=== PATIENT | female | born 1980 | race Caucasian/White ===

== ENCOUNTER 2017-06-14 19:47 | Emergency (ER) | payer OTHER ==
--- NOTE | 2017-06-14 20:26 | ED ---
General Adult HPI - General Chief complaint: Chest Pain Stated complaint: chest pain/dizziness Time Seen by Provider: 06/14/17 20:23 Source: patient Mode of arrival: ambulatory Limitations: no limitations - History of Present Illness Initial comments: Patient is a 37 rolled female who presents to the emergency department for evaluation of 1 month of chest pain. Patient states that intermittently over the past one night she has experienced retrosternal discomfort. Patient states that the pain is in the middle of her chest. She cannot identify any exacerbating or relieving factors to the pain. She describes the pain as sharp. She does not feel the pain is related to exertion, rest or eating. She reports that the pain occurs intermittently without positive or relieving factors. She reports a prior to this month she is not experience pain like this before. Patient is currently every day smoker. She has no personal history of DVT or PE. No history of recent surgery, or immobilization. She denies any fevers, chills, nausea, vomiting. She does endorse a history of frequent abdominal cramping which she attributes to gas as well as frequent belching. Patient states that her friends have advised her that she needs to take Tums or something for her chronic belching and that this is probably concerning to her pain however after 1 month of persistent pain she decided to come to the hospital to be evaluated. Patient has not taken any medications or tried anything for relief of this pain. She denies any known family history of cardiac disease, DVT or PE. - Related Data Previous Rx's Medication Instructions Recorded Omeprazole Magnesium [Prilosec OTC] 20 mg PO DAILY #30 tablet. 06/14/17 Omeprazole [PriLOSEC] 20 mg PO DAILY #30 cap 06/14/17 Allergies Allergy/AdvReac Type Severity Reaction Status Date / Time sulfamethoxazole Allergy Itching Verified 06/14/17 20:42 [From Bactrim] trimethoprim [From Bactrim] Allergy Itching Verified 06/14/17 20:42 Review of Systems ROS Statement: Those systems with pertinent positive or pertinent negative responses have been documented in the HPI. ROS Other: All systems not noted in ROS Statement are negative. Constitutional: Denies: fever, chills ENT: Denies: throat pain Respiratory: Denies: cough, dyspnea Cardiovascular: Reports: chest pain. Denies: palpitations, dyspnea on exertion , orthopnea, edema, syncope Endocrine: Denies: fatigue Gastrointestinal: Reports: nausea, other (Gas pains and frequent belching). Denies: abdominal pain, vomiting Genitourinary: Reports: abnormal menses (Last menses was at the end of April, there is possibility the patient is ). Denies: urgency, dysuria Musculoskeletal: Denies: back pain Skin: Denies: rash, lesions Neurological: Denies: headache, weakness Hematological/Lymphatic: Denies: easy bleeding, easy bruising Past Medical History Past Medical History: Musculoskeletal Disorder Additional Past Medical History / Comment(s): scoliosis, DDD History of Any Multi-Drug Resistant Organisms: None Reported Past Surgical History: Appendectomy, Back Surgery Additional Past Surgical History / Comment(s): D & C Past Anesthesia/Blood Transfusion Reactions: No Reported Reaction Past Psychological History: Anxiety, Bipolar, Depression, Panic Disorder Smoking Status: Current every day smoker Past Alcohol Use History: None Reported Past Drug Use History: None Reported - Past Family History Mother History Unknown: Yes General Exam Limitations: no limitations General appearance: alert, in no apparent distress Head exam: Present: atraumatic, normocephalic, normal inspection Eye exam: Present: normal appearance, PERRL, EOMI. Absent: scleral icterus, conjunctival injection, periorbital swelling ENT exam: Present: normal exam, mucous membranes moist Neck exam: Present: normal inspection. Absent: tenderness, meningismus, lymphadenopathy Respiratory exam: Present: normal lung sounds bilaterally. Absent: respiratory distress, wheezes, rales, rhonchi, stridor Cardiovascular Exam: Present: regular rate, normal rhythm, normal heart sounds. Absent: systolic murmur, diastolic murmur, rubs, gallop, clicks GI/Abdominal exam: Present: soft, normal bowel sounds. Absent: distended, tenderness, guarding, rebound, rigid Rectal exam: Present: deferred Extremities exam: Present: normal inspection, full ROM, normal capillary refill. Absent: tenderness, pedal edema, joint swelling, calf tenderness Back exam: Present: normal inspection Neurological exam: Present: alert, oriented X3, CN II-XII intact Psychiatric exam: Present: normal affect, normal mood Skin exam: Present: warm, dry, intact, normal color. Absent: rash Course Vital Signs 06/14/17 06/14/17 06/14/17 19:53 20:17 21:20 Temperature 99.0 F Pulse Rate 81 73 80 Respiratory 18 19 18 Rate Blood Pressure 108/72 106/62 O2 Sat by Pulse 100 98 97 Oximetry 06/14/17 22:47 Temperature 97.8 F Pulse Rate 74 Respiratory 18 Rate Blood Pressure 114/67 O2 Sat by Pulse 97 Oximetry EKG Findings - EKG Comments: EKG Findings:: EKG at 2004, EKG evaluated at 2008, EKG rate is 70 him a rhythm is normal sinus, normal axis, normal intervals, SD 146, QRS 88, QTC 436 there is no acute ST elevations or depressions. No evidence of acute ischemia or infarction. Medical Decision Making - Medical Decision Making Patient was seen and evaluated Vital signs were reviewed History was obtained from the patient Patient with a one-month history of retrosternal chest pain, frequent burping and is patient reports being very gassy. History is suggestive of GI cause of discomfort, however I will pursue a workup to evaluate for acute coronary syndrome and possible pulmonary embolism Heart score 0 PERC negative WELLS 0 Labs were reviewed, troponin negative, d-dimer negative EKG with no acute findings Results were discussed with the patient, I advised her that her workup is suggestive of no cardiac or pulmonary cause of her discomfort. I suggested that she started on a PPI and keep a close record of her discomfort and see if she can identify any costovertebral exacerbating factors so that she can discuss this with her primary care when she establishes follow-up. Advised the patient to return to the emergency department for any acute worsening of the chest pain, development of shortness of breath or any other signs or symptoms she finds concerning. Patient expressed relief that the workup was negative. All questions pertaining to care were answered to the best of my ability the patient was discharged home - Lab Data Result diagrams: 06/14/17 20:50 06/14/17 20:50 Lab Results 06/14/17 06/14/17 06/14/17 Range/Units 20:50 20:50 20:50 WBC 9.2 (3.8-10.6) k/uL RBC 4.75 (3.80-5.40) m/uL Hgb 14.8 (11.4-16.0) gm/dL Hct 43.2 (34.0-46.0) % MCV 91.0 (80.0-100.0) fL MCH 31.2 (25.0-35.0) pg MCHC 34.3 (31.0-37.0) g/dL RDW 14.1 (11.5-15.5) % Plt Count 291 (150-450) k/uL Neutrophils % 51 % Lymphocytes % 40 % Monocytes % 5 % Eosinophils % 2 % Basophils % 1 % Neutrophils # 4.7 (1.3-7.7) k/uL Lymphocytes # 3.7 (1.0-4.8) k/uL Monocytes # 0.4 (0-1.0) k/uL Eosinophils # 0.2 (0-0.7) k/uL Basophils # 0.1 (0-0.2) k/uL PT 9.7 (9.0-12.0) sec INR 0.9 (<1.2) APTT 25.0 (22.0-30.0) sec D-Dimer 0.49 (<0.60) mg/L FEU Sodium 137 (137-145) mmol/L Potassium 4.3 (3.5-5.1) mmol/L Chloride 104 (98-107) mmol/L Carbon Dioxide 25 (22-30) mmol/L Anion Gap 8 mmol/L BUN 14 (7-17) mg/dL Creatinine 0.60 (0.52-1.04) mg/dL Est GFR (MDRD) Af Amer >60 (>60 ml/min/1.73 sqM) Est GFR (MDRD) Non-Af >60 (>60 ml/min/1.73 sqM) Glucose 87 (74-99) mg/dL Calcium 9.2 (8.4-10.2) mg/dL Magnesium 1.8 (1.6-2.3) mg/dL Total Bilirubin 0.2 (0.2-1.3) mg/dL AST 20 (14-36) U/L ALT 26 (9-52) U/L Alkaline Phosphatase 57 (38-126) U/L Troponin I (0.000-0.034) ng/mL Total Protein 6.2 L (6.3-8.2) g/dL Albumin 3.6 (3.5-5.0) g/dL Urine Color Urine Appearance (Clear) Urine pH (5.0-8.0) Ur Specific [place] (1.001-1.035) Urine Protein (Negative) Urine Glucose (UA) (Negative) Urine Ketones (Negative) Urine Blood (Negative) Urine Nitrite (Negative) Urine Bilirubin (Negative) Urine Urobilinogen (<2.0) mg/dL Ur Leukocyte Esterase (Negative) Urine RBC (0-5) /hpf Urine WBC (0-5) /hpf Ur Squamous Epith Cells (0-4) /hpf Calcium Oxalate Crystal (None) /hpf Amorphous Sediment (None) /hpf Urine Bacteria (None) /hpf Urine Mucus (None) /hpf Urine HCG, Qual (Not Detectd) 06/14/17 06/14/17 06/14/17 Range/Units 20:50 21:26 21:26 WBC (3.8-10.6) k/uL RBC (3.80-5.40) m/uL Hgb (11.4-16.0) gm/dL Hct (34.0-46.0) % MCV (80.0-100.0) fL MCH (25.0-35.0) pg MCHC (31.0-37.0) g/dL RDW (11.5-15.5) % Plt Count (150-450) k/uL Neutrophils % % Lymphocytes % % Monocytes % % Eosinophils % % Basophils % % Neutrophils # (1.3-7.7) k/uL Lymphocytes # (1.0-4.8) k/uL Monocytes # (0-1.0) k/uL Eosinophils # (0-0.7) k/uL Basophils # (0-0.2) k/uL PT (9.0-12.0) sec INR (<1.2) APTT (22.0-30.0) sec D-Dimer (<0.60) mg/L FEU Sodium (137-145) mmol/L Potassium (3.5-5.1) mmol/L Chloride (98-107) mmol/L Carbon Dioxide (22-30) mmol/L Anion Gap mmol/L BUN (7-17) mg/dL Creatinine (0.52-1.04) mg/dL Est GFR (MDRD) Af Amer (>60 ml/min/1.73 sqM) Est GFR (MDRD) Non-Af (>60 ml/min/1.73 sqM) Glucose (74-99) mg/dL Calcium (8.4-10.2) mg/dL Magnesium (1.6-2.3) mg/dL Total Bilirubin (0.2-1.3) mg/dL AST (14-36) U/L ALT (9-52) U/L Alkaline Phosphatase (38-126) U/L Troponin I <0.012 (0.000-0.034) ng/mL Total Protein (6.3-8.2) g/dL Albumin (3.5-5.0) g/dL Urine Color Yellow Urine Appearance Cloudy H (Clear) Urine pH 6.0 (5.0-8.0) Ur Specific [place] 1.024 (1.001-1.035) Urine Protein Trace H (Negative) Urine Glucose (UA) Negative (Negative) Urine Ketones Trace H (Negative) Urine Blood Negative (Negative) Urine Nitrite Negative (Negative) Urine Bilirubin Negative (Negative) Urine Urobilinogen 2.0 (<2.0) mg/dL Ur Leukocyte Esterase Trace H (Negative) Urine RBC 2 (0-5) /hpf Urine WBC 8 H (0-5) /hpf Ur Squamous Epith Cells 35 H (0-4) /hpf Calcium Oxalate Crystal Few H (None) /hpf Amorphous Sediment Occasional H (None) /hpf Urine Bacteria Few H (None) /hpf Urine Mucus Occasional H (None) /hpf Urine HCG, Qual Not Detected (Not Detectd) Disposition Clinical Impression: Atypical chest pain Disposition: HOME SELF-CARE Condition: Good Instructions: Chest Pain (ED), Costochondritis (ED) Prescriptions: Omeprazole [PriLOSEC] 20 mg PO DAILY #30 cap Omeprazole Magnesium [Prilosec OTC] 20 mg PO DAILY #30 tablet. Referrals: None,Stated [Primary Care Provider] - 1-2 days
[2017-06-14] MEDS ORDERED: ASPIRIN 81 MG PO STA (20:35)
[2017-06-14 21:02] LABS: Basophils # (A) 0.1 k/uL (0-0.2); Basophils % (A) 1 %; CH 31.1; CHCM 34.3; Eosinophils # (A) 0.2 k/uL (0-0.7); Eosinophils % (A) 2 %; HCT 43.2 % (34.0-46.0); HDW 2.36; HGB 14.8 gm/dL (11.4-16.0); Luc # (Auto) 0.19; Luc % (Auto) 2; Lymphocytes # (A) 3.7 k/uL (1.0-4.8); Lymphocytes % (A) 40 %; MCH 31.2 pg (25.0-35.0); MCHC 34.3 g/dL (31.0-37.0); Mean Platelet Volume 8.3; Monocytes # (A) 0.4 k/uL (0-1.0); Monocytes % (A) 5 %; Neutrophils # (A) 4.7 k/uL (1.3-7.7); Neutrophils % (A) 51 %; RBC 4.75 m/uL (3.80-5.40); RDW 14.1 % (11.5-15.5); WBC 9.2 k/uL (3.8-10.6); WBC (Perox) 8.87
[2017-06-14 21:12] LABS: Anion Gap 8 mmol/L; Carbon Dioxide 25 mmol/L (22-30); Chloride 104 mmol/L (98-107); Glucose 87 mg/dL (74-99); Potassium 4.3 mmol/L (3.5-5.1); Sodium 137 mmol/L (137-145)
[2017-06-14 21:13] LABS: ALT 26 U/L (9-52); AST 20 U/L (14-36); Alkaline Phosphatase 57 U/L (38-126); Blood Urea Nitrogen 14 mg/dL (7-17); Calcium 9.2 mg/dL (8.4-10.2); Magnesium 1.8 mg/dL (1.6-2.3); Non-African American GFR(MDRD) >60 (>60 ml/min/1.73 sqM); Total Bilirubin 0.2 mg/dL (0.2-1.3); Total Protein 6.2 g/dL (6.3-8.2)
[2017-06-14 21:17] LABS: INR 0.9 (<1.2); Prothrombin Time 9.7 sec (9.0-12.0)
[2017-06-14 21:21] VITALS: RESP 18
[2017-06-14 22:00] LABS: Amorphous Sediment,Urine Occasional /hpf; Appearance,Urine Cloudy (Clear); Bacteria,Urine Few /hpf; Bilirubin,Urine Negative (Negative); Calcium Oxalate Crystals,Urine Few /hpf; Glucose,Urine (UA) Negative (Negative); Ketones,Urine Trace (Negative); Leukocyte Esterase,Urine Trace (Negative); Mucus,Urine Occasional /hpf; Nitrite,Urine Negative (Negative); Particle Count 14618; Protein,Urine Trace (Negative); RBC,Urine 2 /hpf (0-5); Specific Gravity,Urine 1.024 (1.001-1.035); Squamous Epithelial Cell,Urine 35 /hpf (0-4); UA Billing (MACRO vs. MICRO) MICRO; WBC,Urine 8 /hpf (0-5)
--- NOTE | 2017-06-14 22:20 | XR ---
EXAM: XR Chest, 2 Views CLINICAL HISTORY: Reason: Chest Pain TECHNIQUE: Frontal and lateral views of the chest. COMPARISON: Chest radiographs 02/14/2016 FINDINGS: Lungs: Lungs are clear Pleural space: No evidence of pleural effusion or pneumothorax Heart: Heart size within normal limits Mediastinum: Unremarkable. Bones/joints: Chronic deformity of right eighth rib. No acute thoracic bony abnormalities identified. Other findings: No significant change is 02/14/2016 IMPRESSION: No evidence of active chest disease.
[2017-06-14 22:48] VITALS: BP 114/67; PULSE 74; TEMP 97.8
== END 2017-06-14 22:47 | disposition home or self-care (01) ==
LOC: EC 19:47
DX: R07.89 Other chest pain (principal); F17.200 Nicotine dependence, unspecified, uncomplicated; Z90.49 Acquired absence of other specified parts of digestive tract; Z88.2 Allergy status to sulfonamides
CPT/HCPCS: 36415; 71020; 80053; 81001; 81025; 83735; 84484; 85025; 85379; 85610; 85730; 93005; 99285

== ENCOUNTER 2017-08-21 19:20 | Emergency (ER) | payer OTHER ==
[2017-08-21] MEDS ORDERED: KETOROLAC 30 MG/ML 1 ML VIAL IVP STA (20:26)
[2017-08-21] MEDS ORDERED: ASPIRIN 81 MG PO STA (20:26)
[2017-08-21] MEDS ORDERED: NITROGLYCERIN OINT 1 INCH/GM PACKET TOPICAL STA (20:26)
--- NOTE | 2017-08-21 20:55 | XR ---
EXAMINATION TYPE: XR chest 2V DATE OF EXAM: 08/21/2017 COMPARISON: 06/14/2016 HISTORY: Chest pain TECHNIQUE: Frontal and lateral views of the chest are obtained. FINDINGS: Heart and mediastinum are normal. Lungs are clear. Diaphragm is normal. Bony thorax is int act. There is some ankylotic change in the lower thoracic spine. IMPRESSION: No cardiopulmonary disease. No change.
[2017-08-21 20:56] LABS: Basophils # (A) 0.1 k/uL (0-0.2); Basophils % (A) 1 %; CH 30.3; CHCM 33.2; Eosinophils # (A) 0.2 k/uL (0-0.7); Eosinophils % (A) 2 %; HDW 2.11; HGB 13.5 gm/dL (11.4-16.0); Luc # (Auto) 0.11; Luc % (Auto) 1; Lymphocytes # (A) 3.4 k/uL (1.0-4.8); Lymphocytes % (A) 42 %; MCHC 33.8 g/dL (31.0-37.0); MCV 91.7 fL (80.0-100.0); Mean Platelet Volume 9.3; Monocytes # (A) 0.4 k/uL (0-1.0); Monocytes % (A) 5 %; Neutrophils % (A) 49 %; RBC 4.36 m/uL (3.80-5.40); RDW 14.4 % (11.5-15.5); WBC 8.2 k/uL (3.8-10.6); WBC (Perox) 8.78
[2017-08-21 21:05] LABS: Creatine Kinase 33 U/L (30-135)
[2017-08-21 21:07] LABS: ALT 29 U/L (9-52); AST 21 U/L (14-36); Alkaline Phosphatase 49 U/L (38-126); Anion Gap 9 mmol/L; Blood Urea Nitrogen 17 mg/dL (7-17); Calcium 9.2 mg/dL (8.4-10.2); Carbon Dioxide 23 mmol/L (22-30); Chloride 107 mmol/L (98-107); Glucose 85 mg/dL (74-99); Magnesium 1.7 mg/dL (1.6-2.3); Non-African American GFR(MDRD) >60 (>60 ml/min/1.73 sqM); Potassium 3.9 mmol/L (3.5-5.1); Sodium 139 mmol/L (137-145); Total Bilirubin 0.2 mg/dL (0.2-1.3); Total Protein 6.5 g/dL (6.3-8.2)
[2017-08-21 21:08] LABS: Partial Thromboplastin Time 26.2 sec (22.0-30.0); Prothrombin Time 9.9 sec (9.0-12.0)
[2017-08-21 21:17] LABS: Creatine Kinase MB <0.2 ng/mL (0.0-2.4); Troponin I <0.012 ng/mL (0.000-0.034)
--- NOTE | 2017-08-21 22:20 | ED ---
Chest Pain HPI - General Chief Complaint: Chest Pain Stated Complaint: Chest pain Time Seen by Provider: 08/21/17 20:15 Source: patient Mode of arrival: wheelchair Limitations: no limitations - History of Present Illness Initial Comments: This 37-year-old white female presents with a complaint of some chest pain. This is a left sided chest pain described as a pressure type sensation. She also complains of some bilateral upper back pain. She states that this sensation has been fairly constant over the past 3 days. She states that she's had it multiple times in the past as well. She denies any known cardiac disease. She denies any history of DVT or PE or any leg pain or swelling. She' s never had a stress test or heart catheterization. She denies any injuries to her chest. She denies any other complaints or modifying factors. She denies any shortness breath, diaphoresis, or palpitations.she does relate a strong family history of cardiac disease as her father apparently had a myocardial infarction at age 42. - Related Data Home Medications Medication Instructions Recorded Confirmed No Known Home Medications [No 08/21/17 08/21/17 Known Home Medications] Allergies Allergy/AdvReac Type Severity Reaction Status Date / Time sulfamethoxazole Allergy Itching Verified 08/21/17 20:20 [From Bactrim] trimethoprim [From Bactrim] Allergy Itching Verified 08/21/17 20:20 Review of Systems ROS Statement: Those systems with pertinent positive or pertinent negative responses have been documented in the HPI. ROS Other: All systems not noted in ROS Statement are negative. Past Medical History Past Medical History: Musculoskeletal Disorder Additional Past Medical History / Comment(s): scoliosis, DDD History of Any Multi-Drug Resistant Organisms: None Reported Past Surgical History: Appendectomy, Back Surgery Additional Past Surgical History / Comment(s): D & C Past Anesthesia/Blood Transfusion Reactions: No Reported Reaction Past Psychological History: Anxiety, Bipolar, Depression, Panic Disorder Smoking Status: Current every day smoker Past Alcohol Use History: None Reported Past Drug Use History: None Reported - Past Family History Mother History Unknown: Yes General Exam - General Exam Comments Initial Comments: GENERAL: The patient is well nourished and well hydrated. VITAL SIGNS: Heart rate, blood pressure, respiratory rate reviewed as recorded in nurse's notes. EYES: Pupils are round and reactive. Extraocular movements are intact. No conjunctival / lid redness or swelling. ENT: No external evidence of injury, swelling, or ecchymosis. Airway is patent. Throat is clear. NECK: Nontender. No swelling or evidence of injury. No subcutaneous emphysema. Trachea is midline. No thyroid mass. HEART: Regular rate and rhythm. Good peripheral pulses. LUNGS/CHEST: Breath sounds clear and equal bilaterally. No rales, rhonchi, or wheezes. No ecchymosis, subcutaneous emphysema, or tenderness. ABDOMEN: Abdomen soft without tenderness. No palpable masses or organomegaly. No peritoneal signs. No abdominal wall swelling or ecchymosis. EXTREMITIES: No extremity tenderness. Normal muscle tone and function. No thoracolumbar tenderness. NEUROLOGIC: Sensation is grossly intact. Cranial nerve exam reveals face is symmetrical, tongue is midline, speech is clear. SKIN: No abrasions or ecchymosis is noted. No induration or masses noted. PSYCHIATRIC: Alert and oriented. Appropriate behavior and judgment. 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 All diagnostics were reviewed. She is placed on a bowling ball molder no ectopy is identified. The EKG shows a normal sinus rhythm at a rate of 66. There is no acute ST-T wave changes identified. The MO intervals 160, QRS duration is 100, and the QTc interval is 438. The patient also has a chest x-ray which is unremarkable. The cardiac profile labs are all within normal limits. She is feeling improved after some Nitropaste and aspirin. Is felt as though she would benefit from admission to the hospital. She refuses stating that she is currently with her child and her child is impatient and she needs to take him home.she understands that we have not thoroughly checked out her cardiac status and that we have not performed a stress test or echocardiogram that she would benefit from further inpatient admission to definitively rule this out. She still is refusing admission. Risks benefits are discussed in detail and she leaves AGAINST MEDICAL ADVICE. She does agree to follow up closely with a primary care physician once she obtains one. She will be referred to our infection control nurse for further evaluation as well. Disposition Clinical Impression: Chest pain, Left against medical advice Disposition: HOME SELF-CARE Condition: Fair Instructions: Chest Pain (ED), Against Medical Advice (ED) Additional Instructions: please take an aspirin daily. Referrals: None,Stated [Primary Care Provider] - 1-2 days Ariane Johnson MD [STAFF PHYSICIAN] - 1-2 days Time of Disposition: 22:19
[2017-08-21 22:26] VITALS: BP 106/70; PULSE 68; RESP 16; TEMP 97.3
== END 2017-08-21 22:31 | disposition home or self-care (01) ==
LOC: EC 19:20
DX: R07.9 Chest pain, unspecified (principal); M54.6 Pain in thoracic spine; F17.200 Nicotine dependence, unspecified, uncomplicated; Z87.39 Personal history of other diseases of the musculoskeletal system and connective tissue; Z98.890 Other specified postprocedural states; Z88.2 Allergy status to sulfonamides; Z53.29 Procedure and treatment not carried out because of patient's decision for other reasons
CPT/HCPCS: 99285; 96374; 36415; 93005; 85379; 80053; 82550; 82553; 83735; 84484; 85025; 85610; 85730; 71020; J1885

== ENCOUNTER 2018-01-14 16:45 | Observation (INO) | payer OTHER ==
[2018-01-14] MEDS ORDERED: MORPHINE SULFATE 4MG/4ML SYRG IVP STA (17:38)
[2018-01-14] MEDS ORDERED: ASPIRIN 81 MG PO STA (17:38)
--- NOTE | 2018-01-14 17:44 | ED ---
Chest Pain HPI - General Source: patient, RN notes reviewed Mode of arrival: wheelchair Limitations: no limitations <Vlad Ge - Last Filed: 01/14/18 18:37> <Duke Cosme - Last Filed: 01/14/18 18:51> - General Chief Complaint: Chest Pain Stated Complaint: CHEST PAIN, ART Time Seen by Provider: 01/14/18 17:11 - History of Present Illness Initial Comments: This a 37-year-old female presents emergency Department chief complaint of chest discomfort last 3 days. Patient states she has ongoing history of chest pain states that she's had it chronically enough that her primary care physician has scheduled a stress test on the of this month. Patient states that the pain is not constant and seems to come and go and she describes it as sharp stabbing sometimes pressure-like sometimes is achiness. She primarily feels on the sternal to right sided rates more to the right. Patient denies any fever, chills or cough like symptoms. Patient states that she hasn' t history of hyperlipidemia recently found not going to be placed on medication states that she is doing dietary changes, no history of hypertension, diabetes. Patient is a daily smoker. Patient states that her father of a heart attack. Patient denies any other associated symptoms or complaints. (Vlad Ge) - Related Data Home Medications Medication Instructions Recorded Confirmed Ibuprofen [Motrin Ib] 800 mg PO TID PRN 01/14/18 01/14/18 Allergies Allergy/AdvReac Type Severity Reaction Status Date / Time sulfamethoxazole Allergy Itching Verified 01/14/18 17:32 [From Bactrim] trimethoprim [From Bactrim] Allergy Itching Verified 01/14/18 17:32 Review of Systems ROS Other: All systems not noted in ROS Statement are negative. <Vlad Ge - Last Filed: 01/14/18 18:37> ROS Other: All systems not noted in ROS Statement are negative. <Duke Cosme - Last Filed: 01/14/18 18:51> ROS Statement: Those systems with pertinent positive or pertinent negative responses have been documented in the HPI. EKG Findings - EKG Comments: EKG Findings:: EKG performed at 17:09 sinus bradycardia with a rate of 57 WA 164 QRS 102 QTC is QTC 458/445 there is inverted T waves V1 through V3 <Vlad Ge - Last Filed: 01/14/18 18:37> Past Medical History Past Medical History: Musculoskeletal Disorder Additional Past Medical History / Comment(s): scoliosis, DDD History of Any Multi-Drug Resistant Organisms: None Reported Past Surgical History: Appendectomy, Back Surgery Additional Past Surgical History / Comment(s): D & C Past Anesthesia/Blood Transfusion Reactions: No Reported Reaction Past Psychological History: Anxiety, Bipolar, Depression, Panic Disorder Smoking Status: Current every day smoker Past Alcohol Use History: None Reported Past Drug Use History: Marijuana - Past Family History Mother History Unknown: Yes <JooVlad - Last Filed: 01/14/18 18:37> General Exam Limitations: no limitations General appearance: alert, in no apparent distress Head exam: Present: atraumatic, normocephalic, normal inspection Eye exam: Present: normal appearance, PERRL, EOMI. Absent: scleral icterus, conjunctival injection, periorbital swelling ENT exam: Present: normal exam, normal oropharynx, mucous membranes moist Neck exam: Present: normal inspection, full ROM. Absent: tenderness, meningismus, lymphadenopathy Respiratory exam: Present: normal lung sounds bilaterally. Absent: respiratory distress, wheezes, rales, rhonchi, stridor Cardiovascular Exam: Present: regular rate, normal rhythm, normal heart sounds. Absent: systolic murmur, diastolic murmur, rubs, gallop, clicks GI/Abdominal exam: Present: soft, normal bowel sounds. Absent: distended, tenderness, guarding, rebound, rigid <Vlad Ge Cookie - Last Filed: 01/14/18 18:37> Course <Vlad Ge Cookie - Last Filed: 01/14/18 18:37> <Duke Cosme - Last Filed: 01/14/18 18:51> Vital Signs 01/14/18 01/14/18 16:59 17:58 Temperature 98.1 F Pulse Rate 74 65 Respiratory 18 97 H Rate Blood Pressure 115/72 137/80 O2 Sat by Pulse 99 98 Oximetry - Reevaluation(s) Reevaluation #1: 01/14/18 18:51 PA supervision: I did personally do a [id number] evaluation the patient did discuss findings with her. Patient does have atypical right-sided chest pain she is a smoker however does have a strong family history of heart disease. Her dad was 42 years old and he of a heart attack. Patient will be admitted I did discuss the case with the admitting hospitalist service. (Duke Cosme) Disposition <Vlad Ge - Last Filed: 01/14/18 18:37> <Duke Cosme - Last Filed: 01/14/18 18:51> Clinical Impression: Chest pain, Nicotine dependence, Family history of heart disease Disposition: ADMITTED IP TO THIS HOSP Condition: Stable Referrals: Wanda Johnson MD [Primary Care Provider] - 1-2 days
[2018-01-14 17:45] LABS: Basophils % (A) 0 %; Eosinophils # (A) 0.1 k/uL (0-0.7); Eosinophils % (A) 2 %; HCT 40.2 % (34.0-46.0); HGB 13.3 gm/dL (11.4-16.0); Lymphocytes # (A) 3.6 k/uL (1.0-4.8); Lymphocytes % (A) 47 %; MCH 29.2 pg (25.0-35.0); MCHC 33.2 g/dL (31.0-37.0); MCV 87.8 fL (80.0-100.0); Mean Platelet Volume 8.7; Monocytes # (A) 0.4 k/uL (0-1.0); Monocytes % (A) 5 %; Neutrophils # (A) 3.5 k/uL (1.3-7.7); Neutrophils % (A) 45 %; Platelet Count 307 k/uL (150-450); RBC 4.57 m/uL (3.80-5.40); RDW 12.7 % (11.5-15.5); WBC 7.8 k/uL (3.8-10.6)
[2018-01-14 17:57] LABS: ALT 18 U/L (9-52); AST 22 U/L (14-36); Albumin 4.2 g/dL (3.5-5.0); Alkaline Phosphatase 50 U/L (38-126); Anion Gap 14 mmol/L; Blood Urea Nitrogen 12 mg/dL (7-17); Calcium 9.4 mg/dL (8.4-10.2); Carbon Dioxide 22 mmol/L (22-30); Chloride 106 mmol/L (98-107); Glucose 86 mg/dL (74-99); Magnesium 1.9 mg/dL (1.6-2.3); Potassium 4.1 mmol/L (3.5-5.1); Sodium 142 mmol/L (137-145); Total Bilirubin 0.2 mg/dL (0.2-1.3); Total Protein 7.3 g/dL (6.3-8.2)
--- NOTE | 2018-01-14 18:00 | XR ---
EXAMINATION TYPE: XR chest 2V DATE OF EXAM: 01/14/2018 COMPARISON: 08/21/2017 HISTORY: Chest pain TECHNIQUE: Frontal and lateral views of the chest are obtained. FINDINGS: Heart and mediastinum are normal. Lungs are clear. Diaphragm is normal. Bony thorax is int act. Pulmonary vascularity is normal. IMPRESSION: Normal chest. No change.
[2018-01-14 18:04] LABS: D-Dimer 0.46 mg/L FEU (<0.60); Partial Thromboplastin Time 25.6 sec (22.0-30.0); Prothrombin Time 9.6 sec (9.0-12.0)
[2018-01-14 18:08] LABS: Creatine Kinase 46 U/L (30-135)
[2018-01-14 18:22] LABS: Creatine Kinase MB <0.2 ng/mL (0.0-2.4); Troponin I <0.012 ng/mL (0.000-0.034)
[2018-01-14] MEDS ORDERED: HEPARIN SODIUM,PORCINE 5,000 UNIT/ML 1 ML VIAL IV ONE (18:38)
[2018-01-14] MEDS ORDERED: HEPARIN SOD,PORK IN 0.45% NACL 25,000 UNIT in 0.45% NACL 1 500ML.BAG IV SCH (18:45)
[2018-01-14] MEDS: NITROGLYCERIN SL TABS 0.4 MG TAB SUBLINGUAL PRN ×2 (21:19→21:31)
[2018-01-14 21:31] VITALS: BMI 23.3
[2018-01-14] MEDS: MORPHINE SULFATE 4MG/4ML SYRG IVP PRN (22:26)
[2018-01-15 01:02] LABS: Creatine Kinase 39 U/L (30-135)
[2018-01-15 01:18] LABS: Creatine Kinase MB <0.2 ng/mL (0.0-2.4); Troponin I <0.012 ng/mL (0.000-0.034)
[2018-01-15] MEDS: MORPHINE SULFATE 4MG/4ML SYRG IVP PRN ×2 (07:03→11:19)
[2018-01-15 07:32] LABS: Creatine Kinase 37 U/L (30-135)
[2018-01-15 07:38] LABS: Cholesterol 213 mg/dL (<200); HDL Cholesterol 35 mg/dL (40-60); LDL Cholesterol,Calculated 160 mg/dL (0-99); Triglycerides 90 mg/dL (<150)
[2018-01-15 07:43] LABS: Creatine Kinase MB <0.2 ng/mL (0.0-2.4); Troponin I <0.012 ng/mL (0.000-0.034)
[2018-01-15 08:01] VITALS: RESP 18
[2018-01-15] MEDS ORDERED: ASPIRIN 325 MG TAB PO SCH (09:00)
--- NOTE | 2018-01-15 11:01 | ECHOF ---
Referral Reason:chest pain MEASUREMENTS -------- HEIGHT: 165.1 cm WEIGHT: 63.5 kg BP: 100/51 RVIDd: 2.6 cm (< 3.3) IVSd: 1.1 cm (0.6 - 1.1) LVIDd: 4.4 cm (3.9 - 5.3) LVPWd: 1.3 cm (0.6 - 1.1) IVSs: 1.3 cm LVIDs: 3.8 cm LVPWs: 1.6 cm LA Diam: 2.8 cm (2.7 - 3.8) LAESV Index (A-L): 36.87 ml/m Ao Diam: 3.1 cm (2.0 - 3.7) AV Cusp: 1.9 cm (1.5 - 2.6) LA Diam: 3.7 cm (2.7 - 3.8) MV EXCURSION: 19.089 mm (> 18.000) MV EF SLOPE: 108 mm/s (70 - 150) EPSS: 0.9 cm MV E Jose Juan: 0.79 m/s MV DecT: 207 ms MV A Jose Juan: 0.54 m/s MV E/A Ratio: 1.47 RAP: 5.00 mmHg RVSP: 20.18 mmHg FINDINGS -------- Sinus rhythm. This was a technically good study. LV size, wall thickness and systolic function are normal, with an EF greater than 55%. The left roberto tricular size is normal. The right ventricle is normal in size. The left atrial size is normal. LA is moderately dilated 34-39 ml/m2 The right atrial size is normal. The aortic valve is trileaflet, and appears structurally normal. No aortic stenosis or regurgitation. Mild mitral annular calcification present. Mild mitral regurgitation is present. Mild tricuspid regurgitation present. There is no evidence of pulmonary hypertension. The right v entricular systolic pressure, as measured by Doppler, is 20.18mmHg. There is no pulmonic regurgitation present. The aortic root size is normal. There is no pericardial effusion. CONCLUSIONS -------- 1. LV size, wall thickness and systolic function are normal, with an EF greater than 55%. 2. The left ventricular size is normal. 3. LA is moderately dilated 34-39 ml/m2 4. The aortic valve is trileaflet, and appears structurally normal. No aortic stenosis or regurgitati on. 5. Mild mitral annular calcification present. 6. Mild mitral regurgitation is present. 7. Mild tricuspid regurgitation present. 8. There is no evidence of pulmonary hypertension. 9. The right ventricular systolic pressure, as measured by Doppler, is 20.18mmHg. 10. There is no pulmonic regurgitation present. 11. The aortic root size is normal. 12. There is no pericardial effusion. PAYROLL MANAGER: Brigid Tirado RDCS
--- NOTE | 2018-01-15 11:19 | ECHOS ---
STRESS ECHOCARDIOGRAM DATE OF SERVICE: 01/15/2018 INDICATIONS: Chest pain. MEDICATIONS: BASELINE HEART RATE: 66 BASELINE BLOOD PRESSURE: 93/56 MAXIMUM HEART RATE: 143 MAXIMUM BLOOD PRESSURE: 158/54 85% MPHR: 154 100% MPHR: 181 METS: 10.7 MAXIMUM STAGE REACHED: IV TOTAL EXERCISE TIME: 9:30 CLINICAL INFORMATION: Patient admitted with recurrent chest discomfort. Stress echo was ordered. Baseline heart rate is 66 beats per minute. Baseline blood pressure 93/56 mmHg. Baseline 12-lead ECG shows normal sinus rhythm with normal cardiac intervals. Patient exercised on a Jake protocol for 9 minutes 30 seconds achieving a peak heart rate of 143 beats per minute. Normal blood pressure response to exercise. Baseline 2-D echo images were suboptimal. Definity contrast was used to delineate the endocardial borders. There was excellent augmentation of overall LV contractility without developing any wall motion abnormalities at peak exercise. At recovery, regional global LV systolic function remained normal. There was no ECG evidence for ischemia. No arrhythmias were noted. IMPRESSION: Good exercise capacity. No ECG or echocardiographic evidence for ischemia. MMODL / IJN: [id number] /
[2018-01-15 11:52] VITALS: BP 115/68; PULSE 65; TEMP 98
--- NOTE | 2018-01-15 13:28 | P.CRDCN ---
History of Present Illness Consult date: 01/15/18 Consult reason: chest pain History of present illness: Mrs. Garcia is a pleasant 37-year-old female past medical history significant for dyslipidemia, anxiety, depression and chronic tobacco use. She denies history of coronary artery disease and has never seen a second crusher for any reason. We have been asked to see her in consultation for complaints of chest pain. She states Sunday while she was driving she felt a sudden stabbing, pressure like pain to the right thoracic/axilla region that radiated around to the mid-sternal region. The pain in the axilla is intermittent in nature and comes on all of a sudden with no specific aggravating factor lasting less than a minute. When the pain comes she feels short of breath, dizzy, nauseated and diaphoretic. Denies palpitations or vomiting. The pain in the mid-sternal region is constant for the last 3 days. She has been following at the [facility] for these symptoms in the past and was scheduled for a stress test last week but missed the appointment. EKG on arrival reveals sinus mechanism with non-specific T-wave abnormalities with incomplete right bundle branch block. Repeat EKG this morning was sinus mechanism. Chest xray is negative for an acute cardiopulmonary process. Laboratory data reviewed, d-dimer 0.46, cardiac enzymes negative x3, LDL 160, potassium 4.1, magnesium 1.9. Review of Systems At the time of my exam: CONSTITUTIONAL: Denies fever. Denies chills. EYES: Denies blurred vision. Denies vision changes. Denies eye pain. EARS, NOSE, MOUTH & THROAT: Denies headache. Denies sore throat. Denies ear pain. CARDIOVASCULAR: Denies chest pain. Denies shortness of breath. Denies orthopnea. Denies PND. Denies palpitations. RESPIRATORY: Denies cough. GASTROINTESTINAL: Denies abdominal pain. Denies diarrhea. Denies constipation. Denies nausea. Denies vomiting. MUSCULOSKELETAL: Denies myalgias. INTEGUMENTARY: Denies pruitis. Denies rash. NEUROLOGIC: Denies numbness. Denies tingling. Denies weakness. PSYCHIATRIC: Denies anxiety. Denies depression. ENDOCRINE: Denies fatigue. Denies weight change. Denies polydipsia. Denies polyurina. GENITOURINARY: Denies burning, hematuria or urgency with micturation. HEMATOLOGIC: Denies history of anemia. Denies bleeding. Past Medical History Past Medical History: Hyperlipidemia, Musculoskeletal Disorder Additional Past Medical History / Comment(s): scoliosis, DDD History of Any Multi-Drug Resistant Organisms: None Reported Past Surgical History: Appendectomy, Back Surgery Additional Past Surgical History / Comment(s): D & C, left foot surgery for bunion Past Anesthesia/Blood Transfusion Reactions: No Reported Reaction Past Psychological History: Anxiety, Bipolar, Depression, Panic Disorder Smoking Status: Current every day smoker Past Alcohol Use History: None Reported Additional Past Alcohol Use History / Comment(s): started smoking 2003 Past Drug Use History: Marijuana - Past Family History Father History Unknown: Yes Family Medical History: Myocardial Infarction ([place]) Additional Family Medical History / Comment(s): at age 42 from [place] Mother History Unknown: Yes Additional Family Medical History / Comment(s): renal failure Medications and Allergies Home Medications Medication Instructions Recorded Confirmed Type Ibuprofen [Motrin Ib] 800 mg PO TID PRN 01/14/18 01/14/18 History Allergies Allergy/AdvReac Type Severity Reaction Status Date / Time sulfamethoxazole Allergy Itching Verified 01/14/18 17:32 [From Bactrim] trimethoprim [From Bactrim] Allergy Itching Verified 01/14/18 17:32 Physical Exam Vitals: Vital Signs Temp Pulse Pulse Resp BP BP Pulse Ox 01/15/18 08:00 97.9 F 72 18 102/66 98 01/15/18 07:00 100/51 01/15/18 03:58 98.1 F 60 16 84/52 99 01/15/18 03:34 60 16 01/14/18 23:57 98.3 F 53 L 16 90/54 100 01/14/18 23:07 58 L 16 01/14/18 21:28 101/46 01/14/18 21:17 117/64 01/14/18 21:08 97.7 F 59 L 16 143/77 100 01/14/18 20:47 98.5 F 70 17 125/77 99 01/14/18 20:00 56 L 16 01/14/18 17:58 65 97 H 137/80 98 01/14/18 16:59 98.1 F 74 18 115/72 99 Intake and Output 04/06/2501/15/18 01/15/18 22:59 06:59 14:59 Intake Total 94.234 Balance 94.234 Intake: Intake, IV Titration 94.234 Amount Heparin Sod,Pork in 0.45% 94.234 NaCl 25,000 unit In 0.45 % NaCl 1 500ml.bag @ 12 UNITS/KG/HR 15.24 mls/hr IV .Q24H [facility] Rx#: [id number] Other: # Voids 3 Weight 63.503 kg Blood pressure 100/60 6/72 afebrile maintaining oxygen saturation on room air GENERAL: This is a 37-year-old female in no apparent distress at the time of my examination. HEENT: Head is atraumatic, normocephalic. Pupils are equal, round. Sclerae anicteric. Conjunctivae are clear. Mucous membranes of the mouth are moist. Neck is supple. There is no jugular venous distention. No carotid bruit is heard. LUNGS: Clear to auscultation no wheezes, rales or rhonchi. No chest wall tenderness is noted on palpation or with deep breathing. HEART: Regular rate and rhythm without murmurs, rubs or gallops. S1 and S2 heard. ABDOMEN: Soft, nontender. Bowel sounds are heard. No organomegaly noted. EXTREMITIES: No evidence of peripheral edema and no calf tenderness noted. VASCULAR: Radial and dorsalis pedis pulses palpated, no evidence of clubbing. NEUROLOGIC: Patient is awake, alert and oriented x3. Results 01/14/18 17:27 01/14/18 17:27 Cardiac Enzymes 01/14/18 01/14/18 01/15/18 Range/Units 17:27 17:27 00:09 AST 22 (14-36) U/L CK-MB (CK-2) <0.2 <0.2 (0.0-2.4) ng/mL Troponin I <0.012 <0.012 (0.000-0.034) ng/mL 01/15/18 Range/Units 06:37 AST (14-36) U/L CK-MB (CK-2) <0.2 (0.0-2.4) ng/mL Troponin I <0.012 (0.000-0.034) ng/mL Coagulation 01/14/18 01/15/18 01/15/18 Range/Units 17:27 00:09 06:37 PT 9.6 (9.0-12.0) sec APTT 25.6 40.5 H 37.0 H (22.0-30.0) sec Lipids 01/15/18 Range/Units 06:37 Triglycerides 90 (<150) mg/dL Cholesterol 213 H (<200) mg/dL HDL Cholesterol 35 L (40-60) mg/dL CBC 01/14/18 Range/Units 17:27 WBC 7.8 (3.8-10.6) k/uL RBC 4.57 (3.80-5.40) m/uL Hgb 13.3 (11.4-16.0) gm/dL Hct 40.2 (34.0-46.0) % Plt Count 307 (150-450) k/uL Comprehensive Metabolic Panel 01/14/18 Range/Units 17:27 Sodium 142 (137-145) mmol/L Potassium 4.1 (3.5-5.1) mmol/L Chloride 106 (98-107) mmol/L Carbon Dioxide 22 (22-30) mmol/L BUN 12 (7-17) mg/dL Creatinine 0.50 L (0.52-1.04) mg/dL Glucose 86 (74-99) mg/dL Calcium 9.4 (8.4-10.2) mg/dL AST 22 (14-36) U/L ALT 18 (9-52) U/L Alkaline Phosphatase 50 (38-126) U/L Total Protein 7.3 (6.3-8.2) g/dL Albumin 4.2 (3.5-5.0) g/dL Current Medications Generic Name Dose Route Start Last Admin Trade Name Freq PRN Reason Stop Dose Admin Aspirin 325 mg 01/15/18 09:00 Aspirin PO DAILY [facility] Heparin Sodium/Sodium Chloride 500 mls @ 15.24 mls/hr 01/14/18 18:45 01:29 25,000 unit/ Sodium Chloride IV 14.01 units/kg/hr .Q24H [facility] 17.8 mls/hr Protocol Titration 12 UNITS/KG/HR Morphine Sulfate 2 mg 01/14/18 22:06 01/15/18 07:03 Morphine Sulfate (Inj) IVP 2 mg Q4HR PRN Administration Pain Nitroglycerin 0.4 mg 01/14/18 18:38 01/14/18 21:31 Nitrostat SUBLINGUAL 0.4 mg Q5M PRN Administration Chest Pain Intake and Output 01/14/18 01/15/18 01/15/18 22:59 06:59 14:59 Intake Total 94.234 Balance 94.234 Intake: Intake, IV Titration 94.234 Amount Heparin Sod,Pork in 0.45% 94.234 NaCl 25,000 unit In 0.45 % NaCl 1 500ml.bag @ 12 UNITS/KG/HR 15.24 mls/hr IV .Q24H [facility] Rx#: [id number] Other: # Voids 3 Weight 63.503 kg 01/14/18 17:27 01/14/18 17:27 Assessment and Plan Assessment: ASSESSMENT 1. Chest pain, atypical. An acute coronary event has been ruled out. 2. Hyperlipidemia 3. Chronic tobacco use PLAN Obtain 2D echocardiogram and doppler study to assess cardiac structure and function. Perform stress echocardiogram to assess for stress induced ischemic changes. Recommend lifestyle modifications for decreasing cholesterol. Smoking cessation discussed. Thank you kindly for this consultation. Nurse Practitioner note has been reviewed, I agree with a documented findings and plan of care. Patient was seen and examined.
--- NOTE | 2018-01-17 21:42 | P.HPIM ---
History of Present Illness H&P Date: 01/15/18 Chief Complaint: Chest pain Mrs. Garcia is a pleasant 37-year-old female past medical history significant for scoliosis, degenerative disc disease, dyslipidemia, anxiety, depression and chronic tobacco use. She denies history of coronary artery disease and has never seen a warp tying machine knotter for any reason. She states Sunday while she was driving she felt a sudden stabbing, pressure like pain to the right thoracic/axilla region that radiated around to the mid-sternal region. The pain in the axilla is intermittent in nature and comes on all of a sudden with no specific aggravating factor lasting less than a minute. When the pain comes she feels short of breath, dizzy, nauseated and diaphoretic. Denies palpitations or vomiting. The pain in the mid-sternal region is constant for the last 3 days. She has been following at the [facility] for these symptoms in the past and was scheduled for a stress test last week but missed the appointment. EKG on arrival reveals sinus mechanism with non-specific T-wave abnormalities with incomplete right bundle branch block. Repeat EKG this morning was sinus mechanism. Chest xray is negative for an acute cardiopulmonary process. Laboratory data reviewed, d-dimer 0.46, cardiac enzymes negative x3, LDL 160, potassium 4.1, magnesium 1.9. Review of Systems Constitutional: Patient denies any fever or chills . No generalized weakness or weight loss. Abdomen: Patient denied nausea vomiting and diarrhea and abdominal pain. Cardiovascular: Patient does have chest pain. No short of breath no palpitations. Respiratory: patient denied any cough is from production. No shortness of breath Neurologic: Patient denied any numbness or tingling headache. Musculoskeletal: Patient denies any complaints of joint swelling or deformity. Skin: Negative Psychiatric: Negative Endocrine: No heat or cold intolerance. No recent weight gain. Genitourinary: No dysuria or hematuria. All other 14 point ROS negative except the above Past Medical History Past Medical History: Hyperlipidemia, Musculoskeletal Disorder Additional Past Medical History / Comment(s): scoliosis, DDD History of Any Multi-Drug Resistant Organisms: None Reported Past Surgical History: Appendectomy, Back Surgery Additional Past Surgical History / Comment(s): D & C, left foot surgery for bunion Past Anesthesia/Blood Transfusion Reactions: No Reported Reaction Past Psychological History: Anxiety, Bipolar, Depression, Panic Disorder Smoking Status: Current every day smoker Past Alcohol Use History: None Reported Additional Past Alcohol Use History / Comment(s): started smoking 2003 Past Drug Use History: Marijuana - Past Family History Father History Unknown: Yes Family Medical History: Myocardial Infarction ([place]) Additional Family Medical History / Comment(s): at age 42 from [place] Mother History Unknown: Yes Additional Family Medical History / Comment(s): renal failure Medications and Allergies Home Medications Medication Instructions Recorded Confirmed Type Pantoprazole Sodium [Protonix] 40 mg PO AC-BRKFST 28 Days #28 01/15/18 Rx tablet. Allergies Allergy/AdvReac Type Severity Reaction Status Date / Time sulfamethoxazole Allergy Itching Verified 01/14/18 17:32 [From Bactrim] trimethoprim [From Bactrim] Allergy Itching Verified 01/14/18 17:32 Physical Exam Vitals: Vital Signs Temp Pulse Pulse Resp BP BP Pulse Ox 01/15/18 11:51 98.0 F 65 18 115/68 96 01/15/18 08:00 97.9 F 72 18 102/66 98 01/15/18 07:00 100/51 01/15/18 03:58 98.1 F 60 16 84/52 99 01/15/18 03:34 60 16 01/14/18 23:57 98.3 F 53 L 16 90/54 100 01/14/18 23:07 58 L 16 01/14/18 21:28 101/46 01/14/18 21:17 117/64 01/14/18 21:08 97.7 F 59 L 16 143/77 100 01/14/18 20:47 98.5 F 70 17 125/77 99 01/14/18 20:00 56 L 16 01/14/18 17:58 65 97 H 137/80 98 01/14/18 16:59 98.1 F 74 18 115/72 99 Intake and Output 01/15/18 01/15/18 01/15/18 06:59 14:59 22:59 Intake Total 94.234 620 Balance 94.234 620 Intake: Intake, IV Titration 94.234 Amount Heparin Sod,Pork in 0.45% 94.234 NaCl 25,000 unit In 0.45 % NaCl 1 500ml.bag @ 12 UNITS/KG/HR 15.24 mls/hr IV .Q24H [facility] Rx#: [id number] Oral 620 Other: # Voids 3 Weight 63.503 kg PHYSICAL EXAMINATION: Patient is lying in the bed comfortably, no acute distress, awake alert and oriented.. HEENT: Normocephalic. Neck is supple. Pupils reactive. Nostrils clear. Oral cavity is moist. Ears reveal no drainage. Neck reveals no JVD, carotid bruits, or thyromegaly. CHEST EXAMINATION: Trachea is central. Symmetrical expansion. Lung prado clear to auscultation and percussion. CARDIAC: Normal S1, S2 with no gallops. No murmurs ABDOMEN: Soft. Bowel sounds normal. No organomegaly. No abdominal bruits. Extremities: reveal no edema. No clubbing or cyanosis Neurologically awake, alert, oriented x3 with well-coordinated movements. No focal deficits noted Skin: No rash or skin lesions. Psychiatric: Coperative. Nonsuicidal Musculoskeletal: No joint swelling or deformity. Normal range of motion. Results CBC & Chem 7: 01/14/18 17:27 01/14/18 17:27 Labs: Abnormal Lab Results - Last 24 Hours (Table) 01/14/18 01/15/18 01/15/18 Range/Units 17:27 00:09 06:37 APTT 40.5 H (22.0-30.0) sec Creatinine 0.50 L (0.52-1.04) mg/dL Cholesterol 213 H (<200) mg/dL LDL Cholesterol, Calc 160 H (0-99) mg/dL HDL Cholesterol 35 L (40-60) mg/dL 01/15/18 Range/Units 06:37 APTT 37.0 H (22.0-30.0) sec Creatinine (0.52-1.04) mg/dL Cholesterol (<200) mg/dL LDL Cholesterol, Calc (0-99) mg/dL HDL Cholesterol (40-60) mg/dL Thrombosis Risk Factor Assmnt - Choose All That Apply Any of the Below Risk Factors Present?: No Assessment and Plan Assessment: 1. Chest pain, atypical. An acute coronary event has been ruled out. 2. Hyperlipidemia 3. Chronic tobacco use 4. Scoliosis and degenerative disc disease Plan: Patient will be continued on telemetry monitoring. Serial EKG and troponins are negative. 2-D echo and stress test as recommended by cardiology. Smoking cessation has been counseled extensively.. Further recommendations based on the clinical course. Time with Patient: Greater than 30
--- NOTE | 2018-01-17 21:45 | P.DS ---
Providers Date of admission: 01/14/18 18:50 Expected date of discharge: 01/15/18 Attending physician: Akanksha Rao Consults: 01/14/18 18:38 Consult Physician Urgent Consulting Provider: [facility] Consult Reason/Comments: chest pain Do you want consulting provider notified?: Yes Primary care physician: Wanda Johnson [place] [facility] Course: 1. Chest pain, atypical. An acute coronary event has been ruled out. 2. Hyperlipidemia with LDL 160 3. Chronic tobacco use 4. Scoliosis and degenerative disc disease Hospital course Patient was continued on telemetry monitoring. Serial EKG and troponins are negative. 2-D echo and stress test as recommended by cardiology. Smoking cessation has been counseled extensively.. Patient had stress echocardiogram showed no evidence of stress-induced ischemia. Otherwise patient did improve symptomatically. Patient was short on Protonix and recommended to follow with primary physician in 1-3 days. Discharge physical examination was done and vitals reviewed. Patient Condition at Discharge: Stable Plan - Discharge Summary New Discharge Prescriptions: New Pantoprazole Sodium [Protonix] 40 mg PO AC-BRKFST 28 Days #28 tablet. Discontinued Ibuprofen [Motrin Ib] 800 mg PO TID PRN PRN Reason: Pain Discharge Medication List Pantoprazole Sodium [Protonix] 40 mg PO AC-BRKFST 28 Days #28 tablet. [Rx] Follow up Appointment(s)/Referral(s): Wanda Johnson MD [Primary Care Provider] - 1-2 days (PT TO MAKE OWN APPOINTMENT) Discharge Disposition: HOME SELF-CARE
== END 2018-01-15 16:51 | disposition home or self-care (01) ==
LOC: EC 16:45 → 3OBS 18:50
PROVIDERS: ADMIT Internal Medicine; ATTEND Internal Medicine
DX: R07.89 Other chest pain (principal); R61 Generalized hyperhidrosis; R42 Dizziness and giddiness; R11.0 Nausea; R06.02 Shortness of breath; E78.5 Hyperlipidemia, unspecified; F31.9 Bipolar disorder, unspecified; F41.0 Panic disorder [episodic paroxysmal anxiety]; F17.200 Nicotine dependence, unspecified, uncomplicated; M41.9 Scoliosis, unspecified; Z88.1 Allergy status to other antibiotic agents; Z88.2 Allergy status to sulfonamides; Z84.1 Family history of disorders of kidney and ureter; Z82.49 Family history of ischemic heart disease and other diseases of the circulatory system
CPT/HCPCS: 99285 ×2; 96365 ×2; 96366 ×4; 96375 ×3; 96376 ×2; 36415; 93005; 93017; 93306; 85379; 83880; 80061; 80053; 82550 ×2; 82553 ×2; 83735; 84484 ×2; 85025; 85610; 85730 ×2; 71046; G0378 ×2; C8928; J1644 ×2; Q9950; J2270 ×2; 93350

== ENCOUNTER 2019-01-15 10:46 | Observation (INO) | payer BC, OTHER ==
[2019-01-15] MEDS ORDERED: ASPIRIN 81 MG PO STA (11:31)
[2019-01-15] MEDS ORDERED: ONDANSETRON 4 MG/2 ML VIAL IVP STA (11:31)
--- NOTE | 2019-01-15 11:34 | ED ---
General Adult HPI <Giuseppe Peters - Last Filed: 01/15/19 14:03> - General Source: patient, RN notes reviewed Mode of arrival: ambulatory Limitations: no limitations <Vlad Ge - Last Filed: 01/15/19 14:28> - General Chief complaint: Dizziness Stated complaint: Weak, chest pain Time Seen by Provider: 01/15/19 11:27 - History of Present Illness Initial comments: 38-year-old female comes emergency Department with chief complaint of chest pain, just not feeling well, dizziness. Patient states that symptoms started shortly before arrival. Patient states that she has a strong family history of cardiac disease in which her father at age 42 from [place]. Patient is a daily smoker no history of hypertension, hyperlipidemia or diabetes. Patient states the pain is centralized and radiates up. Patient has slight shortness of breath. Patient denies any pleuritic chest pain no current headache but states that she just feels lightheaded or dizzy. Patient has slight nausea no vomiting no diarrhea no constipation. Patient does not take any current medications. (Vlad Ge) - Related Data Home Medications Medication Instructions Recorded Confirmed Naproxen Sodium [Aleve] 440 mg PO Q12HR PRN 01/15/19 01/15/19 Allergies Allergy/AdvReac Type Severity Reaction Status Date / Time sulfamethoxazole Allergy Itching Verified 01/15/19 11:42 [From Bactrim] trimethoprim [From Bactrim] Allergy Itching Verified 01/15/19 11:42 Review of Systems ROS Other: All systems not noted in ROS Statement are negative. <Giuseppe Peters - Last Filed: 01/15/19 14:03> ROS Other: All systems not noted in ROS Statement are negative. <Vlad Ge - Last Filed: 01/15/19 14:28> ROS Statement: Those systems with pertinent positive or pertinent negative responses have been documented in the HPI. Past Medical History Past Medical History: Hyperlipidemia, Musculoskeletal Disorder Additional Past Medical History / Comment(s): scoliosis, DDD History of Any Multi-Drug Resistant Organisms: None Reported Past Surgical History: Appendectomy, Back Surgery Additional Past Surgical History / Comment(s): D & C, left foot surgery for bunion Past Anesthesia/Blood Transfusion Reactions: No Reported Reaction Past Psychological History: Anxiety, Bipolar, Depression, Panic Disorder Smoking Status: Current every day smoker Past Alcohol Use History: None Reported Past Drug Use History: Marijuana - Past Family History Father History Unknown: Yes Family Medical History: Myocardial Infarction ([place]) Additional Family Medical History / Comment(s): at age 42 from [place] Mother History Unknown: Yes Additional Family Medical History / Comment(s): renal failure <Vlad Ge - Last Filed: 01/15/19 14:28> General Exam Limitations: no limitations General appearance: alert, in no apparent distress Head exam: Present: atraumatic, normocephalic, normal inspection Eye exam: Present: normal appearance, PERRL, EOMI. Absent: scleral icterus, conjunctival injection, periorbital swelling ENT exam: Present: normal exam, normal oropharynx, mucous membranes moist, TM's normal bilaterally Neck exam: Present: normal inspection. Absent: tenderness, meningismus, lymphadenopathy Respiratory exam: Present: normal lung sounds bilaterally. Absent: respiratory distress, wheezes, rales, rhonchi, stridor Cardiovascular Exam: Present: regular rate, normal rhythm, normal heart sounds. Absent: systolic murmur, diastolic murmur, rubs, gallop, clicks GI/Abdominal exam: Present: soft, normal bowel sounds. Absent: distended, tenderness, guarding, rebound, rigid Neurological exam: Present: alert, oriented X3, CN II-XII intact Skin exam: Present: warm, dry, intact, normal color. Absent: rash <Vlad Ge - Last Filed: 01/15/19 14:28> Course Vital Signs 01/15/19 01/15/19 01/15/19 11:08 11:56 13:00 Temperature 98.5 F Pulse Rate 64 54 L 61 Respiratory 16 18 18 Rate Blood Pressure 144/88 135/85 125/81 O2 Sat by Pulse 99 99 99 Oximetry 01/15/19 13:30 Temperature Pulse Rate 66 Respiratory 16 Rate Blood Pressure 125/81 O2 Sat by Pulse 99 Oximetry Medical Decision Making - Lab Data Result diagrams: 01/15/19 11:41 01/15/19 11:41 <Giuseppe Peters - Last Filed: 01/15/19 14:03> - Lab Data Result diagrams: 01/15/19 11:41 01/15/19 11:41 <Vlad Ge - Last Filed: 01/15/19 14:28> - Medical Decision Making Case was discussed with SANDRO. Chart was reviewed. Case was discussed with Dr. Smith, who will admit his patient. (Giuseppe Peters) 38-year-old female presented for chest pain, dizziness. Patient's family history of cardiac disease age 42. Patient will be admitted for cardiac rule out a normal EKG, chest x-ray and labwork. (Vlad Ge) - Lab Data Lab Results 01/15/19 01/15/19 01/15/19 Range/Units 11:41 11:41 11:41 WBC 7.0 (3.8-10.6) k/uL RBC 4.24 (3.80-5.40) m/uL Hgb 12.5 (11.4-16.0) gm/dL Hct 39.0 (34.0-46.0) % MCV 92.2 (80.0-100.0) fL MCH 29.4 (25.0-35.0) pg MCHC 31.9 (31.0-37.0) g/dL RDW 13.0 (11.5-15.5) % Plt Count 279 (150-450) k/uL Neutrophils % 61 % Lymphocytes % 31 % Monocytes % 4 % Eosinophils % 1 % Basophils % 1 % Neutrophils # 4.3 (1.3-7.7) k/uL Lymphocytes # 2.2 (1.0-4.8) k/uL Monocytes # 0.3 (0-1.0) k/uL Eosinophils # 0.1 (0-0.7) k/uL Basophils # 0.0 (0-0.2) k/uL PT 9.8 (9.0-12.0) sec INR 0.9 (<1.2) APTT 26.9 (22.0-30.0) sec Sodium 140 (137-145) mmol/L Potassium 4.4 (3.5-5.1) mmol/L Chloride 109 H (98-107) mmol/L Carbon Dioxide 24 (22-30) mmol/L Anion Gap 7 mmol/L BUN 20 H (7-17) mg/dL Creatinine 0.46 L (0.52-1.04) mg/dL Est GFR (CKD-EPI)AfAm >90 (>60 ml/min/1.73 sqM) Est GFR (CKD-EPI)NonAf >90 (>60 ml/min/1.73 sqM) Glucose 84 (74-99) mg/dL Calcium 9.0 (8.4-10.2) mg/dL Magnesium 1.9 (1.6-2.3) mg/dL Total Bilirubin 0.4 (0.2-1.3) mg/dL AST 23 (14-36) U/L ALT 24 (9-52) U/L Alkaline Phosphatase 51 (38-126) U/L Troponin I (0.000-0.034) ng/mL Total Protein 6.7 (6.3-8.2) g/dL Albumin 3.9 (3.5-5.0) g/dL Lipase 101 (23-300) U/L 01/15/19 Range/Units 11:41 WBC (3.8-10.6) k/uL RBC (3.80-5.40) m/uL Hgb (11.4-16.0) gm/dL Hct (34.0-46.0) % MCV (80.0-100.0) fL MCH (25.0-35.0) pg MCHC (31.0-37.0) g/dL RDW (11.5-15.5) % Plt Count (150-450) k/uL Neutrophils % % Lymphocytes % % Monocytes % % Eosinophils % % Basophils % % Neutrophils # (1.3-7.7) k/uL Lymphocytes # (1.0-4.8) k/uL Monocytes # (0-1.0) k/uL Eosinophils # (0-0.7) k/uL Basophils # (0-0.2) k/uL PT (9.0-12.0) sec INR (<1.2) APTT (22.0-30.0) sec Sodium (137-145) mmol/L Potassium (3.5-5.1) mmol/L Chloride (98-107) mmol/L Carbon Dioxide (22-30) mmol/L Anion Gap mmol/L BUN (7-17) mg/dL Creatinine (0.52-1.04) mg/dL Est GFR (CKD-EPI)AfAm (>60 ml/min/1.73 sqM) Est GFR (CKD-EPI)NonAf (>60 ml/min/1.73 sqM) Glucose (74-99) mg/dL Calcium (8.4-10.2) mg/dL Magnesium (1.6-2.3) mg/dL Total Bilirubin (0.2-1.3) mg/dL AST (14-36) U/L ALT (9-52) U/L Alkaline Phosphatase (38-126) U/L Troponin I <0.012 (0.000-0.034) ng/mL Total Protein (6.3-8.2) g/dL Albumin (3.5-5.0) g/dL Lipase (23-300) U/L Disposition <Giuseppe Peters - Last Filed: 01/15/19 14:03> <Vlad Ge - Last Filed: 01/15/19 14:28> Clinical Impression: Chest pain Disposition[facility] Condition: Stable
[2019-01-15 12:11] LABS: ALT 24 U/L (9-52); AST 23 U/L (14-36); Albumin 3.9 g/dL (3.5-5.0); Alkaline Phosphatase 51 U/L (38-126); Anion Gap 7 mmol/L; Blood Urea Nitrogen 20 mg/dL (7-17); Carbon Dioxide 24 mmol/L (22-30); Chloride 109 mmol/L (98-107); Glucose 84 mg/dL (74-99); Lipase 101 U/L (23-300); Magnesium 1.9 mg/dL (1.6-2.3); Potassium 4.4 mmol/L (3.5-5.1); Sodium 140 mmol/L (137-145); Total Bilirubin 0.4 mg/dL (0.2-1.3); Total Protein 6.7 g/dL (6.3-8.2)
[2019-01-15 12:18] LABS: INR 0.9 (<1.2); Partial Thromboplastin Time 26.9 sec (22.0-30.0); Prothrombin Time 9.8 sec (9.0-12.0)
[2019-01-15 12:19] LABS: Basophils % (A) 1 %; Eosinophils # (A) 0.1 k/uL (0-0.7); Eosinophils % (A) 1 %; HGB 12.5 gm/dL (11.4-16.0); Lymphocytes # (A) 2.2 k/uL (1.0-4.8); Lymphocytes % (A) 31 %; MCH 29.4 pg (25.0-35.0); MCHC 31.9 g/dL (31.0-37.0); MCV 92.2 fL (80.0-100.0); Mean Platelet Volume 8.1; Monocytes # (A) 0.3 k/uL (0-1.0); Monocytes % (A) 4 %; Neutrophils # (A) 4.3 k/uL (1.3-7.7); Neutrophils % (A) 61 %; Platelet Count 279 k/uL (150-450); RBC 4.24 m/uL (3.80-5.40)
--- NOTE | 2019-01-15 13:04 | XR ---
EXAMINATION TYPE: XR chest 2V DATE OF EXAM: 01/15/2019 COMPARISON: Chest x-ray from yesterday. HISTORY: Chest pain today and weakness. TECHNIQUE: Frontal and lateral views of the chest are obtained. FINDINGS: Overlying EKG leads are seen. There is no focal air space opacity, pleural effusion, or pn eumothorax seen. The cardiac silhouette size is within normal limits. There is suggestion of some os sific fusion of the lower thoracic vertebra on lateral view similar to prior.. IMPRESSION: No acute process. No significant change from prior.
[2019-01-15] MEDS ORDERED: HEPARIN SODIUM,PORCINE 5,000 UNIT/ML 1 ML VIAL IV ONE (13:21)
[2019-01-15] MEDS ORDERED: NITROGLYCERIN SL TABS 0.4 MG TAB SUBLINGUAL PRN (13:21)
[2019-01-15] MEDS ORDERED: HEPARIN SOD,PORK IN 0.45% NACL 25,000 UNIT in 0.45% NACL 1 250ML.BAG IV SCH (13:30)
[2019-01-15] MEDS ORDERED: HEPARIN SODIUM,PORCINE 5,000 UNIT/ML 1 ML VIAL IV PRN (19:36)
[2019-01-16 07:58] VITALS: RESP 18
[2019-01-16] MEDS ORDERED: ASPIRIN 325 MG TAB PO SCH (09:00)
[2019-01-16 09:30] LABS: Mean Platelet Volume 8.2; Platelet Count 263 k/uL (150-450)
[2019-01-16] MEDS ORDERED: KETOROLAC 30 MG/ML 1 ML VIAL IVP PRN (09:54)
[2019-01-16 10:09] LABS: Cholesterol 219 mg/dL (<200); HDL Cholesterol 38 mg/dL (40-60); LDL Cholesterol,Calculated 165 mg/dL (0-99); Triglycerides 80 mg/dL (<150)
[2019-01-16] MEDS ORDERED: NAPROXEN 250 MG TAB PO PRN (10:47)
--- NOTE | 2019-01-16 10:57 | P.CRDCN ---
History of Present Illness History of present illness: This is a pleasant 38-year-old female past medical history significant for dyslipidemia and chronic nicotine dependence. She denies history of coronary artery disease, hypertension or diabetes mellitus. She has never seen a assistant hvac mechanic for any reason. We've asked to see her in consultation secondary to chest discomfort. She states yesterday while at work doing a physical job she started feeling very sharp stabbing pain in the left precordial region associated with mild shortness of breath, nausea, diaphoresis, lightheadedness and she also felt very shaky and jittery all over especially in her hands. Her symptoms lasted for approximately 2 hours and slowly seemed to subside on their own. She was given; nitroglycerin which had no effect on her pain. The pain continued to come back intermittently through the night and is described more of an ache in the chest is sharp pain that she had initially. At the time of my exam she is seen resting comfortably in bed in no acute distress. She continues to have chest discomfort that is not associated with deep inspiration or movement of her torso. The pain is not reproducible. EKG reveals sinus bradycardia heart rate of [address] or T wave abnormalities noted. Chest x-ray is negative for an acute cardiopulmonary process. Laboratory data reviewed, WBC 7, hemoglobin 12.5, platelets 263, sodium 140, potassium 4.4, creatinine 0.46, magnesium 1.9, cardiac enzymes negative 3, LDL 165 and HDL 38. She takes no daily cardiac medications. Most recent stress test performed in January 2018 with a stress echocardiogram was negative for stress-induced cardiac ischemia. Most recent echocardiogram obtained January 2018 reveals preserved left ventricular systolic function with ejection fraction greater than 55%, mild MR and mild TR noted. At the time of my exam: CONSTITUTIONAL: Denies fever. Denies chills. EYES: Denies blurred vision. Denies vision changes. Denies eye pain. EARS, NOSE, MOUTH & THROAT: Denies headache. Denies sore throat. Denies ear pain. CARDIOVASCULAR: Complains of chest pain. Denies shortness of breath. Denies orthopnea. Denies PND. Denies palpitations. RESPIRATORY: Denies cough. GASTROINTESTINAL: Denies abdominal pain. Denies diarrhea. Denies constipation. Denies nausea. Denies vomiting. MUSCULOSKELETAL: Denies myalgias. INTEGUMENTARY: Denies pruitis. Denies rash. NEUROLOGIC: Denies numbness. Denies tingling. Denies weakness. PSYCHIATRIC: Denies anxiety. Denies depression. ENDOCRINE: Denies fatigue. Denies weight change. Denies polydipsia. Denies polyurina. GENITOURINARY: Denies burning, hematuria or urgency with micturation. HEMATOLOGIC: Denies history of anemia. Denies bleeding. Blood pressure 114/71 heart rate 64 afebrile maintaining oxygen saturation on room air GENERAL: This is a 38-year-old female in no apparent distress at the time of my examination. HEENT: Head is atraumatic, normocephalic. Pupils are equal, round. Sclerae anicteric. Conjunctivae are clear. Mucous membranes of the mouth are moist. Neck is supple. There is no jugular venous distention. No carotid bruit is heard. LUNGS: Clear to auscultation no wheezes, rales or rhonchi. No chest wall tenderness is noted on palpation or with deep breathing. HEART: Regular rate and rhythm without murmurs, rubs or gallops. S1 and S2 heard. ABDOMEN: Soft, nontender. Bowel sounds are heard. No organomegaly noted. EXTREMITIES: No evidence of peripheral edema and no calf tenderness noted. VASCULAR: Radial and dorsalis pedis pulses palpated, no evidence of clubbing. NEUROLOGIC: Patient is awake, alert and oriented x3. ASSESSMENT Chest pain, atypical for angina. Possibly related to a musckuloskeletal strain, will also rule out pericarditis. Dyslipidemia Chronic nicotine dependencec PLAN An acute coronary event has been ruled out. Discontinue heparin infusion. Check sedimentations rate, c-reactive protein and d-dimer. Obtain 2D echocardiogram and doppler study to assess cardiac structure and function. Give toradol for pain. Her 10 year atherosclerotic cardiovascular disease risk calculation is 4.7%, therefore we will recommend lifestyle modifications in the form of diet and ex ercise for lowering of LDL cholesterol. Smoking cessation highly recommended. Thank you kindly for this consultation. Nurse Practitioner note has been reviewed, I agree with a documented findings and plan of care. Patient was seen and examined. Past Medical History Past Medical History: Hyperlipidemia, Musculoskeletal Disorder Additional Past Medical History / Comment(s): Chronic back pain, scoliosis, DDD History of Any Multi-Drug Resistant Organisms: None Reported Past Surgical History: Appendectomy, Back Surgery, Orthopedic Surgery Additional Past Surgical History / Comment(s): D & C, left foot surgery for bunion, fatty tumor removed from back when pt was 8 yrs old. Past Anesthesia/Blood Transfusion Reactions: No Reported Reaction Smoking Status: Current every day smoker - Past Family History Father History Unknown: Yes Family Medical History: Myocardial Infarction ([place]) Additional Family Medical History / Comment(s): at age 42 from [place] Mother History Unknown: Yes Additional Family Medical History / Comment(s): renal failure. Mother is 61 yrs old. Medications and Allergies Home Medications Medication Instructions Recorded Confirmed Type Naproxen Sodium [Aleve] 440 mg PO Q12HR PRN 01/15/19 01/15/19 History Allergies Allergy/AdvReac Type Severity Reaction Status Date / Time sulfamethoxazole Allergy Itching Verified 01/15/19 11:42 [From Bactrim] trimethoprim [From Bactrim] Allergy Itching Verified 01/15/19 11:42 Physical Exam Vitals: Vital Signs Temp Pulse Pulse Pulse Resp BP BP 01/16/19 07:57 98.2 F 64 18 114/71 01/16/19 03:51 98.2 F 56 L 14 01/16/19 03:12 16 01/16/19 00:00 98.0 F 78 16 01/15/19 19:44 15 01/15/19 19:05 98.0 F 15 01/15/19 17:25 98.1 F 57 L 18 01/15/19 16:30 61 18 113/70 01/15/19 16:00 52 L 13 124/74 01/15/19 15:30 54 L 12 133/94 01/15/19 15:01 58 L 14 110/72 01/15/19 13:30 66 16 125/81 01/15/19 13:00 61 18 125/81 01/15/19 11:56 54 L 18 135/85 01/15/19 11:08 98.5 F 64 16 144/88 BP Pulse Ox 01/16/19 07:57 97 01/16/19 03:51 97/60 99 01/16/19 03:12 01/16/19 00:00 138/74 97 01/15/19 19:44 01/15/19 19:05 95/57 98 01/15/19 17:25 157/94 99 01/15/19 16:30 98 01/15/19 16:00 97 01/15/19 15:30 99 01/15/19 15:01 99 01/15/19 13:30 99 01/15/19 13:00 99 01/15/19 11:56 99 01/15/19 11:08 99 Intake and Output 01/15/19 01/16/19 01/16/19 22:59 06:59 14:59 Intake Total 29.611 Balance 29.611 Intake: Intake, IV Titration 29.611 Amount Heparin Sod,Pork in 0.45% 29.611 NaCl 25,000 unit In 0.45 % NaCl 1 250ml.bag @ 12 UNITS/KG/HR 8.709 mls/hr IV .Q24H [facility] Rx#: [id number] Other: Voiding Method Toilet Toilet # Voids 1 1 Results 01/16/19 09:00 01/15/19 11:41 Cardiac Enzymes 01/15/19 01/15/19 01/15/19 Range/Units 11:41 11:41 17:38 AST 23 (14-36) U/L Troponin I <0.012 <0.012 (0.000-0.034) ng/mL 01/15/19 Range/Units 23:09 AST (14-36) U/L Troponin I <0.012 (0.000-0.034) ng/mL Coagulation 01/15/19 01/15/19 Range/Units 11:41 17:38 PT 9.8 (9.0-12.0) sec APTT 26.9 71.3 H (22.0-30.0) sec CBC 01/15/19 Range/Units 11:41 WBC 7.0 (3.8-10.6) k/uL RBC 4.24 (3.80-5.40) m/uL Hgb 12.5 (11.4-16.0) gm/dL Hct 39.0 (34.0-46.0) % Plt Count 279 (150-450) k/uL Comprehensive Metabolic Panel 01/15/19 Range/Units 11:41 Sodium 140 (137-145) mmol/L Potassium 4.4 (3.5-5.1) mmol/L Chloride 109 H (98-107) mmol/L Carbon Dioxide 24 (22-30) mmol/L BUN 20 H (7-17) mg/dL Creatinine 0.46 L (0.52-1.04) mg/dL Glucose 84 (74-99) mg/dL Calcium 9.0 (8.4-10.2) mg/dL AST 23 (14-36) U/L ALT 24 (9-52) U/L Alkaline Phosphatase 51 (38-126) U/L Total Protein 6.7 (6.3-8.2) g/dL Albumin 3.9 (3.5-5.0) g/dL Current Medications Generic Name Dose Route Start Last Admin Trade Name Freq PRN Reason Stop Dose Admin Aspirin 325 mg 01/16/19 09:00 Aspirin PO DAILY [facility] Heparin Sodium (Porcine) 0 unit 01/15/19 19:36 Heparin IV PER PROTOCOL PRN Low PTT Protocol Heparin Sodium/Sodium Chloride 250 mls @ 8.709 mls/hr 01/15/19 13:30 01/15/19 18:02 25,000 unit/ Sodium Chloride IV 12 units/kg/hr .Q24H [facility] 8.709 mls/hr Titration Protocol 12 UNITS/KG/HR Nitroglycerin 0.4 mg 01/15/19 13:21 01/15/19 18:08 Nitrostat SUBLINGUAL 0.4 mg Q5M PRN Administration Chest Pain Intake and Output 01/15/19 01/16/19 01/16/19 22:59 06:59 14:59 Intake Total 29.611 Balance 29.611 Intake: Intake, IV Titration 29.611 Amount Heparin Sod,Pork in 0.45% 29.611 NaCl 25,000 unit In 0.45 % NaCl 1 250ml.bag @ 12 UNITS/KG/HR 8.709 mls/hr IV .Q24H [facility] Rx#: [id number] Other: Voiding Method Toilet Toilet # Voids 1 1 01/15/19 11:41 01/15/19 11:41
[2019-01-16 12:17] VITALS: BP 97/59; PULSE 60; TEMP 98.7
--- NOTE | 2019-01-16 17:43 | HP ---
HISTORY AND PHYSICAL CHIEF COMPLAINT: Chest pain. HISTORY OF PRESENT ILLNESS: This is another admission for this 38-year-old female. She was at work when she developed chest pain which was in the center of her chest and was associated with some shortness of breath and slight diaphoresis. She also became nauseated and then vomited. She came to the emergency room, where studies were normal. She does have a strong family history. REVIEW OF SYSTEMS: She has had no syncope, neurologic problems, change in vision or hearing, etc., but she does have strabismus with exotropia. She has had no pleurisy, fever, chills, sputum production, hemoptysis, orthopnea, PND, murmurs, rheumatic fever, history of hypertension, heart disease, etc. She has had no abdominal pain, indigestion, food intolerance, nausea, vomiting, hematemesis, melena, hematochezia, jaundice, hepatitis, hematuria, frequency, urgency, renal failure, vaginal discharge or bleeding, diabetes, etc. Past medical history, family history, and personal and social histories are unremarkable. She is not on any medication. She is not allergic to any. Surgically she has had an appendectomy, procedure on one of her feet and a procedure on her back. 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 She has a strong family history, in that her dad of an [place] at 42 years old. She smokes a pack of cigarettes a day. PHYSICAL EXAMINATION: Blood pressure is 131/80 with a pulse of 73, respirations of 33, and she is afebrile. In general she appeared to be well developed, well nourished, in no acute distress. Skin color is normal. Skin is warm and dry. Lymph nodes are not enlarged. Head, ears, eyes, nose, mouth and throat are normal. Neck veins are not distended. Thyroid is not enlarged. Chest is clear. There are no rales or rhonchi. Cardiac exam is normal. It sounds like she has an S4. There are no murmurs. There is no cardiomegaly. Abdomen is soft, nontender without any visceromegaly or masses. Extremities are normal. Neurologically she is intact. IMPRESSION: 1. Chest pain. 2. Strong family history of heart disease. 3. Heavy smoker. 4. Strabismus with exotropia, right eye. PLAN: 1. Bed rest. 2. IV fluids. 3. Serial EKGs and enzymes. 4. Cardiology consult. SANTIAGO / MINDA: [id number] /
--- NOTE | 2019-01-16 19:20 | ECHOF ---
Referral Reason:cp MEASUREMENTS -------- HEIGHT: 165.1 cm WEIGHT: 72.6 kg BP: 114/71 RVIDd: 2.7 cm (< 3.3) IVSd: 1.0 cm (0.6 - 1.1) LVIDd: 4.2 cm (3.9 - 5.3) LVPWd: 1.1 cm (0.6 - 1.1) IVSs: 1.3 cm LVIDs: 3.5 cm LVPWs: 1.8 cm LA Diam: 3.0 cm (2.7 - 3.8) Ao Diam: 2.8 cm (2.0 - 3.7) AV Cusp: 1.9 cm (1.5 - 2.6) LA Diam: 3.5 cm (2.7 - 3.8) MV EXCURSION: 20.477 mm (> 18.000) MV EF SLOPE: 94 mm/s (70 - 150) EPSS: 0.8 cm MV E Jose Juan: 0.80 m/s MV DecT: 231 ms MV A Jose Juan: 0.55 m/s MV E/A Ratio: 1.45 RAP: 5.00 mmHg RVSP: 13.62 mmHg FINDINGS -------- Sinus rhythm. This was a technically good study. LV size, wall thickness and systolic function are normal, with an EF greater than 55%. The left roberto tricular size is normal. The right ventricle is normal in size. The left atrial size is normal. The right atrial size is normal. The aortic valve is trileaflet, and appears structurally normal. No aortic stenosis or regurgitation. Mild mitral regurgitation is present. Mild tricuspid regurgitation present. There is no evidence of pulmonary hypertension. The right v entricular systolic pressure, as measured by Doppler, is 13.62mmHg. There is no pulmonic regurgitation present. The aortic root size is normal. There is no pericardial effusion. CONCLUSIONS -------- 1. LV size, wall thickness and systolic function are normal, with an EF greater than 55%. 2. The left ventricular size is normal. 3. The right ventricle is normal in size. 4. The left atrial size is normal. 5. The right atrial size is normal. 6. The aortic valve is trileaflet, and appears structurally normal. No aortic stenosis or regurgitati on. 7. Mild mitral regurgitation is present. 8. There is no evidence of pulmonary hypertension. 9. The right ventricular systolic pressure, as measured by Doppler, is 13.62mmHg. 10. There is no pulmonic regurgitation present. 11. The aortic root size is normal. 12. There is no pericardial effusion. HOUSE FURNISHINGS SUPERVISOR: Brigid Tirado RDCS
--- NOTE | 2019-01-17 06:47 | DS ---
DISCHARGE SUMMARY CHIEF COMPLAINT: Chest pain. HISTORY OF PRESENT ILLNESS AND PHYSICAL EXAM: The details of this lady's history and physical can be found in the initial workup. LABORATORY STUDIES: While she was in the hospital she had laboratory studies, details of which can be found in the laboratory section of her chart. COURSE IN THE HOSPITAL: After admission she was placed on bedrest and started on intravenous fluids and she had serial EKGs and enzymes and are normal. She was seen by Cardiology who felt that she could be discharged. She will go home on her usual diet and activity and will be seen in the office in several days. Based on her family history, she will be set up for a stress study. FINAL DIAGNOSES: 1. Chest pain. 2. Strong family history of heart disease. 3. Nicotine abuse. 4. Strabismus right eye. 5. Hyperlipidemia with LDL 165. OPERATIONS: None. CONSULTATION: Cardiology. She is improved. MMODL / GLADISN: [id number] /
== END 2019-01-16 15:06 | disposition home or self-care (01) ==
LOC: EC 10:46 → 1SOBS 14:04
PROVIDERS: ADMIT Family Medicine; ATTEND Family Medicine
DX: R07.89 Other chest pain (principal); R42 Dizziness and giddiness; R06.02 Shortness of breath; R11.2 Nausea with vomiting, unspecified; R61 Generalized hyperhidrosis; F41.0 Panic disorder [episodic paroxysmal anxiety]; E78.5 Hyperlipidemia, unspecified; G89.29 Other chronic pain; M54.9 Dorsalgia, unspecified; H50.111 Monocular exotropia, right eye; F31.9 Bipolar disorder, unspecified; F41.9 Anxiety disorder, unspecified; M41.9 Scoliosis, unspecified; F17.210 Nicotine dependence, cigarettes, uncomplicated; Z88.1 Allergy status to other antibiotic agents; Z88.2 Allergy status to sulfonamides; Z90.49 Acquired absence of other specified parts of digestive tract; Z84.1 Family history of disorders of kidney and ureter; Z82.49 Family history of ischemic heart disease and other diseases of the circulatory system
CPT/HCPCS: 96375 ×2; 96376; 96365; 96366; 99285; 36415; 93005; 93306; 85379; 80061; 80053; 85652; 83690; 83735; 84484; 85025; 85049; 85610; 85730; 86140; 71046; G0378 ×2; J1644 ×2; J2405; J1885

== ENCOUNTER → 2019-02-04 | Outpatient (CLI) | payer BC, OTHER ==
--- NOTE | 2019-02-05 09:08 | ECHOS ---
STRESS ECHOCARDIOGRAM INDICATIONS: Chest pain. MEDICATIONS: None. BASELINE HEART RATE: 55 BASELINE BLOOD PRESSURE: 102/60 MAXIMUM HEART RATE: 165 MAXIMUM BLOOD PRESSURE: 192/80 85% MPHR: 153 100% MPHR: 180 MAXIMUM STAGE REACHED: 5 TOTAL EXERCISE TIME: 13:12 CLINICAL INFORMATION: Baseline heart rate 55 beats per minute. Baseline blood pressure 102/60 mmHg. Baseline 12 lead ECG shows normal sinus rhythm with normal cardiac intervals. Patient exercised on Jake protocol for 13 minutes 12 seconds achieving a peak heart rate of 165 beats per minute. Normal blood pressure response to exercise. There was no definite ECG evidence for ischemia. Occasional PVCs were noted. The baseline 2D echo images showed normal LV size and systolic function without segmental wall motion abnormalities. At peak exercise, there was excellent augmentation of overall LV contractility without developing any wall motion abnormalities. At recovery, regional global LV systolic function remained normal. IMPRESSION: No ECG or echocardiographic evidence for ischemia. Occasional PVCs. Excellent exercise capacity. MMODL / IJN: [id number] /
== END ==
LOC: RADNMMAIN 09:35
PROVIDERS: ATTEND Family Medicine
DX: R01.1 Cardiac murmur, unspecified (principal); R07.9 Chest pain, unspecified
CPT/HCPCS: 93351

== ENCOUNTER 2019-05-12 11:26 | Emergency (ER) | payer BC, OTHER ==
[2019-05-12 11:39] VITALS: RESP 18
[2019-05-12] MEDS ORDERED: ONDANSETRON 4 MG/2 ML VIAL IVP STA (12:12)
[2019-05-12] MEDS ORDERED: SODIUM CHLORIDE 0.9% 1,000 ML IV STA (12:12)
[2019-05-12] MEDS ORDERED: KETOROLAC 30 MG/ML 1 ML VIAL IVP STA (12:12)
[2019-05-12 12:21] LABS: Appearance,Urine Cloudy (Clear); Bacteria,Urine Rare /hpf; Bilirubin,Urine Negative (Negative); Blood,Urine Negative (Negative); Color,Urine Yellow; Glucose,Urine (UA) Negative (Negative); Ketones,Urine Negative (Negative); Leukocyte Esterase,Urine Trace (Negative); Mucus,Urine Rare /hpf; Nitrite,Urine Negative (Negative); PH, Urine 5.5 (5.0-8.0); Protein,Urine Negative (Negative); RBC,Urine 1 /hpf (0-5); Squamous Epithelial Cell,Urine 5 /hpf (0-4); Urobilinogen,Urine <2.0 mg/dL (<2.0); WBC,Urine 1 /hpf (0-5)
[2019-05-12] MEDS ORDERED: MORPHINE SULFATE 4 MG/ML SYRINGE IVP STA (12:28)
--- NOTE | 2019-05-12 12:31 | ED ---
Abdominal Pain HPI - General Chief Complaint: Abdominal Pain Stated Complaint: Flank pain Time Seen by Provider: 05/12/19 11:41 Source: patient, RN notes reviewed, old records reviewed Mode of arrival: ambulatory Limitations: no limitations - History of Present Illness Initial Comments: Patient is a 39-year-old female presents emergency department today for evaluation for left-sided abdominal pain for the past 4 days. She reports that she's had history of long standing constipation but has been having runny bowel movements the past few days. She reports they have been somewhat darker in color. Patient denies any changes in urination. She states that the pain radiates from her left side towards her back. She denies vomiting but does feel quite nauseated. Patient states pain was worse going over bumps in the road. She reports normal menstrual cycles as of this time. - Related Data Home Medications Medication Instructions Recorded Confirmed Naproxen Sodium [Aleve] 220 mg PO Q12HR PRN 01/15/19 05/12/19 Ibuprofen [Advil] 400 mg PO Q6HR PRN 05/12/19 05/12/19 Previous Rx's Medication Instructions Recorded Dicyclomine [Bentyl] 10 mg PO TID #15 capsule 05/12/19 Allergies Allergy/AdvReac Type Severity Reaction Status Date / Time sulfamethoxazole Allergy Itching Verified 05/12/19 12:11 [From Bactrim] trimethoprim [From Bactrim] Allergy Itching Verified 05/12/19 12:11 Review of Systems ROS Statement: Those systems with pertinent positive or pertinent negative responses have been documented in the HPI. ROS Other: All systems not noted in ROS Statement are negative. Past Medical History Past Medical History: Hyperlipidemia, Musculoskeletal Disorder Additional Past Medical History / Comment(s): Chronic back pain, scoliosis, DDD History of Any Multi-Drug Resistant Organisms: None Reported Past Surgical History: Appendectomy, Back Surgery, Orthopedic Surgery Additional Past Surgical History / Comment(s): D & C, left foot surgery for bunion, fatty tumor removed from back when pt was 8 yrs old. Past Anesthesia/Blood Transfusion Reactions: No Reported Reaction Past Psychological History: Anxiety, Bipolar, Depression, Panic Disorder Smoking Status: Former smoker Past Alcohol Use History: None Reported Past Drug Use History: None Reported - Past Family History Father History Unknown: Yes Family Medical History: Myocardial Infarction ([place]) Additional Family Medical History / Comment(s): at age 42 from [place] Mother History Unknown: Yes Additional Family Medical History / Comment(s): renal failure. Mother is 61 yrs old. General Exam - General Exam Comments Initial Comments: This is a 39-year-old female. Alert and oriented. No distress. Limitations: no limitations General appearance: alert, in no apparent distress Head exam: Present: atraumatic, normocephalic, normal inspection Eye exam: Present: normal appearance, PERRL, EOMI. Absent: scleral icterus, conjunctival injection, periorbital swelling ENT exam: Present: normal exam, mucous membranes moist Neck exam: Present: normal inspection. Absent: tenderness, meningismus, lymphadenopathy Respiratory exam: Present: normal lung sounds bilaterally. Absent: respiratory distress, wheezes, rales, rhonchi, stridor Cardiovascular Exam: Present: regular rate, normal rhythm, normal heart sounds. Absent: systolic murmur, diastolic murmur, rubs, gallop, clicks GI/Abdominal exam: Present: soft, tenderness (LLQ tenderness. ), normal bowel sounds. Absent: distended, guarding, rebound, rigid Extremities exam: Present: normal inspection, full ROM, normal capillary refill. Absent: tenderness, pedal edema, joint swelling, calf tenderness Back exam: Present: normal inspection Neurological exam: Present: alert, oriented X3, CN II-XII intact Psychiatric exam: Present: normal affect, normal mood Course Vital Signs 05/12/19 11:37 Temperature 98.9 F Pulse Rate 68 Respiratory 18 Rate Blood Pressure 111/72 O2 Sat by Pulse 99 Oximetry Medical Decision Making - Medical Decision Making Patient's 39-year-old female presents today for evaluation for left-sided abdominal pain for the past 4 days. She normally this or cuts Patient has had diarrhea over the past 24-48 hours. Patient states that she's had no significant fevers or chills Patient denies any other significant complaints. At this time Patient states that she's had no other significant complaints changes in urination or bowel habits. Lab work was reviewed and unremarkable. Patient had a computed tomography scan of her abdomen and pelvis. This shows no acute reasoning for patient's pain. Patient will be discharged at this time. A primary care doctors. Given referral for so. We'll discharge her with antispasmodics and discuss clear liquid diet. She requested a note for work. - Lab Data Result diagrams: 05/12/19 12:29 05/12/19 12:29 Lab Results 05/12/19 05/12/19 05/12/19 Range/Units 11:50 12:29 12:29 WBC 6.1 (3.8-10.6) k/uL RBC 4.29 (3.80-5.40) m/uL Hgb 13.1 (11.4-16.0) gm/dL Hct 38.2 (34.0-46.0) % MCV 88.9 (80.0-100.0) fL MCH 30.6 (25.0-35.0) pg MCHC 34.4 (31.0-37.0) g/dL RDW 12.6 (11.5-15.5) % Plt Count 286 (150-450) k/uL Neutrophils % 50 % Lymphocytes % 41 % Monocytes % 5 % Eosinophils % 2 % Basophils % 1 % Neutrophils # 3.0 (1.3-7.7) k/uL Lymphocytes # 2.5 (1.0-4.8) k/uL Monocytes # 0.3 (0-1.0) k/uL Eosinophils # 0.1 (0-0.7) k/uL Basophils # 0.0 (0-0.2) k/uL PT (9.0-12.0) sec INR (<1.2) APTT (22.0-30.0) sec Sodium 139 (137-145) mmol/L Potassium 4.2 (3.5-5.1) mmol/L Chloride 106 (98-107) mmol/L Carbon Dioxide 24 (22-30) mmol/L Anion Gap 9 mmol/L BUN 18 H (7-17) mg/dL Creatinine 0.55 (0.52-1.04) mg/dL Est GFR (CKD-EPI)AfAm >90 (>60 ml/min/1.73 sqM) Est GFR (CKD-EPI)NonAf >90 (>60 ml/min/1.73 sqM) Glucose 92 (74-99) mg/dL Calcium 9.1 (8.4-10.2) mg/dL Total Bilirubin 0.3 (0.2-1.3) mg/dL AST 24 (14-36) U/L ALT 24 (9-52) U/L Alkaline Phosphatase 38 (38-126) U/L Total Protein 6.9 (6.3-8.2) g/dL Albumin 4.0 (3.5-5.0) g/dL Amylase 51 (30-110) U/L Lipase 83 (23-300) U/L Urine Color Yellow Urine Appearance Cloudy H (Clear) Urine pH 5.5 (5.0-8.0) Ur Specific [place] 1.020 (1.001-1.035) Urine Protein Negative (Negative) Urine Glucose (UA) Negative (Negative) Urine Ketones Negative (Negative) Urine Blood Negative (Negative) Urine Nitrite Negative (Negative) Urine Bilirubin Negative (Negative) Urine Urobilinogen <2.0 (<2.0) mg/dL Ur Leukocyte Esterase Trace H (Negative) Urine RBC 1 (0-5) /hpf Urine WBC 1 (0-5) /hpf Ur Squamous Epith Cells 5 H (0-4) /hpf Urine Bacteria Rare H (None) /hpf Urine Mucus Rare H (None) /hpf 05/12/19 Range/Units 12:29 WBC (3.8-10.6) k/uL RBC (3.80-5.40) m/uL Hgb (11.4-16.0) gm/dL Hct (34.0-46.0) % MCV (80.0-100.0) fL MCH (25.0-35.0) pg MCHC (31.0-37.0) g/dL RDW (11.5-15.5) % Plt Count (150-450) k/uL Neutrophils % % Lymphocytes % % Monocytes % % Eosinophils % % Basophils % % Neutrophils # (1.3-7.7) k/uL Lymphocytes # (1.0-4.8) k/uL Monocytes # (0-1.0) k/uL Eosinophils # (0-0.7) k/uL Basophils # (0-0.2) k/uL PT 10.2 (9.0-12.0) sec INR 0.9 (<1.2) APTT 26.8 (22.0-30.0) sec Sodium (137-145) mmol/L Potassium (3.5-5.1) mmol/L Chloride (98-107) mmol/L Carbon Dioxide (22-30) mmol/L Anion Gap mmol/L BUN (7-17) mg/dL Creatinine (0.52-1.04) mg/dL Est GFR (CKD-EPI)AfAm (>60 ml/min/1.73 sqM) Est GFR (CKD-EPI)NonAf (>60 ml/min/1.73 sqM) Glucose (74-99) mg/dL Calcium (8.4-10.2) mg/dL Total Bilirubin (0.2-1.3) mg/dL AST (14-36) U/L ALT (9-52) U/L Alkaline Phosphatase (38-126) U/L Total Protein (6.3-8.2) g/dL Albumin (3.5-5.0) g/dL Amylase (30-110) U/L Lipase (23-300) U/L Urine Color Urine Appearance (Clear) Urine pH (5.0-8.0) Ur Specific [place] (1.001-1.035) Urine Protein (Negative) Urine Glucose (UA) (Negative) Urine Ketones (Negative) Urine Blood (Negative) Urine Nitrite (Negative) Urine Bilirubin (Negative) Urine Urobilinogen (<2.0) mg/dL Ur Leukocyte Esterase (Negative) Urine RBC (0-5) /hpf Urine WBC (0-5) /hpf Ur Squamous Epith Cells (0-4) /hpf Urine Bacteria (None) /hpf Urine Mucus (None) /hpf - Radiology Data Radiology results: report reviewed No acute findings for patient's symptoms of left lower quadrant abdominal pain. There is anteverted uterus seen, 4.3 cm adnexal low-density lesion favoring at the vault cyst. Evaluation of the bowel shows no suspicious small or large bowel dilation. Disposition Clinical Impression: Left sided abdominal pain Disposition: HOME SELF-CARE Condition: Good Instructions (If sedation given, give patient instructions): Abdominal Pain (ED) Additional Instructions: Patient advised to follow-up with your primary care physician, have acrylic with diet and take the medications as prescribed. Return to the emergency department if any alarming signs or symptoms occur. Prescriptions: Dicyclomine [Bentyl] 10 mg PO TID #15 capsule Is patient prescribed a controlled substance at d/c from ED?: No Referrals: None,Stated [Primary Care Provider] - 1-2 days Ele Simon MD [STAFF PHYSICIAN] - 1-2 days Time of Disposition: 14:08
[2019-05-12 12:42] LABS: Basophils % (A) 1 %; Eosinophils # (A) 0.1 k/uL (0-0.7); Eosinophils % (A) 2 %; HCT 38.2 % (34.0-46.0); HGB 13.1 gm/dL (11.4-16.0); Lymphocytes # (A) 2.5 k/uL (1.0-4.8); Lymphocytes % (A) 41 %; MCH 30.6 pg (25.0-35.0); MCHC 34.4 g/dL (31.0-37.0); MCV 88.9 fL (80.0-100.0); Mean Platelet Volume 7.8; Monocytes # (A) 0.3 k/uL (0-1.0); Monocytes % (A) 5 %; Neutrophils % (A) 50 %; Platelet Count 286 k/uL (150-450); RBC 4.29 m/uL (3.80-5.40); RDW 12.6 % (11.5-15.5); WBC 6.1 k/uL (3.8-10.6)
[2019-05-12 12:47] LABS: ALT 24 U/L (9-52); AST 24 U/L (14-36); African American GFR (CKD) >90 (>60 ml/min/1.73 sqM); Alkaline Phosphatase 38 U/L (38-126); Amylase 51 U/L (30-110); Anion Gap 9 mmol/L; Blood Urea Nitrogen 18 mg/dL (7-17); Calcium 9.1 mg/dL (8.4-10.2); Carbon Dioxide 24 mmol/L (22-30); Chloride 106 mmol/L (98-107); Glucose 92 mg/dL (74-99); Potassium 4.2 mmol/L (3.5-5.1); Sodium 139 mmol/L (137-145); Total Bilirubin 0.3 mg/dL (0.2-1.3); Total Protein 6.9 g/dL (6.3-8.2)
[2019-05-12 12:54] LABS: INR 0.9 (<1.2); Partial Thromboplastin Time 26.8 sec (22.0-30.0); Prothrombin Time 10.2 sec (9.0-12.0)
--- NOTE | 2019-05-12 13:05 | CT ---
EXAMINATION TYPE: CT abdomen pelvis w con DATE OF EXAM: 05/12/2019 HISTORY: LLQ pain CT DLP: 966.5mGycm Automated Exposure Control for Dose Reduction was Utilized. CONTRAST: CT scan of the abdomen and pelvis is performed without oral but with IV Contrast, patient injected wi th 100 mL of Isovue 300. COMPARISON: CT abdomen and pelvis May 31, 2011 FINDINGS: Lung bases: Dependent atelectasis in both bases. LIVER/GB: No significant abnormality is appreciated. PANCREAS: No significant abnormality is seen. SPLEEN: No significant abnormality is seen. ADRENALS: No significant abnormality is seen. KIDNEYS: No significant abnormality is seen. BOWEL: Evaluation while slightly suboptimal technique due to lack of enteric contrast. Sutures from a ppendectomy seen at base of cecum. No suspicious small and large bowel dilatation.. UTERUS/ADNEXA: Anteverted uterus is seen. Oval 4.3 cm right adnexal low-density lesion favor simple t hin-walled cyst axial image 69. This can be confirmed with pelvic ultrasound if desired. LYMPH NODES: No greater than 1cm abdominal or pelvic lymph nodes are appreciated. OSSEOUS STRUCTURES: Ossific fusion of the T9-T11 vertebra is again seen. OTHER: No significant additional abnormality is seen. IMPRESSION: No significant acute finding is seen to account for patient's clinical symptoms of left l ower quadrant pain.
[2019-05-12 14:22] VITALS: BP 115/71; PULSE 49; TEMP 97.1
== END 2019-05-12 14:22 | disposition home or self-care (01) ==
LOC: EC 11:26
DX: R10.32 Left lower quadrant pain (principal); R19.7 Diarrhea, unspecified; R10.814 Left lower quadrant abdominal tenderness; Z88.1 Allergy status to other antibiotic agents; Z88.2 Allergy status to sulfonamides; Z87.891 Personal history of nicotine dependence
CPT/HCPCS: 36415; 80053; 82150; 83690; 85025; 85610; 85730; 81001; 74177; 99284; 96374; 96375 ×2; 96361; J2270; J2405; J1885; Q9967

== ENCOUNTER 2019-05-20 11:54 | Emergency (ER) | payer BC, OTHER ==
[2019-05-20] MEDS ORDERED: KETOROLAC 30 MG/ML 1 ML VIAL IVP STA (12:28)
[2019-05-20] MEDS ORDERED: ORPHENADRINE 30 MG/ML 2 ML VIAL IVP STA (12:29)
--- NOTE | 2019-05-20 12:34 | ED ---
Abdominal Pain HPI - General Chief Complaint: Abdominal Pain Stated Complaint: lower abdominal & back pain Time Seen by Provider: 05/20/19 12:10 Source: patient, RN notes reviewed Mode of arrival: ambulatory Limitations: no limitations - History of Present Illness Initial Comments: 39-year-old female presents emergency Department chief complaint of persistent left lower abdominal pain. Patient seen here a few days ago for similar complaints at that time. Patient labs urinalysis and CT which was unremarkable. Patient states that pain has not gone away does have constant pain but does have waxing and waning pain associated with. She states it radiates to her back but not upper back no dysuria no hematuria denies any diarrhea but states that she's had some ongoing constipation issues. Patient states that she's never had any like this in the past or prior colonoscopy or EGD. No prior left-sided abdominal surgeries she's had prior appendectomy. Denies any chance . Denies fevers or chills. - Related Data Home Medications Medication Instructions Recorded Confirmed Naproxen Sodium [Aleve] 220 mg PO Q12HR PRN 01/15/19 05/20/19 Ibuprofen [Advil] 400 mg PO Q6HR PRN 05/12/19 05/20/19 Previous Rx's Medication Instructions Recorded Dicyclomine [Bentyl] 10 mg PO TID #15 capsule 05/12/19 Allergies Allergy/AdvReac Type Severity Reaction Status Date / Time sulfamethoxazole Allergy Itching Verified 05/20/19 12:02 [From Bactrim] trimethoprim [From Bactrim] Allergy Itching Verified 05/20/19 12:02 Review of Systems ROS Statement: Those systems with pertinent positive or pertinent negative responses have been documented in the HPI. ROS Other: All systems not noted in ROS Statement are negative. Past Medical History Past Medical History: Hyperlipidemia, Musculoskeletal Disorder Additional Past Medical History / Comment(s): Chronic back pain, scoliosis, DDD History of Any Multi-Drug Resistant Organisms: None Reported Past Surgical History: Appendectomy, Back Surgery, Orthopedic Surgery Additional Past Surgical History / Comment(s): D & C, left foot surgery for bunion, fatty tumor removed from back when pt was 8 yrs old. Past Anesthesia/Blood Transfusion Reactions: No Reported Reaction Past Psychological History: Anxiety, Bipolar, Depression, Panic Disorder Smoking Status: Former smoker Past Alcohol Use History: None Reported Past Drug Use History: None Reported - Past Family History Father History Unknown: Yes Family Medical History: Myocardial Infarction ([place]) Additional Family Medical History / Comment(s): at age 42 from [place] Mother History Unknown: Yes Additional Family Medical History / Comment(s): renal failure. Mother is 61 yrs old. General Exam Limitations: no limitations General appearance: alert, in no apparent distress Head exam: Present: atraumatic, normocephalic, normal inspection Eye exam: Present: normal appearance, PERRL, EOMI. Absent: scleral icterus, conjunctival injection, periorbital swelling Neck exam: Present: normal inspection. Absent: tenderness, meningismus, lymphadenopathy Respiratory exam: Present: normal lung sounds bilaterally. Absent: respiratory distress, wheezes, rales, rhonchi, stridor Cardiovascular Exam: Present: regular rate, normal rhythm, normal heart sounds. Absent: systolic murmur, diastolic murmur, rubs, gallop, clicks GI/Abdominal exam: Present: soft, tenderness (Mild/moderate left lower quadrant tenderness), normal bowel sounds. Absent: distended, guarding, rebound, rigid Back exam: Present: full ROM. Absent: tenderness, CVA tenderness (R), CVA tenderness (L) Neurological exam: Present: alert, oriented X3, CN II-XII intact Skin exam: Present: warm, dry, intact, normal color. Absent: rash Course Vital Signs 05/20/19 05/20/19 11:55 14:02 Temperature 97.6 F Pulse Rate 59 L 56 L Respiratory 16 18 Rate Blood Pressure 125/85 133/85 O2 Sat by Pulse 98 99 Oximetry Medical Decision Making - Medical Decision Making 39-year-old female presented for abdominal pain. Patient had labs urinalysis x- ray ultrasound. Only acute findings as constipation stool burden. Patient will be discharged with magnesium citrate. Patient will follow-up with surgeon or GI for colonoscopy. - Lab Data Result diagrams: 05/20/19 12:12 05/20/19 12:12 Lab Results 05/20/19 05/20/19 05/20/19 Range/Units 12:12 12:12 12:12 WBC 5.3 (3.8-10.6) k/uL RBC 4.74 (3.80-5.40) m/uL Hgb 14.1 (11.4-16.0) gm/dL Hct 42.9 (34.0-46.0) % MCV 90.6 (80.0-100.0) fL MCH 29.7 (25.0-35.0) pg MCHC 32.8 (31.0-37.0) g/dL RDW 13.0 (11.5-15.5) % Plt Count 285 (150-450) k/uL Neutrophils % 40 % Lymphocytes % 51 % Monocytes % 4 % Eosinophils % 2 % Basophils % 1 % Neutrophils # 2.1 (1.3-7.7) k/uL Lymphocytes # 2.7 (1.0-4.8) k/uL Monocytes # 0.2 (0-1.0) k/uL Eosinophils # 0.1 (0-0.7) k/uL Basophils # 0.0 (0-0.2) k/uL Sodium 138 (137-145) mmol/L Potassium 4.6 (3.5-5.1) mmol/L Chloride 104 (98-107) mmol/L Carbon Dioxide 25 (22-30) mmol/L Anion Gap 9 mmol/L BUN 25 H (7-17) mg/dL Creatinine 0.51 L (0.52-1.04) mg/dL Est GFR (CKD-EPI)AfAm >90 (>60 ml/min/1.73 sqM) Est GFR (CKD-EPI)NonAf >90 (>60 ml/min/1.73 sqM) Glucose 85 (74-99) mg/dL Calcium 9.3 (8.4-10.2) mg/dL Total Bilirubin 0.5 (0.2-1.3) mg/dL AST 30 (14-36) U/L ALT 23 (9-52) U/L Alkaline Phosphatase 38 (38-126) U/L Total Protein 7.5 (6.3-8.2) g/dL Albumin 4.4 (3.5-5.0) g/dL Amylase 53 (30-110) U/L Lipase 83 (23-300) U/L Urine Color Light Yellow Urine Appearance Clear (Clear) Urine pH 6.5 (5.0-8.0) Ur Specific [place] 1.014 (1.001-1.035) Urine Protein Negative (Negative) Urine Glucose (UA) Negative (Negative) Urine Ketones Negative (Negative) Urine Blood Negative (Negative) Urine Nitrite Negative (Negative) Urine Bilirubin Negative (Negative) Urine Urobilinogen <2.0 (<2.0) mg/dL Ur Leukocyte Esterase Negative (Negative) Urine HCG, Qual (Not Detectd) 05/20/19 Range/Units 12:12 WBC (3.8-10.6) k/uL RBC (3.80-5.40) m/uL Hgb (11.4-16.0) gm/dL Hct (34.0-46.0) % MCV (80.0-100.0) fL MCH (25.0-35.0) pg MCHC (31.0-37.0) g/dL RDW (11.5-15.5) % Plt Count (150-450) k/uL Neutrophils % % Lymphocytes % % Monocytes % % Eosinophils % % Basophils % % Neutrophils # (1.3-7.7) k/uL Lymphocytes # (1.0-4.8) k/uL Monocytes # (0-1.0) k/uL Eosinophils # (0-0.7) k/uL Basophils # (0-0.2) k/uL Sodium (137-145) mmol/L Potassium (3.5-5.1) mmol/L Chloride (98-107) mmol/L Carbon Dioxide (22-30) mmol/L Anion Gap mmol/L BUN (7-17) mg/dL Creatinine (0.52-1.04) mg/dL Est GFR (CKD-EPI)AfAm (>60 ml/min/1.73 sqM) Est GFR (CKD-EPI)NonAf (>60 ml/min/1.73 sqM) Glucose (74-99) mg/dL Calcium (8.4-10.2) mg/dL Total Bilirubin (0.2-1.3) mg/dL AST (14-36) U/L ALT (9-52) U/L Alkaline Phosphatase (38-126) U/L Total Protein (6.3-8.2) g/dL Albumin (3.5-5.0) g/dL Amylase (30-110) U/L Lipase (23-300) U/L Urine Color Urine Appearance (Clear) Urine pH (5.0-8.0) Ur Specific [place] (1.001-1.035) Urine Protein (Negative) Urine Glucose (UA) (Negative) Urine Ketones (Negative) Urine Blood (Negative) Urine Nitrite (Negative) Urine Bilirubin (Negative) Urine Urobilinogen (<2.0) mg/dL Ur Leukocyte Esterase (Negative) Urine HCG, Qual Not Detected (Not Detectd) Disposition Clinical Impression: Abdominal pain, Constipation Disposition: HOME SELF-CARE Condition: Stable Instructions (If sedation given, give patient instructions): Abdominal Pain (ED) Additional Instructions: Please return to the Emergency Department if symptoms worsen or any other concerns. Is patient prescribed a controlled substance at d/c from ED?: No Referrals: Ele Simon MD [STAFF PHYSICIAN] - 1-2 days Toño Louis DO [Doctor of Osteopathic Medicine] - 1-2 days Kevin Bella MD [STAFF PHYSICIAN] - 1-2 days Time of Disposition: 15:02
[2019-05-20 12:55] LABS: Basophils % (A) 1 %; Eosinophils # (A) 0.1 k/uL (0-0.7); Eosinophils % (A) 2 %; HCT 42.9 % (34.0-46.0); HGB 14.1 gm/dL (11.4-16.0); Lymphocytes # (A) 2.7 k/uL (1.0-4.8); Lymphocytes % (A) 51 %; MCH 29.7 pg (25.0-35.0); MCHC 32.8 g/dL (31.0-37.0); MCV 90.6 fL (80.0-100.0); Monocytes # (A) 0.2 k/uL (0-1.0); Monocytes % (A) 4 %; Neutrophils # (A) 2.1 k/uL (1.3-7.7); Neutrophils % (A) 40 %; Platelet Count 285 k/uL (150-450); RBC 4.74 m/uL (3.80-5.40); WBC 5.3 k/uL (3.8-10.6)
[2019-05-20 12:59] LABS: ALT 23 U/L (9-52); AST 30 U/L (14-36); African American GFR (CKD) >90 (>60 ml/min/1.73 sqM); Albumin 4.4 g/dL (3.5-5.0); Alkaline Phosphatase 38 U/L (38-126); Amylase 53 U/L (30-110); Anion Gap 9 mmol/L; Blood Urea Nitrogen 25 mg/dL (7-17); Calcium 9.3 mg/dL (8.4-10.2); Carbon Dioxide 25 mmol/L (22-30); Chloride 104 mmol/L (98-107); Glucose 85 mg/dL (74-99); Potassium 4.6 mmol/L (3.5-5.1); Sodium 138 mmol/L (137-145); Total Bilirubin 0.5 mg/dL (0.2-1.3); Total Protein 7.5 g/dL (6.3-8.2)
[2019-05-20 13:02] LABS: Appearance,Urine Clear (Clear); Bilirubin,Urine Negative (Negative); Blood,Urine Negative (Negative); Color,Urine Light Yellow; Glucose,Urine (UA) Negative (Negative); Ketones,Urine Negative (Negative); Leukocyte Esterase,Urine Negative (Negative); Nitrite,Urine Negative (Negative); PH, Urine 6.5 (5.0-8.0); Protein,Urine Negative (Negative); Specific Gravity,Urine 1.014 (1.001-1.035); Urobilinogen,Urine <2.0 mg/dL (<2.0)
--- NOTE | 2019-05-20 13:50 | US ---
EXAMINATION TYPE: US transvaginal DATE OF EXAM: 05/20/2019 COMPARISON: Previous pelvic ultrasound dated 01/15/2015 CLINICAL HISTORY: Left lower pelvic pain. Pelvic pain TECHNIQUE: Transvaginal (TV). EXAM MEASUREMENTS: Uterus: 10.7 x 6.3 x 5.8 cm Endometrial Stripe: 1.8 cm Right Ovary: 5.1 x 2.7 x 2.6 cm Left Ovary: 2.4 x 1.5 x 2.2 cm 1. Uterus: Anteverted Nabothian cysts seen. 2. Endometrium: Thickened but less so compared to prior exam 3. Right Ovary: Cystic area seen 4.5 x 2.0 x 3.9 cm 4. Left Ovary: Follicle seen Spectral, color and waveform doppler imaging shows arterial and venous flow within the ovaries; the re is no evidence for ovarian torsion. 5. Bilateral Adnexa: wnl 6. Posterior cul-de-sac: wnl IMPRESSION: There is endometrial thickening. Right ovarian cyst.
[2019-05-20] MEDS ORDERED: ONDANSETRON 4 MG/2 ML VIAL IVP STA (14:04)
[2019-05-20] MEDS ORDERED: MORPHINE SULFATE 4 MG/ML SYRINGE IVP STA (14:04)
--- NOTE | 2019-05-20 14:29 | XR ---
EXAMINATION TYPE: XR KUB DATE OF EXAM: 05/20/2019 2:04 PM CLINICAL HISTORY: Left lower quadrant pain. TECHNIQUE: Single supine KUB image of the abdomen is obtained. COMPARISON: None. FINDINGS: Scattered gas is seen in non-distended small bowel loops. Large amount of stool is seen in the right colon. Surgical clips are seen in the right lower quadrant abdomen. Gas and fecal material is seen in non-distended colon. There is no visceromegaly, pneumoperitoneum, or abnormal calcificatio n appreciated. The lung bases are clear and the osseous structures are intact. IMPRESSION: Large amount of stool in the right colon. Nonobstructive bowel gas pattern. Stool retention was seen on CT of abdomen and pelvis dated 05/12/2019.
[2019-05-20] MEDS ORDERED: MAGNESIUM CITRATE 296 ML BOTTLE PO ONE (15:02)
[2019-05-20 15:16] VITALS: BP 122/69; PULSE 52; RESP 16; TEMP 97.5
== END 2019-05-20 15:39 | disposition home or self-care (01) ==
LOC: EC 11:54
DX: K59.00 Constipation, unspecified (principal); Z88.1 Allergy status to other antibiotic agents; Z88.2 Allergy status to sulfonamides; Z87.891 Personal history of nicotine dependence
CPT/HCPCS: 36415; 80053; 82150; 83690; 85025; 81003; 81025; 74018; 93975; 76830; 99284; 96374; 96375 ×3; J2270; J2360; J2405; J1885

== ENCOUNTER 2019-06-09 12:04 | Emergency (ER) | payer BC, OTHER ==
[2019-06-09] MEDS ORDERED: KETOROLAC 30 MG/ML 1 ML VIAL IVP STA (14:16)
--- NOTE | 2019-06-09 15:01 | ED ---
Abdominal Pain HPI - General Chief Complaint: Abdominal Pain Stated Complaint: abd pain Time Seen by Provider: 06/09/19 14:01 Source: patient Mode of arrival: ambulatory Limitations: no limitations - History of Present Illness Initial Comments: Patient is a 39-year-old female presenting to emergency Department with chief complaint of left lower quadrant pain. Patient reports she was in the emergency department approximately to have weeks ago with the same chief complaint and was diagnosed with constipation. Patient was given laxatives and states they work without issues until recently. Patient reports she developed an exacerbation of her left lower quadrant pain over the past 2 days. Patient states the pain comes and goes. Patient reports the pain is not related to food intake. Patient denies any abdominal surgeries except for an appendectomy. Patient reports a small bowel movement prior coming to the ER, and the previous one was about 4 days ago. Patient denies hematuria, hematochezia or melena. Patient does report nausea for one day but no vomiting. Patient denies any fever or chills.patient denies urgency, increased frequency or dysuria. Patient denies any vaginal discharge or bleeding. Patient reports she saw a GI specialist and has a colonoscopy scheduled in 3 days. Patient states she is currently on her period. - Related Data Home Medications Medication Instructions Recorded Confirmed Lactulose [Cephulac] 10 gm PO BID 06/06/19 06/09/19 Previous Rx's Medication Instructions Recorded Ondansetron Odt [Zofran Odt] 4 mg PO Q8HR PRN #10 tab 06/09/19 Allergies Allergy/AdvReac Type Severity Reaction Status Date / Time sulfamethoxazole Allergy Itching Verified 06/09/19 14:06 [From Bactrim] trimethoprim [From Bactrim] Allergy Itching Verified 06/09/19 14:06 Review of Systems ROS Statement: Those systems with pertinent positive or pertinent negative responses have been documented in the HPI. ROS Other: All systems not noted in ROS Statement are negative. Past Medical History Past Medical History: Hyperlipidemia, Musculoskeletal Disorder Additional Past Medical History / Comment(s): Chronic back pain, scoliosis, DDD, CONSTIPATION History of Any Multi-Drug Resistant Organisms: None Reported Past Surgical History: Appendectomy, Orthopedic Surgery Additional Past Surgical History / Comment(s): D & C, left foot surgery for bunion, fatty tumor removed from back when pt was 8 yrs old. Past Anesthesia/Blood Transfusion Reactions: No Reported Reaction Past Psychological History: Anxiety, Bipolar, Depression, Panic Disorder Smoking Status: Former smoker Past Alcohol Use History: None Reported Past Drug Use History: None Reported - Past Family History Father History Unknown: Yes Family Medical History: No Reported History, Myocardial Infarction ([place]) Additional Family Medical History / Comment(s): at age 42 from [place] Mother History Unknown: Yes Family Medical History: No Reported History Additional Family Medical History / Comment(s): renal failure. Mother is 61 yrs old. General Exam Limitations: no limitations General appearance: alert, in no apparent distress Head exam: Present: atraumatic, normocephalic, normal inspection Eye exam: Present: normal appearance, PERRL, EOMI. Absent: conjunctival injection Pupils: Present: normal accommodation ENT exam: Present: normal exam, normal oropharynx, mucous membranes moist, TM's normal bilaterally, normal external ear exam Neck exam: Present: normal inspection, full ROM Respiratory exam: Present: normal lung sounds bilaterally Cardiovascular Exam: Present: regular rate, normal rhythm, normal heart sounds GI/Abdominal exam: Present: soft, tenderness (Left lower quadrant), hypoactive bowel sounds. Absent: distended, guarding, rebound, pulsatile mass, other (Negative Johnson) Extremities exam: Present: normal inspection, full ROM Back exam: Present: normal inspection, full ROM. Absent: CVA tenderness (R), CVA tenderness (L) Neurological exam: Present: alert, oriented X3 Psychiatric exam: Present: normal affect, normal mood Skin exam: Present: warm, intact, normal color Course Vital Signs 06/09/19 06/09/19 12:21 16:51 Temperature 98.2 F 97.6 F Pulse Rate 78 76 Respiratory 18 16 Rate Blood Pressure 100/68 136/86 O2 Sat by Pulse 98 99 Oximetry Medical Decision Making - Medical Decision Making Patient is a 39-year-old male presenting to emergency Department with a chief complaint of abdominal pain. Patient was recently evaluated in the ED for the same left lower quadrant abdominal pain. Patient was diagnosed with constipation and given laxatives. Patient reports that laxatives were working until the past few days. Patient reports she had a bowel movement before coming to the ED. CBC, CMP and UA were obtained. UA does indicate hematuria or patient states she is currently on her period. CMP indicates mild decrease in liver enzymes. Labs are otherwise unremarkable. Patient was given Toradol, Zofran and fluids. On reevaluation patient reports the nausea has resolved but still reports left lower quadrant pain. Patient was given Tylenol 3 and states the pain has since improved. KUB indicates decreased stool retention when compared to her most recent imaging. Patient will be discharged with a Tylenol 3 starter pack. Patient prescribed oral Zofran. Patient does have an appointment for colonoscopy in 2 days. Patient has been in contact and evaluated by a GI specialist. Strict return parameters were thoroughly discussed the patient was understanding agreeable. Case discussed physician. - Lab Data Result diagrams: 06/09/19 14:51 06/09/19 14:51 Lab Results 06/09/19 06/09/19 06/09/19 Range/Units 14:51 14:51 15:35 WBC 8.6 (3.8-10.6) k/uL RBC 4.95 (3.80-5.40) m/uL Hgb 15.1 (11.4-16.0) gm/dL Hct 44.3 (34.0-46.0) % MCV 89.6 (80.0-100.0) fL MCH 30.5 (25.0-35.0) pg MCHC 34.0 (31.0-37.0) g/dL RDW 15.2 (11.5-15.5) % Plt Count 230 (150-450) k/uL Neutrophils % 64 % Lymphocytes % 29 % Monocytes % 3 % Eosinophils % 2 % Basophils % 1 % Neutrophils # 5.5 (1.3-7.7) k/uL Lymphocytes # 2.5 (1.0-4.8) k/uL Monocytes # 0.3 (0-1.0) k/uL Eosinophils # 0.2 (0-0.7) k/uL Basophils # 0.1 (0-0.2) k/uL Sodium 136 L (137-145) mmol/L Potassium 4.3 (3.5-5.1) mmol/L Chloride 107 (98-107) mmol/L Carbon Dioxide 23 (22-30) mmol/L Anion Gap 6 mmol/L BUN 16 (7-17) mg/dL Creatinine 0.46 L (0.52-1.04) mg/dL Est GFR (CKD-EPI)AfAm >90 (>60 ml/min/1.73 sqM) Est GFR (CKD-EPI)NonAf >90 (>60 ml/min/1.73 sqM) Glucose 125 H (74-99) mg/dL Calcium 8.1 L (8.4-10.2) mg/dL Total Bilirubin 0.4 (0.2-1.3) mg/dL AST 25 (14-36) U/L ALT 16 (9-52) U/L Alkaline Phosphatase 25 L (38-126) U/L Total Protein 5.5 L (6.3-8.2) g/dL Albumin 3.1 L (3.5-5.0) g/dL Amylase <30 L (30-110) U/L Lipase 48 (23-300) U/L Urine Color Urine Appearance (Clear) Urine pH (5.0-8.0) Ur Specific Newell (1.001-1.035) Urine Protein (Negative) Urine Glucose (UA) (Negative) Urine Ketones (Negative) Urine Blood (Negative) Urine Nitrite (Negative) Urine Bilirubin (Negative) Urine Urobilinogen (<2.0) mg/dL Ur Leukocyte Esterase (Negative) Urine RBC (0-5) /hpf Urine WBC (0-5) /hpf Ur Squamous Epith Cells (0-4) /hpf Urine Mucus (None) /hpf Urine HCG, Qual Not Detected (Not Detectd) 06/09/19 Range/Units 15:35 WBC (3.8-10.6) k/uL RBC (3.80-5.40) m/uL Hgb (11.4-16.0) gm/dL Hct (34.0-46.0) % MCV (80.0-100.0) fL MCH (25.0-35.0) pg MCHC (31.0-37.0) g/dL RDW (11.5-15.5) % Plt Count (150-450) k/uL Neutrophils % % Lymphocytes % % Monocytes % % Eosinophils % % Basophils % % Neutrophils # (1.3-7.7) k/uL Lymphocytes # (1.0-4.8) k/uL Monocytes # (0-1.0) k/uL Eosinophils # (0-0.7) k/uL Basophils # (0-0.2) k/uL Sodium (137-145) mmol/L Potassium (3.5-5.1) mmol/L Chloride (98-107) mmol/L Carbon Dioxide (22-30) mmol/L Anion Gap mmol/L BUN (7-17) mg/dL Creatinine (0.52-1.04) mg/dL Est GFR (CKD-EPI)AfAm (>60 ml/min/1.73 sqM) Est GFR (CKD-EPI)NonAf (>60 ml/min/1.73 sqM) Glucose (74-99) mg/dL Calcium (8.4-10.2) mg/dL Total Bilirubin (0.2-1.3) mg/dL AST (14-36) U/L ALT (9-52) U/L Alkaline Phosphatase (38-126) U/L Total Protein (6.3-8.2) g/dL Albumin (3.5-5.0) g/dL Amylase (30-110) U/L Lipase (23-300) U/L Urine Color Light Red Urine Appearance Clear (Clear) Urine pH 5.0 (5.0-8.0) Ur Specific Newell 1.021 (1.001-1.035) Urine Protein Trace H (Negative) Urine Glucose (UA) Negative (Negative) Urine Ketones Negative (Negative) Urine Blood Large H (Negative) Urine Nitrite Negative (Negative) Urine Bilirubin Negative (Negative) Urine Urobilinogen <2.0 (<2.0) mg/dL Ur Leukocyte Esterase Trace H (Negative) Urine RBC >182 H (0-5) /hpf Urine WBC 7 H (0-5) /hpf Ur Squamous Epith Cells 1 (0-4) /hpf Urine Mucus Occasional H (None) /hpf Urine HCG, Qual (Not Detectd) Disposition Clinical Impression: Abdominal pain Disposition: HOME SELF-CARE Condition: Stable Instructions (If sedation given, give patient instructions): Abdominal Pain (ED) Additional Instructions: Please take prescribed medication as directed. Please follow up with a GI specialist. Please return to emergency department if symptoms worsen. Prescriptions: Ondansetron Odt [Zofran Odt] 4 mg PO Q8HR PRN #10 tab PRN Reason: Nausea Is patient prescribed a controlled substance at d/c from ED?: No Referrals: None,Stated [Primary Care Provider] - 1-2 days Time of Disposition: 16:28
[2019-06-09 15:07] LABS: Basophils # (A) 0.1 k/uL (0-0.2); Basophils % (A) 1 %; Eosinophils # (A) 0.2 k/uL (0-0.7); Eosinophils % (A) 2 %; HCT 44.3 % (34.0-46.0); HGB 15.1 gm/dL (11.4-16.0); Lymphocytes # (A) 2.5 k/uL (1.0-4.8); Lymphocytes % (A) 29 %; MCH 30.5 pg (25.0-35.0); MCV 89.6 fL (80.0-100.0); Mean Platelet Volume 8.6; Monocytes # (A) 0.3 k/uL (0-1.0); Monocytes % (A) 3 %; Neutrophils # (A) 5.5 k/uL (1.3-7.7); Neutrophils % (A) 64 %; Platelet Count 230 k/uL (150-450); RBC 4.95 m/uL (3.80-5.40); RDW 15.2 % (11.5-15.5); WBC 8.6 k/uL (3.8-10.6)
--- NOTE | 2019-06-09 15:14 | XR ---
EXAMINATION TYPE: XR KUB DATE OF EXAM: 06/09/2019 2:59 PM CLINICAL HISTORY: Lower abdominal pain TECHNIQUE: Single upright image of the abdomen is obtained. COMPARISON: 05/20/2019. FINDINGS: There is improved degree of retained colonic stool in the right hemicolon in comparison to the prior. There is a mild dextroscoliosis of the lumbar spine. No dilated large or small bowel. Surg ical clips in the right lower quadrant are seen. Lung bases are well aerated. IMPRESSION: Decrease in degree of right hemicolonic retained stool in comparison the prior of 05/20/20 19. Nonobstructive bowel gas pattern.
[2019-06-09 15:15] LABS: ALT 16 U/L (9-52); AST 25 U/L (14-36); African American GFR (CKD) >90 (>60 ml/min/1.73 sqM); Albumin 3.1 g/dL (3.5-5.0); Alkaline Phosphatase 25 U/L (38-126); Anion Gap 6 mmol/L; Blood Urea Nitrogen 16 mg/dL (7-17); Calcium 8.1 mg/dL (8.4-10.2); Carbon Dioxide 23 mmol/L (22-30); Chloride 107 mmol/L (98-107); Glucose 125 mg/dL (74-99); Potassium 4.3 mmol/L (3.5-5.1); Sodium 136 mmol/L (137-145); Total Bilirubin 0.4 mg/dL (0.2-1.3); Total Protein 5.5 g/dL (6.3-8.2)
[2019-06-09 15:20] LABS: Amylase <30 U/L (30-110)
[2019-06-09] MEDS ORDERED: DICYCLOMINE 20 MG TAB PO STA (15:34)
[2019-06-09 15:51] LABS: Appearance,Urine Clear (Clear); Bilirubin,Urine Negative (Negative); Blood,Urine Large (Negative); Color,Urine Light Red; Glucose,Urine (UA) Negative (Negative); Ketones,Urine Negative (Negative); Leukocyte Esterase,Urine Trace (Negative); Mucus,Urine Occasional /hpf; Nitrite,Urine Negative (Negative); Protein,Urine Trace (Negative); RBC,Urine >182 /hpf (0-5); Specific Gravity,Urine 1.021 (1.001-1.035); Squamous Epithelial Cell,Urine 1 /hpf (0-4); Urobilinogen,Urine <2.0 mg/dL (<2.0); WBC,Urine 7 /hpf (0-5)
[2019-06-09] MEDS ORDERED: ONDANSETRON 4 MG/2 ML VIAL IVP STA (16:15)
[2019-06-09] MEDS ORDERED: Acetaminophen-Codeine 300-30mg TAB PO STA (16:15)
[2019-06-09] MEDS ORDERED: ACET/COD 300 MG/30 MG STARTER PACK 6 TAB BTL PO STA (16:27)
[2019-06-09 16:52] VITALS: BP 136/86; PULSE 76; RESP 16; TEMP 97.6
== END 2019-06-09 16:51 | disposition home or self-care (01) ==
LOC: EC 12:04
DX: R10.32 Left lower quadrant pain (principal); K59.00 Constipation, unspecified; R74.8 Abnormal levels of other serum enzymes; Z79.899 Other long term (current) drug therapy; Z88.2 Allergy status to sulfonamides; Z87.891 Personal history of nicotine dependence; Z90.89 Acquired absence of other organs
CPT/HCPCS: 36415; 80053; 82150; 83690; 85025; 81001; 81025; 74018; 96374; 96375; 99284; J2405; J1885

== ENCOUNTER 2019-06-12 08:33 | Day surgery (SDC) | payer BC, OTHER ==
[2019-06-06 15:20] VITALS: BMI 29.9
[~2019-06-12 08:33] MED LIST: LACTATED RINGERS 1,000 ML IV SCH; LIDOCAINE 1% 20 ML VIAL (10MG/ML) FOR IV START INTRADERMA PRN
[2019-06-12 09:18] VITALS: RESP 16; TEMP 97.6
[2019-06-12] MEDS ORDERED: PROPOFOL 10 MG/ML 20 ML VIAL IV ONE (10:03)
[2019-06-12] MEDS ORDERED: LIDOCAINE 1% INJ 10MG/ML (20 ML MDV) ONE (10:03)
--- NOTE | 2019-06-12 10:50 | P.PCN ---
Date of Procedure: 06/12/19 Description of Procedure: BRIEF HISTORY: Patient is a 39-year-old pleasant female scheduled for an elective colonoscopy as a part of evaluation of change in bowel habits and abdominal pain. The patient reports in bowel habits over the past year with increased constipation and straining with bowel movements. She also noted lower abdominal pain. PROCEDURE PERFORMED: Colonoscopy with polypectomy and biopsy. PREOPERATIVE DIAGNOSIS: Change in bowel habits, abdominal pain. ESTIMATED BLOOD LOSS: Minimal. IV sedation per Anesthesia. PROCEDURE: After informed consent was obtained, the patient, was brought into the endoscopy unit. IV sedation was administered by Anesthesia under continuous monitoring. Digital rectal examination was normal. Initially the Olympus CF-190 flexible video colonoscope was then inserted in the rectum, gradually advanced into the cecum without any difficulty. Careful examination was performed as the scope was gradually being withdrawn. Ileocecal valve and the appendiceal orifice were visualized and appeared normal. Prep was excellent. Mucosa of the cecum, ascending colon, transverse colon, descending colon, sigmoid colon, and rectum appeared normal. 2 diminutive 2 mm ascending colon polyps removed with cold forceps. Random biopsies of the right and left colon. Diminutive 2 mm sigmoid polyp removed with cold forceps. Retroflexion was performed in the rectum and no lesions were seen, with mild internal hemorrhoids noted. The patient tolerated the procedure well. IMPRESSION: Normal-appearing colon from rectum to cecum, with random biopsies of the right and left colon. 3 diminutive 2 mm polyps removed from the ascending colon and sigmoid cold forcep. RECOMMENDATIONS: Findings of this examination were discussed with the patient and her friend. Okay to resume diet. Continue bowel regimen. Follow up with gastroenterology clinic as previously scheduled. Await pathology from polypectomies. Anticipate repeat colonoscopy in 5 years pending pathology from polypectomies.
[2019-06-12 11:38] VITALS: BP 125/79; PULSE 61
== END 2019-06-12 11:37 | disposition home or self-care (01) ==
LOC: ORWHC2ENDO 08:33
PROVIDERS: ATTEND Internal Medicine
DX: K63.5 Polyp of colon (principal); K59.00 Constipation, unspecified; Z87.891 Personal history of nicotine dependence; E78.5 Hyperlipidemia, unspecified; M41.9 Scoliosis, unspecified; Z79.899 Other long term (current) drug therapy; Z88.2 Allergy status to sulfonamides
CPT/HCPCS: 81025; 88305; 45380; J2001; J2704

== ENCOUNTER 2019-07-07 07:29 | Emergency (ER) | payer BC, OTHER ==
[2019-07-07 07:35] VITALS: TEMP 98.4
[2019-07-07] MEDS ORDERED: KETOROLAC 30 MG/ML 1 ML VIAL IVP STA (07:52)
[2019-07-07] MEDS ORDERED: SODIUM CHLORIDE 0.9% 1,000 ML IV ONE (07:52)
[2019-07-07] MEDS ORDERED: METOCLOPRAMIDE 5 MG/ML 2 ML VIAL IVP STA (07:52)
[2019-07-07] MEDS ORDERED: diphenhydrAMINE 50 MG/ML 1 ML VIAL IVP STA (07:52)
--- NOTE | 2019-07-07 08:12 | ED ---
Headache HPI - General Chief Complaint: Headache Stated Complaint: headache, dizzy Time Seen by Provider: 07/07/19 07:40 Source: patient, RN notes reviewed Mode of arrival: ambulatory Limitations: no limitations - History of Present Illness Initial Comments: 39-year-old female presents emergency Department with chief complaint of headache. Patient states that it started last night worsened while she was at work she states that she has photophobia, nausea with no vomiting. Patient does have a history of migraine headaches. Patient states is not the worse headache of her life she denies any focal weakness she does state that she has some pain rating from her TMJ region. Patient also states that she's had shooting pain from her occipital region following to the backside of her eye. Denies any blurred vision no focal weakness. Patient did not take any recent medications. Patient denies fever, chills, night sweats. - Related Data Home Medications Medication Instructions Recorded Confirmed No Known Home Medications 07/07/19 07/07/19 Allergies Allergy/AdvReac Type Severity Reaction Status Date / Time sulfamethoxazole Allergy Itching Verified 07/07/19 07:50 [From Bactrim] trimethoprim [From Bactrim] Allergy Itching Verified 07/07/19 07:50 Review of Systems ROS Statement: Those systems with pertinent positive or pertinent negative responses have been documented in the HPI. ROS Other: All systems not noted in ROS Statement are negative. Past Medical History Past Medical History: Hyperlipidemia, Musculoskeletal Disorder Additional Past Medical History / Comment(s): Chronic back pain, scoliosis, DDD, CONSTIPATION History of Any Multi-Drug Resistant Organisms: None Reported Past Surgical History: Appendectomy, Orthopedic Surgery Additional Past Surgical History / Comment(s): D & C, left foot surgery for bunion, fatty tumor removed from back when pt was 8 yrs old. Past Anesthesia/Blood Transfusion Reactions: No Reported Reaction Past Psychological History: Anxiety, Bipolar, Depression, Panic Disorder Smoking Status: Former smoker Past Alcohol Use History: None Reported Past Drug Use History: None Reported - Past Family History Father History Unknown: Yes Family Medical History: No Reported History, Myocardial Infarction ([place]) Additional Family Medical History / Comment(s): at age 42 from [place] Mother History Unknown: Yes Family Medical History: No Reported History Additional Family Medical History / Comment(s): renal failure. Mother is 61 yrs old. General Exam Limitations: no limitations General appearance: alert, in no apparent distress Head exam: Present: atraumatic, normocephalic, normal inspection Eye exam: Present: normal appearance, PERRL, EOMI. Absent: scleral icterus, conjunctival injection, periorbital swelling ENT exam: Present: normal exam, normal oropharynx, mucous membranes moist, TM's normal bilaterally Neck exam: Present: normal inspection, full ROM. Absent: tenderness, meningismus, lymphadenopathy Respiratory exam: Present: normal lung sounds bilaterally. Absent: respiratory distress, wheezes, rales, rhonchi, stridor Cardiovascular Exam: Present: regular rate, normal rhythm, normal heart sounds. Absent: systolic murmur, diastolic murmur, rubs, gallop, clicks Neurological exam: Present: alert, oriented X3, CN II-XII intact, reflexes tracey l. Absent: motor sensory deficit Skin exam: Present: warm, dry, intact, normal color. Absent: rash Course Vital Signs 07/07/19 07:32 Temperature 98.4 F Pulse Rate 73 Respiratory 18 Rate Blood Pressure 119/80 O2 Sat by Pulse 98 Oximetry - Reevaluation(s) Reevaluation #1: 07/07/19 09:14 Patient reevaluated states that her symptoms have resolved. Medical Decision Making - Medical Decision Making 39-year-old female presented for headache. Patient was given migraine cocktail at this time symptoms have resolved and she did have a normal neuro exam. Patient is requesting a work note will be discharged with close follow-up we did discuss return parameters. Disposition Clinical Impression: Migraine headache Disposition: HOME SELF-CARE Condition: Stable Instructions (If sedation given, give patient instructions): Acute Headache (ED) Additional Instructions: Please return to the Emergency Department if symptoms worsen or any other concerns. Is patient prescribed a controlled substance at d/c from ED?: No Referrals: Gregor Henderson MD [Primary Care Provider] - 1-2 days Time of Disposition: 09:14
[2019-07-07 09:22] VITALS: BP 113/72; PULSE 5; RESP 16
== END 2019-07-07 09:17 | disposition home or self-care (01) ==
LOC: EC 07:29
DX: G43.909 Migraine, unspecified, not intractable, without status migrainosus (principal); R42 Dizziness and giddiness; Z87.891 Personal history of nicotine dependence; Z90.49 Acquired absence of other specified parts of digestive tract; Z98.890 Other specified postprocedural states; Z88.1 Allergy status to other antibiotic agents; Z88.2 Allergy status to sulfonamides
CPT/HCPCS: 96361; 96374; 96375; 99283

== ENCOUNTER 2019-07-14 08:47 | Emergency (ER) | payer BC ==
[2019-07-14 08:53] VITALS: BP 135/92; PULSE 76; RESP 16; TEMP 98
[2019-07-14] MEDS ORDERED: KETOROLAC 30 MG/ML 1 ML VIAL IM STA (09:27)
--- NOTE | 2019-07-14 09:32 | ED ---
General Adult HPI - General Chief complaint: Extremity Injury, Lower Stated complaint: Knee pain/swelling Time Seen by Provider: 07/14/19 08:55 Source: patient, RN notes reviewed Mode of arrival: ambulatory Limitations: no limitations - History of Present Illness Initial comments: 39-year-old female with a past medical history of hyperlipidemia, chronic back pain, scoliosis, DJD, constipation presents for right knee pain. This has been ongoing for 2 days. 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 States it has been painful to use since that time. Eyes any other injuries. States it is painful to bend and walk on. Denies any fevers or chills. States she had negative x-rays at [facility] yesterday and was told to follow-up with orthopedics that she did not do. Patient states she went to work today and was having pain so came to the ER. Denies any IV drug abuse. Denies any injection of the right knee.there is any pain in the back of the knee or leg, states it is all in the anterior right knee. Patient has no other complaints at this time including s hortness of breath, chest pain, abdominal pain, nausea or vomiting, headache, or visual changes. - Related Data Home Medications Medication Instructions Recorded Confirmed Acetaminophen Tab [Tylenol Tab] 650 mg PO Q4H PRN 07/14/19 07/14/19 Naproxen Sodium [Aleve] 440 mg PO DAILY PRN 07/14/19 07/14/19 Allergies Allergy/AdvReac Type Severity Reaction Status Date / Time sulfamethoxazole Allergy Itching Verified 07/14/19 09:02 [From Bactrim] trimethoprim [From Bactrim] Allergy Itching Verified 07/14/19 09:02 Review of Systems ROS Statement: Those systems with pertinent positive or pertinent negative responses have been documented in the HPI. ROS Other: All systems not noted in ROS Statement are negative. Past Medical History Past Medical History: Hyperlipidemia, Musculoskeletal Disorder Additional Past Medical History / Comment(s): Chronic back pain, scoliosis, DDD, CONSTIPATION History of Any Multi-Drug Resistant Organisms: None Reported Past Surgical History: Appendectomy, Orthopedic Surgery Additional Past Surgical History / Comment(s): D & C, left foot surgery for bunion, fatty tumor removed from back when pt was 8 yrs old. Past Anesthesia/Blood Transfusion Reactions: No Reported Reaction Past Psychological History: Anxiety, Bipolar, Depression, Panic Disorder Smoking Status: Former smoker Past Alcohol Use History: None Reported Past Drug Use History: None Reported - Past Family History Father History Unknown: Yes Family Medical History: No Reported History, Myocardial Infarction ([place]) Additional Family Medical History / Comment(s): at age 42 from [place] Mother History Unknown: Yes Family Medical History: No Reported History Additional Family Medical History / Comment(s): renal failure. Mother is 61 yrs old. General Exam Limitations: no limitations General appearance: alert, in no apparent distress Head exam: Present: atraumatic, normocephalic, normal inspection Eye exam: Present: normal appearance, PERRL, EOMI. Absent: scleral icterus, conjunctival injection, periorbital swelling ENT exam: Present: normal exam, mucous membranes moist Neck exam: Present: normal inspection, full ROM. Absent: tenderness, meningismus, lymphadenopathy Respiratory exam: Present: normal lung sounds bilaterally. Absent: respiratory distress, wheezes, rales, rhonchi, stridor Cardiovascular Exam: Present: regular rate, normal rhythm, normal heart sounds. Absent: systolic murmur, diastolic murmur, rubs, gallop, clicks Extremities exam: Present: normal capillary refill (Capillary refill less than 2 seconds, DP pulse 2+.), other (n intact in the right lower extremity.). Absent: full ROM (Patient has about 45 flexion of the left knee.), tenderness (Minimal tenderness to the anterior aspect of the left knee.), pedal edema, joint swelling (No significant edema present. No erythema or increased warmth of the right knee. No evidence of infection.), calf tenderness (No Tenderness, negative Homans sign, no edema or swelling of the calf.) Course Vital Signs 07/14/19 08:50 Temperature 98.0 F Pulse Rate 76 Respiratory 16 Rate Blood Pressure 135/92 O2 Sat by Pulse 98 Oximetry Medical Decision Making - Medical Decision Making Vitals stable, patient is afebrile, exam of the right knee is unremarkable except for flexion of 45. No evidence for septic joint. No evidence or risk factors for DVT. I offered x-rays however patient refuses these as she had negative x-rays at [facility]. Instructed patient to take Motrin and Tylenol for pain and ice the area. She requests orthopedic follow-up. She was given Toradol here in the emergency department. Discussed return parameters including returning for worsening pain, swelling of the right lower extremity or calf pain, or fevers..I discussed this case with attending Dr. Robbins who agrees with this assessment and treatment plan. Disposition Clinical Impression: Knee pain, right Disposition: HOME SELF-CARE Condition: Good Instructions (If sedation given, give patient instructions): Knee Pain (ED) Additional Instructions: Take Motrin and Tylenol for pain. Rest ice and elevate the right knee. Follow- up with primary care or orthopedics in one to 2 days. Return to the emergency department if you have any worsening symptoms. Is patient prescribed a controlled substance at d/c from ED?: No Referrals: Gregor Henderson MD [Primary Care Provider] - 1-2 days Meir Disla MD [Medical Doctor] - 1-2 days Time of Disposition: 09:31
== END 2019-07-14 09:45 | disposition home or self-care (01) ==
LOC: EC 08:47
DX: M25.561 Pain in right knee (principal); Z53.29 Procedure and treatment not carried out because of patient's decision for other reasons; Z87.891 Personal history of nicotine dependence; Z88.2 Allergy status to sulfonamides
CPT/HCPCS: 99283; 96372; J1885

== ENCOUNTER 2019-09-15 00:13 | Emergency (ER) | payer BC ==
[2019-09-15 00:20] VITALS: BP 146/96; PULSE 84; RESP 20; TEMP 98.7
--- NOTE | 2019-09-15 00:46 | ED ---
ENT HPI - General Chief complaint: ENT Stated complaint: Lft Earache/Sore throat Time Seen by Provider: 09/15/19 00:22 Source: patient, family Mode of arrival: ambulatory Limitations: no limitations - History of Present Illness Initial comments: Patient is a 39-year-old female presenting to emergency by with a chief complaint of earache and sore throat. She states her symptoms began about 3 days ago initially only with a left-sided earache and soon after she developed a sore throat. Patient reports her throat feels scratchy but denies dysphagia or odontophagia. She reports having chills and feeling warm but never actually obtain her temperature. Denies shortness of breath or wheezing. She also reports a productive cough with white sputum production. She denies any nausea or vomiting or abdominal pain. Patient denies taking medication to alleviate the symptoms. Denies a flu shot this season. Denies a history of mono or rashes. Patient also requesting Plan B due to unexpected, unprotected sex. Last menstrual period was one month ago. - Related Data Home Medications Medication Instructions Recorded Confirmed Acetaminophen Tab [Tylenol Tab] 650 mg PO Q4H PRN 07/14/19 07/14/19 Naproxen Sodium [Aleve] 440 mg PO DAILY PRN 07/14/19 07/14/19 Allergies Allergy/AdvReac Type Severity Reaction Status Date / Time sulfamethoxazole Allergy Itching Verified 09/15/19 00:20 [From Bactrim] trimethoprim [From Bactrim] Allergy Itching Verified 09/15/19 00:20 Review of Systems ROS Statement: Those systems with pertinent positive or pertinent negative responses have been documented in the HPI. ROS Other: All systems not noted in ROS Statement are negative. Past Medical History Past Medical History: Hyperlipidemia, Musculoskeletal Disorder Additional Past Medical History / Comment(s): Chronic back pain, scoliosis, DDD, CONSTIPATION History of Any Multi-Drug Resistant Organisms: None Reported Past Surgical History: Appendectomy, Orthopedic Surgery Additional Past Surgical History / Comment(s): D & C, left foot surgery for bunion, fatty tumor removed from back when pt was 8 yrs old. Past Anesthesia/Blood Transfusion Reactions: No Reported Reaction Past Psychological History: Anxiety, Bipolar, Depression, Panic Disorder Smoking Status: Former smoker Past Alcohol Use History: None Reported Past Drug Use History: None Reported - Past Family History Father History Unknown: Yes Family Medical History: No Reported History, Myocardial Infarction ([place]) Additional Family Medical History / Comment(s): at age 42 from [place] Mother History Unknown: Yes Family Medical History: No Reported History Additional Family Medical History / Comment(s): renal failure. Mother is 61 yrs old. General Exam Limitations: no limitations General appearance: alert, in no apparent distress Head exam: Present: atraumatic, normocephalic, normal inspection Eye exam: Present: normal appearance, PERRL, EOMI Pupils: Present: normal accommodation ENT exam: Present: normal exam, normal oropharynx (Uvula midline. No tonsillar erythema, enlargement or exudates.), mucous membranes moist, TM's normal bilaterally (Unable to visualize bilateral tympanic membranes due to cerumen impaction.), normal external ear exam Neck exam: Present: normal inspection, full ROM, lymphadenopathy (Left posterior auricular lymphadenopathy) Respiratory exam: Present: normal lung sounds bilaterally. Absent: respiratory distress, wheezes, rales Cardiovascular Exam: Present: regular rate, normal rhythm, normal heart sounds Extremities exam: Present: normal inspection, full ROM Back exam: Present: normal inspection, full ROM Neurological exam: Present: alert, oriented X3 Psychiatric exam: Present: normal affect, normal mood Skin exam: Present: warm, dry, intact, normal color Course Vital Signs 09/15/19 00:16 Temperature 98.7 F Pulse Rate 84 Respiratory 20 Rate Blood Pressure 146/96 O2 Sat by Pulse 99 Oximetry Medical Decision Making - Medical Decision Making Patient is a 39-year-old female presenting to the emergency department with chief complaint of sore throat and ear pain. On exam him unable to visualize bilateral tympanic membranes due to cerumen impaction. Patient does not fit the [facility] criteria for strep pharyngitis or even a swab. I suspect the sore throat is due to a viral etiology. Advised the patient to gargle salt water multiple times a day. No signs of peritonsillar abscess. No hot potato voice. Flu negative. Patient given a single dose of Plan B. Patient advised about side effects of the medication. I suspect the cause to be secondary to postnasal drip due to some sinus congestion. Patient advised to follow-up with primary care. She will return parameters were thoroughly discussed with patient was understanding and agreeable. Case discussed with physician. - Lab Data Lab Results 09/15/19 Range/Units 00:40 Influenza Type A RNA Not Detected (Not Detectd) Influenza Type B (PCR) Not Detected (Not Detectd) Disposition Clinical Impression: Sore throat (viral) Disposition: HOME SELF-CARE Condition: Stable Instructions (If sedation given, give patient instructions): Tonsillitis (ED) Additional Instructions: Please follow with primary care. Please return to emergency department if symptoms worsen. Is patient prescribed a controlled substance at d/c from ED?: No Referrals: Harshal Henderson MD [Primary Care Provider] - 1-2 days Time of Disposition: 01:17
[2019-09-15] MEDS ORDERED: LEVONORGESTREL 1.5 MG TABLET PO STA (01:07)
== END 2019-09-15 01:26 | disposition home or self-care (01) ==
LOC: EC 00:13
DX: J02.8 Acute pharyngitis due to other specified organisms (principal); H61.23 Impacted cerumen, bilateral; Z88.2 Allergy status to sulfonamides; Z88.1 Allergy status to other antibiotic agents; Z87.891 Personal history of nicotine dependence
CPT/HCPCS: 87502; 99283

== ENCOUNTER 2019-11-13 21:47 | Emergency (ER) | payer BC, OTHER ==
[2019-11-13] MEDS ORDERED: MORPHINE SULFATE 4 MG/ML SYRINGE IV STA (22:43)
[2019-11-13] MEDS ORDERED: SODIUM CHLORIDE 0.9% 1,000 ML IV STA (22:43)
--- NOTE | 2019-11-13 22:43 | ED ---
Abdominal Pain HPI - General Chief Complaint: Abdominal Pain Stated Complaint: left abdominal pain Time Seen by Provider: 11/13/19 22:02 Source: patient, RN notes reviewed, old records reviewed Mode of arrival: ambulatory Limitations: no limitations - History of Present Illness Initial Comments: This is a 39-year-old female to the ER for depression abdominal pain left upper quadrant left-sided abdominal pain mild nausea no vomiting no fevers. Patient denying any drug or alcohol abuse denying any significant medical history no surgical history patient's pain started today feels like his left rib under her left rib cage. No shortness of breath, no other complaints again no nausea vomiting or diarrhea MD Complaint: abdominal pain -: hour(s) Location: LUQ Radiation: LUQ Migration to: no migration Severity: moderate Severity scale (1-10): 6 Quality: aching Consistency: constant Improves With: nothing Worsens With: nothing Context: sick contacts Associated Symptoms: nausea - Related Data Home Medications Medication Instructions Recorded Confirmed Acetaminophen Tab [Tylenol Tab] 650 mg PO Q4H PRN 07/14/19 07/14/19 Naproxen Sodium [Aleve] 440 mg PO DAILY PRN 07/14/19 07/14/19 Allergies Allergy/AdvReac Type Severity Reaction Status Date / Time sulfamethoxazole Allergy Itching Verified 11/13/19 21:51 [From Bactrim] trimethoprim [From Bactrim] Allergy Itching Verified 11/13/19 21:51 Review of Systems ROS Statement: Those systems with pertinent positive or pertinent negative responses have been documented in the HPI. ROS Other: All systems not noted in ROS Statement are negative. Past Medical History Past Medical History: Hyperlipidemia, Musculoskeletal Disorder Additional Past Medical History / Comment(s): Chronic back pain, scoliosis, DDD, CONSTIPATION History of Any Multi-Drug Resistant Organisms: None Reported Past Surgical History: Appendectomy, Orthopedic Surgery Additional Past Surgical History / Comment(s): D & C, left foot surgery for bunion, fatty tumor removed from back when pt was 8 yrs old. Past Anesthesia/Blood Transfusion Reactions: No Reported Reaction Past Psychological History: Anxiety, Bipolar, Depression, Panic Disorder Smoking Status: Former smoker Past Alcohol Use History: None Reported Past Drug Use History: None Reported - Past Family History Father History Unknown: Yes Family Medical History: No Reported History, Myocardial Infarction ([place]) Additional Family Medical History / Comment(s): at age 42 from [place] Mother History Unknown: Yes Family Medical History: No Reported History Additional Family Medical History / Comment(s): renal failure. Mother is 61 yrs old. General Exam Limitations: no limitations General appearance: alert, in no apparent distress Head exam: Present: atraumatic, normocephalic, normal inspection Eye exam: Present: normal appearance, PERRL, EOMI. Absent: scleral icterus, conjunctival injection, periorbital swelling ENT exam: Present: normal exam, mucous membranes moist Neck exam: Present: normal inspection. Absent: tenderness, meningismus, lymphadenopathy Respiratory exam: Present: normal lung sounds bilaterally. Absent: respiratory distress, wheezes, rales, rhonchi, stridor Cardiovascular Exam: Present: regular rate, normal rhythm, normal heart sounds. Absent: systolic murmur, diastolic murmur, rubs, gallop, clicks GI/Abdominal exam: Present: soft, tenderness (Left upper quadrant), normal bowel sounds. Absent: distended, guarding, rebound, rigid Extremities exam: Present: normal inspection, full ROM, normal capillary refill. Absent: tenderness, pedal edema, joint swelling, calf tenderness Back exam: Present: normal inspection Neurological exam: Present: alert, oriented X3, CN II-XII intact Psychiatric exam: Present: normal affect, normal mood Skin exam: Present: warm, dry, intact, normal color. Absent: rash Course Vital Signs 11/13/19 11/13/19 21:49 22:44 Temperature 98.2 F 98.4 F Pulse Rate 73 68 Respiratory 20 18 Rate Blood Pressure 144/91 112/73 O2 Sat by Pulse 99 96 Oximetry - Reevaluation(s) Reevaluation #1: 11/14/19 00:45 Records reviewed Reevaluation #2: 11/14/19 00:45 She has pain control Reevaluation #3: 11/14/19 00:45 Patient informed of testing and questions are answered Medical Decision Making - Medical Decision Making 19 female with nonspecific abdominal pain labwork and computed tomography scan are negative patient can be discharged home - Lab Data Result diagrams: 11/13/19 22:17 11/13/19 22:17 Lab Results 11/13/19 11/13/19 Range/Units 22:17 22:17 WBC 9.9 (3.8-10.6) k/uL RBC 4.49 (3.80-5.40) m/uL Hgb 13.5 (11.4-16.0) gm/dL Hct 39.8 (34.0-46.0) % MCV 88.6 (80.0-100.0) fL MCH 30.1 (25.0-35.0) pg MCHC 34.0 (31.0-37.0) g/dL RDW 12.5 (11.5-15.5) % Plt Count 265 (150-450) k/uL Neutrophils % 55 % Lymphocytes % 35 % Monocytes % 5 % Eosinophils % 2 % Basophils % 2 % Neutrophils # 5.5 (1.3-7.7) k/uL Lymphocytes # 3.5 (1.0-4.8) k/uL Monocytes # 0.5 (0-1.0) k/uL Eosinophils # 0.1 (0-0.7) k/uL Basophils # 0.2 (0-0.2) k/uL Sodium 137 (137-145) mmol/L Potassium 3.9 (3.5-5.1) mmol/L Chloride 106 (98-107) mmol/L Carbon Dioxide 23 (22-30) mmol/L Anion Gap 8 mmol/L BUN 16 (7-17) mg/dL Creatinine 0.74 (0.52-1.04) mg/dL Est GFR (CKD-EPI)AfAm >90 (>60 ml/min/1.73 sqM) Est GFR (CKD-EPI)NonAf >90 (>60 ml/min/1.73 sqM) Glucose 104 H (74-99) mg/dL Calcium 9.3 (8.4-10.2) mg/dL Total Bilirubin 0.5 (0.2-1.3) mg/dL AST 25 (14-36) U/L ALT 13 (4-34) U/L Alkaline Phosphatase 41 (38-126) U/L Total Protein 6.9 (6.3-8.2) g/dL Albumin 4.1 (3.5-5.0) g/dL Amylase 33 (30-110) U/L Lipase 82 (23-300) U/L - Radiology Data Radiology results: report reviewed (CT of the abdomen and pelvis negative for acute disease), image reviewed Disposition Clinical Impression: Abdominal pain Disposition: HOME SELF-CARE Condition: Good Instructions (If sedation given, give patient instructions): Abdominal Pain (ED) Is patient prescribed a controlled substance at d/c from ED?: No Referrals: Gregor Henderson MD [Primary Care Provider] - 1-2 days
[2019-11-13 22:45] VITALS: RESP 18
[2019-11-13 23:06] LABS: Basophils # (A) 0.2 k/uL (0-0.2); Basophils % (A) 2 %; Eosinophils # (A) 0.1 k/uL (0-0.7); Eosinophils % (A) 2 %; HCT 39.8 % (34.0-46.0); HGB 13.5 gm/dL (11.4-16.0); Lymphocytes # (A) 3.5 k/uL (1.0-4.8); Lymphocytes % (A) 35 %; MCH 30.1 pg (25.0-35.0); MCV 88.6 fL (80.0-100.0); Mean Platelet Volume 9.9; Monocytes # (A) 0.5 k/uL (0-1.0); Monocytes % (A) 5 %; Neutrophils # (A) 5.5 k/uL (1.3-7.7); Neutrophils % (A) 55 %; Platelet Count 265 k/uL (150-450); RBC 4.49 m/uL (3.80-5.40); RDW 12.5 % (11.5-15.5); WBC 9.9 k/uL (3.8-10.6)
[2019-11-13 23:22] LABS: ALT 13 U/L (4-34); AST 25 U/L (14-36); African American GFR (CKD) >90 (>60 ml/min/1.73 sqM); Albumin 4.1 g/dL (3.5-5.0); Alkaline Phosphatase 41 U/L (38-126); Amylase 33 U/L (30-110); Anion Gap 8 mmol/L; Blood Urea Nitrogen 16 mg/dL (7-17); Calcium 9.3 mg/dL (8.4-10.2); Carbon Dioxide 23 mmol/L (22-30); Chloride 106 mmol/L (98-107); Glucose 104 mg/dL (74-99); Non-African American GFR(CKD) >90 (>60 ml/min/1.73 sqM); Potassium 3.9 mmol/L (3.5-5.1); Sodium 137 mmol/L (137-145); Total Bilirubin 0.5 mg/dL (0.2-1.3); Total Protein 6.9 g/dL (6.3-8.2)
--- NOTE | 2019-11-13 23:48 | XR ---
EXAMINATION TYPE: XR chest 2V DATE OF EXAM: 11/13/2019 COMPARISON: 01/15/2019 HISTORY: Abdominal pain TECHNIQUE: FINDINGS: Heart and mediastinum are normal. Lungs are clear. Diaphragm is normal. Bony thorax is inta ct. IMPRESSION: No active cardiopulmonary disease. No change.
--- NOTE | 2019-11-14 00:16 | CT ---
EXAMINATION TYPE: CT abdomen pelvis w con DATE OF EXAM: 11/13/2019 COMPARISON: 05/12/2019 HISTORY: LUQ pain CT DLP: 1030.8 mGycm Automated exposure control for dose reduction was used. CONTRAST: Performed with IV Contrast, patient injected with 100 mL of Isovue 300. Multiple axial sections were obtained from the diaphragm to the floor the pelvis with intravenous con trast. There is some atelectasis at the lung bases. There is no pleural effusion. There is no pericardial ef fusion. Liver shows no focal defect. Gallbladder is somewhat contracted. Spleen stomach pancreas appear tracey l. There is no adrenal mass. There is 1 mm calculus upper pole right kidney. Kidneys show satisfactory c ontrast opacification. There is no hydronephrosis. Ureters are not dilated. There is no retroperitone al adenopathy. There are clips apparently from appendectomy. Appendix is not seen. Uterus is anteverted. Bladder distends smoothly. There is no free fluid in the pelvis. There is no in guinal hernia. There is no mesenteric edema. There is no ascites or free air. There is no sign of a bowel obstructio n. Lumbar spine is intact. Bony pelvis is intact. IMPRESSION: Tiny nonobstructing right renal calculus. Minimal subsegmental atelectasis at the lung bases.
[2019-11-14 00:55] LABS: Appearance,Urine Clear (Clear); Bilirubin,Urine Negative (Negative); Blood,Urine Moderate (Negative); Color,Urine Yellow; Glucose,Urine (UA) Negative (Negative); Ketones,Urine Negative (Negative); Leukocyte Esterase,Urine Small (Negative); Mucus,Urine Rare /hpf; Nitrite,Urine Negative (Negative); Protein,Urine Trace (Negative); RBC,Urine 4 /hpf (0-5); Squamous Epithelial Cell,Urine 12 /hpf (0-4); Urobilinogen,Urine <2.0 mg/dL (<2.0); WBC,Urine 3 /hpf (0-5)
[2019-11-14 00:59] LABS: Specific Gravity,Urine >1.050 (1.001-1.035)
[2019-11-14 01:02] VITALS: BP 114/72; PULSE 80; TEMP 98
== END 2019-11-14 01:02 | disposition home or self-care (01) ==
LOC: EC 21:47
DX: R10.12 Left upper quadrant pain (principal); R11.0 Nausea; G89.29 Other chronic pain; Z87.891 Personal history of nicotine dependence; Z88.2 Allergy status to sulfonamides; Z79.1 Long term (current) use of non-steroidal anti-inflammatories (NSAID); Z90.49 Acquired absence of other specified parts of digestive tract
CPT/HCPCS: 36415; 80053; 82150; 83690; 85025; 81001; 71046; 74177; 99285; 96374; 96361 ×2; J2270; Q9967

== ENCOUNTER 2019-12-28 07:30 | Emergency (ER) | payer OTHER ==
[2019-12-28 07:35] VITALS: RESP 18
[2019-12-28 07:59] LABS: Basophils % (A) 1 %; Eosinophils # (A) 0.1 k/uL (0-0.7); Eosinophils % (A) 2 %; HCT 40.5 % (34.0-46.0); HGB 13.6 gm/dL (11.4-16.0); Lymphocytes # (A) 2.4 k/uL (1.0-4.8); Lymphocytes % (A) 34 %; MCH 30.1 pg (25.0-35.0); MCHC 33.6 g/dL (31.0-37.0); MCV 89.5 fL (80.0-100.0); Mean Platelet Volume 9.1; Monocytes # (A) 0.4 k/uL (0-1.0); Monocytes % (A) 5 %; Neutrophils # (A) 4.1 k/uL (1.3-7.7); Neutrophils % (A) 57 %; Platelet Count 260 k/uL (150-450); RBC 4.52 m/uL (3.80-5.40); RDW 12.9 % (11.5-15.5); WBC 7.2 k/uL (3.8-10.6)
[2019-12-28 08:07] LABS: Partial Thromboplastin Time 26.3 sec (22.0-30.0); Prothrombin Time 10.2 sec (9.0-12.0)
[2019-12-28 08:08] LABS: ALT 16 U/L (4-34); AST 27 U/L (14-36); African American GFR (CKD) >90 (>60 ml/min/1.73 sqM); Albumin 4.2 g/dL (3.5-5.0); Alkaline Phosphatase 52 U/L (38-126); Anion Gap 7 mmol/L; Blood Urea Nitrogen 16 mg/dL (7-17); Calcium 9.3 mg/dL (8.4-10.2); Carbon Dioxide 21 mmol/L (22-30); Chloride 107 mmol/L (98-107); Glucose 91 mg/dL (74-99); Magnesium 1.8 mg/dL (1.6-2.3); Non-African American GFR(CKD) >90 (>60 ml/min/1.73 sqM); Potassium 4.1 mmol/L (3.5-5.1); Sodium 135 mmol/L (137-145); Total Bilirubin 0.6 mg/dL (0.2-1.3); Total Protein 7.2 g/dL (6.3-8.2)
--- NOTE | 2019-12-28 08:12 | ED ---
General Adult HPI - General Chief complaint: Chest Pain Stated complaint: chest pain Time Seen by Provider: 12/28/19 07:36 Source: patient, RN notes reviewed, old records reviewed Mode of arrival: wheelchair Limitations: no limitations - History of Present Illness Initial comments: 39 female presenting for evaluation of left-sided chest pain. Pain began approximately 4 hours prior to arrival. Patient had gone to work this morning and was encouraged by her employer to present to the emergency department for evaluation of this chest pain. Patient states that the pain has significantly improved since its onset. She has had intermittent chest pain for some time and she has been evaluated both in the emergency department and on previous admissions for this chest pain. She is currently on a statin medication. She has no known history of coronary artery disease. No history of DVT or PE. No dyspnea at the time my evaluation, she did have some dyspnea when the pain began. No abdominal pain. No vomiting or diarrhea. - Related Data Home Medications Medication Instructions Recorded Confirmed Acetaminophen Tab [Tylenol Tab] 650 mg PO Q4H PRN 07/14/19 07/14/19 Naproxen Sodium [Aleve] 440 mg PO DAILY PRN 07/14/19 07/14/19 Allergies Allergy/AdvReac Type Severity Reaction Status Date / Time sulfamethoxazole Allergy Itching Verified 12/28/19 07:35 [From Bactrim] trimethoprim [From Bactrim] Allergy Itching Verified 12/28/19 07:35 Review of Systems ROS Statement: Those systems with pertinent positive or pertinent negative responses have been documented in the HPI. ROS Other: All systems not noted in ROS Statement are negative. Past Medical History Past Medical History: Hyperlipidemia, Musculoskeletal Disorder Additional Past Medical History / Comment(s): Chronic back pain, scoliosis, DDD, CONSTIPATION, headaches History of Any Multi-Drug Resistant Organisms: None Reported Past Surgical History: Appendectomy, Orthopedic Surgery Additional Past Surgical History / Comment(s): D & C, left foot surgery for bunion, fatty tumor removed from back when pt was 8 yrs old. Past Anesthesia/Blood Transfusion Reactions: No Reported Reaction Past Psychological History: Anxiety, Bipolar, Depression, Panic Disorder Smoking Status: Former smoker Past Alcohol Use History: None Reported Past Drug Use History: None Reported - Past Family History Father History Unknown: Yes Family Medical History: No Reported History, Myocardial Infarction ([place]) Additional Family Medical History / Comment(s): at age 42 from [place] Mother History Unknown: Yes Family Medical History: No Reported History Additional Family Medical History / Comment(s): renal failure. Mother is 61 yrs old. General Exam Limitations: no limitations General appearance: alert, in no apparent distress Head exam: Present: atraumatic, normocephalic Eye exam: Present: normal appearance, PERRL ENT exam: Present: normal exam Neck exam: Present: normal inspection. Absent: tenderness, meningismus Respiratory exam: Present: normal lung sounds bilaterally. Absent: respiratory distress, wheezes, rales Cardiovascular Exam: Present: regular rate, normal rhythm GI/Abdominal exam: Present: soft. Absent: distended, tenderness, guarding, r ebound Extremities exam: Present: normal inspection, normal capillary refill. Absent: pedal edema, calf tenderness Neurological exam: Present: alert, oriented X3, CN II-XII intact. Absent: motor sensory deficit Psychiatric exam: Present: normal affect, normal mood Skin exam: Present: warm, dry, intact. 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 Medical Decision Making - Medical Decision Making 39-year-old female presenting for evaluation chest pain. Patient does state that she would not be here if she was not encouraged to come by her employer. She's had intermittent chest pain for several years. She follows with her primary care physician and his had a stress test within the last year. Her symptoms are improving at the time my evaluation. She has a normal physical exam, stable vitals. Chest x-ray negative for acute cardiopulmonary disease. Patient has a normal CBC, normal CMP, negative troponin. Her symptoms began approximately 4 hours prior to arrival. Patient can continue to follow with her primary care physician, return with worsening or changing symptoms. - Lab Data Result diagrams: 12/28/19 07:47 12/28/19 07:47 Lab Results 12/28/19 12/28/19 12/28/19 Range/Units 07:47 07:47 07:47 WBC 7.2 (3.8-10.6) k/uL RBC 4.52 (3.80-5.40) m/uL Hgb 13.6 (11.4-16.0) gm/dL Hct 40.5 (34.0-46.0) % MCV 89.5 (80.0-100.0) fL MCH 30.1 (25.0-35.0) pg MCHC 33.6 (31.0-37.0) g/dL RDW 12.9 (11.5-15.5) % Plt Count 260 (150-450) k/uL Neutrophils % 57 % Lymphocytes % 34 % Monocytes % 5 % Eosinophils % 2 % Basophils % 1 % Neutrophils # 4.1 (1.3-7.7) k/uL Lymphocytes # 2.4 (1.0-4.8) k/uL Monocytes # 0.4 (0-1.0) k/uL Eosinophils # 0.1 (0-0.7) k/uL Basophils # 0.0 (0-0.2) k/uL PT 10.2 (9.0-12.0) sec INR 1.0 (<1.2) APTT 26.3 (22.0-30.0) sec Sodium 135 L (137-145) mmol/L Potassium 4.1 (3.5-5.1) mmol/L Chloride 107 (98-107) mmol/L Carbon Dioxide 21 L (22-30) mmol/L Anion Gap 7 mmol/L BUN 16 (7-17) mg/dL Creatinine 0.61 (0.52-1.04) mg/dL Est GFR (CKD-EPI)AfAm >90 (>60 ml/min/1.73 sqM) Est GFR (CKD-EPI)NonAf >90 (>60 ml/min/1.73 sqM) Glucose 91 (74-99) mg/dL Calcium 9.3 (8.4-10.2) mg/dL Magnesium 1.8 (1.6-2.3) mg/dL Total Bilirubin 0.6 (0.2-1.3) mg/dL AST 27 (14-36) U/L ALT 16 (4-34) U/L Alkaline Phosphatase 52 (38-126) U/L Troponin I (0.000-0.034) ng/mL Total Protein 7.2 (6.3-8.2) g/dL Albumin 4.2 (3.5-5.0) g/dL Lipase 102 (23-300) U/L 12/28/19 Range/Units 07:47 WBC (3.8-10.6) k/uL RBC (3.80-5.40) m/uL Hgb (11.4-16.0) gm/dL Hct (34.0-46.0) % MCV (80.0-100.0) fL MCH (25.0-35.0) pg MCHC (31.0-37.0) g/dL RDW (11.5-15.5) % Plt Count (150-450) k/uL Neutrophils % % Lymphocytes % % Monocytes % % Eosinophils % % Basophils % % Neutrophils # (1.3-7.7) k/uL Lymphocytes # (1.0-4.8) k/uL Monocytes # (0-1.0) k/uL Eosinophils # (0-0.7) k/uL Basophils # (0-0.2) k/uL PT (9.0-12.0) sec INR (<1.2) APTT (22.0-30.0) sec Sodium (137-145) mmol/L Potassium (3.5-5.1) mmol/L Chloride (98-107) mmol/L Carbon Dioxide (22-30) mmol/L Anion Gap mmol/L BUN (7-17) mg/dL Creatinine (0.52-1.04) mg/dL Est GFR (CKD-EPI)AfAm (>60 ml/min/1.73 sqM) Est GFR (CKD-EPI)NonAf (>60 ml/min/1.73 sqM) Glucose (74-99) mg/dL Calcium (8.4-10.2) mg/dL Magnesium (1.6-2.3) mg/dL Total Bilirubin (0.2-1.3) mg/dL AST (14-36) U/L ALT (4-34) U/L Alkaline Phosphatase (38-126) U/L Troponin I <0.012 (0.000-0.034) ng/mL Total Protein (6.3-8.2) g/dL Albumin (3.5-5.0) g/dL Lipase (23-300) U/L Disposition Clinical Impression: Chest pain Disposition: HOME SELF-CARE Condition: Good Instructions (If sedation given, give patient instructions): Chest Pain (ED) Is patient prescribed a controlled substance at d/c from ED?: No Referrals: Gregor Henderson MD [Primary Care Provider] - 1-2 days Time of Disposition: 08:48
--- NOTE | 2019-12-28 08:32 | XR ---
EXAMINATION TYPE: XR chest 2V DATE OF EXAM: 12/28/2019 HISTORY: Chest Pain. REFERENCE: Previous study dated 11/13/2019. FINDINGS: The lungs remain clear. Pleural space are clear. The heart is not enlarged. IMPRESSION: NO ACTIVE INTRATHORACIC DISEASE.
[2019-12-28 08:51] VITALS: BP 107/69; PULSE 56; TEMP 97.5
== END 2019-12-28 08:50 | disposition home or self-care (01) ==
LOC: EC 07:30
DX: R07.9 Chest pain, unspecified (principal); E78.5 Hyperlipidemia, unspecified; Z87.891 Personal history of nicotine dependence; Z88.2 Allergy status to sulfonamides; Z79.899 Other long term (current) drug therapy; Z82.49 Family history of ischemic heart disease and other diseases of the circulatory system
CPT/HCPCS: 36415; 71046; 80053; 83690; 83735; 84484; 85025; 85610; 85730; 93005; 99285

== ENCOUNTER 2020-05-07 21:49 | Emergency (ER) | payer OTHER ==
[2020-05-07 22:03] VITALS: TEMP 98.7
[2020-05-07] MEDS ORDERED: IPRATROPIUM-ALBUTEROL 3 ML NEB INHALATION STA (22:28)
[2020-05-07] MEDS ORDERED: SODIUM CHLORIDE 0.9% 1,000 ML IV ONE (22:38)
[2020-05-07 22:41] LABS: Basophils # (A) 0.1 k/uL (0-0.2); Basophils % (A) 1 %; Eosinophils # (A) 0.2 k/uL (0-0.7); Eosinophils % (A) 2 %; HCT 41.8 % (34.0-46.0); HGB 13.6 gm/dL (11.4-16.0); Lymphocytes # (A) 4.1 k/uL (1.0-4.8); Lymphocytes % (A) 43 %; MCH 29.8 pg (25.0-35.0); MCHC 32.7 g/dL (31.0-37.0); MCV 91.1 fL (80.0-100.0); Mean Platelet Volume 10.3; Monocytes # (A) 0.4 k/uL (0-1.0); Monocytes % (A) 4 %; Neutrophils # (A) 4.6 k/uL (1.3-7.7); Neutrophils % (A) 49 %; Platelet Count 306 k/uL (150-450); RBC 4.59 m/uL (3.80-5.40); RDW 12.6 % (11.5-15.5); WBC 9.5 k/uL (3.8-10.6)
[2020-05-07 22:43] LABS: Appearance,Urine Cloudy (Clear); Bacteria,Urine Occasional /hpf; Bilirubin,Urine Negative (Negative); Blood,Urine Negative (Negative); Color,Urine Yellow; Glucose,Urine (UA) Negative (Negative); Ketones,Urine 1+ (Negative); Leukocyte Esterase,Urine Moderate (Negative); Mucus,Urine Many /hpf; Nitrite,Urine Negative (Negative); Protein,Urine Trace (Negative); RBC,Urine 3 /hpf (0-5); Specific Gravity,Urine 1.027 (1.001-1.035); Squamous Epithelial Cell,Urine 20 /hpf (0-4); WBC,Urine 3 /hpf (0-5)
[2020-05-07 22:51] LABS: ALT 13 U/L (4-34); AST 27 U/L (14-36); African American GFR (CKD) >90 (>60 ml/min/1.73 sqM); Albumin 4.6 g/dL (3.5-5.0); Alkaline Phosphatase 48 U/L (38-126); Anion Gap 8 mmol/L; Blood Urea Nitrogen 14 mg/dL (7-17); Calcium 9.5 mg/dL (8.4-10.2); Carbon Dioxide 22 mmol/L (22-30); Chloride 106 mmol/L (98-107); Glucose 116 mg/dL (74-99); Magnesium 1.9 mg/dL (1.6-2.3); Non-African American GFR(CKD) >90 (>60 ml/min/1.73 sqM); Potassium 3.9 mmol/L (3.5-5.1); Sodium 136 mmol/L (137-145); Total Bilirubin 0.5 mg/dL (0.2-1.3); Total Protein 7.5 g/dL (6.3-8.2)
--- NOTE | 2020-05-07 23:03 | ED ---
Chest Pain HPI - General Chief Complaint: Chest Pain Stated Complaint: Chest Pain, SOB Source: patient, RN notes reviewed, old records reviewed Mode of arrival: wheelchair Limitations: no limitations - History of Present Illness Initial Comments: 40-year-old feel presents return today with substernal chest pain difficulty breathing for the past day. She states that she could possibly be . She reports a mild cough. She is a smoker. She denies any significant leg swelling. - Related Data Previous Rx's Medication Instructions Recorded Albuterol Inhaler [Ventolin Hfa 1 puff INHALATION RT-QID #1 puff 05/08/20 Inhaler] Azithromycin [Zithromax Z-pack] 250 mg PO DIRECTED #6 tab 05/08/20 methylPREDNISolone Dose Pack 4 mg PO DIRECTED #21 package 05/08/20 [Medrol Dose Pack] Allergies Allergy/AdvReac Type Severity Reaction Status Date / Time sulfamethoxazole Allergy Itching Verified 05/07/20 23:26 [From Bactrim] trimethoprim [From Bactrim] Allergy Itching Verified 05/07/20 23:26 Review of Systems ROS Statement: Those systems with pertinent positive or pertinent negative responses have been documented in the HPI. ROS Other: All systems not noted in ROS Statement are negative. EKG Findings - EKG Comments: EKG Findings:: EKG shows normal sinus rhythm and normal EKG. Ventricular rate of 67 bpm. Intervals 162 ms. QS duration is 102 ms. QT QTc is 414/437 ms. Past Medical History Past Medical History: Hyperlipidemia, Musculoskeletal Disorder Additional Past Medical History / Comment(s): Chronic back pain, scoliosis, DDD, CONSTIPATION, headaches History of Any Multi-Drug Resistant Organisms: None Reported Past Surgical History: Appendectomy, Orthopedic Surgery Additional Past Surgical History / Comment(s): D & C, left foot surgery for bunion, fatty tumor removed from back when pt was 8 yrs old. Past Anesthesia/Blood Transfusion Reactions: No Reported Reaction Past Psychological History: Anxiety, Bipolar, Depression, Panic Disorder Smoking Status: Current every day smoker Past Alcohol Use History: None Reported Past Drug Use History: None Reported - Past Family History Father History Unknown: Yes Family Medical History: No Reported History, Myocardial Infarction ([place]) Additional Family Medical History / Comment(s): at age 42 from [place] Mother History Unknown: Yes Family Medical History: No Reported History Additional Family Medical History / Comment(s): renal failure. Mother is 61 yrs old. General Exam Limitations: no limitations General appearance: alert, in no apparent distress Head exam: Present: atraumatic, normocephalic, normal inspection Eye exam: Present: normal appearance, PERRL, EOMI. Absent: scleral icterus, conjunctival injection, periorbital swelling ENT exam: Present: normal exam, mucous membranes moist Neck exam: Present: normal inspection. Absent: tenderness, meningismus, lymphadenopathy Respiratory exam: Present: normal lung sounds bilaterally. Absent: respiratory distress, wheezes, rales, rhonchi, stridor Cardiovascular Exam: Present: regular rate, normal rhythm, normal heart sounds. Absent: systolic murmur, diastolic murmur, rubs, gallop, clicks GI/Abdominal exam: Present: soft, normal bowel sounds. Absent: distended, tenderness, guarding, rebound, rigid Neurological exam: Present: alert, oriented X3, CN II-XII intact Psychiatric exam: Present: normal affect, normal mood Skin exam: Present: warm, dry, intact, normal color. Absent: rash Course Vital Signs 05/07/20 05/07/20 05/07/20 22:00 22:11 22:57 Temperature 98.7 F Pulse Rate 78 60 Pulse Rate [ 69 Caramel Candy Maker Helper ] Respiratory 20 Rate Blood Pressure 109/74 O2 Sat by Pulse 99 Oximetry 05/07/20 05/07/20 05/08/20 23:15 23:40 00:27 Temperature Pulse Rate 66 84 Pulse Rate [ Caramel Candy Maker Helper ] Respiratory 16 16 Rate Blood Pressure 110/65 O2 Sat by Pulse 99 Oximetry Chest Pain MDM - MDM 40 year old female with shortness of breath, mild cough. She reports chest pain with taking a deep breath. Patient labs including D dimer is normal. She feels better after douneb treatment. Discussed treatment for bronchitis. Chest x-rays here for any acute cardiopulmonary process. EKG is normal. Disposition Clinical Impression: Atypical chest pain, Dyspnea Disposition: HOME SELF-CARE Condition: Good Instructions (If sedation given, give patient instructions): Chest Pain (ED), Acute Bronchitis (ED) Additional Instructions: Please use medication as discussed. Please follow up with family doctor if sym ptoms have not improved over the next two days. Please return to the emergency room if your symptoms increase or worsen or for any other concerns. Prescriptions: methylPREDNISolone Dose Pack [Medrol Dose Pack] 4 mg PO DIRECTED #21 package Albuterol Inhaler [Ventolin Hfa Inhaler] 1 puff INHALATION RT-QID #1 puff Azithromycin [Zithromax Z-pack] 250 mg PO DIRECTED #6 tab Is patient prescribed a controlled substance at d/c from ED?: No Referrals: Gregor Henderson MD [Primary Care Provider] - 1-2 days
--- NOTE | 2020-05-07 23:18 | XR ---
EXAMINATION TYPE: XR chest 2V DATE OF EXAM: 05/07/2020 COMPARISON: 12/28/2019 HISTORY: Chest pain TECHNIQUE: 2 views FINDINGS: Heart and mediastinum are normal. Lungs are clear. Diaphragm is normal. Bony thorax is inta ct. The pulmonary vascularity is normal. IMPRESSION: No cardiopulmonary disease. No change.
[2020-05-07 23:32] LABS: D-Dimer 0.36 mg/L FEU (<0.60); Partial Thromboplastin Time 26.2 sec (22.0-30.0)
[2020-05-07 23:40] VITALS: RESP 16
[2020-05-08 00:29] VITALS: BP 110/65; PULSE 84
== END 2020-05-08 00:35 | disposition home or self-care (01) ==
LOC: EC 21:49
DX: R07.89 Other chest pain (principal); R06.02 Shortness of breath; R05 Cough; F17.200 Nicotine dependence, unspecified, uncomplicated; Z88.2 Allergy status to sulfonamides
CPT/HCPCS: 36415; 71046; 80053; 81001; 81025; 83735; 84484; 85025; 85379; 85610; 85730; 93005; 94640; 99285

== ENCOUNTER → 2020-06-17 | Outpatient (CLI) | payer OTHER ==
--- NOTE | 2020-06-17 14:17 | XR ---
EXAMINATION TYPE: XR thoracic spine 2V DATE OF EXAM: 06/17/2020 CLINICAL HISTORY: Mid to low back pain TECHNIQUE: Frontal, lateral, and swimmer's view of thoracic spine are obtained. COMPARISON: MRI thoracic spine August 25, 2014. FINDINGS: Thoracic spine redemonstrates levoconvex scoliosis centered at T10 level due to some ossifi c fusion of the T9-T11 vertebra. Alignment stable. Some reactive dextroconvex scoliotic curvature abo ve and below this level is redemonstrated. Vertebral body heights and disc space heights above T9 and below T11 vertebra remain in satisfactory. Visualized ribs are intact. IMPRESSION: As above.
--- NOTE | 2020-06-17 14:59 | US ---
EXAMINATION TYPE: US pelvis complete transvag DATE OF EXAM: 06/17/2020 COMPARISON: 05/20/2019 CLINICAL HISTORY: N92.0 Menorrhagia. TECHNIQUE: Transvaginal (TV) and Transabdominal (TA) . Transabdominal sonographic images of the pel vis were acquired. Transvaginal sonographic images were medically necessary to better assess the fol lowing anatomy: endometrium and right ovary Date of LMP: 06/04/20 EXAM MEASUREMENTS: Uterus: 9.6 x 5.7 x 6.7 cm Endometrial Stripe: 1.1cm Right Ovary: 2.0 x 1.8 x 1.6 cm Left Ovary: 3.0 x 2.3 x 1.8 cm 1. Uterus: Anteverted wnl 2. Endometrium: wnl 3. Right Ovary: poor visualization due to overlying bowel gas 4. Left Ovary: wnl 5. Bilateral Adnexa: wnl 6. Posterior cul-de-sac: wnl IMPRESSION: No distinct abnormality seen. Limited visualization of the right ovary.
== END | disposition home or self-care (01) ==
LOC: RADUSWWP 13:20
PROVIDERS: ATTEND Internal Medicine
DX: N92.0 Excessive and frequent menstruation with regular cycle (principal); M41.84 Other forms of scoliosis, thoracic region; M43.24 Fusion of spine, thoracic region
CPT/HCPCS: 72070; 76830; 76856

== ENCOUNTER 2020-08-17 09:17 | Day surgery (SDC) | payer OTHER ==
[2020-08-13 17:30] VITALS: BMI 27.3
[~2020-08-17 09:17] MED LIST changes: +LIDOCAINE 1% (10MG/ML) FOR IV START INTRADERMA PRN; -LIDOCAINE 1% 20 ML VIAL (10MG/ML) FOR IV START INTRADERMA PRN
[2020-08-17 10:07] VITALS: TEMP 97.8
[2020-08-17] MEDS ORDERED: LACTATED RINGERS 1,000 ML IV ONE (10:13)
[2020-08-17] MEDS ORDERED: PROPOFOL 10 MG/ML 20 ML VIAL IV ONE (11:18)
--- NOTE | 2020-08-17 11:39 | P.PCN ---
Date of Procedure: 08/17/20 Description of Procedure: BRIEF HISTORY: Patient is a 40-year-old female presenting for outpatient EGD for evaluation of epigastric pain. Patient reports symptoms of epigastric pain, bloating and distention. She does have problems with constipation and has been started on a laxative. PROCEDURE PERFORMED: Esophagogastroduodenoscopy with biopsy. PREOPERATIVE DIAGNOSIS: Epigastric abdominal pain, bloating. ESTIMATED BLOOD LOSS: Minimal. IV sedation per anesthesia. PROCEDURE: After informed consent was obtained, the patient was brought into the endoscopy unit. IV sedation was administered by Anesthesia under continuous monitoring. Initially the Olympus GIF-190 video endoscope was inserted into the mouth. Esophagus intubated without any difficulty. It was gradually advanced into the stomach and duodenum and carefully examined. The bulb and the second part of the duodenum appeared normal, with biopsies taken to rule out celiac sprue. The scope at this time was withdrawn to the stomach, adequately insufflated with air, and upon careful examination, mucosa of the antrum, body, cardia and the fundus appeared normal, except for some mild punctate erythema in the antrum and body suggestive of mild gastritis with biopsies taken. The scope was then withdrawn into the esophagus. The GE junction was located at 35 cm from the incisors and biopsied. The esophagus appeared normal. There were no erosions or ulcerations seen and the patient tolerated the procedure well. IMPRESSION: 1. Mild gastritis. 2. Biopsies of the duodenum, antrum and body and GE junction. RECOMMENDATIONS: The findings of this examination were discussed with the patient and her family. Okay to resume diet. Okay to resume medications. Extensive discussion with the patient regarding dietary modifications and trial of a diet. Patient also started trial of OTC famotidine as needed for reflux. Await pathology from biopsies.
[2020-08-17 11:51] VITALS: RESP 16
[2020-08-17 12:06] VITALS: BP 118/75; PULSE 71
== END 2020-08-17 12:19 | disposition home or self-care (01) ==
LOC: ORWHC2ENDO 09:17
PROVIDERS: ATTEND Internal Medicine
DX: K29.50 Unspecified chronic gastritis without bleeding (principal); K20.90 Esophagitis, unspecified without bleeding; K59.00 Constipation, unspecified; E78.5 Hyperlipidemia, unspecified; M51.9 Unspecified thoracic, thoracolumbar and lumbosacral intervertebral disc disorder; Z87.891 Personal history of nicotine dependence; Z88.2 Allergy status to sulfonamides; Z90.49 Acquired absence of other specified parts of digestive tract; Z98.890 Other specified postprocedural states
CPT/HCPCS: 81025; 88305; 43239; J2704

== ENCOUNTER 2020-10-26 12:12 | Emergency (ER) | payer OTHER ==
[2020-10-26 12:18] VITALS: RESP 18; TEMP 98.3
[2020-10-26] MEDS ORDERED: KETOROLAC 15 MG/ML 1 ML VIAL IM STA (12:43)
[2020-10-26] MEDS ORDERED: ONDANSETRON ODT 4 MG TAB PO STA (12:44)
[2020-10-26] MEDS ORDERED: DIPHENOX-ATROP STARTER PACK 8 TAB BTL PO STA (12:44)
[2020-10-26] MEDS ORDERED: DIPHENOX-ATROP 2.5-0.025 MG 1 EACH TAB PO STA (12:55)
--- NOTE | 2020-10-26 12:56 | ED ---
General Adult HPI - General Chief complaint: Headache Stated complaint: N/V/D, body aches Time Seen by Provider: 10/26/20 12:15 Source: patient, RN notes reviewed, old records reviewed Mode of arrival: ambulatory Limitations: no limitations - History of Present Illness Initial comments: This is a 40-year-old female presents emergency department stating that at 4:00 this afternoon she started to feel nauseated and started having diarrhea. Patient states she continues to have diarrhea today. Patient denies any vomiting per patient states she also has a mild headache. Patient denies any difficulty breathing shortness of breath. Patient denies any cough or fever. Patient denies any chest pain or palpitations. Patient denies any area of specific tenderness she states her whole abdomen occasionally has crampy. Patient denies any dysuria hematuria urinary frequency. - Related Data Home Medications Medication Instructions Recorded Confirmed Atorvastatin [Lipitor] 40 mg PO DAILY 10/26/20 10/26/20 Baclofen 5 mg PO TID PRN 10/26/20 10/26/20 Ibuprofen [Motrin] 600 mg PO AC-TID PRN 10/26/20 10/26/20 Omeprazole [PriLOSEC] 40 mg PO DAILY 10/26/20 10/26/20 Previous Rx's Medication Instructions Recorded Ondansetron [Zofran] 4 mg PO Q8HR PRN #10 tab 10/26/20 Allergies Allergy/AdvReac Type Severity Reaction Status Date / Time sulfamethoxazole Allergy Rash/Hives Verified 10/26/20 12:54 [From Bactrim] trimethoprim [From Bactrim] Allergy Rash/Hives Verified 10/26/20 12:54 Review of Systems ROS Statement: Those systems with pertinent positive or pertinent negative responses have been documented in the HPI. ROS Other: All systems not noted in ROS Statement are negative. Past Medical History Past Medical History: Hyperlipidemia, Musculoskeletal Disorder Additional Past Medical History / Comment(s): Chronic back pain, scoliosis, DDD, CONSTIPATION, headaches History of Any Multi-Drug Resistant Organisms: None Reported Past Surgical History: Appendectomy, Orthopedic Surgery Additional Past Surgical History / Comment(s): D & C, left foot surgery for bunion, fatty tumor removed from back when pt was 8 yrs old. COLONOSCOPY Past Anesthesia/Blood Transfusion Reactions: No Reported Reaction Past Psychological History: Anxiety, Bipolar, Depression, Panic Disorder Smoking Status: Current every day smoker Past Alcohol Use History: None Reported Past Drug Use History: None Reported - Past Family History Father History Unknown: Yes Family Medical History: No Reported History, Myocardial Infarction ([place]) Additional Family Medical History / Comment(s): at age 42 from [place] Mother History Unknown: Yes Family Medical History: No Reported History Additional Family Medical History / Comment(s): renal failure. Mother is 61 yrs old. General Exam - General Exam Comments Initial Comments: GENERAL: Patient is well-developed and well-nourished. Patient is nontoxic and well- hydrated and is in no acute distress. ENT: Neck is soft and supple. No significant lymphadenopathy is noted. Oropharynx is clear. Moist mucous membranes. Neck has full range of motion without eliciting any pain. EYES: The sclera were anicteric and conjunctiva were pink and moist. Extraocular movements were intact and pupils were equal round and reactive to light. Eyelids were unremarkable. PULMONARY: Unlabored respirations. Good breath sounds bilaterally. No audible rales rhonchi or wheezing was noted. CARDIOVASCULAR: There is a regular rate and rhythm without any murmurs gallops or rubs. ABDOMEN: Soft and nontender with normal bowel sounds. SKIN: Skin is clear with no lesions or rashes and otherwise unremarkable. NEUROLOGIC: Patient is alert and oriented x3. Cranial nerves II through XII are grossly intact. Motor and sensory are also intact. Normal speech, volume and content. Symmetrical smile. MUSCULOSKELETAL: Normal extremities with adequate strength and full range of motion. No lower extremity swelling or edema. No calf tenderness. LYMPHATICS: No significant lymphadenopathy is noted PSYCHIATRIC: Normal psychiatric evaluation. Limitations: no limitations Course Vital Signs 10/26/20 12:16 Temperature 98.3 F Pulse Rate 72 Respiratory 18 Rate Blood Pressure 130/68 O2 Sat by Pulse 100 Oximetry Medical Decision Making - Medical Decision Making patient received Toradol Zofran and Lomotil and the emergency department. Patient's abdomen was no specific area of tenderness. Patient did not appear in any significant distress throughout her ED stay. Patient had no vomiting or diarrhea in the emergency department Disposition Clinical Impression: Gastroenteritis Disposition: HOME SELF-CARE Instructions (If sedation given, give patient instructions): Gastroenteritis (ED) Prescriptions: Ondansetron [Zofran] 4 mg PO Q8HR PRN #10 tab PRN Reason: Nausea Is patient prescribed a controlled substance at d/c from ED?: No Referrals: Gregor Henderson MD [Primary Care Provider] - 1-2 days Time of Disposition: 12:58
[2020-10-26 13:40] VITALS: BP 125/66; PULSE 71
== END 2020-10-26 13:39 | disposition home or self-care (01) ==
LOC: EC 12:12
DX: K52.9 Noninfective gastroenteritis and colitis, unspecified (principal); R51.9 Headache, unspecified; E78.5 Hyperlipidemia, unspecified; F17.200 Nicotine dependence, unspecified, uncomplicated; Z79.899 Other long term (current) drug therapy; Z88.1 Allergy status to other antibiotic agents; Z88.2 Allergy status to sulfonamides; Z90.49 Acquired absence of other specified parts of digestive tract
CPT/HCPCS: 99284; J1885

== ENCOUNTER 2020-12-24 21:28 | Observation (INO) | payer OTHER ==
--- NOTE | 2020-12-24 22:11 | XR ---
EXAMINATION TYPE: XR chest 2V DATE OF EXAM: 12/24/2020 COMPARISON: 05/07/2020 HISTORY: Chest pain TECHNIQUE: FINDINGS: Heart and mediastinum are normal. The lungs are clear of consolidation. There are no hilar masses. There is small linear density left lung base. There are chest leads. IMPRESSION: Minimal subsegmental atelectasis left lung base is new compared to old exam. Normal heart .
[2020-12-24 22:17] LABS: Basophils # (A) 0.1 k/uL (0-0.2); Basophils % (A) 1 %; Eosinophils # (A) 0.3 k/uL (0-0.7); Eosinophils % (A) 2 %; HGB 15.7 gm/dL (11.4-16.0); Lymphocytes # (A) 3.9 k/uL (1.0-4.8); Lymphocytes % (A) 26 %; MCH 31.2 pg (25.0-35.0); MCHC 34.1 g/dL (31.0-37.0); MCV 91.7 fL (80.0-100.0); Mean Platelet Volume 9.1; Monocytes # (A) 0.5 k/uL (0-1.0); Monocytes % (A) 4 %; Neutrophils # (A) 9.9 k/uL (1.3-7.7); Neutrophils % (A) 67 %; Platelet Count 328 k/uL (150-450); RBC 5.02 m/uL (3.80-5.40); RDW 12.7 % (11.5-15.5); WBC 14.8 k/uL (3.8-10.6)
[2020-12-24 22:27] LABS: ALT 22 U/L (4-34); AST 33 U/L (14-36); African American GFR (CKD) >90 (>60 ml/min/1.73 sqM); Albumin 5.1 g/dL (3.5-5.0); Alkaline Phosphatase 65 U/L (38-126); Anion Gap 9 mmol/L; Blood Urea Nitrogen 14 mg/dL (7-17); Calcium 9.8 mg/dL (8.4-10.2); Carbon Dioxide 23 mmol/L (22-30); Chloride 105 mmol/L (98-107); Glucose 89 mg/dL (74-99); Lipase 161 U/L (23-300); Non-African American GFR(CKD) >90 (>60 ml/min/1.73 sqM); Potassium 4.1 mmol/L (3.5-5.1); Sodium 137 mmol/L (137-145); Total Bilirubin 0.3 mg/dL (0.2-1.3); Total Protein 8.5 g/dL (6.3-8.2)
[2020-12-24 22:33] LABS: INR 0.9 (<1.2)
[2020-12-24 22:34] LABS: Partial Thromboplastin Time 25.6 sec (22.0-30.0); Prothrombin Time 9.5 sec (9.0-12.0)
[2020-12-24] MEDS ORDERED: MORPHINE SULFATE 4 MG/ML SYRINGE IVP STA (22:50)
--- NOTE | 2020-12-24 23:15 | ED ---
Chest Pain HPI - General Chief Complaint: Chest Pain Stated Complaint: Chest Pain Time Seen by Provider: 12/24/20 21:35 Source: patient Mode of arrival: ambulatory Limitations: no limitations - History of Present Illness Initial Comments: 40-year-old female with past medical history of chronic back pain presents emergency Department with reported chest pain. Patient reports that her pain started 1.5 hours prior to hospital arrival. Located over the left side of her chest and radiates into her left arm. Patient also has pain in the right upper quadrant. Describes it as a sharp pain. No previous history of cardiac disease. Does report a history of hypertension, smoking. Father prematurely at age 42 from a massive heart attack. States she has had a previous cardiac workup however this was 2 years ago. Denies history of DVT or PE. No calf pain or swelling. Patient admits to nausea without vomiting. No ripping or tearing cessation her back. No concern for . She was tested on Sunday for Covid and it was negative. No other alleviating, precipitating or modifying factors - Related Data Home Medications Medication Instructions Recorded Confirmed Atorvastatin [Lipitor] 40 mg PO DAILY 10/26/20 12/24/20 Ibuprofen [Motrin] 600 mg PO AC-TID PRN 10/26/20 12/24/20 Omeprazole [PriLOSEC] 40 mg PO DAILY 10/26/20 12/24/20 Previous Rx's Medication Instructions Recorded Albuterol Sulfate [Proventil Hfa] 1 puff INHALATION Q4-6H PRN #1 12/25/20 inhaler Azithromycin [Zithromax Z-pack (6 1 mg PO DIRECTED 5 Days #6 tab 12/25/20 tabs)] Budesonide-Formot 160-4.5 Mcg 2 puff INHALATION BID 30 Days #1 12/25/20 [Symbicort 160-4.5 Mcg Inhaler] inhaler Ketorolac [Toradol] 10 mg PO Q6HR #20 tab 12/25/20 Allergies Allergy/AdvReac Type Severity Reaction Status Date / Time sulfamethoxazole Allergy Rash/Hives Verified 12/24/20 23:49 [From Bactrim] trimethoprim [From Bactrim] Allergy Rash/Hives Verified 12/24/20 23:49 Review of Systems ROS Statement: Those systems with pertinent positive or pertinent negative responses have been documented in the HPI. ROS Other: All systems not noted in ROS Statement are negative. EKG Findings - EKG Comments: EKG Findings:: EKG demonstrates normal sinus rhythm with a ventricular rate of 72. General 156. QRS 96. QTC of 455. No acute ST segment elevations or depressions Past Medical History Past Medical History: Hyperlipidemia, Musculoskeletal Disorder Additional Past Medical History / Comment(s): Chronic back pain, scoliosis, DDD, CONSTIPATION, headaches History of Any Multi-Drug Resistant Organisms: None Reported Past Surgical History: Appendectomy, Orthopedic Surgery Additional Past Surgical History / Comment(s): D & C, left foot surgery for bunion, fatty tumor removed from back when pt was 8 yrs old. COLONOSCOPY Past Anesthesia/Blood Transfusion Reactions: No Reported Reaction Past Psychological History: Anxiety, Bipolar, Depression, Panic Disorder Smoking Status: Current every day smoker Past Alcohol Use History: None Reported Past Drug Use History: None Reported - Past Family History Father History Unknown: Yes Family Medical History: No Reported History, Myocardial Infarction ([place]) Additional Family Medical History / Comment(s): at age 42 from [place] Mother History Unknown: Yes Family Medical History: No Reported History Additional Family Medical History / Comment(s): renal failure. Mother is 61 yrs old. General Exam Limitations: no limitations General appearance: alert, in no apparent distress Head exam: Present: atraumatic, normocephalic, normal inspection Eye exam: Present: normal appearance, PERRL, EOMI. Absent: scleral icterus, conjunctival injection, periorbital swelling ENT exam: Present: normal exam, mucous membranes moist Neck exam: Present: normal inspection. Absent: tenderness, meningismus, lymphadenopathy Respiratory exam: Present: normal lung sounds bilaterally. Absent: respiratory distress, wheezes, rales, rhonchi, stridor Cardiovascular Exam: Present: regular rate, normal rhythm, normal heart sounds. Absent: systolic murmur, diastolic murmur, rubs, gallop, clicks GI/Abdominal exam: Present: soft, normal bowel sounds. Absent: distended, tenderness, guarding, rebound, rigid Extremities exam: Present: normal inspection, full ROM, normal capillary refill. Absent: tenderness, pedal edema, joint swelling, calf tenderness Back exam: Present: normal inspection Neurological exam: Present: alert, oriented X3, CN II-XII intact Psychiatric exam: Present: normal affect, normal mood Skin exam: Present: warm, dry, intact, normal color. Absent: rash Course Vital Signs 12/24/20 12/24/20 12/25/20 21:34 23:28 00:16 Temperature 98.0 F 97.8 F Pulse Rate 75 66 Pulse Rate [ 86 Pulse Oximetery ] Respiratory 18 18 18 Rate Blood Pressure 135/91 121/76 Blood Pressure 146/88 [Left Arm] O2 Sat by Pulse 100 98 99 Oximetry Chest Pain MDM - MDM On arrival patient was placed into room 5. A thorough history and physical exam was performed. Laboratory studies are conducted and the patient went for chest x-ray. Gallbladder ultrasound was also performed. Patient was given a dose of morphine for pain control. Laboratories is reviewed and discussed the patient. Because the patient does have a high heart score I did recommend hospitalization for which the patient did agree to. I spoke with Dr. Fuentes. Echo will be ordered. She remained in stable condition awaiting a bed Disposition Clinical Impression: Chest pain Disposition: ADMITTED IP TO THIS HOSP Condition: Stable Is patient prescribed a controlled substance at d/c from ED?: No Decision to Admit Reason: Admit from EC Decision Date: 12/24/20 Decision Time: 23:52
--- NOTE | 2020-12-24 23:17 | US ---
EXAMINATION TYPE: US gallbladder DATE OF EXAM: 12/24/2020 COMPARISON: NONE CLINICAL HISTORY: epigastric pain. RUQ pain , nausea EXAM MEASUREMENTS: Liver Length: 16.4 cm Gallbladder Wall: 0.3 cm Right Kidney: 11.0 x 4.0 x 3.5 cm *Technical limitations due to large amount of overlying bowel content Pancreas: Tail obscured by overlying bowel gas Liver: appears wnl Gallbladder: no evidence of stones Evidence for sonographic Johnson's sign: no CBD: Obscured by overlying bowel gas Right Kidney: echogenic focus upper pole = 0.9cm IMPRESSION: No gallstones or dilated ducts. Possible nonobstructing calculus upper pole right kidney.
[2020-12-24] MEDS ORDERED: ONDANSETRON 4 MG/2 ML VIAL IVP PRN (23:25)
[2020-12-24] MEDS ORDERED: ONDANSETRON 4 MG/2 ML VIAL IVP ONE (23:26)
[2020-12-25] MEDS ORDERED: ONDANSETRON 4 MG/2 ML VIAL IVP PRN (00:08)
[2020-12-25] MEDS ORDERED: NALOXONE 0.4 MG/ML 1 ML VIAL IV PRN (00:08)
[2020-12-25] MEDS ORDERED: ASPIRIN 81 MG PO STA (00:09)
[2020-12-25] MEDS ORDERED: NITROGLYCERIN SL TABS 0.4 MG TAB SUBLINGUAL PRN (00:09)
[2020-12-25] MEDS ORDERED: ATORVASTATIN 40 MG TAB PO SCH (09:45)
[2020-12-25] MEDS ORDERED: HYDROcodone/APAP 7.5-325MG 1 EACH TAB PO ONE (10:51)
[2020-12-25 11:18] VITALS: BP 122/69; PULSE 75; RESP 16; TEMP 98.6
--- NOTE | 2020-12-25 14:11 | P.CRDCN ---
History of Present Illness Consult date: 12/25/20 History of present illness: HISTORY OF PRESENT ILLNESS: This is a 40-year-old female with a past medical history significant for hyperlipidemia and nicotine dependence. 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 We have been asked to see the patient in consultation for chest pain. Patient examined at the bedside. Patient states yesterday she was getting out of her car when she began having chest discomfort. She states the pain was in the middle of her chest and radiated underneath her right breast. She denies any radiation to her back, jaw, or arm. She states she was mildly short of breath when this occurred. She denied nausea or vomiting. She states the pain lasted for approximately 30 minutes and then resolved. She reports her chest was tender yesterday to palpation but it is not today. Patient currently denies any chest pain or pressure. Patient reports her father in his 40s of a heart attack. Patient denies alcohol use. She reports cigarette use and states she smokes 1/2 pack per day. EKG reveals sinus mechanism with no signs of acute ischemia Chest xray minimal subsegmental atelectasis left lung base. Normal heart Laboratory data: WBC 14.8. Hemoglobin 15.7. Platelet count 328. D-dimer 0.53. Sodium 137. Potassium 4.7. BUN 14. Creatinine 0.53. Magnesium 2.0. Troponins negative 3 Current home cardiac medications include Lipitor 40 mg daily Patient underwent a stress echocardiogram in January 2019 which was negative for ischemia REVIEW OF SYSTEMS: At the time of my exam: CONSTITUTIONAL: Denies fever or chills. HEENT: Denies blurred vision, vision changes, or eye pain. Denies hemoptysis CARDIOVASCULAR: Denies chest pain. Denies orthopnea. Denies PND. Denies palpitations RESPIRATORY: Denies shortness of breath. GASTROINTESTINAL: Denies abdominal pain. Denies nausea or vomiting. HEMATOLOGIC: Denies bleeding disorders. GENITOURINARY: Denies any blood in urine. SKIN: Denies pruitis. Denies rash. PHYSICAL EXAM: VITAL SIGNS: Reviewed. GENERAL: Well-developed in no acute distress. HEENT: Head is normocephalic. Pupils are equal, round. Sclerae anicteric. Mucous membranes of the mouth are moist. Neck supple. No JVD or thyromegaly LUNGS: Respirations even and unlabored. Lungs essentially clear to auscultation bilaterally. HEART: Regular rate and rhythm. S1 and S2 heard. ABDOMEN: Soft. Nondistended. Nontender. EXTREMITIES: Normal range of motion. No clubbing or cyanosis. Peripheral pulses intact. No lower extremity edema NEUROLOGIC: Awake and alert. Oriented x 3. ASSESSMENT: Chest pain, troponins negative 3, acute coronary syndrome ruled out Hyperlipidemia Nicotine dependence Family history of premature coronary artery disease Chronic back pain PLAN: Obtain 2-D echo to assess cardiac structure and function Resume home cardiac medications Smoking cessation recommended If no significant abnormalities noted on echocardiogram, patient may be discharged home today and follow-up outpatient with Dr. Royal Patient to have outpatient stress test performed Further recommendations pending patient course Nurse practitioner note has been reviewed by physician. Signing provider agrees with the documented findings, assessment, and plan of care. Past Medical History Past Medical History: Hyperlipidemia, Musculoskeletal Disorder Additional Past Medical History / Comment(s): Chronic back pain, scoliosis, DDD, CONSTIPATION, headaches History of Any Multi-Drug Resistant Organisms: None Reported Past Surgical History: Appendectomy, Orthopedic Surgery Additional Past Surgical History / Comment(s): D & C, left foot surgery for bunion, fatty tumor removed from back when pt was 8 yrs old. COLONOSCOPY Past Anesthesia/Blood Transfusion Reactions: No Reported Reaction Past Psychological History: Anxiety, Bipolar, Depression, Panic Disorder Additional Psychological History / Comment(s): Pt resides with her children and brother. She is independent., ALL UNDER CONTROLL AT THIS TIME Smoking Status: Current every day smoker Past Alcohol Use History: None Reported Additional Past Alcohol Use History / Comment(s): STARTED SMOKING AGAIN SEP 2019-HAS STOPPED FOR 8 MONTHS PRIOR . HAS BEEN SMOKING OFF AND ON ABOUT 16 YEARS 1/2-1 PPD Past Drug Use History: None Reported - Past Family History Father History Unknown: Yes Family Medical History: No Reported History, Myocardial Infarction ([place]) Additional Family Medical History / Comment(s): at age 42 from [place] Mother History Unknown: Yes Family Medical History: No Reported History Additional Family Medical History / Comment(s): renal failure. Mother is 61 yrs old. Medications and Allergies Home Medications Medication Instructions Recorded Confirmed Type Atorvastatin [Lipitor] 40 mg PO DAILY 10/26/20 12/24/20 History Ibuprofen [Motrin] 600 mg PO AC-TID PRN 10/26/20 12/24/20 History Omeprazole [PriLOSEC] 40 mg PO DAILY 10/26/20 12/24/20 History Albuterol Sulfate [Proventil Hfa] 1 puff INHALATION Q4-6H PRN #1 12/25/20 Rx inhaler Azithromycin [Zithromax Z-pack (6 1 mg PO DIRECTED 5 Days #6 tab 12/25/20 Rx tabs)] Budesonide-Formot 160-4.5 Mcg 2 puff INHALATION BID 30 Days #1 12/25/20 Rx [Symbicort 160-4.5 Mcg Inhaler] inhaler Ketorolac [Toradol] 10 mg PO Q6HR #20 tab 12/25/20 Rx Allergies Allergy/AdvReac Type Severity Reaction Status Date / Time sulfamethoxazole Allergy Rash/Hives Verified 12/24/20 23:49 [From Bactrim] trimethoprim [From Bactrim] Allergy Rash/Hives Verified 12/24/20 23:49 Physical Exam Vitals: Vital Signs Temp Pulse Pulse Resp BP BP Pulse Ox 12/25/20 11:17 98.6 F 75 16 122/69 96 12/25/20 08:36 98.7 F 72 18 114/59 97 12/25/20 04:00 98.4 F 80 18 110/68 98 12/25/20 01:52 86 18 12/25/20 00:16 97.8 F 86 18 146/88 99 12/24/20 23:28 66 18 121/76 98 12/24/20 21:34 98.0 F 75 18 135/91 100 Intake and Output 12/24/20 12/25/20 12/25/20 22:59 06:59 14:59 Output Total 300 Balance -300 Output: Urine 300 Other: # Voids 1 Weight 77.111 kg 81.3 kg Results 12/24/20 22:04 12/24/20 22:04 Cardiac Enzymes 12/24/20 12/24/20 12/25/20 Range/Units 22:04 22:04 03:28 AST 33 (14-36) U/L Troponin I <0.012 <0.012 (0.000-0.034) ng/mL 12/25/20 Range/Units 08:02 AST (14-36) U/L Troponin I <0.012 (0.000-0.034) ng/mL Coagulation 12/24/20 Range/Units 22:04 PT 9.5 (9.0-12.0) sec APTT 25.6 (22.0-30.0) sec CBC 12/24/20 Range/Units 22:04 WBC 14.8 H (3.8-10.6) k/uL RBC 5.02 (3.80-5.40) m/uL Hgb 15.7 (11.4-16.0) gm/dL Hct 46.0 (34.0-46.0) % Plt Count 328 (150-450) k/uL Comprehensive Metabolic Panel 12/24/20 Range/Units 22:04 Sodium 137 (137-145) mmol/L Potassium 4.1 (3.5-5.1) mmol/L Chloride 105 (98-107) mmol/L Carbon Dioxide 23 (22-30) mmol/L BUN 14 (7-17) mg/dL Creatinine 0.53 (0.52-1.04) mg/dL Glucose 89 (74-99) mg/dL Calcium 9.8 (8.4-10.2) mg/dL AST 33 (14-36) U/L ALT 22 (4-34) U/L Alkaline Phosphatase 65 (38-126) U/L Total Protein 8.5 H (6.3-8.2) g/dL Albumin 5.1 H (3.5-5.0) g/dL Current Medications Generic Name Dose Route Start Last Admin Trade Name Freq PRN Reason Stop Dose Admin Atorvastatin Calcium 40 mg 12/25/20 09:45 12/25/20 11:16 Atorvastatin 40 Mg Tab PO 40 mg DAILY ROLA Administration Naloxone HCl 0.2 mg 12/25/20 00:08 Naloxone 0.4 Mg/Ml 1 Ml Vial IV Q2M PRN Opioid Reversal Nitroglycerin 0.4 mg 12/25/20 00:09 Nitroglycerin Sl Tabs 0.4 Mg Tab SUBLINGUAL Q5M PRN Chest Pain Ondansetron HCl 4 mg 12/25/20 00:08 Ondansetron 4 Mg/2 Ml Vial IVP Q8HR PRN Nausea And Vomiting Intake and Output 12/24/20 12/25/20 12/25/20 22:59 06:59 14:59 Output Total 300 Balance -300 Output: Urine 300 Other: # Voids 1 Weight 77.111 kg 81.3 kg 12/24/20 22:04 12/24/20 22:04
--- NOTE | 2020-12-25 16:47 | P.HPIM ---
History of Present Illness H&P Date: 12/25/20 This will serve both an H&P and discharge summary This is a 40-year-old lady patient of Dr. Henderson . She is currently a smoker, with underlying soup OPD, DJD, dyslipidemia, and anxiety, for which she was admitted through the emergency room secondary to chest discomfort. This was located in the sternal and radiating to the right subcostal region. However the pain labs subcostal region is pre-meal, without any rashes, and no arm difficulty breathing no palpitations. The pain in the sternum is recurrent in origin, also has some shortness of breath on exertion. Patient has some episodic cough, which is productive. Patient denies any fever no chills, she was seen in the emergency room for which she was tested to have covered that's negative, she was admitted secondary to the chest discomfort, with cardiology to see for evaluation. She had stress echo in January 2019 that was negative for ischemia she can smokes a half a pack a day since age 22 Emergency room, she had EKG that shows no acute ST-T wave changes, troponins 3 negative, creatinine 0.5, d-dimer 0.53, CBC is normal except for WBC of 14.8, chest x-ray failed to reveal any infiltrates except for left atelectasis., patient was seen by cardiology, for which she would be requiring stress echocardiogram as an outpatient as there is a significant family history of OR in the bed at 40 from massive OR. Patient was cleared for discharge from cardiology, we are starting her on Symbicort Proventil for the shortness of breath, and Zithromax for the tracheobronchitis. She has some leukocytosis. She required Leburn 7.5 for pain management, she normally takes ibuprofen 600-800 mg at home, patient requesting some pain medication prior to discharge, for which this will be deferred for her PCP to address Review of Systems Constitutional: Reports as per HPI, Reports chronic pain, Denies anorexia, Denies chills, Denies chronic headaches, Denies daytime sleepiness, Denies f atigue, Denies fever, Denies lethargy, Denies malaise, Denies night sweats, Denies poor appetite, Denies sweats, Denies weakness, Denies weight gain, Denies weight loss Ears, nose, mouth and throat: Denies as per HPI, Denies ant. neck pain, Denies bleeding gums, Denies dental pain, Denies dysphagia, Denies epistaxis, Denies headache, Denies hoarseness, Denies mouth pain, Denies nasal congestion, Denies nasal discharge, Denies neck fullness/pressure, Denies neck lump, Denies nose pain, Denies odynophagia, Denies post-nasal drip, Denies sinus pain, Denies sinus pressure, Denies swelling in mouth, Denies swelling in throat, Denies sore throat, Denies vertigo, Denies voice changes Cardiovascular: Reports as per HPI, Reports chest pain, Denies claudication, Denies decreased exercise tolerance, Denies dyspnea on exertion, Denies edema, Denies high blood pressure, Denies irregular heart beat, Denies leg edema, Denies lightheadedness, Denies orthopnea, Denies palpitations, Denies paroxysmal nocturnal dyspnea, Denies phlebitis, Denies rapid heart beat, Denies shortness of breath, Denies syncope Respiratory: Reports as per HPI, Reports cough, Reports dyspnea Gastrointestinal: Reports as per HPI, Denies abdominal pain, Denies belching, Denies bloating, Denies BRBPR, Denies change in bowel habits, Denies coffee ground emesis, Denies constipation, Denies diarrhea, Denies dyspepsia, Denies e bandar satiety, Denies excessive gas, Denies heartburn, Denies hematemesis, Denies hematochezia, Denies indigestion, Denies jaundice, Denies lactose intolerance, Denies loss of appetite, Denies melena, Denies nausea, Denies vomiting Genitourinary: Reports as per HPI, Denies abnormal vaginal bleeding, Denies decreased libido, Denies difficulty conceiving, Denies difficulty voiding, Denies dysmenorrhea, Denies dyspareunia, Denies dysuria, Denies flank pain, Denies genital sores, Denies hematuria, Denies hot flashes, Denies incomplete emptying, Denies kidney stones, Denies menorrhagia, Denies mixed incontinence, Denies nocturia, Denies pelvic pain, Denies post void dribbling, Denies , Denies prolapse symptoms, Denies stress incontinence, Denies urge incontinence, Denies urgency, Denies urinary frequency, Denies vaginal discharge, Denies vaginal dryness, Denies vaginal itching, Denies vaginal odor Menstruation: Reports as per HPI Musculoskeletal: Denies as per HPI, Denies arm numbness/tingling, Denies atroph y, Denies fractures, Denies frequent falls, Denies gait dysfunction, Denies hot joints, Denies leg numbness/tingling, Denies limitation of motion, Denies loss of height, Denies low back pain, Denies morning stiffness, Denies muscle cramps, Denies muscle weakness, Denies myalgias, Denies neck pain, Denies neck stiffness, Denies prior amputations, Denies redness of joints, Denies shooting arm pain, Denies shooting leg pain Integumentary: Reports as per HPI Neurological: Reports as per HPI, Denies aphasia, Denies ataxia, Denies balance difficulties, Denies burning pain, Denies change in mentation, Denies change in smell/taste, Denies change in speech, Denies confusion, Denies convulsions, Denies double vision, Denies gait dysfunction, Denies head injury, Denies headaches, Denies hearing difficulties, Denies lack of coordination, Denies loss of vision, Denies memory loss, Denies migraines, Denies motor disturbance, Denies numbness, Denies paralysis, Denies paresthesias, Denies seizures, Denies sensory deficit, Denies spasticity, Denies syncope, Denies tic, Denies tingling, Denies transient paralysis, Denies tremors, Denies vertigo, Denies weakness, Denies visual changes Psychiatric: Reports as per HPI Endocrine: Reports as per HPI Hematologic/Lymphatic: Reports as per HPI Allergic/Immunologic: Reports as per HPI Past Medical History Past Medical History: Hyperlipidemia, Musculoskeletal Disorder Additional Past Medical History / Comment(s): Chronic back pain, scoliosis, DDD, CONSTIPATION, headaches History of Any Multi-Drug Resistant Organisms: None Reported Past Surgical History: Appendectomy, Orthopedic Surgery Additional Past Surgical History / Comment(s): D & C, left foot surgery for bunion, fatty tumor removed from back when pt was 8 yrs old. COLONOSCOPY Past Anesthesia/Blood Transfusion Reactions: No Reported Reaction Past Psychological History: Anxiety, Bipolar, Depression, Panic Disorder Additional Psychological History / Comment(s): Pt resides with her children and brother. She is independent., ALL UNDER CONTROLL AT THIS TIME Smoking Status: Current every day smoker Past Alcohol Use History: None Reported Additional Past Alcohol Use History / Comment(s): STARTED SMOKING AGAIN SEP 2019-HAS STOPPED FOR 8 MONTHS PRIOR . HAS BEEN SMOKING OFF AND ON ABOUT 16 YEARS 1/2-1 PPD Past Drug Use History: None Reported - Past Family History Father History Unknown: Yes Family Medical History: No Reported History, Myocardial Infarction ([place]) Additional Family Medical History / Comment(s): at age 42 from [place] Mother History Unknown: Yes Family Medical History: No Reported History Additional Family Medical History / Comment(s): renal failure. Mother is 61 yrs old. Medications and Allergies Home Medications Medication Instructions Recorded Confirmed Type Atorvastatin [Lipitor] 40 mg PO DAILY 10/26/20 12/24/20 History Ibuprofen [Motrin] 600 mg PO AC-TID PRN 10/26/20 12/24/20 History Omeprazole [PriLOSEC] 40 mg PO DAILY 10/26/20 12/24/20 History Albuterol Sulfate [Proventil Hfa] 1 puff INHALATION Q4-6H PRN #1 12/25/20 Rx inhaler Azithromycin [Zithromax Z-pack (6 1 mg PO DIRECTED 5 Days #6 tab 12/25/20 Rx tabs)] Budesonide-Formot 160-4.5 Mcg 2 puff INHALATION BID 30 Days #1 12/25/20 Rx [Symbicort 160-4.5 Mcg Inhaler] inhaler Ketorolac [Toradol] 10 mg PO Q6HR #20 tab 12/25/20 Rx Allergies Allergy/AdvReac Type Severity Reaction Status Date / Time sulfamethoxazole Allergy Rash/Hives Verified 12/24/20 23:49 [From Bactrim] trimethoprim [From Bactrim] Allergy Rash/Hives Verified 12/24/20 23:49 Physical Exam Vitals: Vital Signs Temp Pulse Pulse Resp BP BP Pulse Ox 12/25/20 11:17 98.6 F 75 16 122/69 96 12/25/20 08:36 98.7 F 72 18 114/59 97 12/25/20 04:00 98.4 F 80 18 110/68 98 12/25/20 01:52 86 18 12/25/20 00:16 97.8 F 86 18 146/88 99 12/24/20 23:28 66 18 121/76 98 03/19/21 21:34 98.0 F 75 18 135/91 100 Intake and Output 12/24/20 12/25/20 12/25/20 22:59 06:59 14:59 Output Total 300 Balance -300 Output: Urine 300 Other: # Voids 1 Weight 77.111 kg 81.3 kg - Constitutional General appearance: cooperative, no acute distress - EENT Eyes: EOMI, PERRLA ENT: NA/AT, normal oropharynx - Neck Neck: normal ROM - Respiratory Respiratory: bilateral: CTA, negative: diminished, dullness, wheezing - Cardiovascular Rhythm: regular Heart sounds: normal: S1, S2 Abnormal Heart Sounds: no systolic murmur, no diastolic murmur, no rub, no S3 Gallop, no S4 Gallop, no click, no other - Gastrointestinal General gastrointestinal: normal bowel sounds, soft - Integumentary Integumentary: calor, decreased turgor, normal - Neurologic Neurologic: CNII-XII intact - Musculoskeletal Musculoskeletal: gait normal, strength equal bilaterally - Psychiatric Psychiatric: A&O x's 3, appropriate affect, intact judgment & insight Results CBC & Chem 7: 12/24/20 22:04 12/24/20 22:04 Labs: Abnormal Lab Results - Last 24 Hours (Table) 12/24/20 12/24/20 Range/Units 22:04 22:04 WBC 14.8 H (3.8-10.6) k/uL Neutrophils # 9.9 H (1.3-7.7) k/uL Total Protein 8.5 H (6.3-8.2) g/dL Albumin 5.1 H (3.5-5.0) g/dL Laboratory Results WBC 14.8 k/uL (3.8-10.6) H 12/24/20 22:04 RBC 5.02 m/uL (3.80-5.40) 12/24/20 22:04 Hgb 15.7 gm/dL (11.4-16.0) 12/24/20 22:04 Hct 46.0 % (34.0-46.0) 12/24/20 22:04 MCV 91.7 fL (80.0-100.0) 12/24/20 22:04 MCH 31.2 pg (25.0-35.0) 12/24/20 22:04 MCHC 34.1 g/dL (31.0-37.0) 12/24/20 22:04 RDW 12.7 % (11.5-15.5) 12/24/20 22:04 Plt Count 328 k/uL (150-450) 12/24/20 22:04 MPV 9.1 12/24/20 22:04 Neutrophils % 67 % 12/24/20 22:04 Lymphocytes % 26 % 12/24/20 22:04 Monocytes % 4 % 12/24/20 22:04 Eosinophils % 2 % 12/24/20 22:04 Basophils % 1 % 12/24/20 22:04 Neutrophils # 9.9 k/uL (1.3-7.7) H 12/24/20 22:04 Lymphocytes # 3.9 k/uL (1.0-4.8) 12/24/20 22:04 Monocytes # 0.5 k/uL (0-1.0) 12/24/20 22:04 Eosinophils # 0.3 k/uL (0-0.7) 12/24/20 22:04 Basophils # 0.1 k/uL (0-0.2) 12/24/20 22:04 PT 9.5 sec (9.0-12.0) 12/24/20 22:04 INR 0.9 (<1.2) 12/24/20 22:04 APTT 25.6 sec (22.0-30.0) 12/24/20 22:04 D-Dimer 0.53 mg/L FEU (<0.60) 12/24/20 22:04 Sodium 137 mmol/L (137-145) 12/24/20 22:04 Potassium 4.1 mmol/L (3.5-5.1) 12/24/20 22:04 Chloride 105 mmol/L (98-107) 12/24/20 22:04 Carbon Dioxide 23 mmol/L (22-30) 12/24/20 22:04 Anion Gap 9 mmol/L 12/24/20 22:04 BUN 14 mg/dL (7-17) 12/24/20 22:04 Creatinine 0.53 mg/dL (0.52-1.04) 12/24/20 22:04 Est GFR (CKD-EPI)AfAm >90 (>60 ml/min/1.73 sqM) 12/24/20 22:04 Est GFR (CKD-EPI)NonAf >90 (>60 ml/min/1.73 sqM) 12/24/20 22:04 Glucose 89 mg/dL (74-99) 12/24/20 22:04 Calcium 9.8 mg/dL (8.4-10.2) 12/24/20 22:04 Magnesium 2.0 mg/dL (1.6-2.3) 12/24/20 22:04 Total Bilirubin 0.3 mg/dL (0.2-1.3) 12/24/20 22:04 AST 33 U/L (14-36) 12/24/20 22:04 ALT 22 U/L (4-34) 12/24/20 22:04 Alkaline Phosphatase 65 U/L (38-126) 12/24/20 22:04 Troponin I <0.012 ng/mL (0.000-0.034) 12/25/20 08:02 Total Protein 8.5 g/dL (6.3-8.2) H 12/24/20 22:04 Albumin 5.1 g/dL (3.5-5.0) H 12/24/20 22:04 Lipase 161 U/L (23-300) 12/24/20 22:04 HCG, Qual Not Detected 12/24/20 22:04 Coronavirus (PCR) Not Detected (Not Detectd) 12/25/20 00:57 Thrombosis Risk Factor Assmnt - Choose All That Apply Any of the Below Risk Factors Present?: Yes Each Factor Represents 1 point: Age 41-60 years Other Risk Factors: No Thrombosis Risk Factor Assessment Total Risk Factor Score: 1 Thrombosis Risk Factor Assessment Level: Low Risk Assessment and Plan Plan: 1. Atypical chest pain, with chronic tobacco use, underlying shortness breath on exertion, d-dimer was negative, suspect COPD, cannot rule out coronary to sclerosis as the family has significant arm atherosclerosis, she does have hyperlipidemia, for which she was advised to be compliant with her statin, she was seen by cardiology, cleared for discharge after 3 sets of troponins were obt ained, patient is to undergo another stress test to be performed as an outpatient. Her last stress test was January 2019. Lifestyle modification against was advised and educated for compliance use, 2. Dyspnea on exertion, negative for cough. Negative for PE, suspect COPD, currently a smoker. Patient has no inhalers and no claudication in the past, and we provided that today. To start on Proventil when necessary at home and Symbicort. 3. Costochondritis with right subcostal pain or right abdominal pain, negative for Johnson's sign, gallbladder failed to reveal any ultrasound, patient needs complete additional imaging to include HIDA scan with CCK as an outpatient. Toradol to be given for pain management, not to take Motrin while on this drug. No narcotics given for discharge 4. Hyperlipidemia, Lipitor 40 to continue, compliance with diet 5. GI prophylaxis 6. DVT prophylaxis 7. Chronic GERD, on maintenance omeprazole 40 mg present prior to admission maintained treatment on discharge Dr. Monet to see for follow-up PCP, manager of maintenance to see in the next 1 week for cardiac stress test completion Discharge Medication List Atorvastatin [Lipitor] 40 mg PO DAILY 10/26/20 [History] Ibuprofen [Motrin] 600 mg PO AC-TID PRN 10/26/20 [History] Omeprazole [PriLOSEC] 40 mg PO DAILY 10/26/20 [History] Albuterol Sulfate [Proventil Hfa] 1 puff INHALATION Q4-6H PRN #1 inhaler 12/25/20 [Rx] Azithromycin [Zithromax Z-pack (6 tabs)] 1 mg PO DIRECTED 5 Days #6 tab 12/25/20 [Rx] Budesonide-Formot 160-4.5 Mcg [Symbicort 160-4.5 Mcg Inhaler] 2 puff INHALATION BID 30 Days #1 inhaler 12/25/20 [Rx] Ketorolac [Toradol] 10 mg PO Q6HR #20 tab 12/25/20 [Rx]
--- NOTE | 2020-12-26 08:46 | ECHOF ---
Referral Reason:chest pain MEASUREMENTS -------- HEIGHT: 165.1 cm WEIGHT: 81.2 kg BP: RVIDd: 2.9 cm (< 3.3) IVSd: 1.1 cm (0.6 - 1.1) LVIDd: 4.1 cm (3.9 - 5.3) LVPWd: 1.3 cm (0.6 - 1.1) IVSs: 1.2 cm LVIDs: 3.0 cm LVPWs: 1.6 cm LA Diam: 3.3 cm (2.7 - 3.8) LAESV Index (A-L): 23.20 ml/m Ao Diam: 3.3 cm (2.0 - 3.7) AV Cusp: 2.0 cm (1.5 - 2.6) MV EXCURSION: 16.659 mm (> 18.000) MV EF SLOPE: 95 mm/s (70 - 150) EPSS: 0.8 cm MV E Jose Juan: 0.48 m/s MV DecT: 253 ms MV A Jose Juan: 0.56 m/s MV E/A Ratio: 0.86 RAP: 5.00 mmHg RVSP: 20.32 mmHg FINDINGS -------- Sinus rhythm. This was a technically good study. LV size, wall thickness and systolic function are normal, with an EF greater than 55%. The left roberto tricular size is normal. The right ventricle is normal in size. Normal LA size by volume 22+/-6 ml/m2. The right atrial size is normal. There is mild aortic valve sclerosis. Mild mitral regurgitation is present. Mild tricuspid regurgitation present. Right ventricular systolic pressure is normal at < 35 mmHg. There is no pulmonic regurgitation present. The aortic root size is normal. There is no pericardial effusion. CONCLUSIONS -------- 1. LV size, wall thickness and systolic function are normal, with an EF greater than 55%. 2. The left ventricular size is normal. 3. The right ventricle is normal in size. 4. Normal LA size by volume 22+/-6 ml/m2. 5. The right atrial size is normal. 6. There is mild aortic valve sclerosis. 7. Mild mitral regurgitation is present. 8. Mild tricuspid regurgitation present. 9. The aortic root size is normal. 10. There is no pericardial effusion. REPTILE FARMER: Brigid Tirado RDCS
== END 2020-12-25 14:22 | disposition home or self-care (01) ==
LOC: EC 21:28 → 3SCARD 12-25 00:08
PROVIDERS: ADMIT Family Medicine; ATTEND Family Medicine
DX: R07.89 Other chest pain (principal); F17.210 Nicotine dependence, cigarettes, uncomplicated; E78.5 Hyperlipidemia, unspecified; R06.09 Other forms of dyspnea; M94.0 Chondrocostal junction syndrome [Tietze]; K21.9 Gastro-esophageal reflux disease without esophagitis; J98.11 Atelectasis; D72.829 Elevated white blood cell count, unspecified; I10 Essential (primary) hypertension; G89.29 Other chronic pain; F31.9 Bipolar disorder, unspecified; F41.0 Panic disorder [episodic paroxysmal anxiety]; F45.42 Pain disorder with related psychological factors; M41.9 Scoliosis, unspecified; M19.90 Unspecified osteoarthritis, unspecified site; Z82.49 Family history of ischemic heart disease and other diseases of the circulatory system; Z79.899 Other long term (current) drug therapy; Z79.51 Long term (current) use of inhaled steroids; Z20.822 Contact with and (suspected) exposure to COVID-19
CPT/HCPCS: 93005 ×2; 96374; 96375; 99285; 36415; 93306; 85379; 80053; 83690; 83735; 84484 ×2; 85025; 85610; 85730; 84703; 87635; 71046; 76705; G0378; J2270; J2405

== ENCOUNTER 2021-08-30 23:20 | Emergency (ER) | payer OTHER ==
[2021-08-30 23:29] VITALS: RESP 18; TEMP 98.7
[2021-08-30] MEDS ORDERED: SODIUM CHLORIDE 0.9% 1,000 ML IV STA (23:40)
[2021-08-31 00:19] LABS: Basophils # (A) 0.1 k/uL (0-0.2); Basophils % (A) 1 %; Eosinophils # (A) 0.2 k/uL (0-0.7); Eosinophils % (A) 2 %; HCT 39.3 % (34.0-46.0); HGB 13.9 gm/dL (11.4-16.0); Lymphocytes # (A) 4.4 k/uL (1.0-4.8); Lymphocytes % (A) 39 %; MCH 31.8 pg (25.0-35.0); MCHC 35.2 g/dL (31.0-37.0); MCV 90.2 fL (80.0-100.0); Mean Platelet Volume 9.5; Monocytes # (A) 0.6 k/uL (0-1.0); Monocytes % (A) 5 %; Neutrophils # (A) 5.7 k/uL (1.3-7.7); Neutrophils % (A) 50 %; Platelet Count 274 k/uL (150-450); RBC 4.36 m/uL (3.80-5.40); RDW 12.8 % (11.5-15.5); WBC 11.3 k/uL (3.8-10.6)
[2021-08-31] MEDS ORDERED: ONDANSETRON 4 MG/2 ML VIAL IVP STA (00:20)
--- NOTE | 2021-08-31 00:21 | XR ---
EXAMINATION TYPE: XR chest 2V DATE OF EXAM: 08/31/2021 COMPARISON: 12/24/2020 HISTORY: Short of breath TECHNIQUE: FINDINGS: Heart and mediastinum are normal. Lungs are clear of infiltrate. There is no heart failure. Costophrenic angles are clear. There are no hilar masses. IMPRESSION: Normal chest. No adverse change.
[2021-08-31 00:33] LABS: ALT 16 U/L (4-34); AST 21 U/L (14-36); African American GFR (CKD) >90 (>60 ml/min/1.73 sqM); Albumin 3.4 g/dL (3.5-5.0); Alkaline Phosphatase 56 U/L (38-126); Anion Gap 7 mmol/L; Blood Urea Nitrogen 16 mg/dL (7-17); Calcium 9.2 mg/dL (8.4-10.2); Carbon Dioxide 24 mmol/L (22-30); Chloride 104 mmol/L (98-107); Glucose 111 mg/dL (74-99); Non-African American GFR(CKD) >90 (>60 ml/min/1.73 sqM); Sodium 135 mmol/L (137-145); Total Bilirubin 0.2 mg/dL (0.2-1.3); Total Protein 6.2 g/dL (6.3-8.2)
[2021-08-31 00:46] LABS: INR 0.9 (<1.2); Partial Thromboplastin Time 25.1 sec (22.0-30.0); Prothrombin Time 9.5 sec (9.0-12.0)
--- NOTE | 2021-08-31 01:03 | ED ---
SOB HPI - General Chief Complaint: Shortness of Breath Stated Complaint: SOB Time Seen by Provider: 08/30/21 23:31 Source: patient, EMS, RN notes reviewed Mode of arrival: EMS Limitations: no limitations - History of Present Illness Initial Comments: Patient is a 41-year-old female that presents to the emergency department complaining of shortness of breath and palpitations. Patient notes she is Covid-positive and received monoclonal antibodies several days ago. Patient notes that today she had several episodes of palpitations so she called EMS so she didn't get evaluated. Patient was otherwise well-appearing in no apparent distress or pain. Vitals on the monitor were within normal limits saturating at 99% heart rate was 85. Patient denied any chest pain headache nausea vomiting diarrhea constipation fever fatigue chills.. - Related Data Home Medications Medication Instructions Recorded Confirmed Atorvastatin [Lipitor] 40 mg PO DAILY 10/26/20 12/24/20 Ibuprofen [Motrin] 600 mg PO AC-TID PRN 10/26/20 12/24/20 Omeprazole [PriLOSEC] 40 mg PO DAILY 10/26/20 12/24/20 Previous Rx's Medication Instructions Recorded Albuterol Sulfate [Proventil Hfa] 1 puff INHALATION Q4-6H PRN #1 12/25/20 inhaler Azithromycin [Zithromax Z-pack (6 1 mg PO DIRECTED 5 Days #6 tab 12/25/20 tabs)] Budesonide-Formot 160-4.5 Mcg 2 puff INHALATION BID 30 Days #1 12/25/20 [Symbicort 160-4.5 Mcg Inhaler] inhaler Ketorolac [Toradol] 10 mg PO Q6HR #20 tab 12/25/20 Allergies Allergy/AdvReac Type Severity Reaction Status Date / Time sulfamethoxazole Allergy Rash/Hives Verified 12/24/20 23:49 [From Bactrim] trimethoprim [From Bactrim] Allergy Rash/Hives Verified 12/24/20 23:49 Review of Systems ROS Statement: Those systems with pertinent positive or pertinent negative responses have been documented in the HPI. ROS Other: All systems not noted in ROS Statement are negative. Past Medical History Past Medical History: Hyperlipidemia, Musculoskeletal Disorder Additional Past Medical History / Comment(s): Chronic back pain, scoliosis, DDD, CONSTIPATION, headaches History of Any Multi-Drug Resistant Organisms: None Reported Past Surgical History: Appendectomy, Orthopedic Surgery Additional Past Surgical History / Comment(s): D & C, left foot surgery for bunion, fatty tumor removed from back when pt was 8 yrs old. COLONOSCOPY Past Anesthesia/Blood Transfusion Reactions: No Reported Reaction Past Psychological History: Anxiety, Bipolar, Depression, Panic Disorder Smoking Status: Current every day smoker Past Alcohol Use History: None Reported Past Drug Use History: None Reported - Past Family History Father History Unknown: Yes Family Medical History: No Reported History, Myocardial Infarction ([place]) Additional Family Medical History / Comment(s): at age 42 from [place] Mother History Unknown: Yes Family Medical History: No Reported History Additional Family Medical History / Comment(s): renal failure. Mother is 61 yrs old. General Exam Limitations: no limitations General appearance: alert, in no apparent distress Head exam: Present: atraumatic, normocephalic, normal inspection Eye exam: Present: normal appearance, PERRL, EOMI. Absent: scleral icterus, conjunctival injection, periorbital swelling ENT exam: Present: normal exam, mucous membranes moist Neck exam: Present: normal inspection Respiratory exam: Present: normal lung sounds bilaterally. Absent: respiratory distress, wheezes, rales, rhonchi, stridor Cardiovascular Exam: Present: regular rate, normal rhythm, normal heart sounds. Absent: systolic murmur, diastolic murmur, rubs, gallop, clicks GI/Abdominal exam: Present: soft, normal bowel sounds. Absent: distended, tenderness, guarding, rebound, rigid Extremities exam: Present: normal inspection, full ROM, normal capillary refill. Absent: tenderness, pedal edema, joint swelling, calf tenderness Neurological exam: Present: alert, oriented X3 Psychiatric exam: Present: normal affect, normal mood Skin exam: Present: warm, dry, intact, normal color. Absent: rash Course Vital Signs 08/30/21 08/31/21 23:22 00:14 Temperature 98.7 F Pulse Rate 93 75 Respiratory 18 18 Rate Blood Pressure 154/95 117/78 O2 Sat by Pulse 99 98 Oximetry Medical Decision Making - Medical Decision Making 41-year-old female complaining of shortness of breath palpitations, Covid positive already received monoclonal antibodies. Labs, EKG, chest x-ray, 1 L normal saline ordered. Labs unremarkable. EKG within normal lives. Chest x-ray shows no acute process. No adverse change. Patient most likely experiencing continuing Covid symptoms. Case discussed with Dr. Zhang, patient can discharge home. - Lab Data Result diagrams: 08/31/21 00:05 08/31/21 00:05 Lab Results 08/31/21 08/31/21 08/31/21 Range/Units 00:05 00:05 00:05 WBC 11.3 H (3.8-10.6) k/uL RBC 4.36 (3.80-5.40) m/uL Hgb 13.9 (11.4-16.0) gm/dL Hct 39.3 (34.0-46.0) % MCV 90.2 (80.0-100.0) fL MCH 31.8 (25.0-35.0) pg MCHC 35.2 (31.0-37.0) g/dL RDW 12.8 (11.5-15.5) % Plt Count 274 (150-450) k/uL MPV 9.5 Neutrophils % 50 % Lymphocytes % 39 % Monocytes % 5 % Eosinophils % 2 % Basophils % 1 % Neutrophils # 5.7 (1.3-7.7) k/uL Lymphocytes # 4.4 (1.0-4.8) k/uL Monocytes # 0.6 (0-1.0) k/uL Eosinophils # 0.2 (0-0.7) k/uL Basophils # 0.1 (0-0.2) k/uL PT 9.5 (9.0-12.0) sec INR 0.9 (<1.2) APTT 25.1 (22.0-30.0) sec Sodium 135 L (137-145) mmol/L Potassium 4.0 (3.5-5.1) mmol/L Chloride 104 (98-107) mmol/L Carbon Dioxide 24 (22-30) mmol/L Anion Gap 7 mmol/L BUN 16 (7-17) mg/dL Creatinine 0.60 (0.52-1.04) mg/dL Est GFR (CKD-EPI)AfAm >90 (>60 ml/min/1.73 sqM) Est GFR (CKD-EPI)NonAf >90 (>60 ml/min/1.73 sqM) Glucose 111 H (74-99) mg/dL Plasma Lactic Acid Reg (0.7-2.0) mmol/L Calcium 9.2 (8.4-10.2) mg/dL Total Bilirubin 0.2 (0.2-1.3) mg/dL AST 21 (14-36) U/L ALT 16 (4-34) U/L Alkaline Phosphatase 56 (38-126) U/L Troponin I (0.000-0.034) ng/mL Total Protein 6.2 L (6.3-8.2) g/dL Albumin 3.4 L (3.5-5.0) g/dL 08/31/21 08/31/21 Range/Units 00:05 00:05 WBC (3.8-10.6) k/uL RBC (3.80-5.40) m/uL Hgb (11.4-16.0) gm/dL Hct (34.0-46.0) % MCV (80.0-100.0) fL MCH (25.0-35.0) pg MCHC (31.0-37.0) g/dL RDW (11.5-15.5) % Plt Count (150-450) k/uL MPV Neutrophils % % Lymphocytes % % Monocytes % % Eosinophils % % Basophils % % Neutrophils # (1.3-7.7) k/uL Lymphocytes # (1.0-4.8) k/uL Monocytes # (0-1.0) k/uL Eosinophils # (0-0.7) k/uL Basophils # (0-0.2) k/uL PT (9.0-12.0) sec INR (<1.2) APTT (22.0-30.0) sec Sodium (137-145) mmol/L Potassium (3.5-5.1) mmol/L Chloride (98-107) mmol/L Carbon Dioxide (22-30) mmol/L Anion Gap mmol/L BUN (7-17) mg/dL Creatinine (0.52-1.04) mg/dL Est GFR (CKD-EPI)AfAm (>60 ml/min/1.73 sqM) Est GFR (CKD-EPI)NonAf (>60 ml/min/1.73 sqM) Glucose (74-99) mg/dL Plasma Lactic Acid Reg 1.4 (0.7-2.0) mmol/L Calcium (8.4-10.2) mg/dL Total Bilirubin (0.2-1.3) mg/dL AST (14-36) U/L ALT (4-34) U/L Alkaline Phosphatase (38-126) U/L Troponin I <0.012 (0.000-0.034) ng/mL Total Protein (6.3-8.2) g/dL Albumin (3.5-5.0) g/dL - EKG Data -: EKG Interpreted by Me EKG shows normal: sinus rhythm Rate: normal EKG Comments: Ventricular rate 78 bpm, NC interval 148 ms, QRS duration 84 ms, QTC 462 ms, PRT axes 52/15/53. Normal sinus rhythm, possible left atrial enlargement, borderline ECG. - Radiology Data Radiology results: report reviewed, image reviewed Chest x-ray: No acute process. No adverse change. Disposition Clinical Impression: Palpitations Disposition: HOME SELF-CARE Condition: Stable Instructions (If sedation given, give patient instructions): Heart Palpitations (ED) Additional Instructions: Please return to the Emergency Department if symptoms worsen or any other concerns. Follow-up with primary care 1-2 days. Covid symptoms may be present for several days can take several weeks to recover fully. Continue to get plenty or rest and increase fluids. Is patient prescribed a controlled substance at d/c from ED?: No Referrals: Gregor Henderson MD [Primary Care Provider] - 1-2 days Time of Disposition: 01:15
[2021-08-31 02:03] VITALS: BP 113/77; PULSE 74
== END 2021-08-31 02:04 | disposition home or self-care (01) ==
LOC: SUPCPDRO 23:20 → EC 23:20
DX: R06.02 Shortness of breath (principal); R00.2 Palpitations; E78.5 Hyperlipidemia, unspecified; F17.200 Nicotine dependence, unspecified, uncomplicated; Z88.2 Allergy status to sulfonamides; Z88.1 Allergy status to other antibiotic agents; Z79.899 Other long term (current) drug therapy
CPT/HCPCS: 36415; 93005; 80053; 83605; 84484; 85025; 85610; 85730; 71046; 99285; 96374; J2405

== ENCOUNTER 2021-11-17 06:38 | Day surgery (SDC) | payer OTHER ==
[2021-11-16 08:28] VITALS: BMI 30.7
--- NOTE | 2021-11-16 16:44 | P.HPOB ---
History of Present Illness H&P Date: 11/16/21 Chief Complaint: menorrhagia 41 year old presents for D&C hysteroscopy and endometrial ablation with NovaSure. Review of Systems All systems: negative Constitutional: Denies chills, Denies fever Eyes: denies blurred vision, denies pain Ears, nose, mouth and throat: Denies headache, Denies sore throat Cardiovascular: Denies chest pain, Denies shortness of breath Respiratory: Denies cough Gastrointestinal: Denies abdominal pain, Denies diarrhea, Denies nausea, Denies vomiting Genitourinary: Denies dysuria, Denies hematuria Musculoskeletal: Denies myalgias Integumentary: Denies pruritus, Denies rash Neurological: Denies numbness, Denies weakness Psychiatric: Denies anxiety, Denies depression Endocrine: Denies fatigue, Denies weight change Past Medical History Past Medical History: Hyperlipidemia, Musculoskeletal Disorder Additional Past Medical History / Comment(s): Chronic back pain, scoliosis, DDD, CONSTIPATION, headaches, IRREGULAR HEAVY MENSES WITH LARGE CLOTS History of Any Multi-Drug Resistant Organisms: None Reported Past Surgical History: Appendectomy, Orthopedic Surgery Additional Past Surgical History / Comment(s): D & C, left foot surgery for bunion, fatty tumor removed from back when pt was 8 yrs old. COLONOSCOPY Past Anesthesia/Blood Transfusion Reactions: No Reported Reaction Smoking Status: Current every day smoker - Past Family History Father History Unknown: Yes Family Medical History: No Reported History, Myocardial Infarction ([place]) Additional Family Medical History / Comment(s): at age 42 from [place] Mother History Unknown: Yes Family Medical History: No Reported History Additional Family Medical History / Comment(s): renal failure. Mother is 61 yrs old. Medications and Allergies Home Medications Medication Instructions Recorded Confirmed Type No Known Home Medications 11/16/21 11/16/21 History Allergies Allergy/AdvReac Type Severity Reaction Status Date / Time sulfamethoxazole Allergy Rash/Hives Verified 11/16/21 08:19 [From Bactrim] trimethoprim [From Bactrim] Allergy Rash/Hives Verified 11/16/21 08:19 Exam Osteopathic Statement: *. No significant issues noted on an osteopathic structural exam other than those noted in the History and Physical/Consult. Intake and Output 11/16/21 11/16/21 11/16/21 06:59 14:59 22:59 Other: Weight 83.915 kg HEart: RRR Lungs: CTAB Abdomen: soft, nontender Extremeties: neg delicia's Assessment and Plan (1) Menorrhagia Status: Acute Code(s): N92.0 - EXCESSIVE AND FREQUENT MENSTRUATION WITH REGULA R CYCLE SNOMED Code(s): 948093899 Plan: 1. D&C hysteroscopy and endometrial ablation with Novasure
[~2021-11-17 06:38] MED LIST changes: +DEXAMETHASONE SOD PHOSPHATE 4 MG/ML 1 ML VIAL IV ONE; +HYDROmorphone 0.5 MG/0.5 ML SYRINGE IVP PRN; +ONDANSETRON 4 MG/2 ML VIAL IVP ONE; +Pre Op ABX Message 1 EACH MISC MISCELLANE ONE; +SCOPOLAMINE 1.5MG/72HR PATCH TRANSDERM ONE
[2021-11-17] MEDS ORDERED: MIDAZOLAM 2 MG/2 ML VIAL ONE (07:55)
[2021-11-17] MEDS ORDERED: PROPOFOL 10 MG/ML 20 ML VIAL IV ONE (07:55)
[2021-11-17] MEDS ORDERED: SUCCINYLCHOLINE CHLORIDE 100 MG/5 ML SYR IV ONE (07:55)
[2021-11-17] MEDS ORDERED: LIDOCAINE 1% INJ 10MG/ML (20 ML MDV) ONE (07:55)
[2021-11-17] MEDS ORDERED: fentaNYL (PF) 50 MCG/ML 2 ML AMP ONE (07:55)
--- NOTE | 2021-11-17 08:34 | P.OP ---
Date of Procedure: 11/17/21 Preoperative Diagnosis: 1. menorrhagia Postoperative Diagnosis: 1. menorrhagia Procedure(s) Performed: D&C, hysteroscopy, endometrial ablation with NovaSure Anesthesia: KALIE Surgeon: Sophie Vasques Estimated Blood Loss (ml): 3 IV fluids (ml): 300 Urine output (ml): 10 Pathology: other (endometrial currettings) Condition: stable Disposition: PACU Operative Findings: Cavity length 6.5, cavity width 3.2 cm, power 114 W, time of ablation 56 seconds. Adequate ablation after NovaSure Description of Procedure: Patient is taken the operating room where general anesthesia was obtained without difficulty. She was prepped and draped in normal sterile fashion dorsal lithotomy position, legs placed in the Kudo cane stirrups. Bladder was drained of all urine. Weighted speculum placed in the vagina and the anterior lip the cervix was grasped with serial tooth tenaculum. The uterus sounded to 10 cm and the cervix under 3.5 cm making the cavity length 6.5 cm. The cervix was dilated to #8 Hegar dilator. Hysteroscopy was then performed. Both ostia were visualized and there was a smooth contour of the uterus. Sharp curet was then gently used to obtain endometrial curettings. The NovaSure was introduced into the uterus with a cavity length of 6.5 cm, width 3.2 cm. after cavity assessment was passed, the time of ablation was 56 seconds at 114 W. Hysteroscopy was again performed and adequate ablation was noted. All instruments removed from the vagina. Patient tolerated the procedure well, sponge and instrument counts were correct 2 and she was taken to recovery in stable condition.
[2021-11-17 08:52] VITALS: RESP 16; TEMP 97
[2021-11-17] MEDS ORDERED: IV FLUID CONTINUATION 1,000 ML IV ONE (09:40)
[2021-11-17] MEDS ORDERED: IBUPROFEN 200 MG TAB PO ONE (09:51)
[2021-11-17 10:23] VITALS: BP 112/72; PULSE 62
== END 2021-11-17 10:46 | disposition home or self-care (01) ==
LOC: OR 06:38
PROVIDERS: ATTEND Obstetrics & Gynecology
DX: N92.0 Excessive and frequent menstruation with regular cycle (principal); E78.5 Hyperlipidemia, unspecified; F17.200 Nicotine dependence, unspecified, uncomplicated
CPT/HCPCS: 58563; 81025; 88305; J2250; J1100; J2405; J2001; J3010; J0330; J2704

== ENCOUNTER → 2022-10-30 | Outpatient (CLI) | payer OTHER ==
[2022-10-30 14:32] LABS: HCT 41.7 % (37.2-46.3); HGB 13.5 g/dL (12.0-15.0); MCH 30.3 pg (27.0-32.0); MCHC 32.4 g/dL (32.0-37.0); MCV 93.7 fL (80.0-97.0); Mean Platelet Volume 11.8 fL (9.5-12.2); NRBC Per 100 WBC 0 /100 WBCS (0.0-0.0); Platelet Count 381 X 10*3/uL (140-440); RBC 4.45 X 10*6/uL (4.10-5.20); RDW 13.5 % (11.5-14.5); WBC 10.79 X 10*3/uL (4.50-10.00)
[2022-10-30 16:16] LABS: African American GFR (CKD) 123.1 (60.0-200.0); Anion Gap 13.1 mmol/L (10.00-18.00); Blood Urea Nitrogen 14.8 mg/dL (9.0-27.0); Carbon Dioxide 24.9 mmol/L (20.0-27.5); Non-African American GFR(CKD) 106.2 (60.0-200.0); Potassium 4.7 mmol/L (3.5-5.5)
== END | disposition home or self-care (01) ==
LOC: LABPAT 07:20
PROVIDERS: ATTEND Internal Medicine
DX: Z01.812 Encounter for preprocedural laboratory examination (principal); R07.9 Chest pain, unspecified
CPT/HCPCS: 80051; 82565; 84520; 85027

== ENCOUNTER 2022-11-03 06:15 | Day surgery (SDC) | payer OTHER ==
[2022-10-31 17:07] VITALS: BMI 31.2
[~2022-11-03 06:15] MED LIST changes: +ALPRAZolam 0.25 MG TAB PO PRN; +ALPRAZolam 0.5 MG TAB PO PRN; +ASPIRIN 325 MG TAB PO STA; +ATORVASTATIN 80 MG TAB PO STA; -DEXAMETHASONE SOD PHOSPHATE 4 MG/ML 1 ML VIAL IV ONE; +HEPARIN SODIUM,PORCINE 10,000 UNIT in SODIUM CHLORIDE 0.9% 1,000 ML IRRIGATION PRN; +HEPARIN SODIUM,PORCINE 2,500 UNIT in SODIUM CHLORIDE 0.9% 250 ML IRRIGATION PRN; -HYDROmorphone 0.5 MG/0.5 ML SYRINGE IVP PRN; -LACTATED RINGERS 1,000 ML IV SCH; -LIDOCAINE 1% (10MG/ML) FOR IV START INTRADERMA PRN; +NITROGLYCERIN SL TABS 0.4 MG TAB SUBLINGUAL PRN; -ONDANSETRON 4 MG/2 ML VIAL IVP ONE; -Pre Op ABX Message 1 EACH MISC MISCELLANE ONE; -SCOPOLAMINE 1.5MG/72HR PATCH TRANSDERM ONE; +SODIUM CHLORIDE 0.9% 1,000 ML in EMPTY BAG 1 BAG IV SCH
[2022-11-03] MEDS ORDERED: SODIUM CHLORIDE 0.9% 1,000 ML IV ONE (06:40)
[2022-11-03 06:59] VITALS: RESP 16; TEMP 98
[2022-11-03] MEDS ORDERED: VERAPAMIL 2.5 MG/ML 2 ML AMP ONE (07:14)
[2022-11-03] MEDS ORDERED: fentaNYL (PF) 50 MCG/ML 2 ML AMP ONE (07:20)
[2022-11-03] MEDS ORDERED: HEPARIN SODIUM 1,000 UN/ML (10ML VL) ONE (07:20)
[2022-11-03] MEDS: fentaNYL (PF) 50 MCG/ML 2 ML AMP IVP ONE ×2 (07:34→07:44)
[2022-11-03] MEDS: MIDAZOLAM 2 MG/2 ML VIAL IVP ONE ×2 (07:35→07:37)
[2022-11-03] MEDS ORDERED: LIDOCAINE 1% INJ 10MG/ML (5 ML VIAL-PF) SQ ONE (07:36)
[2022-11-03] MEDS ORDERED: VERAPAMIL SYRINGE (5 MG/10 ML) INTRAARTER ONE (07:38)
[2022-11-03] MEDS ORDERED: HEPARIN SODIUM 1,000 UN/ML (10ML VL) IVP ONE (07:39)
[2022-11-03] MEDS ORDERED: MIDAZOLAM 2 MG/2 ML VIAL IVP ONE (07:45)
[2022-11-03] MEDS ORDERED: IOPAMIDOL-370 125ML BTL INJ ONE (07:51)
--- NOTE | 2022-11-03 07:58 | P.CARDCATH ---
Description of Procedure: PROCEDURES PERFORMED: Left heart catheterization, bilateral coronary angiography INDICATION: Chest pain worse with exertion consistent with angina CONSENT:I have discussed the risks, benefits and alternative therapies for the above-mentioned procedure and for both sedation/analgesia as well as necessary blood product administration, if indicated, as they pertain to this patient. The patient has indicated understanding and acceptance of the risks and procedures discussed. PROCEDURE: After the risks, benefits and alternatives of the above mentioned procedure explained in detail with the patient, informed consent was obtained. Patient was taken to the catheterization lab and prepped and draped in usual fashion. 1% lidocaine was used to anesthetize the right radial artery. A 6- Zimbabwean sheath was placed in the right radial artery using modified Seldinger technique. Left coronary angiography was performed with a 5-Zimbabwean JL 3.5 catheter and right coronary angiography was performed with a 5-Zimbabwean JR5 catheter in various views. A 5-Zimbabwean FR5 catheter was inserted into the left ventricle and pressure measurements were obtained. The right radial sheath was removed and a TR band was placed with hemostasis achieved. The patient tolerated the procedure well. Patient was transported back to the post catheterization holding area in stable condition. Conscious Sedation: Patient was monitored under the direct supervision of vision of myself for conscious sedation using Versed and fentanyl for a total duration of 15 minutes HEMODYNAMICS: Aorta: 144/77 LV: 141/5, LVEDP 15 SELECTIVE CORONARY ARTERIOGRAPHY: LEFT MAIN: The left main is a large caliber vessel which bifurcates into the LAD and circumflex. There is no significant stenosis. LEFT ANTERIOR DESCENDING CORONARY ARTERY: LAD is a large caliber vessel which wraps around to the apex. There is a mid LAD 30-40% stenosis and otherwise mild luminal irregularities. LEFT CIRCUMFLEX CORONARY ARTERY: Left circumflex is a moderate caliber vessel without significant stenosis. RIGHT CORONARY ARTERY: The right coronary artery is a large caliber vessel which gives off a PDA and PLV branch and is the dominant vessel. There are mild luminal irregularities FINAL IMPRESSION: 1. Relatively normal coronary arteries other than a mid LAD 30-40% stenosis and otherwise mild luminal irregularities. 2. Mildly elevated left sided filling pressures PLAN: 1. Aggressive risk factor modification per most recent ACC/AHA guidelines. 2. Follow-up in the office in 1-2 weeks.
[2022-11-03] MEDS ORDERED: ACETAMINOPHEN TAB 500 MG TAB PO ONE (10:02)
[2022-11-03] MEDS ORDERED: SODIUM CHLORIDE 0.9% 500 ML 500 ML IV ONE (11:00)
[2022-11-03 12:22] VITALS: BP 101/62; PULSE 62
== END 2022-11-03 12:05 | disposition home or self-care (01) ==
LOC: CATHCVL 06:15
PROVIDERS: ATTEND Internal Medicine
DX: I77.1 Stricture of artery (principal); E78.5 Hyperlipidemia, unspecified; F17.200 Nicotine dependence, unspecified, uncomplicated; Z79.899 Other long term (current) drug therapy; Z82.49 Family history of ischemic heart disease and other diseases of the circulatory system
CPT/HCPCS: 93458; 81025; C1769; C1894; J2250; J2001; J3010; J1644; Q9967

== ENCOUNTER 2022-12-22 05:58 | Day surgery (SDC) | payer OTHER ==
[~2022-12-22 05:58] MED LIST changes: -ALPRAZolam 0.25 MG TAB PO PRN; -ALPRAZolam 0.5 MG TAB PO PRN; -ASPIRIN 325 MG TAB PO STA; -ATORVASTATIN 80 MG TAB PO STA; -HEPARIN SODIUM,PORCINE 10,000 UNIT in SODIUM CHLORIDE 0.9% 1,000 ML IRRIGATION PRN; -HEPARIN SODIUM,PORCINE 2,500 UNIT in SODIUM CHLORIDE 0.9% 250 ML IRRIGATION PRN; +LACTATED RINGERS 1,000 ML IV SCH; +LIDOCAINE 1% (10MG/ML) FOR IV START INTRADERMA PRN; -NITROGLYCERIN SL TABS 0.4 MG TAB SUBLINGUAL PRN; -SODIUM CHLORIDE 0.9% 1,000 ML in EMPTY BAG 1 BAG IV SCH
[2022-12-22 06:31] VITALS: RESP 16; TEMP 98
[2022-12-22] MEDS ORDERED: ONDANSETRON 4 MG/2 ML VIAL IVP PRN (07:00)
[2022-12-22] MEDS ORDERED: LIDOCAINE 2% INJ 20 MG/ML (2 ML VIAL) ONE (07:16)
[2022-12-22] MEDS ORDERED: PROPOFOL 10 MG/ML 20 ML VIAL IV ONE (07:16)
--- NOTE | 2022-12-22 07:38 | P.PCN ---
Date of Procedure: 12/22/22 Procedure(s) Performed: Brief history: Patient is a pleasant 42-year-old white female scheduled for an elective upper endoscopy as well as colonoscopy as a part of evaluation of abdominal pain on and off for the last several months duration as well as intermittent rectal bleeding Procedure performed: Esophagogastroduodenoscopy with biopsy Colonoscopy Preoperative diagnosis: Diffuse abdominal pain Intermittent rectal bleeding Anesthesia: [facility] [place] Procedure: After informed consent was obtained from the patient was brought into the endoscopy unit and IV sedation was administered by anesthesia under continuous monitoring. Initially upper endoscopy was done. The Olympus GF 160 video endoscope was inserted inserted into the mouth and esophagus intubated without any difficulty and was gradually advanced into the stomach and duodenum and carefully examined. The bulb and second part of the duodenum appeared normal. Biopsies were done from the duodenum to rule out celiac disease. The scope was then withdrawn into the stomach adequately insufflated with air and upon careful examination the antrum had mild diffuse gastritis and biopsies were done from this area. Mucosa of the body, cardia and fundus appeared normal. The scope was then withdrawn into the esophagus. The GE junction was located at 40 cm to the incisors. It appeared regular with no erythema erosions or ulcerations. In the mid esophagus at 25 cm from the incisors there was a 3 mm esophageal polyp noted which was biopsied. Rest of the esophagus appeared normal. Patient tolerated the procedure well. At this time the patient continued to remain sedation. Initial digital rectal examination was normal. Olympus CF 160 video colonoscope was then inserted into the rectum and gradually advanced to the cecum without any difficulty. Careful examination was performed as the scope was gradually being withdrawn. The prep was excellent. Terminal ileum was intubated and 20 cm visualized and appeared normal. The cecum, ascending colon, transverse colon, descending colon, sigmoid colon and rectum appeared normal. Retroflexion was performed in the rectum and small internal hemorrhoids were noted. Patient tolerated the procedure well. Impression: 1. Upper endoscopy revealed mild antral gastritis and a 3 mm mid esophageal polyp status post biopsy 2. Colonoscopy was within normal limits with no evidence of colorectal neoplasia except for small internal hemorrhoids. Recommendations: Findings of this examination were discussed with the patient as well as her family. She was advised to follow with the biopsy results. Continue with current medications and she'll be seen in office in 3-4 weeks. Recommend repeat colonoscopy in 10 years.
[2022-12-22 08:04] VITALS: BP 105/70; PULSE 50
== END 2022-12-22 08:32 | disposition home or self-care (01) ==
LOC: ORWHC2ENDO 05:58
PROVIDERS: ATTEND Internal Medicine Gastroenterology
DX: K29.50 Unspecified chronic gastritis without bleeding (principal); K22.81 Esophageal polyp; K31.89 Other diseases of stomach and duodenum; K64.8 Other hemorrhoids; Z98.890 Other specified postprocedural states; E78.5 Hyperlipidemia, unspecified; Z87.891 Personal history of nicotine dependence; F41.9 Anxiety disorder, unspecified; F32.A Depression, unspecified; Z87.442 Personal history of urinary calculi; Z90.49 Acquired absence of other specified parts of digestive tract; Z79.1 Long term (current) use of non-steroidal anti-inflammatories (NSAID); Z79.899 Other long term (current) drug therapy; Z88.2 Allergy status to sulfonamides
CPT/HCPCS: 81025; 45378; 43239; 88305; J2704; J2001

== ENCOUNTER 2023-03-05 14:30 | Emergency (ER) | payer OTHER ==
[2023-03-05 14:42] VITALS: TEMP 98.1
[2023-03-05] MEDS ORDERED: ONDANSETRON 4 MG/2 ML VIAL IVP STA (15:11)
[2023-03-05] MEDS ORDERED: SODIUM CHLORIDE 0.9% 500 ML 500 ML IV STA (15:11)
[2023-03-05] MEDS ORDERED: KETOROLAC 15 MG/ML 1 ML VIAL IVP STA (15:11)
--- NOTE | 2023-03-05 15:11 | ED ---
General Adult HPI - General Chief complaint: Abdominal Pain Stated complaint: RT ABD PAIN Time Seen by Provider: 03/05/23 15:03 Source: patient, RN notes reviewed, old records reviewed Mode of arrival: ambulatory Limitations: no limitations - History of Present Illness Initial comments: Nontoxic-appearing 43-year-old female presents ambulatory with complaints of right flank pain for one month. States that last month she was diagnosed with a right kidney stone measuring 8 mm. She has been seeing Dr. Dodson with urology who wants to schedule a procedure which she has not done yet. She denies any fevers but states that she has had nausea and decreased urine output along with increased flank pain. -: month(s) (1) Location: right (flank) Severity scale (1-10): 6 Quality: constant Consistency: constant Improves with: none Worsens with: none Associated Symptoms: nausea/vomiting (no vomiting) Treatments Prior to Arrival: none - Related Data Home Medications Medication Instructions Recorded Confirmed Atorvastatin [Lipitor] 40 mg PO DAILY 10/31/22 12/22/22 Cholecalciferol [Vitamin D3 (25 25 mcg PO DAILY 10/31/22 12/22/22 Mcg = 1000 Iu)] Ibuprofen [Motrin] 600 mg PO Q6HR PRN 10/31/22 12/22/22 Metoprolol Succinate (ER) [Toprol 12.5 mg PO DAILY 10/31/22 12/22/22 Xl] SUMAtriptan succinate [Imitrex] 25 mg PO BID PRN 10/31/22 12/22/22 Hyoscyamine Sulfate [Hyoscyamine 0.125 mg SL TID PRN 12/05/22 12/22/22 Sulfate SL] busPIRone HCl [Buspar] 10 mg PO BID 12/05/22 12/22/22 L.acidoph,Paracasei, B.lactis 1 each PO DAILY 12/19/22 12/22/22 [Probiotic] Multivit-Min/Folic Acid/Biotin 133.3 mcg PO DAILY 12/19/22 12/22/22 [Hair, Skin and Nails Softgel] hydrOXYzine HCL [Atarax] 25 mg PO DIRECTED PRN 12/19/22 12/22/22 Allergies Allergy/AdvReac Type Severity Reaction Status Date / Time sulfamethoxazole Allergy Rash/Hives Verified 03/05/23 14:41 [From Bactrim] trimethoprim [From Bactrim] Allergy Rash/Hives Verified 03/05/23 14:41 Review of Systems ROS Statement: Those systems with pertinent positive or pertinent negative responses have been documented in the HPI. ROS Other: All systems not noted in ROS Statement are negative. Past Medical History Past Medical History: Cancer, Chest Pain / Angina, GERD/Reflux, Hyperlipidemia, Musculoskeletal Disorder Additional Past Medical History / Comment(s): Chronic back pain, scoliosis, DDD, CONSTIPATION, recent rectal bleeding, headaches, IRREGULAR HEAVY MENSES @times, recent card. cath. due to chest pain, no blockages, takes metoprolol for, skin cancer face-had removed, daily heartburn/GERD, current kidney stone History of Any Multi-Drug Resistant Organisms: None Reported Past Surgical History: Appendectomy, Cholecystectomy, Heart Catheterization, Orthopedic Surgery Additional Past Surgical History / Comment(s): D & C, left foot surgery for bunion, fatty tumor removed from back when pt was 8 yrs old. COLONOSCOPY, recent cardiac cath. Past Anesthesia/Blood Transfusion Reactions: No Reported Reaction Additional Past Anesthesia/Blood Transfusion Reaction / Comment(s): no hx blood transfusion, woke up during last colonoscopy Past Psychological History: Anxiety, Bipolar, Depression, Panic Disorder Smoking Status: Former smoker Past Alcohol Use History: None Reported Past Drug Use History: None Reported - Past Family History Father History Unknown: Yes Family Medical History: Myocardial Infarction (ID) Additional Family Medical History / Comment(s): at age 42 from ID Mother History Unknown: Yes Family Medical History: AFIB, Hypertension, Renal Disease Additional Family Medical History / Comment(s): had rt kidney removed r/t not functioning General Exam Limitations: no limitations General appearance: alert, in no apparent distress Head exam: Present: atraumatic Eye exam: Present: normal appearance. Absent: scleral icterus, conjunctival injection, periorbital swelling ENT exam: Present: mucous membranes moist Neck exam: Absent: meningismus Respiratory exam: Present: normal lung sounds bilaterally. Absent: respiratory distress, accessory muscle use Cardiovascular Exam: Present: regular rate GI/Abdominal exam: Present: soft Extremities exam: Present: full ROM, normal capillary refill. Absent: pedal edema Back exam: Present: full ROM. Absent: CVA tenderness (R), CVA tenderness (L), paraspinal tenderness, vertebral tenderness, rash noted Neurological exam: Present: alert, oriented X3, normal gait Psychiatric exam: Present: normal affect, normal mood Skin exam: Present: warm, dry, normal color. Absent: cyanosis, diaphoretic, petechiae, pallor Course Vital Signs 03/05/23 03/05/23 03/05/23 14:39 15:53 17:59 Temperature 98.1 F Pulse Rate 66 68 86 Respiratory 18 16 16 Rate Blood Pressure 123/85 136/68 136/85 O2 Sat by Pulse 100 98 98 Oximetry Medical Decision Making - Medical Decision Making Was pt. sent in by a medical professional or institution (, PA, RESEARCH DA[employer]Y FARM SUPERVISOR, urgent care, hospital, or intermediate...) When possible be specific @ -No Did you speak to anyone other than the patient for history (EMS, parent, family, police, friend...)? What history was obtained from this source @ -No Did you review nursing and triage notes (agree or disagree)? Why? @ -I reviewed and agree with nursing and triage notes Were old charts reviewed (outside hosp., previous admission, EMS record, old EKG, old radiological studies, urgent care reports/EKG's, intermediate records)? Report findings @ -yes CT report 12/05/2022 Differential Diagnosis (chest pain, altered mental status, abdominal pain women, abdominal pain men, vaginal bleeding, weakness, fever, dyspnea, syncope, headache, dizziness, GI bleed, back pain, seizure, CVA, palpatations, mental health, musculoskeletal)? @ -Differential Abdominal Pain Women: Appendicitis, Cholecystitis, diverticulosis, ischemic bowel, pancreatitis, he patitis, UTI, gastroenteritis, AAA, incarcerated hernia, bowel obstruction, constipation, inflammatory bowel, hepatitis, peptic ulcer disease, splenic infarction, perforated viscus, vulvitis, ovarian torsion, PID, kidney stone, placenta abruption, this is not meant to be an all-inclusive list EKG interpreted by me (3pts min.). @ -n/a X-rays interpreted by me (1pt min.). @ -None done CT interpreted by me (1pt min.). @ -None done U/S interpreted by me (1pt. min.). @ -no What testing was considered but not performed or refused? (CT, X-rays, U/S, labs)? Why? @ -CT was considered however patient had a CT 11/27/2022 revealing a kidney stone. CT was reviewed showing a nonobstructive right renal calculi upper pole cortical calcification, therefore ultrasound was ordered What meds were considered but not given or refused? Why? @ -None Did you discuss the management of the patient with other professionals (professionals i.e. DrJeny, PA, [employer]EARCH [employer] SUPERVISOR, lab, RT, psych nurse, transition social worker, auto clutch specialist, teacher, natural resource officer, bilingual case manager)? Give summary @ -No Was smoking cessation discussed for >3mins.? @ -No Was critical care preformed (if so, how long)? @ -No Were there social determinants of health that impacted care today? How? (Homelessness, low income, unemployed, alcoholism, drug addiction, transportation, low edu. Level, literacy, decrease access to med. care, skilled nursing, rehab)? @ -No Was there de-escalation of care discussed even if they declined (Discuss DNR or withdrawal of care, Hospice)? DNR status @ -No What co-morbidities impacted this encounter? (DM, HTN, Smoking, COPD, CAD, Cancer, CVA, ARF, Chemo, Hep., AIDS, mental health diagnosis, sleep apnea, morbi d obesity)? @ -Patient has a history of angina, hyperlipidemia, chronic back pain, scoliosis, degenerative disc disease, anxiety, bipolar, depression, skin cancer Past surgical history of appendectomy cholecystectomy Was patient admitted / discharged? Hospital course, mention meds given and route, prescriptions, significant lab abnormalities, going to OR and other pertinent info. @ -Discharged Nontoxic-appearing 43-year-old female presents ambulatory with complaints of right flank pain radiating to her right groin for one month. States that last month she was diagnosed with a right kidney stone measuring 8 mm. She has been seeing Dr. Dodson with urology who wants to schedule a procedure which she has not done yet. Patient was given IV fluids, Toradol and Zofran and Tylenol Labs show no evidence of leukocytosis. Electrolytes are unremarkable. Lactic acid is negative. Urinalysis shows no evidence of infection. CT performed in 12/05/2022 shows status post cholecystectomy and appendectomy. Nonobstructive right renal calculi with no hydronephrosis moderate stool burden. 2.4 cm dominant follicle cyst right ovary. Ultrasound of the renal stent bladder performed showing no evidence of obstructive uropathy. Right upper pole cortical calcification as seen in prior CT 12/05/2022. Patient's pain does not seem to be related to a ureteral stone. She does have a right ovarian cyst which may be the cause of her symptoms. She states she has an ultrasound of the abdomen and pelvis scheduled this by her primary care doctor. Patient was discharged home and directed to return to the emergency room with any new or concerning symptoms. Case discussed with Dr. Aragon Undiagnosed new problem with uncertain prognosis? @ -No Drug Therapy requiring intensive monitoring for toxicity (Heparin, Nitro, Insulin, Cardizem)? @ -No Were any procedures done? @ -No Diagnosis/symptom? @ -Right flank pain, right ovarian cyst Acute, or Chronic, or Acute on Chronic? @ -Acute Uncomplicated (without systemic symptoms) or Complicated (systemic symptoms)? @ -Uncomplicated Side effects of treatment? @ -No Exacerbation, Progression, or Severe Exacerbation? @ -No Poses a threat to life or bodily function? How? (Chest pain, USA, ID, pneumonia, PE, COPD, DKA, ARF, appy, cholecystitis, CVA, Diverticulitis, Homicidal, Suicidal, threat to staff... and all critical care pts) @ -No - Lab Data Result diagrams: 03/05/23 15:44 03/05/23 15:44 Lab Results 03/05/23 03/05/23 03/05/23 Range/Units 15:44 15:44 15:44 WBC 9.1 (3.8-10.6) k/uL RBC 4.45 (3.80-5.40) m/uL Hgb 13.5 (11.4-16.0) gm/dL Hct 39.8 (34.0-46.0) % MCV 89.5 (80.0-100.0) fL MCH 30.4 (25.0-35.0) pg MCHC 34.0 (31.0-37.0) g/dL RDW 12.4 (11.5-15.5) % Plt Count 288 (150-450) k/uL MPV 8.6 Neutrophils % 62 % Lymphocytes % 30 % Monocytes % 5 % Eosinophils % 2 % Basophils % 0 % Neutrophils # 5.6 (1.3-7.7) k/uL Lymphocytes # 2.7 (1.0-4.8) k/uL Monocytes # 0.4 (0-1.0) k/uL Eosinophils # 0.2 (0-0.7) k/uL Basophils # 0.0 (0-0.2) k/uL Sodium 137 (137-145) mmol/L Potassium 4.6 (3.5-5.1) mmol/L Chloride 103 (98-107) mmol/L Carbon Dioxide 25 (22-30) mmol/L Anion Gap 9 mmol/L BUN 19 H (7-17) mg/dL Creatinine 0.52 (0.52-1.04) mg/dL Est GFR (CKD-EPI)AfAm >90 (>60 ml/min/1.73 sqM) Est GFR (CKD-EPI)NonAf >90 (>60 ml/min/1.73 sqM) Glucose 100 H (74-99) mg/dL Plasma Lactic Acid Reg (0.7-2.0) mmol/L Calcium 8.9 (8.4-10.2) mg/dL Total Bilirubin 0.5 (0.2-1.3) mg/dL AST 27 (14-36) U/L ALT 18 (4-34) U/L Alkaline Phosphatase 41 (38-126) U/L Total Protein 7.1 (6.3-8.2) g/dL Albumin 4.0 (3.5-5.0) g/dL Amylase 42 (30-110) U/L Lipase 81 (23-300) U/L Urine Color Yellow Urine Appearance Clear (Clear) Urine pH 6.5 (5.0-8.0) Ur Specific [place] 1.021 (1.001-1.035) Urine Protein Negative (Negative) Urine Glucose (UA) Negative (Negative) Urine Ketones Negative (Negative) Urine Blood Negative (Negative) Urine Nitrite Negative (Negative) Urine Bilirubin Negative (Negative) Urine Urobilinogen <2.0 (<2.0) mg/dL Ur Leukocyte Esterase Large H (Negative) Urine RBC 5 (0-5) /hpf Urine WBC 3 (0-5) /hpf Ur Squamous Epith Cells 4 (0-4) /hpf Urine Mucus Rare H (None) /hpf 03/05/23 Range/Units 16:15 WBC (3.8-10.6) k/uL RBC (3.80-5.40) m/uL Hgb (11.4-16.0) gm/dL Hct (34.0-46.0) % MCV (80.0-100.0) fL MCH (25.0-35.0) pg MCHC (31.0-37.0) g/dL RDW (11.5-15.5) % Plt Count (150-450) k/uL MPV Neutrophils % % Lymphocytes % % Monocytes % % Eosinophils % % Basophils % % Neutrophils # (1.3-7.7) k/uL Lymphocytes # (1.0-4.8) k/uL Monocytes # (0-1.0) k/uL Eosinophils # (0-0.7) k/uL Basophils # (0-0.2) k/uL Sodium (137-145) mmol/L Potassium (3.5-5.1) mmol/L Chloride (98-107) mmol/L Carbon Dioxide (22-30) mmol/L Anion Gap mmol/L BUN (7-17) mg/dL Creatinine (0.52-1.04) mg/dL Est GFR (CKD-EPI)AfAm (>60 ml/min/1.73 sqM) Est GFR (CKD-EPI)NonAf (>60 ml/min/1.73 sqM) Glucose (74-99) mg/dL Plasma Lactic Acid Reg 0.6 L (0.7-2.0) mmol/L Calcium (8.4-10.2) mg/dL Total Bilirubin (0.2-1.3) mg/dL AST (14-36) U/L ALT (4-34) U/L Alkaline Phosphatase (38-126) U/L Total Protein (6.3-8.2) g/dL Albumin (3.5-5.0) g/dL Amylase (30-110) U/L Lipase (23-300) U/L Urine Color Urine Appearance (Clear) Urine pH (5.0-8.0) Ur Specific [place] (1.001-1.035) Urine Protein (Negative) Urine Glucose (UA) (Negative) Urine Ketones (Negative) Urine Blood (Negative) Urine Nitrite (Negative) Urine Bilirubin (Negative) Urine Urobilinogen (<2.0) mg/dL Ur Leukocyte Esterase (Negative) Urine RBC (0-5) /hpf Urine WBC (0-5) /hpf Ur Squamous Epith Cells (0-4) /hpf Urine Mucus (None) /hpf Disposition Clinical Impression: Abdominal pain, Ovarian cyst Disposition: HOME SELF-CARE Condition: Good Instructions (If sedation given, give patient instructions): Abdominal Pain (ED) Additional Instructions: Your labs today show no evidence of kidney dysfunction. No evidence of infection. Urinalysis does not show evidence of infection. At this time I do not have a source for you right-sided pain or decreased urine output. Your previous CT scan in November showed you do have a right ovarian cyst which may be the cause of your discomfort. Take Tylenol and or Motrin for any pain or discomfort. Heat may help alleviate her pain. Keep your appointment for your ultrasound abdomen and pelvis scheduled this . Follow-up with your primary care doctor and Dr. Alves this week for continuation of care. Is patient prescribed a controlled substance at d/c from ED?: No Referrals: Amparo Baig [Primary Care Provider] - 1-2 days Time of Disposition: 17:23
[2023-03-05 15:54] VITALS: RESP 16
[2023-03-05 16:06] LABS: Basophils % (A) 0 %; Eosinophils # (A) 0.2 k/uL (0-0.7); Eosinophils % (A) 2 %; HCT 39.8 % (34.0-46.0); HGB 13.5 gm/dL (11.4-16.0); Lymphocytes # (A) 2.7 k/uL (1.0-4.8); Lymphocytes % (A) 30 %; MCH 30.4 pg (25.0-35.0); MCV 89.5 fL (80.0-100.0); Mean Platelet Volume 8.6; Monocytes # (A) 0.4 k/uL (0-1.0); Monocytes % (A) 5 %; Neutrophils # (A) 5.6 k/uL (1.3-7.7); Neutrophils % (A) 62 %; Platelet Count 288 k/uL (150-450); RBC 4.45 m/uL (3.80-5.40); RDW 12.4 % (11.5-15.5); WBC 9.1 k/uL (3.8-10.6)
--- NOTE | 2023-03-05 16:13 | US ---
EXAMINATION TYPE: US renals and bladder DATE OF EXAM: 03/05/2023 COMPARISON: CT 12/05/2022. CLINICAL INDICATION: Female, 43 years old with history of uti, back pain, hx of kidney stones; Rt morteza e ABD pain, known renal stone EXAM MEASUREMENTS: Right Kidney: 10.9 x 4.1 x 5.6 cm Left Kidney: 10.0 x 4.5 x 4.7 cm Right Kidney: No evidence of hydro, echogenic foci in the upper pole similar to prior CT Left Kidney: wnl, lower pole gassed out Bladder: Pt voided just prior to exam There is no evidence for hydronephrosis at this point in time. No nephrolithiasis is seen. No radha s are identified. The urinary bladder is incompletely distended. IMPRESSION: 1. No evidence of obstructive uropathy. 2. Right upper pole Cortical calcification as seen in prior CT.
[2023-03-05 16:14] LABS: Appearance,Urine Clear (Clear); Bilirubin,Urine Negative (Negative); Blood,Urine Negative (Negative); Color,Urine Yellow; Glucose,Urine (UA) Negative (Negative); Ketones,Urine Negative (Negative); Leukocyte Esterase,Urine Large (Negative); Mucus,Urine Rare /hpf; Nitrite,Urine Negative (Negative); PH, Urine 6.5 (5.0-8.0); Protein,Urine Negative (Negative); RBC,Urine 5 /hpf (0-5); Specific Gravity,Urine 1.021 (1.001-1.035); Squamous Epithelial Cell,Urine 4 /hpf (0-4); Urobilinogen,Urine <2.0 mg/dL (<2.0); WBC,Urine 3 /hpf (0-5)
[2023-03-05 16:21] LABS: ALT 18 U/L (4-34); African American GFR (CKD) >90 (>60 ml/min/1.73 sqM); Amylase 42 U/L (30-110); Anion Gap 9 mmol/L; Blood Urea Nitrogen 19 mg/dL (7-17); Calcium 8.9 mg/dL (8.4-10.2); Carbon Dioxide 25 mmol/L (22-30); Chloride 103 mmol/L (98-107); Glucose 100 mg/dL (74-99); Lipase 81 U/L (23-300); Non-African American GFR(CKD) >90 (>60 ml/min/1.73 sqM); Sodium 137 mmol/L (137-145); Total Bilirubin 0.5 mg/dL (0.2-1.3); Total Protein 7.1 g/dL (6.3-8.2)
[2023-03-05 16:23] LABS: AST 27 U/L (14-36); Alkaline Phosphatase 41 U/L (38-126); Potassium 4.6 mmol/L (3.5-5.1)
[2023-03-05] MEDS ORDERED: ACETAMINOPHEN TAB 500 MG TAB PO STA (16:54)
[2023-03-05 18:00] VITALS: BP 136/85; PULSE 86
== END 2023-03-05 18:00 | disposition home or self-care (01) ==
LOC: EC 14:30
DX: N83.201 Unspecified ovarian cyst, right side (principal); E78.5 Hyperlipidemia, unspecified; F41.9 Anxiety disorder, unspecified; F31.9 Bipolar disorder, unspecified; Z79.899 Other long term (current) drug therapy; Z87.891 Personal history of nicotine dependence; Z88.2 Allergy status to sulfonamides; Z88.8 Allergy status to other drugs, medicaments and biological substances
CPT/HCPCS: 36415; 80053; 82150; 83605; 83690; 85025; 81001; 76770; 99284; 96374; 96375; 96361 ×2; J2405; J1885

== ENCOUNTER → 2023-03-08 | Outpatient (CLI) | payer OTHER ==
--- NOTE | 2023-03-08 08:18 | US ---
EXAMINATION TYPE: US abdomen complete DATE OF EXAM: 03/08/2023 COMPARISON: CT 12/05/2022 & US CLINICAL INDICATION: Female, 43 years old with history of R10.9 ABD PAIN; Right side ABD pain, GB rem nannette TECHNIQUE: Multiple sonographic images of the abdomen are obtained. FINDINGS: EXAM MEASUREMENTS: Liver Length: 16.6 cm CBD: 0.7 cm Spleen: 11.9 cm Right Kidney: 9.6 x 4.0 x 4.7 cm Left Kidney: 10.5 x 4.7 x 5.9 cm Pancreas: wnl, tail obscured by overlying bowel gas Liver: wnl Gallbladder: Surgically absent Evidence for sonographic Johnson's sign: No CBD: wnl Spleen: wnl Right Kidney: Known renal stone upper pole= 0.9 cm/ No evidence of hydro Left Kidney: wnl Upper IVC: wnl Abd Aorta: wnl The liver is homogenous. The intrahepatic portion of the IVC and proximal abdominal aorta are within normal limits. Common bile duct is unremarkable. The visualized portions of the pancreas are homog enous. The spleen is unremarkable. Kidneys are symmetric and free of hydronephrosis. No renal lesi ons are seen. IMPRESSION: 1. The gallbladder appears surgically absent. 2. Right renal hypoechoic focus compatible with calcification seen on prior CT 11/27/2022. 3. No acute abdominal process. No obstructive uropathy.
--- NOTE | 2023-03-08 08:25 | US ---
EXAMINATION TYPE: US pelvic complete DATE OF EXAM: 03/08/2023 COMPARISON: CT CLINICAL INDICATION: Female, 43 years old with history of R10.9 ABD PAIN; Pt states right side ABD pa in TECHNIQUE: Transvaginal (TV). Transvaginal sonographic images of the pelvis were acquired. Pt no t given prep to fill bladder Date of LMP: EXAM MEASUREMENTS: Uterus: 10.4 x 5.7 x 7.2 cm Endometrial Stripe: 0.8 cm Right Ovary: 3.0 x 1.9 x 2.0 cm Left Ovary: 4.0 x 3.8 x 2.7 cm 1. Uterus: Anteverted Enlarged, heterogeneous, bulky in appearance 2. Endometrium: wnl 3. Right Ovary: wnl, follicles 4. Left Ovary: cyst with debris= 2.1 x 2.1 x 2.1 cm/ Hyperechoic lesion= 1.2 x 0.7 x 0.9 cm likely b enign etiology no dermoid visualized on CT imaging from 11/27/2022. 6. Posterior cul-de-sac: Scant amount of free fluid IMPRESSION: 1. No evidence for acute process to explain the patient's pain. 2. Endometrium within normal limits for thickness for a premenopausal patient. 3. Bilateral ovarian dominant follicles.
== END | disposition home or self-care (01) ==
LOC: RADUSWWP 07:10
PROVIDERS: ATTEND Student in an Organized Health Care Education/Training Program
DX: N83.8 Other noninflammatory disorders of ovary, fallopian tube and broad ligament (principal); R93.421 Abnormal radiologic findings on diagnostic imaging of right kidney; R10.9 Unspecified abdominal pain; Z90.49 Acquired absence of other specified parts of digestive tract
CPT/HCPCS: 76700; 76830

== ENCOUNTER → 2023-07-17 | Outpatient (CLI) | payer MEDICAID, OTHER ==
--- NOTE | 2023-07-19 10:00 | CA ---
Transthoracic Echo Report Name: Nikkie Garcia Age: 43 Gender: F : 1980 Exam Date: 07/17/2023 13:55 Exam Location: [facility] Ht (in): 65 Wt (lb): 206 Ordering Physician: Amparo Baig Attending/Referring Phys: Log Truck Driver Melodie Loja [facility] Procedure CPT: Indications: I25.10 CAD Cardiac Hx: Technical Quality: Fair Contrast 1: Total Dose (mL): Contrast 2: Total Dose (mL): MEASUREMENTS (Male / Female) Normal Values 2D ECHO LV Diastolic Diameter PLAX 4.8 cm 4.2 - 5.9 / 3.9 - 5.3 cm LV Systolic Diameter PLAX 3.3 cm IVS Diastolic Thickness 0.7 cm 0.6 - 1.0 / 0.6 - 0.9 cm LVPW Diastolic Thickness 0.8 cm 0.6 - 1.0 / 0.6 - 0.9 cm LV Relative Wall Thickness 0.3 Ascending Aorta Diameter 3.5 cm M-MODE Aortic Root Diameter MM 2.8 cm LA Systolic Diameter MM 3.7 cm LA Ao Ratio MM 1.3 AV Cusp Separation MM 2.3 cm DOPPLER AV Peak Velocity 154.0 cm/s AV Peak Gradient 9.5 mmHg AV Mean Velocity 109.5 cm/s AV Mean Gradient 5.3 mmHg AV Velocity Time Integral 34.4 cm LVOT Peak Velocity 122.8 cm/s LVOT Peak Gradient 6.0 mmHg LVOT Velocity Time Integral 26.5 cm Mitral E Point Velocity 67.6 cm/s Mitral A Point Velocity 75.3 cm/s Mitral E to A Ratio 0.9 MV Deceleration Time 178.3 ms LV E' Lateral Velocity 10.0 cm/s Mitral E to LV E' Lateral Ratio 6.8 LV E' Septal Velocity 8.6 cm/s Mitral E to LV E' Septal Ratio 7.9 TR Peak Velocity 220.2 cm/s TR Peak Gradient 19.4 mmHg Right Atrial Pressure 3.0 mmHg Pulmonary Artery Systolic Pressu 22.4 mmHg Right Ventricular Systolic Press 22.4 mmHg FINDINGS Left Ventricle Normal Left ventricular size, wall thickness, systolic function with no obvious regional wall motion abnormalities. Left ventricular ejection fraction is estimated at 55-60%. Right Ventricle Normal right ventricular size. Right Atrium Normal right atrial size. Left Atrium Normal left atrial size. Mitral Valve Structurally normal mitral valve. Trace mitral regurgitation. Aortic Valve Trileaflet aortic valve. Trace aortic regurgitation. Tricuspid Valve Structurally normal tricuspid valve. Trace tricuspid regurgitation. Pulmonic Valve Pulmonic valve not well visualized. Trace pulmonic regurgitation. Pericardium No pericardial effusion. Aorta Normal size aortic root and proximal ascending aorta. CONCLUSIONS Normal LV size and systolic function Previewed by: Dr. Ac Bishop MD (Electronically Signed) Final Date: 19 July 2023 09:59
== END | disposition home or self-care (01) ==
LOC: RADECHMAIN 13:47
PROVIDERS: ATTEND Student in an Organized Health Care Education/Training Program
DX: I25.10 Atherosclerotic heart disease of native coronary artery without angina pectoris (principal)
CPT/HCPCS: 93306

== ENCOUNTER → 2023-07-17 | Outpatient (CLI) | payer MEDICAID, OTHER ==
--- NOTE | 2023-07-17 11:28 | US ---
EXAMINATION TYPE: US abdomen complete DATE OF EXAM: 07/17/2023 COMPARISON: US abdomen 03/08/2023 CLINICAL INDICATION: Female, 43 years old with history of R10.12 LEFT UPPER QUADRANT PAIN; Pt states LUQ pain, GB removed TECHNIQUE: Multiple sonographic images of the abdomen are obtained. FINDINGS: EXAM MEASUREMENTS: Liver Length: 14.2 cm CBD: 0.7 cm Spleen: 12.0 cm Right Kidney: 10.9 x 3.7 x 5.2 cm Left Kidney: 11.7 x 5.0 x 5.8 cm DIRECTOR DIVERSITY NOTES: Pancreas: wnl, tail obscured by overlying Liver: Heterogeneous Gallbladder: Surgically absent CBD: wnl Spleen: wnl Right Kidney: No evidence of hydro, calculus upper pole= 1.0 cm Left Kidney: No evidence of hydro Upper IVC: wnl Abd Aorta: Mid portion gassed out, otherwise appeared wnl The liver demonstrates heterogenous echotexture without focal lesion identified. The intrahepatic por tion of the IVC and proximal abdominal aorta are within normal limits. The midportion of the abdomina l aorta is obscured by overlying bowel gas. Gallbladder is surgically absent. Common bile duct is unr emarkable. The visualized portions of the pancreas are homogenous. The tail is obscured by overlying bowel gas. The spleen is unremarkable. Kidneys are symmetric and free of hydronephrosis. No renal lesions are seen. Right upper pole calculus measured 1 cm. IMPRESSION: 1. No acute process. 2. Post cholecystectomy changes. 3. Nonobstructive right renal calculus.
== END | disposition home or self-care (01) ==
LOC: RADUSWWP 10:23
PROVIDERS: ATTEND Student in an Organized Health Care Education/Training Program
DX: N20.0 Calculus of kidney (principal); R10.12 Left upper quadrant pain; Z90.49 Acquired absence of other specified parts of digestive tract
CPT/HCPCS: 76700

== ENCOUNTER → 2023-08-06 | Outpatient (CLI) | payer MEDICAID, OTHER ==
--- NOTE | 2023-08-06 13:47 | CA ---
Lexiscan Nuclear Stress Test Report Name: Nikkie Garcia Exam Date: 08/06/2023 10:30 Exam Location: [facility] Stress Ht (in): 65 Wt (lb): 205 BSA: 2.00 Ordering Phys: Amparo Baig Referring Phys: Sav Troy DO Technologist: KANA Age: 43 Gender: F : 1980 Procedure CPT: Indications: R07.89 chest pain ICD-10 Codes: Patient History: CHEST PAIN, DIFFICULTY IN BREATHING, NUMBNESS IN FACE/NECK, ELEVATED CHOLESTEROL LEVELS, FAMILY HX OF HEART DX, PRIOR SMOKER, PRIOR CATH Medications: METOPROLOL, LIPITOR, BUPROPRION, VITAMIN Meds past 24 hrs: Pretest Chest Pain: STRESS TEST Lexiscan Protocol Exercise Duration (min:sec): 02:[address] Depressions (mm): Angina Score: Cortez Score: Resting HR (bpm): 57 Peak HR (bpm): 100 Resting BP (mmHg): 104 / 78 Peak BP (mmHg): 110 / 75 MPHR: 175 Target HR: 149 % MPHR: 57 METS: 1.0 Total Dose: Peak Dose: Atropine: Double Product: [id number] BP Response: Stress Termination: INFUSION COMPLETE Stress Symptoms: HEADACHE Stress Summary: ECG ANALYSIS Resting ECG: Sinus rhythm. Normal conduction. No arrhythmias. Normal repolarization. Stress ECG: No ECG changes from baseline with Lexiscan infusion. CONCLUSIONS No ECG evidence of ischemia with Lexiscan infusion. Nuclear test results to follow. Dr. Riki Cardona MD (Electronically Signed) Final Date: 06 August 2023 13:46
== END | disposition home or self-care (01) ==
LOC: RADNMMAIN 07:52
PROVIDERS: ATTEND Student in an Organized Health Care Education/Training Program
DX: I25.10 Atherosclerotic heart disease of native coronary artery without angina pectoris (principal); R07.89 Other chest pain
CPT/HCPCS: 93017; 78452; A9500

== ENCOUNTER → 2023-10-15 | Outpatient (CLI) | payer MEDICAID, OTHER ==
--- NOTE | 2023-10-19 10:54 | XR ---
EXAMINATION TYPE: XR cervical spine limited DATE OF EXAM: 10/15/2023 2:52 PM CLINICAL INDICATION:Female, 43 years old with history of M51.34,M50.30; [facility]. Chronic pain no injury. COMPARISON: None TECHNIQUE: The cervical spine was imaged in frontal, lateral, and odontoid. FINDINGS: The osseous structures show normal alignment without evidence of an acute fracture. No significant ve rtebral body osteophytes or facet joint arthropathy. Mild disc space narrowing with tiny marginal ost eophytes anteriorly at C5-6 and C6-7. Pedicles are intact. Mild reversal of the normal cervical lord osis. No significant listhesis. The odontoid appears intact. Soft tissues are within normal limits. IMPRESSION: 1. No fracture or dislocation. 2. Mild degenerative disc disease changes of the cervical spine. 3. Mild reversal of the normal cervical lordosis, can be seen with degenerative changes, pain, positi oning, muscular spasm.
--- NOTE | 2023-10-19 11:12 | XR ---
EXAMINATION TYPE: XR thoracic spine 2V DATE OF EXAM: 10/15/2023 2:52 PM CLINICAL INDICATION:Female, 43 years old with history of M51.34,M50.30; [facility] COMPARISON: TECHNIQUE: 3 views of the thoracic spine in frontal, lateral and swimmer's projections. FINDINGS: Osseous mineralization appears appropriate. There is minimal degenerative disc disease in the mid to upper thoracic spine with slight loss of disc space at multiple levels. Preserved thoracic kyphosis w ithout listhesis. No compression deformities. 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 Vertebral body heights are otherwise preserved throughout. Pedicles are visible at each level. Visualized heart and lungs are unremarkable. IMPRESSION: 1. Minimal degenerative changes. No evidence for acute osseous pathology. 2. 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
== END | disposition home or self-care (01) ==
LOC: RADXRMAIN 14:34
PROVIDERS: ATTEND Physician Assistant Medical
DX: M50.323 Other cervical disc degeneration at C6-C7 level (principal); M51.34 Other intervertebral disc degeneration, thoracic region; M47.814 Spondylosis without myelopathy or radiculopathy, thoracic region; M47.812 Spondylosis without myelopathy or radiculopathy, cervical region
CPT/HCPCS: 72040; 72070

== ENCOUNTER → 2023-10-15 | Outpatient (CLI) | payer MEDICAID, OTHER ==
[2023-10-15 09:09] VITALS: BP 125/86; PULSE 79; RESP 15; TEMP 97.9
--- NOTE | 2023-10-15 13:57 | P.PAINPG ---
PQRS Measure Charge Sheet Comment: HISTORY OF PRESENT ILLNESS: A 43 yr old female as a referral from Dr Baig presents today w severe and chronic cervicothoracic pain secondary to DDD, spondylosis and facet arthropathy without myelopathy for evaluation. Pt states pain level is provoked at 8 /10 in intensity, constant, localized in the mid spine, predominantly axial, achy/ burning in character w occasional shooting pain towards the ribs, head, neck and R shoulder. Pain is provoked by over activity. Pain is alleviated by physician guided exercises/ stretches 4 times weekly since 2020, chiropractic treatments weekly x 4 wks which she is currently in, heat, medications (Robaxin, Ibu), topicals, repositioning and rest. Cervical di sability score at 20. PMH: OA, Hyperlipidemia PSH: Appendectomy, Orthopedic Surgery, Cardiac Catheterization (2022), EGD/ Colonoscopy (2022), Hysteroscopy/ D &C w Ablation, L Bunionectomy, Fatty Lipoma Resection (1987) SH: Former tobacco user, Occasional ETOH use, No illicit drug use FH: Fa- [place]/ at age 40. Mo- Renal Failure All: See list Meds: See list REVIEW OF ORGAN SYSTEMS: CONSTITUTIONAL: No fevers or chills. No recent weight loss. NEUROLOGICAL: + numbness and tingling along the distal extremities. No seizure disorders or headaches. MUSCULOSKELETAL: + pain PSYCHIATRIC: Denies current depression or suicidal thoughts. Physical Examinations : Constitutional : Cooperative , not in acute distress . Neurologic : Cranial nerve II to XII intact. No focal neurological deficits. Psychiatric : alert & oriented x 3. Matching mood & appropriate affect. Judgment & insight intact. Musculoskeletal : Cervical Spine Motor strength in the deltoid and biceps: Normal right side. Normal Left side Motor strength biceps and the wrist extensors: Normal right side . Normal left side Motor strength in the triceps muscle: Normal right side. Normal left side Deep tendon reflexes: Normal at the biceps. Normal at Brachioradialis. Normal at triceps Vertebral body tenderness to deep palpation over C7 Cervical facet loading test: positive bilaterally Spurling test: positive bilaterally Neck distraction test: positive bilaterally Isabel sign: positive bilaterally Thoracic spine Vertebral body tenderness to palpation over T1, T2, T3 Lumbar spine Motor strength lower extremities ,thigh and legs 5/5 Right side , 5/5 Left side Deep tendon reflexes : Normal Knee Jerk. Normal Ankle Jerk Vertebral body tenderness over Floyd Test positive Lumbar facet Loading Test: positive Right / positive Left Range of motion of the lumbar spine Flexion 30 degrees, extension 10 degrees Straight Leg Raise test: Left/ Right positive at degrees Carolann test: positive right / positive left. Severe tenderness over the Sacroiliac joint on the Right / Left sides Gaenslen test: positive bilaterally Seated flexion test: positive bilaterally. Sacral spine : Severe tenderness over the Sacroiliac joint: right side / left side Range of motion: Flexion of the lumbar spine <60 degrees Range of motion: Extension of the lumbar spine <20 degrees Gaenslen's Test positive Carolann test: positive right side / left side Thigh Thrust Test Sacral Thrust Test Imaging: None on file Assessment/ Plan : Cervicothoracic DDD Recommendation of x rays of cervical and thoracic spine, M50.30, M51.34. RTC in 1-2 wks for a re evaluation. All questions answered. I have spent greater than 30 minutes on patient care today. Dr Pablo was avai lable by phone for the evaluation of this patient. The time was used to review the medical records including relevant urine studies and Prescription history (MAPs), review of the available imaging, evaluation and examination of the patient, coordination of care with the medical staff and if applicable referring physicians, as well as creation of the medical record - Pain Location Bilateral Medial Back Non-Pharmacological Interventions: Chiropractic Treatment, Heat, Position/Reposition Pharmacological Interventions: PRN Medication, Scheduled Medication PQRS Narrative: Smoking Status Former smoker Home Medications: Ambulatory Orders Atorvastatin [Lipitor] 40 mg PO DAILY 10/31/22 Cholecalciferol [Vitamin D3 (25 Mcg = 1000 Iu)] 25 mcg PO DAILY 10/31/22 Ibuprofen [Motrin] 600 mg PO Q6HR PRN 10/31/22 Metoprolol Succinate (ER) [Toprol Xl] 12.5 mg PO DAILY 10/31/22 SUMAtriptan succinate [Imitrex] 25 mg PO BID PRN 10/31/22 Hyoscyamine Sulfate [Hyoscyamine Sulfate SL] 0.125 mg SL TID PRN 12/05/22 busPIRone HCl [Buspar] 10 mg PO BID 12/05/22 L.acidoph,Paracasei, B.lactis [Probiotic] 1 each PO DAILY 12/19/22 Multivit-Min/Folic Acid/Biotin [Hair, Skin and Nails Softgel] 133.3 mcg PO DAILY 12/19/22 hydrOXYzine HCL [Atarax] 25 mg PO DIRECTED PRN 12/19/22 Controlled Substance Measures - Controlled Substance Measures Is patient prescribed a controlled substance at discharge?: No
== END ==
LOC: PNWHC3 08:23
PROVIDERS: ATTEND Specialist
DX: M54.89 Other dorsalgia (principal); M50.33 Other cervical disc degeneration, cervicothoracic region; M19.90 Unspecified osteoarthritis, unspecified site; E78.5 Hyperlipidemia, unspecified; Z87.891 Personal history of nicotine dependence; Z88.2 Allergy status to sulfonamides; Z88.1 Allergy status to other antibiotic agents
CPT/HCPCS: 99211

== ENCOUNTER → 2023-10-18 | Outpatient (CLI) | payer MEDICAID, OTHER ==
--- NOTE | 2023-10-22 11:04 | MR ---
EXAMINATION TYPE: MR esme/jennifer wo con DATE OF EXAM: 10/18/2023 COMPARISON: 08/15/2014 HISTORY: Neck and Mid back pain, Headaches CONTRAST: Performed utilizing 0 mL intravenous Gadavist gadolinium contrast. TECHNIQUE: Multiplanar multiecho imaging on a 3.0 Any magnet is performed through the cervical spin e. FINDINGS: The craniovertebral junction is normal. Vertebral body alignment is normal. C7-T1: There is minimal left paracentral disc bulge with mild anterior thecal sac compression. No co rd contact is evident.. C6-7: Broad-based disc bulge is present. Subligamentous disc extension is evident posterior to the C6 level this comes in close approximation of the spinal cord. Cord contact or deformity is not clearly identified. Neural foramen are patent.. C5-6: Broad-based central disc bulging is present with mild anterior thecal sac contact. No cord cont act is evident. Neural foramen are patent.. C4-5: No focal disc herniation or significant disc bulge is evident. No spinal canal stenosis or maicol ral foraminal stenosis is present. C3-4: No focal disc herniation or significant disc bulge is evident. No spinal canal stenosis or maicol ral foraminal stenosis is present. C2-3: No focal disc herniation or significant disc bulge is evident. No spinal canal stenosis or maicol ral foraminal stenosis is present. IMPRESSION: 1. Subligamentous disc herniation with extension with moderate anterior thecal sac compression C6-7. 2. Left paracentral C7-T1 disc bulging without cord contact or exiting nerve root impingement EXAMINATION TYPE: MR esme/jennifer wo con DATE OF EXAM: 10/18/2023 COMPARISON: None HISTORY: Neck and Mid back pain, Headaches CONTRAST: Performed utilizing 0 mL intravenous Gadavist gadolinium contrast. TECHNIQUE: Multiplanar, multiecho imaging on a 3.0 Any magnet is performed through the thoracic spi ne. Spinal cord maintains normal signal through its visualized course. There is some scoliosis within the lower thoracic spine. Vertebral body heights are preserved. Disc heights are preserved. Disc hydration levels are preserved. T12-L1: Facet hypertrophy has minimal posterior lateral thecal sac compression. This is in close appr oximation with the spinal cord. T11-12: Facet hypertrophy is some mild posterior lateral thecal sac compression without cord contact or spinal canal stenosis. No spinal canal stenosis is evident. IMPRESSION: 1. Scoliosis lower thoracolumbar region. 2. No spinal canal stenosis. Some mild facet hypertrophy is present at T11-12 and T12-L1.
== END | disposition home or self-care (01) ==
LOC: RADMRIMAIN 14:54
PROVIDERS: ATTEND Specialist
DX: M50.223 Other cervical disc displacement at C6-C7 level (principal); M50.23 Other cervical disc displacement, cervicothoracic region; M51.34 Other intervertebral disc degeneration, thoracic region; M50.30 Other cervical disc degeneration, unspecified cervical region; R51.9 Headache, unspecified
CPT/HCPCS: 72141; 72146

== ENCOUNTER → 2023-10-24 | Outpatient (CLI) | payer MEDICAID ==
[2023-10-24 08:48] VITALS: BP 121/80; PULSE 76; RESP 15; TEMP 96.9
--- NOTE | 2023-10-24 14:31 | P.PAINPG ---
PQRS Measure Charge Sheet Comment: HISTORY OF PRESENT ILLNESS: A 43 yr old female presents today w severe and chronic cervicothoracic pain secondary to DDD, spondylosis and facet arthropathy without myelopathy for evaluation. Pt states pain level is provoked at 7 /10 in intensity, constant, localized in the mid spine, predominantly axial, burning in character w occasional shooting pain towards the ribs and shoulders. Pain is provoked by over activity. Pain is alleviated by physician guided exercises/ stretches 4 times weekly since 2020, chiropractic treatments weekly x 4 wks which she is currently in, heat, medications (Robaxin, Ibu), topicals, repositioning and rest. Cervical disability score at 20. Interventional procedures include TESIs Medications include Robaxin, Ibu REVIEW OF ORGAN SYSTEMS: CONSTITUTIONAL: No fevers or chills. No recent weight loss. NEUROLOGICAL: + numbness and tingling along the distal extremities. No seizure disorders or headaches. MUSCULOSKELETAL: + pain PSYCHIATRIC: Denies current depression or suicidal thoug hts. Physical Examinations : Constitutional : Cooperative , not in acute distress . Neurologic : Cranial nerve II to XII intact. No focal neurological deficits. Psychiatric : alert & oriented x 3. Matching mood & appropriate affect. Judgment & insight intact. Musculoskeletal : Cervical Spine Motor strength in the deltoid and biceps: Normal right side. Normal Left side Motor strength biceps and the wrist extensors: Normal right side . Normal left side Motor strength in the triceps muscle: Normal right side. Normal left side Deep tendon reflexes: Normal at the biceps. Normal at Brachioradialis. Normal at triceps Vertebral body tenderness to deep palpation Cervical facet loading test: positive bilaterally Spurling test: positive bilaterally Neck distraction test: positive bilaterally Isabel sign: positive bilaterally Thoracic spine Vertebral body tenderness to palpation over T4 Lumbar spine Motor strength lower extremities ,thigh and legs 5/5 Right side , 5/5 Left side Deep tendon reflexes : Normal Knee Jerk. Normal Ankle Jerk Vertebral body tenderness over Floyd Test positive Lumbar facet Loading Test: positive Right / positive Left Range of motion of the lumbar spine Flexion 30 degrees, extension 10 degrees Straight Leg Raise test: Left/ Right positive at degrees Carolann test: positive right / positive left. Severe tenderness over the Sacroiliac joint on the Right / Left sides Gaenslen test: positive bilaterally Seated flexion test: positive bilaterally. Sacral spine : Severe tenderness over the Sacroiliac joint: right side / left side Range of motion: Flexion of the lumbar spine <60 degrees Range of motion: Extension of the lumbar spine <20 degrees Gaenslen's Test positive Carolann test: positive right side / left side Thigh Thrust Test Sacral Thrust Test Imaging: None on file Assessment/ Plan : Cervicothoracic DDD Recommendation of TREVON T5-T6 #1. May need a series of injections for optimal pain relief. The procedure discussed and patient verbalized understanding. Protocol for discontinuation/continuation of medications surrounding procedure discussed. All questions answered. I have spent greater than 30 minutes on patient care today. Dr Pablo was available by phone for the evaluation of this patient. The time was used to review the medical records including relevant urine studies and Prescription history (MAPs), review of the available imaging, evaluation and examination of the patient, coordination of care with the medical staff and if applicable referring physicians, as well as creation of the medical record PQRS Narrative: Smoking Status Former smoker Home Medications: Ambulatory Orders Atorvastatin [Lipitor] 40 mg PO DAILY 10/31/22 Cholecalciferol [Vitamin D3 (25 Mcg = 1000 Iu)] 25 mcg PO DAILY 10/31/22 Ibuprofen [Motrin] 600 mg PO Q6HR PRN 10/31/22 Metoprolol Succinate (ER) [Toprol Xl] 12.5 mg PO DAILY 10/31/22 SUMAtriptan succinate [Imitrex] 25 mg PO BID PRN 10/31/22 Hyoscyamine Sulfate [Hyoscyamine Sulfate SL] 0.125 mg SL TID PRN 12/05/22 busPIRone HCl [Buspar] 10 mg PO BID 12/05/22 L.acidoph,Paracasei, B.lactis [Probiotic] 1 each PO DAILY 12/19/22 Multivit-Min/Folic Acid/Biotin [Hair, Skin and Nails Softgel] 133.3 mcg PO DAILY 12/19/22 hydrOXYzine HCL [Atarax] 25 mg PO DIRECTED PRN 12/19/22 Controlled Substance Measures - Controlled Substance Measures Is patient prescribed a controlled substance at discharge?: No
== END ==
LOC: PNWHC3 07:27
PROVIDERS: ATTEND Specialist
DX: M50.33 Other cervical disc degeneration, cervicothoracic region (principal); Z87.891 Personal history of nicotine dependence; Z88.2 Allergy status to sulfonamides; Z88.1 Allergy status to other antibiotic agents
CPT/HCPCS: 99211

== ENCOUNTER 2023-11-06 06:57 | Day surgery (SDC) | payer MEDICAID ==
[2023-10-31 15:22] VITALS: BMI 34.1
[~2023-11-06 06:57] MED LIST changes: -LIDOCAINE 1% (10MG/ML) FOR IV START INTRADERMA PRN
[2023-11-06 07:49] VITALS: TEMP 97.6
[2023-11-06] MEDS ORDERED: methylPREDNISolone ACETATE 80 MG/ML 1 ML VIAL ONE (08:44)
[2023-11-06] MEDS ORDERED: IOPAMIDOL M200 10 ML VIAL ONE (08:44)
--- NOTE | 2023-11-06 08:57 | P.PCN ---
Date of Procedure: 11/06/23 Procedure(s) Performed: PROCEDURE 1. Thoracic epidural steroid injection under fluoroscopic guidance,T5-6 2. Thoracic epidurogram. PREOPERATIVE DIAGNOSIS: 1- Thoracic Degenerative Disc Diseases . 2- thoracic spondylosis with facet arthropathy POSTOPERATIVE DIAGNOSIS: : 1- thoracic Degenerative Disc Diseases , 2-thoracic spondylosis with facet arthropathy ANESTHESIA: Local anesthesia with 1% lidocaine 3 ml . EBL 0 PROCEDURE INDICATION: The patient with upper and mid back pain and radiculitis unresponsive to conservative treatment consents for procedure. PROCEDURE DESCRIPTION / TECHNIQUE: The patient was seen and identified in the preoperative area. Risks, benefits, complications, including but not limited to infections ,bleeding , allergic reactions to the medications ,and not complete pain releife, and alternatives were discussed with the patient, the patient agreed to proceed with the procedure and signed the consent. Patient was taken to the OR and time out was completed. The patient was placed in the prone position on the procedure table. A pillow was placed under the patients chest to increase the cervical interlaminar space. The cervical area was prepped and draped in the usual sterile fashion. Vital signs were closely monitored during the procedure.. Using anterior-posterior fluoroscopy, the T5-6 interlaminar space was identified and the skin over this site was marked and then infiltrated with 1% lidocaine subcutaneously. Subsequently, a 20-gauge 3-1/2-inch Tuohy epidural needle was inserted and advanced toward the epidural space by means of the loss of resistance technique and guided by AP and lateral fluoroscopy. The correct needle position in the epidural space was verified with the injection of 1 mL of the water soluble contrast dye Isovue-200 and observing an excellent epidurogram with the epidural spread of the dye, after negative aspiration for blood and CSF and in the absence of paresthesias. Again after negative aspiration, a 3 ml mixture containing 80 mg Depo-Medrol and 2 ml of 1% preservative-free lidocain e,the solution was injected and a washout of epidurogram was seen. Needle was withdrawn intact, skin was cleansed, and bandages were applied. Complications= none. Disposition= patient was placed in supine position and transferred to the recovery room area in stable condition and there was no evidence of upper or lower extremity motor or sensory deficit after the procedure patient was discharged from recovery room after discharge criteria met and home discharge instructions was given by the staff and patient will follow with the pain clinic in 2-4 weeks
--- NOTE | 2023-11-06 09:07 | FL ---
Intraoperative/procedural fluoroscopic services were provided for thoracic epidural. Total fluoroscop y time is 4.5 seconds with a total of 1 submitted image to PACS. Total DAP [id number] mGym2. Please see the operative note for further details.
[2023-11-06 09:19] VITALS: BP 109/74; PULSE 62; RESP 16
== END 2023-11-06 09:15 | disposition home or self-care (01) ==
LOC: ORPAIN 06:57
PROVIDERS: ATTEND Specialist
DX: M51.14 Intervertebral disc disorders with radiculopathy, thoracic region (principal); M47.24 Other spondylosis with radiculopathy, thoracic region; Z88.2 Allergy status to sulfonamides
CPT/HCPCS: 81025; 62321; J1040; Q9966

== ENCOUNTER → 2023-11-22 | Outpatient (CLI) | payer MEDICAID ==
[2023-11-22 07:48] VITALS: BP 108/73; PULSE 60; RESP 15; TEMP 97.1
--- NOTE | 2023-11-22 13:38 | P.PAINPG ---
PQRS Measure Charge Sheet Comment: HISTORY OF PRESENT ILLNESS: A 43 yr old female presents today w severe and chronic cervicothoracic pain secondary to DDD, spondylosis and facet arthropathy without myelopathy for evaluation s/p TREVON T5-T6 #1. Pt states she experienced 80% pain relief x 2-3 wks s/p procedure. Pt states pain level is provoked at 2 /10 in intensity, constant, localized in the mid spine, predominantly axial, burning in character w occasional shooting pain towards the ribs and shoulders. Pain is provoked by over activity. Pain is alleviated by physician guided exercises/ stretches 4 times weekly since 2020, chiropractic treatments weekly x 4 wks which she is currently in, heat, medications, topicals, repositioning and rest. Cervical disability score at 19. Interventional procedures include TREVON T5-6 x1 Medications include Robaxin, Ibu REVIEW OF ORGAN SYSTEMS: CONSTITUTIONAL: No fevers or chills. No recent weight loss. NEUROLOGICAL: + numbness and tingling along the distal extremities. No seizure disorders or headaches. MUSCULOSKELETAL: + pain PSYCHIATRIC: Denies current depression or suicidal thoughts. Physical Examinations : Constitutional : Cooperative , not in acute distress . Neurologic : Cranial nerve II to XII intact. No focal maicol rological deficits. Psychiatric : alert & oriented x 3. Matching mood & appropriate affect. Judgment & insight intact. Musculoskeletal : Cervical Spine Motor strength in the deltoid and biceps: Normal right side. Normal Left side Motor strength biceps and the wrist extensors: Normal right side . Normal left side Motor strength in the triceps muscle: Normal right side. Normal left side Deep tendon reflexes: Normal at the biceps. Normal at Brachioradialis. Normal at triceps Vertebral body tenderness to deep pal pation Cervical facet loading test: positive bilaterally Spurling test: positive bilaterally Neck distraction test: positive bilaterally Isabel sign: positive bilaterally Thoracic spine Vertebral body tenderness to palpation over T4 Lumbar spine Motor strength lower extremities ,thigh and legs 5/5 Right side , 5/5 Left side Deep tendon reflexes : Normal Knee Jerk. Normal Ankle Jerk Vertebral body tenderness over Floyd Test positive Lumbar facet Loading Test: positive Right / positive Left Range of motion of the lumbar spine Flexion 30 degrees, extension 10 degrees Straight Leg Raise test: Left/ Right positive at degrees Carolann test: positive right / positive left. Severe tenderness over the Sacroiliac joint on the Right / Left sides Gaenslen test: positive bilaterally Seated flexion test: positive bilateral ly. Sacral spine : Severe tenderness over the Sacroiliac joint: right side / left side Range of motion: Flexion of the lumbar spine <60 degrees Range of motion: Extension of the lumbar spine <20 degrees Gaenslen's Test positive Carolann test: positive right side / left side Thigh Thrust Test Sacral Thrust Test Imaging: None on file Assessment/ Plan : Cervicothoracic DDD Will manage residual pain and may RTC on an as needed basis. All questions answered. I have spent greater than 30 minutes on patient care today. Dr Pablo was available by phone for the evaluation of this patient. The time was used to review the medical records including relevant urine studies and Prescription history (MAPs), review of the available imaging, evaluation and examination of the patient, coordination of care with the medical staff and if applicable referring physicians, as well as creation of the medical record PQRS Narrative: Smoking Status Former smoker Home Medications: Ambulatory Orders Atorvastatin [Lipitor] 40 mg PO DAILY 10/31/22 Cholecalciferol [Vitamin D3 (25 Mcg = 1000 Iu)] 25 mcg PO DAILY 10/31/22 Ibuprofen [Motrin] 600 mg PO Q6HR PRN 10/31/22 Metoprolol Succinate (ER) [Toprol Xl] 25 mg PO DAILY 10/31/22 busPIRone HCl [Buspar] 10 mg PO BID 12/05/22 L.acidoph,Paracasei, B.lactis [Probiotic] 1 each PO DAILY 12/19/22 Multivit-Min/Folic Acid/Biotin [Hair, Skin and Nails Softgel] 133.3 mcg PO DAILY 12/19/22 methocarbamoL [Robaxin-750] 750 mg PO DAILY PRN 10/31/23 Controlled Substance Measures - Controlled Substance Measures Is patient prescribed a controlled substance at discharge?: No
== END ==
LOC: PNWHC3 07:24
PROVIDERS: ATTEND Specialist
DX: M50.33 Other cervical disc degeneration, cervicothoracic region (principal); Z87.891 Personal history of nicotine dependence; Z88.2 Allergy status to sulfonamides; Z88.1 Allergy status to other antibiotic agents
CPT/HCPCS: 99211

== ENCOUNTER → 2023-11-23 | Outpatient (CLI) | payer MEDICAID ==
--- NOTE | 2023-11-23 15:40 | CT ---
EXAMINATION TYPE: CT abdomen wo con DATE OF EXAM: 11/23/2023 COMPARISON: None available. HISTORY: Abdominal pain. CT DLP: 589.9 mGycm Automated exposure control for dose reduction was used. TECHNIQUE: Helical acquisition of images was performed from the lung bases through the top of iliac crest to include entire abdomen. CONTRAST: Performed with Oral Contrast and without IV contrast. FINDINGS: LUNG BASES: No significant abnormality is appreciated. LIVER/GB: No focal liver lesions are seen. The gallbladder surgically absent. PANCREAS: No significant abnormality is seen. SPLEEN: No significant abnormality is seen. ADRENALS: No significant abnormality is seen. KIDNEYS: There appears to be a 3 mm calcification in the upper pole the right kidney with some mild i ncreased density also seen within that region. There is no ureteral stones seen on the scope of this examination and no hydronephrosis. BOWEL: No significant abnormality is seen. LYMPH NODES: No significant abnormality is appreciated. OSSEOUS STRUCTURES: No significant abnormality is seen. FREE AIR: No free air is visualized. OTHER: IMPRESSION: 1. NO ACUTE PROCESS SEEN WITHIN THE ABDOMEN. 2. NONOBSTRUCTING RIGHT RENAL STONE.
--- NOTE | 2023-11-25 10:43 | MR ---
EXAMINATION TYPE: MR pelvis wo con DATE OF EXAM: 11/23/2023 5:42 PM CLINICAL INDICATION:Female, 43 years old with history of R109 UNSPECIFIED ABDOMINAL PAIN; N94.10; PHH , Left sided pelvic pain, dyspareunia. COMPARISON: CT 11/23/2023, ultrasound 03/08/2023 TECHNIQUE: Triplane multisequence imaging was performed of the pelvis. IV Contrast: None FINDINGS: Reproductive: Vagina: Cystic structure located posterior to the vagina on the right with thin wu measuring 23 x 17 mm. Uterus: The uterus is anteverted in position. Uterus measures 10.0 x 6.4 x 7.0 cm. The endometrium an d junctional zone are within normal limits. Arcuate morphology to the uterine fundus. Multiple nabot hian cysts are seen in the lower uterine segment. Ovaries: Follicular changes are noted to the ovaries. The right ovary measures 32 x 24 x 11 mm in the left ovary measures 39 x 36 x 21 mm. Dominant follicle within the left ovary measuring up to 25 mm. Bladder: Unremarkable. Bowel: Unremarkable as visualized. Peritoneum: A small amount of free fluid in the pelvis. Lymph nodes: No evidence of adenopathy. Vasculature: Unremarkable. Musculoskeletal: Bone marrow signal is within normal signal intensity. Abdominal wall/soft tissues: Unremarkable. IMPRESSION: 1. No evidence of suspicious pelvic mass. 2. Posterior vagina wall cystic structure possibly relating to Davis duct cyst. No suspicious featu res. 3. Arcuate morphology to the uterine fundus.
== END | disposition home or self-care (01) ==
LOC: RADCTMAIN 14:31
PROVIDERS: ATTEND Student in an Organized Health Care Education/Training Program
DX: N20.0 Calculus of kidney (principal); N89.8 Other specified noninflammatory disorders of vagina; N94.10 Unspecified dyspareunia
CPT/HCPCS: 72195; 74150

== ENCOUNTER 2023-12-10 12:00 | Observation (INO) | payer MEDICAID ==
--- NOTE | 2023-12-10 12:19 | ED ---
Chest Pain HPI - General Source: patient, RN notes reviewed Mode of arrival: wheelchair Limitations: no limitations <Vlad Ge - Last Filed: 12/10/23 12:16> <Vinita Aragon - Last Filed: 12/16/23 00:46> - General Chief Complaint: Chest Pain Stated Complaint: Chest Pains Time Seen by Provider: 12/10/23 12:07 - History of Present Illness Initial Comments: 43-year-old female presents emergency department with chief complaint of chest discomfort. Patient states that started within the last hour. She states she has tenderness on left side of her chest, left arm pain. States she just feels weak. 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 (Vlad Ge) 43-year-old female presents emergency department with complaint of slurred speech, chest discomfort and left arm weakness. Patient states that she was at work approximately 1 hour ago when she had sudden onset of her symptoms. Patient states it started with the chest pain first. She noted that she was weak and numb in the left upper extremity. She also felt like she was slurring her speech. Symptoms have mostly resolved at this time except for the chest discomfort. States that she has had a stress test previously in August but never received the results. She has had a heart cath which demonstrated a 30 to 40% occlusion. She denies fevers, chills or cough. Does admit to shortness of breath. She did not take an aspirin today. Patient follows with Dr. Troy. No other alleviating, precipitating modifying factors (Vinita Aragon) - Related Data Home Medications Medication Instructions Recorded Confirmed Atorvastatin [Lipitor] 40 mg PO DAILY 10/31/22 12/10/23 Cholecalciferol [Vitamin D3 (25 25 mcg PO DAILY 10/31/22 12/10/23 Mcg = 1000 Iu)] Metoprolol Succinate (ER) [Toprol 25 mg PO DAILY 10/31/22 12/10/23 XL] busPIRone HCl [Buspar] 10 mg PO BID 12/05/22 12/10/23 L.acidoph,Paracasei, B.lactis 1 cap PO DAILY 12/19/22 12/10/23 [Probiotic] methocarbamoL [Robaxin-750] 750 mg PO Q4HR PRN 10/31/23 12/10/23 Pantoprazole [Protonix] 40 mg PO DAILY 12/10/23 12/10/23 Topiramate [Topamax] 25 mg PO DAILY 12/10/23 12/10/23 Previous Rx's Medication Instructions Recorded Aspirin 81 mg PO DAILY #30 tab 12/12/23 Butalb/APAP/Caff 50-325-40Mg 1 each PO Q4HR PRN #60 tab 12/12/23 [Fioricet 50-325-40] Allergies Allergy/AdvReac Type Severity Reaction Status Date / Time sulfamethoxazole Allergy Itching Verified 12/10/23 18:57 [From Bactrim] trimethoprim [From Bactrim] Allergy Itching Verified 12/10/23 18:57 Review of Systems ROS Other: All systems not noted in ROS Statement are negative. <Vlad Ge - Last Filed: 12/10/23 12:16> ROS Other: All systems not noted in ROS Statement are negative. <Vinita Aragon - Last Filed: 12/16/23 00:46> ROS Statement: Those systems with pertinent positive or pertinent negative responses have been documented in the HPI. Past Medical History Past Medical History: Cancer, Chest Pain / Angina, GERD/Reflux, Hyperlipidemia, Musculoskeletal Disorder Additional Past Medical History / Comment(s): Chronic back pain, scoliosis, DDD, CONSTIPATION, recent rectal bleeding, headaches, IRREGULAR HEAVY MENSES @times, recent card. cath. due to chest pain, no blockages, takes metoprolol for, skin cancer face-had removed, daily heartburn/GERD, current kidney stone, chest pains @ times- Takes Metoprolol. History of Any Multi-Drug Resistant Organisms: None Reported Past Surgical History: Appendectomy, Cholecystectomy, Heart Catheterization, Orthopedic Surgery Additional Past Surgical History / Comment(s): D & C, left foot surgery for bunion, fatty tumor removed from back when pt was 8 yrs old. COLONOSCOPY, recent cardiac cath - 2021 Past Anesthesia/Blood Transfusion Reactions: No Reported Reaction Additional Past Anesthesia/Blood Transfusion Reaction / Comment(s): no hx blood transfusion, woke up during last colonoscopy Past Psychological History: Anxiety, Bipolar, Depression, Panic Disorder Smoking Status: Former smoker Past Alcohol Use History: None Reported Past Drug Use History: None Reported - Past Family History Father History Unknown: Yes Family Medical History: Myocardial Infarction ([place]) Additional Family Medical History / Comment(s): at age 42 from [place] Mother History Unknown: Yes Family Medical History: AFIB, Hypertension, Renal Disease Additional Family Medical History / Comment(s): had rt kidney removed r/t not functioning <Vlad Ge - Last Filed: 12/10/23 12:16> General Exam Limitations: no limitations <Vlad Ge - Last Filed: 12/10/23 12:16> General appearance: alert, in no apparent distress Head exam: Present: atraumatic, normocephalic, normal inspection Eye exam: Present: normal appearance, PERRL, EOMI. Absent: scleral icterus, conjunctival injection, periorbital swelling ENT exam: Present: normal exam, mucous membranes moist Neck exam: Present: normal inspection. Absent: tenderness, meningismus, lymphadenopathy Respiratory exam: Present: normal lung sounds bilaterally. Absent: respiratory distress, wheezes, rales, rhonchi, stridor Cardiovascular Exam: Present: regular rate, normal rhythm, normal heart sounds. Absent: systolic murmur, diastolic murmur, rubs, gallop, clicks GI/Abdominal exam: Present: soft, normal bowel sounds. Absent: distended, tenderness, guarding, rebound, rigid Extremities exam: Present: normal inspection, full ROM, normal capillary refill. Absent: tenderness, pedal edema, joint swelling, calf tenderness Back exam: Present: normal inspection Neurological exam: Present: alert, oriented X3, CN II-XII intact Psychiatric exam: Present: normal affect, normal mood Skin exam: Present: warm, dry, intact, normal color. Absent: rash <Vinita Aragon - Last Filed: 12/16/23 00:46> - General Exam Comments Initial Comments: Visual Physical Exam Vital signs reviewed General: Well-appearing, nontoxic, no acute distress. Head: Normocephalic, atraumatic Eyes: PERRLA, EOMI ENT: Airway patent Chest: Nonlabored breathing Skin: No visual rash, normal skin tone Neuro: Alert and oriented 3 Musculoskeletal: No gross abnormalities (Vlad Ge) Course Vital Signs 12/10/23 12/10/23 12/10/23 12:06 16:12 19:43 Temperature 98.2 F Pulse Rate 71 65 65 Respiratory 16 18 18 Rate Blood Pressure 161/109 160/95 136/87 O2 Sat by Pulse 100 100 100 Oximetry Chest Pain MDM <Vlad Ge - Last Filed: 12/10/23 12:16> <Vinita Aragon - Last Filed: 12/16/23 00:46> - MDM I completed the quick note portion of this chart signed Vlad Ge PA-C (Vlad Ge) Was pt. sent in by a medical professional or institution (, PA, FIELD PROJECT MANAGER, urgent care, hospital, or [facility]...) When possible be specific @ -No Did you speak to anyone other than the patient for history (EMS, parent, family, police, friend...)? What history was obtained from this source @ -No Did you review nursing and triage notes (agree or disagree)? Why? @ -I reviewed and agree with nursing and triage notes Were old charts reviewed (outside hosp., previous admission, EMS record, old EKG, old radiological studies, urgent care reports/EKG's, [facility] records)? Report findings @ -I reviewed patient's heart cath results from last year which demonstrated a 30% occlusion Differential Diagnosis (chest pain, altered mental status, abdominal pain women, abdominal pain men, vaginal bleeding, weakness, fever, dyspnea, syncope, headache, dizziness, GI bleed, back pain, seizure, CVA, palpatations, mental health, musculoskeletal)? @ -Differential Chest Pain: Stable Angina, Unstable Angina, STEMI, NSTEMI Aortic Dissection, Pneumothorax, Musculoskeletal, Esophageal Spasm GERD, Cholecystitis, Pancreatitis, Zoster, this is not meant to be an all-inclusive list. EKG interpreted by me (3pts min.). @ -Yes and demonstrates sinus bradycardia with a rate of 59. [place] interval 159. QRS 102. QTc of 423 X-rays interpreted by me (1pt min.). @Yes and demonstrates no acute process CT interpreted by me (1pt min.). @ -Yes and demonstrates no acute process U/S interpreted by me (1pt. min.). @ -None done What testing was considered but not performed or refused? (CT, X-rays, U/S, labs)? Why? @ -None What meds were considered but not given or refused? Why? @ -None Did you discuss the management of the patient with other professionals (professionals i.e. , PA, FIELD PROJECT MANAGER, lab, RT, psych nurse, social media director, cv rn, teacher, geological technical officer, leather case finisher)? Give summary @ -Spoke with Dr. Stallworth who agreed to admit the patient Was smoking cessation discussed for >3mins.? @ -No Was critical care preformed (if so, how long)? @ -No Were there social determinants of health that impacted care today? How? (H omelessness, low income, unemployed, alcoholism, drug addiction, transportation, low edu. Level, literacy, decrease access to med. care, fci, rehab)? @ -No Was there de-escalation of care discussed even if they declined (Discuss DNR or withdrawal of care, Hospice)? DNR status @ -No What co-morbidities impacted this encounter? (DM, HTN, Smoking, COPD, CAD, Cancer, CVA, ARF, Chemo, Hep., AIDS, mental health diagnosis, sleep apnea, morbid obesity)? @ -Coronary artery disease Was patient admitted / discharged? Hospital course, mention meds given and route, prescriptions, significant lab abnormalities, going to OR and other pertinent info. @ -Admitted. Upon arrival patient was seen in hallway 10. Thorough history and physical exam was performed. IV was established. Laboratory studies are conducted. Chest x-ray and CT brain were performed. Patient was sent back for CT chest due to neurologic symptoms with chest pain. CT negative. Discussed results with patient. Recommended admission for cardiology and neurology consultation. Spoke with Dr. Crawford for admission Undiagnosed new problem with uncertain prognosis? @ -Yes Drug Therapy requiring intensive monitoring for toxicity (Heparin, Nitro, Insulin, Cardizem)? @ -No Were any procedures done? @ -No Diagnosis/symptom? @ -Acute chest pain, acute dysarthria, history of atherosclerotic coronary artery disease Acute, or Chronic, or Acute on Chronic? @ -Acute Uncomplicated (without systemic symptoms) or Complicated (systemic symptoms)? @ -Complicated Side effects of treatment? @ -No Exacerbation, Progression, or Severe Exacerbation? @ -No Poses a threat to life or bodily function? How? (Chest pain, [place], [place], pneumonia, PE, COPD, DKA, ARF, appy, cholecystitis, CVA, Diverticulitis, Homicidal, Suicidal, threat to staff... and all critical care pts) @ -No (Vinita Aragon) Disposition <Vlad Ge - Last Filed: 12/10/23 12:16> Is patient prescribed a controlled substance at d/c from ED?: No Time of Disposition: 19:22 Decision to Admit Reason: Admit from EC Decision Date: 12/10/23 Decision Time: 19:22 <Vinita Aragon - Last Filed: 12/16/23 00:46> Clinical Impression: Chest pain, Left arm numbness, Dysarthria Disposition: ADMITTED IP TO THIS HOSP Condition: Stable
[2023-12-10 12:30] LABS: Basophils # (A) 0.1 k/uL (0-0.2); Basophils % (A) 1 %; Eosinophils # (A) 0.1 k/uL (0-0.7); Eosinophils % (A) 2 %; HCT 39.1 % (34.0-46.0); HGB 13.7 gm/dL (11.4-16.0); Lymphocytes # (A) 3.3 k/uL (1.0-4.8); Lymphocytes % (A) 40 %; MCH 31.5 pg (25.0-35.0); MCHC 35.1 g/dL (31.0-37.0); MCV 89.6 fL (80.0-100.0); Mean Platelet Volume 9.3; Monocytes # (A) 0.5 k/uL (0-1.0); Monocytes % (A) 6 %; Neutrophils # (A) 4.2 k/uL (1.3-7.7); Neutrophils % (A) 50 %; Platelet Count 346 k/uL (150-450); RBC 4.37 m/uL (3.80-5.40); RDW 12.7 % (11.5-15.5); WBC 8.4 k/uL (3.8-10.6)
[2023-12-10 12:47] LABS: INR 0.9 (<1.2)
[2023-12-10 13:07] LABS: ALT 19 U/L (4-34); AST 32 U/L (14-36); African American GFR (CKD) >90 (>60 ml/min/1.73 sqM); Albumin 4.4 g/dL (3.5-5.0); Alkaline Phosphatase 66 U/L (38-126); Anion Gap 7 mmol/L; Blood Urea Nitrogen 11 mg/dL (7-17); Calcium 9.6 mg/dL (8.4-10.2); Carbon Dioxide 25 mmol/L (22-30); Chloride 106 mmol/L (98-107); Glucose 105 mg/dL (74-99); Magnesium 1.7 mg/dL (1.6-2.3); Non-African American GFR(CKD) >90 (>60 ml/min/1.73 sqM); Potassium 3.9 mmol/L (3.5-5.1); Sodium 138 mmol/L (137-145); Total Bilirubin 0.7 mg/dL (0.2-1.3); Total Protein 7.4 g/dL (6.3-8.2)
--- NOTE | 2023-12-10 13:43 | XR ---
EXAMINATION TYPE: XR chest 2V DATE OF EXAM: 12/10/2023 COMPARISON: NONE HISTORY: Chest pain. TECHNIQUE: Frontal and lateral views of the chest are obtained. FINDINGS: There is no focal air space opacity, pleural effusion, or pneumothorax seen. The cardiac silhouette size is within normal limits. The osseous structures are intact. IMPRESSION: No acute cardiopulmonary process.
--- NOTE | 2023-12-10 18:04 | CT ---
EXAMINATION TYPE: CT brain wo con CT DLP: 1198.4 mGycm, Automated exposure control for dose reduction was used. DATE OF EXAM: 12/10/2023 5:26 PM COMPARISON: 08/17/2014. CLINICAL INDICATION:Female, 43 years old with history of slurred speech, left arm weakness, Slurred s peech, left arm weakness. TECHNIQUE: Brain: Axial CT images of the brain were obtained with coronal and sagittal reformats created and rev iewed. Contrast used: None. Oral contrast used: None. FINDINGS: Brain: Extra-axial spaces: No abnormal extra-axial fluid collections. Ventricular system: Within normal limits Cerebral parenchyma: No acute intraparenchymal hemorrhage or mass effect. The bowens-white junction is well differentiated. Cerebellum: Unremarkable. Mass effect: No evidence of midline shift. Intracranial vasculature: unremarkable Soft tissues: Normal. Calvarium/osseous structures: No depressed skull fracture. Paranasal sinuses and mastoid air cells: Mild scattered paranasal sinus disease. Visualized orbits: Orbital contents are intact. IMPRESSION: No acute intracranial process.
--- NOTE | 2023-12-10 18:07 | CT ---
EXAMINATION TYPE: CT angio chest CT DLP: 978.4 mGycm, Automated exposure control for dose reduction was used. DATE OF EXAM: 12/10/2023 5:27 PM COMPARISON: 12/10/2023 CLINICAL INDICATION:Female, 43 years old with history of left arm weakness, slurred speech; Slurred s peech, left arm weakness. TECHNIQUE/CONTRAST: CTA scan of the thorax is performed with IV Contrast, patient injected with 100 ml mL of Isovue 300, MIP images are created and reviewed these are created on a separate workstation.. FINDINGS: Lungs/Pleura: No evidence of focal consolidation, pleural effusion or pneumothorax. Airway: Large airways are patent. Heart: Heart is within normal limits for size. Vasculature: No evidence for intramural hematoma on noncontrast imaging. No evidence of intimal flap to suggest dissection. No aneurysm identified. Scattered atherosclerotic disease. Left upper extremit y vasculature is patent. Mediastinum: No gross evidence of adenopathy. Musculoskeletal: No acute osseous abnormalities Soft Tissues: Unremarkable. Lower neck: No significant findings. Upper Abdomen: No significant findings. IMPRESSION: 1. No evidence of central pulmonary embolism. Limited evaluation of the segmental and subsegmental br anches. 2. No evidence for dissection or occlusion. The left approximately vasculature is patent.
[2023-12-10] MEDS: ASPIRIN 81 MG PO STA (18:56)
[2023-12-10] MEDS: NITROGLYCERIN OINT 1 INCH/GM PACKET TOPICAL STA (18:56)
[2023-12-10] MEDS ORDERED: NALOXONE 0.4 MG/ML 1 ML VIAL IV PRN (19:22)
[2023-12-11 08:37] LABS: Basophils # (A) 0.03 X 10*3/uL (0.00-0.10); Basophils % (A) 0.5 %; Eosinophils # (A) 0.11 X 10*3/uL (0.04-0.35); Eosinophils % (A) 1.8 %; HCT 37.1 % (37.2-46.3); HGB 12.3 g/dL (12.0-15.0); Lymphocytes # (A) 2.76 X 10*3/uL (0.90-5.00); Lymphocytes % (A) 45.2 %; MCH 29.7 pg (27.0-32.0); MCHC 33.2 g/dL (32.0-37.0); MCV 89.6 FL (80.0-97.0); Mean Platelet Volume 11.6 FL (9.5-12.2); Monocytes # (A) 0.42 X 10*3/uL (0.20-1.00); Monocytes % (A) 6.9 %; NRBC Per 100 WBC 0 X 10*3/uL (0.00-0.01); Neutrophils # (A) 2.76 X 10*3/uL (1.80-7.70); Neutrophils % (A) 45.3 %; Platelet Count 316 X 10*3/uL (140-440); RBC 4.14 X 10*6/uL (4.10-5.20); RDW 12.6 % (11.5-14.5)
[2023-12-11 08:47] LABS: BUN/Creat Ratio 16.14 Ratio (12.00-20.00); Blood Urea Nitrogen 11.3 mg/dL (9.0-27.0); Carbon Dioxide 24.8 mmol/L (21.6-31.8); Chloride 104 mmol/L (96-109); Glucose 110 mg/dL (70-110); Potassium 3.8 mmol/L (3.5-5.5); Sodium 138 mmol/L (135-145)
--- NOTE | 2023-12-11 08:51 | P.CRDCN ---
History of Present Illness Consult date: 12/11/23 Consult reason: chest pain History of present illness: History of present illness: This is a 43-year-old female patient of Dr. Troy with past medical history of hyperlipidemia, gastroesophageal reflux disease. We have been asked to evaluate the patient for chest pain. Patient presented to the emergency center due to chest pain on the left side of her chest with tenderness, generalized weakness. Patient also presented with slurred speech and left arm weakness with sudden onset. No symptoms at the time of evaluation. Patient gives history that mother has atrial fibrillation father passed in his 40s from myocardial infarction. 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 She denies any alcohol abuse, no tobacco use. EKG normal sinus rhythm with no acute ST changes. Chest x-ray: No acute process. CTA of the chest: No central pulmonary embolism. No evidence of dissection or occlusion. CAT scan of the brain no acute process. CBC INR electrolytes and renal function unremarkable. Glucose 105. Troponin negative x 3. Magnesium 1.7. Liver function test normal. Home cardiac medications: Atorvastatin 40 mg daily, Toprol-XL 25 mg daily. Lexiscan stress test 08/06/2023 reveals decreased perfusion along the inferior wall could represent diaphragmatic attenuation artifact versus an area of old infarct. Inferior wall defect accentuates on stress and mony-infarct ischemia is difficult to exclude. Cardiac catheterization performed 11/03/[address] Troy revealed relatively normal coronary arteries other than the mid LAD 30 to 40% stenosis and otherwise mild luminal irregularities. Mildly elevated left-sided filling pressures. Echocardiogram performed 07/17/2023 reveals EF 55 to 60%. Review Of Systems: At the time of my exam: CONSTITUTIONAL: Denies fever or chills. HEENT: Denies blurred vision, vision changes, or eye pain. Denies hemoptysis CARDIOVASCULAR: Denies chest pain. Denies orthopnea. Denies PND. Denies palpitations RESPIRATORY: Denies shortness of breath. GASTROINTESTINAL: Denies abdominal pain. Denies nausea or vomiting. HEMATOLOGIC: Denies bleeding disorders. GENITOURINARY: Denies any blood in urine. SKIN: Denies pruitis. Denies rash. Physical examination: Gen: This is a 43-year-old female in no acute distress VS: reviewed HEENT: Head is atraumatic, normocephalic. Pupils equal, round. Sclerae is anicteric. NECK: Supple. No JVD. LUNGS: Clear to auscultation. No wheezes or rhonchi. No intercostal retractions. HEART: Regular rate and rhythm. No murmur. ABDOMEN: Soft No tenderness. EXTREMITIES: No pedal edema. No calf tenderness. NEUROLOGICAL: Patient is awake, alert and oriented x3. Assessment: Atypical chest pain, acute coronary syndrome ruled out with previous catheterization as above along with recent stress test that showed no significant abnormality and currently with negative troponins Slurred speech and left arm weakness Hyperlipidemia Gastroesophageal reflux disease Plan: Resume patient's home cardiac medications Patient is cleared by cardiology for discharge and may follow-up with Dr. Troy as scheduled. Thank you kindly for this consultation. Nurse practitioner note has been reviewed, I agree with documented findings and plan of care. Patient was seen and examined. Past Medical History Past Medical History: Cancer, Chest Pain / Angina, GERD/Reflux, Hyperlipidemia, Musculoskeletal Disorder Additional Past Medical History / Comment(s): Chronic back pain, scoliosis, DDD, CONSTIPATION, recent rectal bleeding, headaches, IRREGULAR HEAVY MENSES @times, recent card. cath. due to chest pain, no blockages, takes metoprolol for, skin cancer face-had removed, daily heartburn/GERD, current kidney stone, chest pains @ times- Takes Metoprolol. History of Any Multi-Drug Resistant Organisms: None Reported Past Surgical History: Appendectomy, Cholecystectomy, Heart Catheterization, Orthopedic Surgery Additional Past Surgical History / Comment(s): D & C, left foot surgery for bunion, fatty tumor removed from back when pt was 8 yrs old. COLONOSCOPY, recen t cardiac cath - 2021 Past Anesthesia/Blood Transfusion Reactions: No Reported Reaction Additional Past Anesthesia/Blood Transfusion Reaction / Comment(s): no hx blood transfusion, woke up during last colonoscopy Past Psychological History: Anxiety, Bipolar, Depression, Panic Disorder Additional Psychological History / Comment(s): Pt resides with her children and brother. She is independent., ALL UNDER CONTROL AT THIS TIME Smoking Status: Former smoker Past Alcohol Use History: None Reported Additional Past Alcohol Use History / Comment(s): QUIT SMOKING SEP 2022-HAD STOPPED FOR 8 MONTHS PRIOR . HAS BEEN SMOKING OFF AND ON ABOUT 16 YEARS 1/2-1 PPD Past Drug Use History: None Reported - Past Family History Father History Unknown: Yes Family Medical History: Myocardial Infarction ([place]) Additional Family Medical History / Comment(s): at age 42 from [place] Mother History Unknown: Yes Family Medical History: AFIB, Hypertension, Renal Disease Additional Family Medical History / Comment(s): had rt kidney removed r/t not functioning Medications and Allergies Home Medications Medication Instructions Recorded Confirmed Type Atorvastatin [Lipitor] 40 mg PO DAILY 10/31/22 12/10/23 History Cholecalciferol [Vitamin D3 (25 25 mcg PO DAILY 10/31/22 12/10/23 History Mcg = 1000 Iu)] Metoprolol Succinate (ER) [Toprol 25 mg PO DAILY 10/31/22 12/10/23 History Xl] busPIRone HCl [Buspar] 10 mg PO BID 12/05/22 12/10/23 History L.acidoph,Paracasei, B.lactis 1 cap PO DAILY 12/19/22 12/10/23 History [Probiotic] methocarbamoL [Robaxin-750] 750 mg PO Q4HR PRN 10/31/23 12/10/23 History Pantoprazole [Protonix] 40 mg PO DAILY 12/10/23 12/10/23 History Topiramate [Topamax] 25 mg PO DAILY 12/10/23 12/10/23 History Allergies Allergy/AdvReac Type Severity Reaction Status Date / Time sulfamethoxazole Allergy Itching Verified 12/10/23 18:57 [From Bactrim] trimethoprim [From Bactrim] Allergy Itching Verified 12/10/23 18:57 Physical Exam Vitals: Vital Signs Temp Pulse Pulse Resp BP BP Pulse Ox 12/11/23 07:00 98.0 F 53 L 16 90/54 99 12/11/23 04:22 97.9 F 53 L 15 95/55 99 12/11/23 02:00 60 12/10/23 20:58 98.5 F 60 16 138/84 100 12/10/23 19:43 65 18 136/87 100 12/10/23 16:12 65 18 160/95 100 12/10/23 12:06 98.2 F 71 16 161/109 100 Intake and Output 12/10/23 12/11/23 12/11/23 22:59 06:59 14:59 Other: Voiding Method Toilet # Voids 1 2 Weight 95.254 kg Results 12/11/23 03:00 12/10/23 12:26 Cardiac Enzymes 12/10/23 12/10/23 12/10/23 Range/Units 12:26 12:26 22:25 AST 32 (14-36) U/L Troponin I <0.012 <0.012 (0.000-0.034) ng/mL 12/11/23 Range/Units 03:00 AST (14-36) U/L Troponin I <0.012 (0.000-0.034) ng/mL Coagulation 12/10/23 Range/Units 12: PT 10.0 (10.0-12.5) sec APTT 27.0 (22.0-30.0) sec CBC 12/10/23 Range/Units 12:26 WBC 8.4 (3.8-10.6) k/uL RBC 4.37 (3.80-5.40) m/uL Hgb 13.7 (11.4-16.0) gm/dL Hct 39.1 (34.0-46.0) % Plt Count 346 (150-450) k/uL Comprehensive Metabolic Panel 12/10/23 Range/Units 12:26 Sodium 138 (137-145) mmol/L Potassium 3.9 (3.5-5.1) mmol/L Chloride 106 (98-107) mmol/L Carbon Dioxide 25 (22-30) mmol/L BUN 11 (7-17) mg/dL Creatinine 0.55 (0.52-1.04) mg/dL Glucose 105 H (74-99) mg/dL Calcium 9.6 (8.4-10.2) mg/dL AST 32 (14-36) U/L ALT 19 (4-34) U/L Alkaline Phosphatase 66 (38-126) U/L Total Protein 7.4 (6.3-8.2) g/dL Albumin 4.4 (3.5-5.0) g/dL Current Medications Generic Name Dose Route Start Last Admin Trade Name Freq PRN Reason Stop Dose Admin Atorvastatin Calcium 40 mg 12/11/23 09:00 Atorvastatin 40 Mg Tab PO DAILY [facility] Buspirone HCl 10 mg 12/11/23 09:00 Buspirone Hcl 5 Mg Tab PO BID [facility] Cholecalciferol 25 mcg 12/11/23 09:00 Cholecalciferol 25 Mcg (1000 Iu) Tablet PO DAILY [facility] Methocarbamol 750 mg 12/11/23 06:47 Methocarbamol 750 Mg Tab PO Q4HR PRN Muscle Spasm Metoprolol Succinate 25 mg 12/11/23 09:00 Metoprolol Succinate (Er) 25 Mg Tab.Er.24h PO DAILY [facility] Naloxone HCl 0.2 mg 12/10/23 19:22 Naloxone 0.4 Mg/Ml 1 Ml Vial IV Q2M PRN Opioid Reversal Pantoprazole Sodium 40 mg 12/11/23 07:30 Pantoprazole 40 Mg Tablet PO AC-BRKFST [facility] Topiramate 25 mg 12/11/23 09:00 Topiramate 25 Mg Tab PO DAILY [facility] Intake and Output 12/10/23 12/11/23 12/11/23 22:59 06:59 14:59 Other: Voiding Method Toilet # Voids 1 2 Weight 95.254 kg 12/10/23 12:26 12/10/23 12:26
[2023-12-11] MEDS: METOPROLOL SUCCINATE (ER) 25 MG TAB.ER.24H PO SCH (10:25)
--- NOTE | 2023-12-11 10:25 | P.HPIM ---
History of Present Illness This is a pleasant 43 years old female with past medical history of multiple medical problems including migraine, depression, GERD, hyperlipidemia She presents because of episode of slurred speech lasted only for 1 minute and left arm pain. Patient states she was at work yesterday when she felt little bit lightheadedness and slurred speech which think she was for 1 minute but she has been having these episodes when she got pain in her left arms and lightheadedness that lasts for about 5 to 10 minutes before it resolved but is getting recurrent Also patient is complaining from left lower chest pain and point tenderness has been going on and off for several months and has been admitted for cardiology evaluation. She sees Dr. Troy as an outpatient She has migraine headache but nothing unusual than before No nausea or vomiting or abdominal pain or diarrhea. No urinary complaints Patient was noticed recently she has more exertional dyspnea She feels little nonspecific dizziness. She uses Topamax for her migraine headache but she does not follow-up with a neurologist She quit smoking about 15 months ago, no alcohol or illicit drugs Patient is hemodynamically stable Labs unremarkable including CBC, INR, BMP, liver enzymes and troponin x [address] of the brain is negative for acute process CTA of the chest is negative for pulmonary embolism also there is no dissection or ischemia. No consolidation Chest x-ray is negative EKG shows sinus bradycardia at [address]-T changes Review of Systems Review of systems CONSTITUTIONAL: No fever, no malaise, no fatigue. HEENT: No recent visual problems or hearing problems. Denied any sore throat. CARDIOVASCULAR: No orthopnea, PND, no palpitations, no syncope. PULMONARY: No shortness of breath, no cough, no hemoptysis. GASTROINTESTINAL: No diarrhea, no nausea, no vomiting, no abdominal pain. Normoactive bowel sounds. NEUROLOGICAL: No headaches, no weakness, no numbness. HEMATOLOGICAL: Denies any bleeding or petechiae. GENITOURINARY: Denies any burning micturition, frequency, or urgency. MUSCULOSKELETAL/RHEUMATOLOGICAL: Denies any joint pain, swelling, or any muscle pain. ENDOCRINE: Denies any polyuria or polydipsia. Past Medical History Past Medical History: Cancer, Chest Pain / Angina, GERD/Reflux, Hyperlipidemia, Musculoskeletal Disorder Additional Past Medical History / Comment(s): Chronic back pain, scoliosis, DDD, CONSTIPATION, recent rectal bleeding, headaches, IRREGULAR HEAVY MENSES @times, recent card. cath. due to chest pain, no blockages, takes metoprolol for, skin cancer face-had removed, daily heartburn/GERD, current kidney stone, chest pains @ times- Takes Metoprolol. History of Any Multi-Drug Resistant Organisms: None Reported Past Surgical History: Appendectomy, Cholecystectomy, Heart Catheterization, Orthopedic Surgery Additional Past Surgical History / Comment(s): D & C, left foot surgery for bunion, fatty tumor removed from back when pt was 8 yrs old. COLONOSCOPY, recent cardiac cath - 2021 Past Anesthesia/Blood Transfusion Reactions: No Reported Reaction Additional Past Anesthesia/Blood Transfusion Reaction / Comment(s): no hx blood transfusion, woke up during last colonoscopy Past Psychological History: Anxiety, Bipolar, Depression, Panic Disorder Additional Psychological History / Comment(s): Pt resides with her children and brother. She is independent., ALL UNDER CONTROL AT THIS TIME Smoking Status: Former smoker Past Alcohol Use History: None Reported Additional Past Alcohol Use History / Comment(s): QUIT SMOKING SEP 2022-HAD STOPPED FOR 8 MONTHS PRIOR . HAS BEEN SMOKING OFF AND ON ABOUT 16 YEARS 1/2-1 PPD Past Drug Use History: None Reported - Past Family History Father History Unknown: Yes Family Medical History: Myocardial Infarction ([place]) Additional Family Medical History / Comment(s): at age 42 from [place] Mother History Unknown: Yes Family Medical History: AFIB, Hypertension, Renal Disease Additional Family Medical History / Comment(s): had rt kidney removed r/t not functioning Medications and Allergies Home Medications Medication Instructions Recorded Confirmed Type Atorvastatin [Lipitor] 40 mg PO DAILY 10/31/22 12/10/23 History Cholecalciferol [Vitamin D3 (25 25 mcg PO DAILY 10/31/22 12/10/23 History Mcg = 1000 Iu)] Metoprolol Succinate (ER) [Toprol 25 mg PO DAILY 10/31/22 12/10/23 History Xl] busPIRone HCl [Buspar] 10 mg PO BID 12/05/22 12/10/23 History L.acidoph,Paracasei, B.lactis 1 cap PO DAILY 12/19/22 12/10/23 History [Probiotic] methocarbamoL [Robaxin-750] 750 mg PO Q4HR PRN 10/31/23 12/10/23 History Pantoprazole [Protonix] 40 mg PO DAILY 12/10/23 12/10/23 History Topiramate [Topamax] 25 mg PO DAILY 12/10/23 12/10/23 History Allergies Allergy/AdvReac Type Severity Reaction Status Date / Time sulfamethoxazole Allergy Itching Verified 12/10/23 18:57 [From Bactrim] trimethoprim [From Bactrim] Allergy Itching Verified 12/10/23 18:57 Physical Exam Vitals: Vital Signs Temp Pulse Pulse Resp BP BP Pulse Ox 12/11/23 07:00 98.0 F 53 L 16 90/54 99 12/11/23 04:22 97.9 F 53 L 15 95/55 99 12/11/23 02:00 60 12/10/23 20:58 98.5 F 60 16 138/84 100 12/10/23 19:43 65 18 136/87 100 12/10/23 16:12 65 18 160/95 100 12/10/23 12:06 98.2 F 71 16 161/109 100 Intake and Output 12/10/23 12/11/23 12/11/23 22:59 06:59 14:59 Other: Voiding Method Toilet # Voids 1 2 Weight 95.254 kg GENERAL: The patient is alert and oriented x3, not in any acute distress. Well developed, well nourished. HEENT: Pupils are round and equally reacting to light. EOMI. No scleral icterus. No conjunctival pallor. Normocephalic, atraumatic. No pharyngeal erythema. No thyromegaly. CARDIOVASCULAR: S1 and S2 present. No murmurs, rubs, or gallops. PULMONARY: Chest is clear to auscultation, no wheezing , no crackles. Point tenderness in her left lower rib cage where she complains from chest pain ABDOMEN: Soft, nontender, nondistended, normoactive bowel sounds. No palpable organomegaly. MUSCULOSKELETAL: No joint swelling or deformity. EXTREMITIES: No cyanosis, clubbing, or pedal edema. NEUROLOGICAL: Gross neurological examination did not reveal any focal deficits. SKIN: No rashes. no petechiae. Results CBC & Chem 7: 12/11/23 03:00 12/11/23 03:00 Labs: Abnormal Lab Results - Last 24 Hours (Table) 03/04/24 03/05/24 Range/Units 12:26 03:00 Hct 37.1 L (37.2-46.3) % Glucose 105 H (74-99) mg/dL Thrombosis Risk Factor Assmnt - Choose All That Apply Any of the Below Risk Factors Present?: Yes Each Factor Represents 1 point: Age 41-60 years, Obesity (BMI >25) Other Risk Factors: No Other congenital or acquired thrombophilia - If yes, enter type in comment: No Thrombosis Risk Factor Assessment Total Risk Factor Score: 2 Thrombosis Risk Factor Assessment Level: Low Risk Assessment and Plan Assessment: Chest pain most likely musculoskeletal associated with point tenderness in her left lower rib cage. CTA is negative for PE. Episodes of lightheadedness and left arm pain, could be related to her migraine headache. Consult neurology service Migraine headache History of GERD Hyperlipidemia Chronic back pain scoliosis and degenerative disc disease History of constipation Plan: Cardiology been consulted. Continue with pain management, most likely musculoskeletal pain Labs and medication were reviewed.. Continue same treatment. Continue with symptomatic treatment. Resume home medication. Monitor labs and vitals. DVT and GI prophylaxis. Further recommendations as per clinical course of the patient DVT prophylaxis: Subcutaneous heparin GI Prophylaxis: Pepcid PT/OT: Pending Prognosis is guarded consult neurology service
[2023-12-11] MEDS: PANTOPRAZOLE 40 MG TABLET PO SCH (10:28)
[2023-12-11] MEDS: ATORVASTATIN 40 MG TAB PO SCH (10:28)
[2023-12-11] MEDS: busPIRone HCl 5 MG TAB PO SCH (10:28)
[2023-12-11] MEDS: TOPIRAMATE 25 MG TAB PO SCH (10:28)
[2023-12-11] MEDS: CHOLECALCIFEROL 25 MCG (1000 IU) TABLET PO SCH (10:28)
[2023-12-11] MEDS: methocarbamoL 750 MG TAB PO PRN (11:06)
[2023-12-11] MEDS: ASPIRIN 81 MG PO SCH (18:38)
[2023-12-11] MEDS: BUTALB/APAP/CAFF 50-325-40MG TAB PO PRN (20:06)
[2023-12-11] MEDS: FAMOTIDINE 20 MG TAB PO SCH (20:07)
[2023-12-11] MEDS ORDERED: FAMOTIDINE 20 MG/2 ML VIAL IV SCH (21:00)
--- NOTE | 2023-12-11 21:40 | US ---
EXAMINATION TYPE: US carotid duplex BILAT DATE OF EXAM: 12/11/2023 COMPARISON: NONE CLINICAL INDICATION: Female, 43 years old with history of TIA; TIA TECHNIQUE: Carotid duplex ultrasound examination. Indirect Doppler criteria was utilized. FINDINGS: EXAM MEASUREMENTS: RIGHT: Peak Systolic Velocity (PSV) cm/sec ----- Right CCA: 79.6 ----- Right ICA: 111 ----- Right ECA: 94.4 ICA/CCA ratio: 1.4 RIGHT: End Diastole cm/sec ----- Right CCA: 31.5 ----- Right ICA: 50.9 ----- Right ECA: 16.3 LEFT: Peak Systolic Velocity (PSV) cm/sec ----- Left CCA: 78.7 ----- Left ICA: 99.1 ----- Left ECA: 91.1 ICA/CCA ratio: 1.3 LEFT: End Diastole cm/sec ----- Left CCA: 26.8 ----- Left ICA: 43.7 ----- Left ECA: 14.6 VERTEBRALS (direction of flow): Right Vertebral: Antegrade Left Vertebral: Antegrade Rhythm: Normal IMPRESSION: No significant vascular stenosis.
--- NOTE | 2023-12-11 23:34 | MR ---
EXAMINATION TYPE: MR brain wo con DATE OF EXAM: 12/11/2023 9:26 PM CLINICAL INDICATION:Female, 43 years old with history of TIA; COMPARISON: 12/10/2023. TECHNIQUE: Multi planar, multi sequence imaging was performed through the brain including: T1, T2, In version recovery, Diffusion weighted imaging, and gradient echo imaging. No gadolinium was given. FINDINGS: The bowens-white junctions, ventricular system, basal cisterns appear unremarkable. Midline structures show no abnormality. Diffusion-weighted imaging shows no evidence of restricted diffusion. The suscep tibility weighted images do not reveal any evidence for micro-hemorrhage. The bone marrow signal is within normal limits. Paranasal sinuses and mastoid air cells: No significant paranasal sinus disease. Visualized orbits: Orbital contents are intact. IMPRESSION: No evidence of intracranial mass or acute/subacute infarct.
[2023-12-12] MEDS: HEPARIN SODIUM,PORCINE 5,000 UNIT/ML 1 ML VIAL SQ SCH (03:14)
[2023-12-12 07:30] VITALS: PULSE 60
--- NOTE | 2023-12-12 11:21 | P.CNNES ---
History of Present Illness Consult date: 12/11/23 Requesting physician: Zane E Sheet Reason for Consult: Slurred speech, headache, left arm numbness/weakness/pain History of Present Illness: Patient is a 43-year-old female with history of chronic chest pain, chronic th oracic pain, ex tobacco use, came to the hospital yesterday at 12 PM for transient episodes of slurred speech. 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 She suddenly developed pain in the left arm from shoulder, down to the left elbow and then left hand. 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 Symptoms lasted for about a minute. Speech symptoms resolved, but shortly after, she noticed speech difficulty again, but it lasted only for about 30 to 45 seconds. She also started having chest pain, feeling lightheaded, nauseous. She called her population health coach, who recommended patient to go to the ER. Patient denies any numbness, tingling, focal weakness, facial droop, problem with the vision, diplopia or balance problem. Vital signs on arrival blood pressure 161/109, pulse rate 71 temperature 98.2. Blood test shows normal CBC, PT PTT, normal CMP. Troponins are negative. Chest x-ray is normal. CT head showed no acute intracranial process. I personally reviewed CT head and appears normal. Visualized paranasal sinuses are clear. However there is at least moderate amount of impacted cerumen left EAC. CTA of the chest revealed no evidence of central pulmonary embolism. No evidence for dissection or occlusion. EKG shows sinus bradycardia. Patient denies any history of hypertension or diabetes. She has smoked half pack per day for 20 years, quit 15 months ago. Patient does take Lipitor 40 mg, Topamax 25 mg daily, Protonix, Robaxin, BuSpar 10 mg twice daily vitamin D and metoprolol. Patient does not take any antiplatelet medication at home. Patient does not take any control pills. She is taking metoprolol for "chest pain". Patient has history of migraines for which she was started on Topamax 25 mg daily about <1 month ago. Patient has chronic thoracic pain. She follows up with pain specialist. Patient had an MRI of the cervical spine performed 10/18/2023, which revealed subligamentous disc herniation with extension with moderate anterior thecal sac compression C6-7. Left paracentral C7-T1 disc bulging without cord contact or exiting nerve root impingement. MRI of the thoracic spine 10/18/2023 revealed scoliosis lower thoracolumbar region. No spinal canal stenosis. Some mild facet hypertrophy is present at T11-12 and T12-L1. I personally reviewed MRI, agree with the findings. Review of Systems Constitutional: Reports fatigue, Reports weight gain, Denies chills, Denies fever Eyes: denies blurred vision, denies diplopia, denies pain, denies loss of vision Ears: deny: decreased hearing, ear discharge Ears, nose, mouth and throat: Reports headache, Reports vertigo, Denies nasal discharge Cardiovascular: Reports chest pain, Reports shortness of breath Respiratory: Denies cough, Denies excessive sputum Gastrointestinal: Reports nausea (Now resolved.), Denies abdominal pain, Denies diarrhea, Denies vomiting Genitourinary: Denies dysuria, Denies hematuria, Denies urge incontinence Musculoskeletal: Denies low back pain (Patient does have thoracic pain.), Denies neck pain Integumentary: Denies pruritus, Denies rash Neurological: Reports as per HPI Psychiatric: Reports anxiety, Denies depression Endocrine: Reports fatigue, Reports weight change Past Medical History Past Medical History: Cancer, Chest Pain / Angina, GERD/Reflux, Hyperlipidemia, Musculoskeletal Disorder Additional Past Medical History / Comment(s): Chronic back pain, scoliosis, DDD, CONSTIPATION, recent rectal bleeding, headaches, IRREGULAR HEAVY MENSES @times, recent card. cath. due to chest pain, no blockages, takes metoprolol for, skin cancer face-had removed, daily heartburn/GERD, current kidney stone, chest pains @ times- Takes Metoprolol. History of Any Multi-Drug Resistant Organisms: None Reported Past Surgical History: Appendectomy, Cholecystectomy, Heart Catheterization, Orthopedic Surgery Additional Past Surgical History / Comment(s): D & C, left foot surgery for bunion, fatty tumor removed from back when pt was 8 yrs old. COLONOSCOPY, recent cardiac cath - 2021 Past Anesthesia/Blood Transfusion Reactions: No Reported Reaction Additional Past Anesthesia/Blood Transfusion Reaction / Comment(s): no hx blood transfusion, woke up during last colonoscopy Past Psychological History: Anxiety, Bipolar, Depression, Panic Disorder Additional Psychological History / Comment(s): Pt resides with her children and brother. She is independent., ALL UNDER CONTROL AT THIS TIME Smoking Status: Former smoker Past Alcohol Use History: None Reported Additional Past Alcohol Use History / Comment(s): QUIT SMOKING SEP 2022-HAD STOPPED FOR 8 MONTHS PRIOR . HAS BEEN SMOKING OFF AND ON ABOUT 16 YEARS 1/2-1 PPD Past Drug Use History: None Reported - Past Family History Father History Unknown: Yes Family Medical History: Myocardial Infarction ([place]) Additional Family Medical History / Comment(s): at age 42 from [place] Mother History Unknown: Yes Family Medical History: AFIB, Hypertension, Renal Disease Additional Family Medical History / Comment(s): had rt kidney removed r/t not functioning Medications and Allergies Home Medications Medication Instructions Recorded Confirmed Type Atorvastatin [Lipitor] 40 mg PO DAILY 10/31/22 12/10/23 History Cholecalciferol [Vitamin D3 (25 25 mcg PO DAILY 10/31/22 12/10/23 History Mcg = 1000 Iu)] Metoprolol Succinate (ER) [Toprol 25 mg PO DAILY 10/31/22 12/10/23 History Xl] busPIRone HCl [Buspar] 10 mg PO BID 12/05/22 12/10/23 History L.acidoph,Paracasei, B.lactis 1 cap PO DAILY 12/19/22 12/10/23 History [Probiotic] methocarbamoL [Robaxin-750] 750 mg PO Q4HR PRN 10/31/23 12/10/23 History Pantoprazole [Protonix] 40 mg PO DAILY 12/10/23 12/10/23 History Topiramate [Topamax] 25 mg PO DAILY 12/10/23 12/10/23 History Allergies Allergy/AdvReac Type Severity Reaction Status Date / Time sulfamethoxazole Allergy Itching Verified 12/10/23 18:57 [From Bactrim] trimethoprim [From Bactrim] Allergy Itching Verified 12/10/23 18:57 Physical Examination - Vital Signs Vital Signs: Vital Signs Temp Pulse Pulse Resp BP BP BP 12/11/23 15:00 98.7 F 59 L 16 108/71 12/11/23 07:00 98.0 F 53 L 16 90/54 12/11/23 04:22 97.9 F 53 L 15 95/55 12/11/23 02:00 60 12/10/23 20:58 98.5 F 60 16 138/84 12/10/23 19:43 65 18 136/87 Pulse Ox 12/11/23 15:00 99 12/11/23 07:00 99 12/11/23 04:22 99 12/11/23 02:00 12/10/23 20:58 100 12/10/23 19:43 100 Intake and Output 12/11/23 12/11/23 12/11/23 06:59 14:59 22:59 Other: Voiding Method Toilet # Voids 2 1 # Bowel Movements 1 Patient is a middle aged female, in no acute distress. Patient is alert awake oriented to time place and person. Speech and language functions are normal. Patient can name and repeat very well. No aphasia or dysarthria. Attention, concentration and fund of knowledge is adequate. On cranial nerve examination, pupils are equal, round and reacting to light, visual prado are full on confrontation, with no neglect on double simultaneous stimulation. Extraocular muscles are intact with no nystagmus. Face is symmetric, tongue protrudes to the midline. Palatal elevation and sensation normal, hearing and shoulder shrug normal, facial sensation normal. On muscle strength testing, there is no pronator drift and the strength is normal in arms and legs distally and proximally. Deep tendon reflexes are symmetric biceps 1, brachioradialis trace, knees to, ankles 1 and plantars downgoing bilaterally. Sensory to touch is equal with no neglect on double simultaneous stimulation. Cerebellar function showed no ataxia for [id number] testing. No dysdiadochokinesia. No ataxia for [id number] testing on either side. Tone and bulk of muscles normal. Gait deferred.. On general examination, there is no carotid bruit or murmur, S1-S2 audible. Chest is clear on consultation. Abdomen is soft nontender. No organomegaly, bowel sounds present. Peripheral pulses are present. No peripheral edema. Results - Laboratory Findings CBC and BMP: 12/11/23 03:00 12/11/23 03:00 Abnormal Lab Findings: Abnormal Labs 12/10/23 12/11/23 12:26 03:00 Hct 37.1 L Glucose 105 H Assessment and Plan Assessment: * Possible TIA, manifesting with transient slurred speech x 2, each time lasting for about a minute. Left arm pain, uncertain if any relation to slurred speech, although could be related to her history of cervical radiculopathy. Her MRI of the cervical spine performed 10/18/2023 revealed subligamentous disc herniation with extension with moderate anterior thecal sac compression C6-7. * Migraine headaches * Chronic chest pain * Chronic thoracic pain * Hyperlipidemia * Anxiety disorder * Ex tobacco use Plan: * Patient will be worked up for TIA. MRI of the brain without contrast, evaluate for acute CVA 2-D echo with bubble study to rule out PFO Carotid Doppler, rule out stenosis Fasting a.m. lipid panel Hemoglobin A1c Optimize control of blood pressure Start aspirin 81 mg daily. Patient currently on Topamax 25 mg daily. This medication sometimes can produce speech difficulty and paresthesias. However she has been on this very low-dose for last almost a month therefore unlikely. Patient is having migraine headache. We will give Fioricet as needed. Telemetry monitoring rule out any arrhythmia DVT prophylaxis: Heparin 5000 units subcu every 12 hours Neurology will continue to follow. Thank you for the consult.
[2023-12-12 11:53] LABS: Chol/HDL Ratio 4.45 Ratio; LDL Cholesterol,Calculated 103.3 mg/dL (0.0-131.0)
[2023-12-12 15:39] VITALS: BP 101/66; RESP 16; TEMP 98.6
--- NOTE | 2023-12-12 17:30 | CA ---
Transthoracic Echo Report Name: Nikkie Garcia Age: 43 Gender: F : 1980 Exam Date: 12/12/2023 15:48 Exam Location: [facility] Ht (in): 65 Wt (lb): 210 Ordering Physician: Zane Crawford MD Attending/Referring Phys: [id number], Yvette Negative Retoucher Nandini Bahena RDCS Procedure CPT: Indications: tia Cardiac Hx: Technical Quality: Fair Contrast 1: Agitated Saline Total Dose (mL): 10 Contrast 2: Total Dose (mL): MEASUREMENTS (Male / Female) Normal Values FINDINGS Left Ventricle Normal left ventricular systolic function with no obvious regional wall motion abnormalities. Left ventricular ejection fraction is estimated at 55-60 %. Right Ventricle Right Atrium Negative agitated saline bubble study for right to left shunt. Left Atrium Mitral Valve Aortic Valve Tricuspid Valve Pulmonic Valve Pericardium No pericardial effusion. Aorta CONCLUSIONS Normal LV function Negative bubble study Previewed by: Dr. Jordan Slade MD (Electronically Signed) Final Date: 12 December 2023 17:29
--- NOTE | 2023-12-13 06:09 | P.DS ---
Providers Date of admission: 12/10/23 19:22 Attending physician: Omar Fermin Consults: 12/10/23 19:22 Consult Physician Urgent Consulting Provider: [facility] Consult Reason/Comments: chest pain Do you want consulting provider notified?: Yes 12/11/23 14:30 Consult Physician Routine Consulting Provider: Rosy Jorgensen Consult Reason/Comments: Slurred speech, headache, left arm numbness/weakness/pain Do you want consulting provider notified?: Yes Primary care physician: Stated None Hospital Course: diagnoses: Chest pain most likely musculoskeletal associated with point tenderness in her left lower rib cage. CTA is negative for PE. Episodes of lightheadedness and left arm pain, could be related to TIA. Consult neurology service, workup was negative. Patient instructed to follow-up outpatient and she agrees Migraine headache History of GERD Hyperlipidemia Chronic back pain scoliosis and degenerative disc disease History of constipation Hospital course: This is a pleasant 43 years old female with past medical history of multiple medical problems including migraine, depression, GERD, hyperlipidemia She presents because of episode of slurred speech lasted only for 1 minute and left arm pain. Patient evaluated by cardiology service, she was cleared for discharge. On discharge patient denies chest pain dyspnea. No more arm pain or dizziness. Neurology service also requested for consult. Workup showed negative MRI of the brain for acute stroke. Negative carotid duplex for significant stenosis in the carotid arteries. Also open neurologist recommendation echocardiogram with bubble study was done, results was pending but Dr. Oneil told me he will follow-up with the result and patient can be discharged, he would contact her after that for any concerning findings. Patient informed that she agrees. Patient denies any other new complaints and eager to be discharged home today. Patient was cleared for discharge by both cardiology and neurology services. Problems and management plan were discussed with the patient and he verbalized understanding and acceptance Patient was found stable and can be discharged home in guarded prognosis however he needs follow-up as an outpatient. Patient was instructed to follow up with PCP within one week and patient agrees Patient was instructed to follow-up with Dr. Troy and she agrees with appointment made for her 12/19. Also patient was instructed to follow-up with the neurologist Dr. Castillo in 1 week after discharge and she agrees as well Patient will be discharged on aspirin 81 mg per neurology service recomm endation. Also Fioricet for her migraine. Please note that Fioricet prescription which did not go through but the patient does not want to wait to fix the problem with the Fioricet prescription and states she wants to follow-up with her PCP to prescribe her the Fioricet medication. Patient currently has Topamax for her migraine Physical exam Gen: patient is a AAOx3, no distress CVS: S1-S2, RRR, no murmur Lungs: B/L CTA, no wheezing Abdomen: soft, no distention, no tenderness, positive bowel sounds Extremity: no leg edema or induration Time spent more than 35 minutes Patient Condition at Discharge: Stable Plan - Discharge Summary Discharge Rx Participant: Yes New Discharge Prescriptions: New Butalb/APAP/Caff 50-325-40Mg [Fioricet 50-325-40] 1 each PO Q4HR PRN #60 tab PRN Reason: Headache Aspirin 81 mg PO DAILY #30 tab Continue Metoprolol Succinate (ER) [Toprol XL] 25 mg PO DAILY busPIRone HCl [Buspar] 10 mg PO BID Cholecalciferol [Vitamin D3 (25 Mcg = 1000 Iu)] 25 mcg PO DAILY Atorvastatin [Lipitor] 40 mg PO DAILY L.acidoph,Paracasei, B.lactis [Probiotic] 1 cap PO DAILY methocarbamoL [Robaxin-750] 750 mg PO Q4HR PRN PRN Reason: Muscle Spasm Pantoprazole [Protonix] 40 mg PO DAILY Topiramate [Topamax] 25 mg PO DAILY Discharge Medication List Atorvastatin [Lipitor] 40 mg PO DAILY 10/31/22 [History] Cholecalciferol [Vitamin D3 (25 Mcg = 1000 Iu)] 25 mcg PO DAILY 10/31/22 [History] Metoprolol Succinate (ER) [Toprol XL] 25 mg PO DAILY 10/31/22 [History] busPIRone HCl [Buspar] 10 mg PO BID 12/05/22 [History] L.acidoph,Paracasei, B.lactis [Probiotic] 1 cap PO DAILY 12/19/22 [History] methocarbamoL [Robaxin-750] 750 mg PO Q4HR PRN 10/31/23 [History] Pantoprazole [Protonix] 40 mg PO DAILY 12/10/23 [History] Topiramate [Topamax] 25 mg PO DAILY 12/10/23 [History] Aspirin 81 mg PO DAILY #30 tab 12/12/23 [Rx] Butalb/APAP/Caff 50-325-40Mg [Fioricet 50-325-40] 1 each PO Q4HR PRN #60 tab 12/12/23 [Rx] Follow up Appointment(s)/Referral(s): Sav Troy DO [STAFF PHYSICIAN] - 12/20/23 2:30 pm Jaida Castillo MD [Medical Doctor] - 1 Week (neurologist) None,Stated [Primary Care Provider] - 1-2 days Patient Instructions/Handouts: Chest Pain (DC), Paresthesia (ED) Activity/Diet/Wound Care/Special Instructions: Heart healthy diet Activity is restricted till you see your doctor we rcommend to obtain echocardiogram as an outpatient with Dr. Troy in 1 week if it was not done before Discharge Disposition: HOME SELF-CARE
--- NOTE | 2023-12-13 10:28 | P.PN ---
Subjective Progress Note Date: 12/12/23 Patient states she feels slightly funny, lightheaded. Also complains of burning pain, with pulling sensation left medial upper arm. She has chronic left hip issue. Patient states Fioricet helped with her headache. Objective - Vital Signs Vital signs: Vital Signs Temp 98.1 F 12/12/23 07:00 Pulse 60 12/12/23 07:00 Resp 15 12/12/23 07:00 BP 110/71 12/12/23 07:00 Pulse Ox 100 12/12/23 07:00 FiO2 Intake & Output 12/11/23 12/12/23 12/12/23 18:59 06:59 18:59 Other: # Voids 1 1 # Bowel Movements 1 - Exam Mentation completely normal. She appears slightly anxious. Strength is normal. No ataxia. Examination nonfocal. - Labs CBC & Chem 7: 12/11/23 03:00 12/11/23 03:00 Labs: Abnormal Lab Results - Last 24 Hours (Table) 12/12/23 Range/Units 06:42 Triglycerides 162.00 H (0.00-149.00) mg/dL HDL Cholesterol 39.30 L (40.00-60.00) mg/dL Assessment and Plan Assessment: * Possible TIA, manifesting with transient slurred speech x 2, each time lasting for about a minute. Left arm pain, uncertain if any relation to slurred speech, although could be related to her history of cervical radiculopathy. Her MRI of the cervical spine performed 10/18/2023 revealed subligamentous disc herniation with extension with moderate anterior thecal sac compression C6-7. * Migraine headaches * Chronic chest pain * Chronic thoracic pain * Hyperlipidemia * Anxiety disorder * Ex tobacco use Plan: * Patient will be worked up for TIA. MRI of the brain without contrast is normal. No acute process. No ac nez perce/subacute stroke, or any mass. I personally reviewed MRI agree with the findings. Await 2-D echo with bubble study to rule out PFO. Patient had a routine 2D echo performed 07/17/2023 which revealed normal left ventricular size, wall thickness, systolic function with no obvious regional wall motion abnormalities. Left atrial size was normal. Bubble study was not done. Carotid Doppler, revealed no significant stenosis. Antegrade flow in both vertebral arteries. Fasting a.m. lipid panel with cholesterol 175, LDL 103, HDL 39, triglycerides 162. Agree with starting Lipitor 40 mg daily. Hemoglobin A1c 5.9. Optimize control of blood pressure Start and continue aspirin 81 mg daily. Patient currently on Topamax 25 mg daily. This medication sometimes can produce speech difficulty and paresthesias. However she has been on this very low-dose for last almost a month therefore unlikely. Patient is having migraine headache. We will give Fioricet as needed. Patient's symptoms in the left arm could be related to her cervical radiculopathy. If the symptoms persist, recommended patient to follow-up with Dr. Pablo. Telemetry monitoring rule out any arrhythmia DVT prophylaxis: Heparin 5000 units subcu every 12 hours Neurologically clear, if the 2D echo comes back normal. Discussed with patient's nurse and primary team. Addendum: 2D echo revealed normal left ventricular size, with EF 55 to 60% negative bubble study.
== END 2023-12-12 17:25 | disposition home or self-care (01) ==
LOC: EC 12:00 → 6NMEDSUR 19:22
PROVIDERS: ADMIT Hospitalist; ATTEND Hospitalist
DX: R07.89 Other chest pain (principal); R20.0 Anesthesia of skin; R47.1 Dysarthria and anarthria; M79.602 Pain in left arm; R42 Dizziness and giddiness; R53.1 Weakness; K21.9 Gastro-esophageal reflux disease without esophagitis; E78.5 Hyperlipidemia, unspecified; M54.6 Pain in thoracic spine; G89.29 Other chronic pain; F31.9 Bipolar disorder, unspecified; F41.0 Panic disorder [episodic paroxysmal anxiety]; G43.909 Migraine, unspecified, not intractable, without status migrainosus; M41.9 Scoliosis, unspecified; K59.00 Constipation, unspecified; Z85.828 Personal history of other malignant neoplasm of skin; Z87.891 Personal history of nicotine dependence; Z79.899 Other long term (current) drug therapy; Z79.82 Long term (current) use of aspirin; Z88.2 Allergy status to sulfonamides; Z82.49 Family history of ischemic heart disease and other diseases of the circulatory system
CPT/HCPCS: 99285; 36415; 93005; 93308; 80061; 80053; 80048; 83735; 84484 ×2; 85025 ×2; 85610; 85730; 83036; 71046; 93880; 70450; 71275; 70551; G0378 ×3; Q9967

== ENCOUNTER 2024-02-24 22:26 | Emergency (ER) | payer MEDICAID ==
[2024-02-25 00:04] VITALS: BP 144/89; PULSE 58; RESP 22; TEMP 98
--- NOTE | 2024-02-25 00:14 | ED ---
Abdominal Pain HPI - General Chief Complaint: Abdominal Pain Stated Complaint: abd pain back pain Time Seen by Provider: 02/25/24 00:13 Source: patient Mode of arrival: EMS Limitations: no limitations - History of Present Illness Initial Comments: 44-year-old female presenting with chief complaint of left-sided abdominal pain. She has been experiencing constipation. Last bowel movement was 3 days ago. States that her pain is now radiating into her back. Denies nausea or vomiting. No chest pain or difficulty breathing. No dysuria, hematuria, urgency, frequency. No fevers or chills. She sees Dr. Slade GI - Related Data Home Medications Medication Instructions Recorded Confirmed Atorvastatin [Lipitor] 40 mg PO DAILY 10/31/22 12/10/23 Cholecalciferol [Vitamin D3 (25 25 mcg PO DAILY 10/31/22 12/10/23 Mcg = 1000 Iu)] Metoprolol Succinate (ER) [Toprol 25 mg PO DAILY 10/31/22 12/10/23 XL] busPIRone HCl [Buspar] 10 mg PO BID 12/05/22 12/10/23 L.acidoph,Paracasei, B.lactis 1 cap PO DAILY 12/19/22 12/10/23 [Probiotic] methocarbamoL [Robaxin-750] 750 mg PO Q4HR PRN 10/31/23 12/10/23 Pantoprazole [Protonix] 40 mg PO DAILY 12/10/23 12/10/23 Topiramate [Topamax] 25 mg PO DAILY 12/10/23 12/10/23 Previous Rx's Medication Instructions Recorded Aspirin 81 mg PO DAILY #30 tab 12/12/23 Butalb/APAP/Caff 50-325-40Mg 1 each PO Q4HR PRN #60 tab 12/12/23 [Fioricet 50-325-40] Allergies Allergy/AdvReac Type Severity Reaction Status Date / Time sulfamethoxazole Allergy Itching Verified 02/24/24 23:34 [From Bactrim] trimethoprim [From Bactrim] Allergy Itching Verified 02/24/24 23:34 Review of Systems ROS Statement: Those systems with pertinent positive or pertinent negative responses have been documented in the HPI. ROS Other: All systems not noted in ROS Statement are negative. Past Medical History Past Medical History: Cancer, Chest Pain / Angina, GERD/Reflux, Hyperlipidemia, Musculoskeletal Disorder Additional Past Medical History / Comment(s): Chronic back pain, scoliosis, DDD, CONSTIPATION, recent rectal bleeding, headaches, IRREGULAR HEAVY MENSES @times, recent card. cath. due to chest pain, no blockages, takes metoprolol for, skin cancer face-had removed, daily heartburn/GERD, current kidney stone, chest pains @ times- Takes Metoprolol. History of Any Multi-Drug Resistant Organisms: None Reported Past Surgical History: Appendectomy, Cholecystectomy, Heart Catheterization, Orthopedic Surgery Additional Past Surgical History / Comment(s): D & C, left foot surgery for bun ion, fatty tumor removed from back when pt was 8 yrs old. COLONOSCOPY, recent cardiac cath - 2021 Past Anesthesia/Blood Transfusion Reactions: No Reported Reaction Additional Past Anesthesia/Blood Transfusion Reaction / Comment(s): no hx blood transfusion, woke up during last colonoscopy Past Psychological History: Anxiety, Bipolar, Depression, Panic Disorder Smoking Status: Former smoker Past Alcohol Use History: None Reported Past Drug Use History: None Reported - Past Family History Father History Unknown: Yes Family Medical History: Myocardial Infarction ([place]) Additional Family Medical History / Comment(s): at age 42 from [place] Mother History Unknown: Yes Family Medical History: AFIB, Hypertension, Renal Disease Additional Family Medical History / Comment(s): had rt kidney removed r/t not functioning General Exam - General Exam Comments Initial Comments: Visual Physical Exam Vital signs reviewed General: Well-appearing, nontoxic, no acute distress. Head: Normocephalic, atraumatic Eyes: PERRLA, EOMI ENT: Airway patent Chest: Nonlabored breathing Skin: No visual rash, normal skin tone Neuro: Alert and oriented 3 Musculoskeletal: No gross abnormalities Limitations: no limitations General appearance: alert, in no apparent distress Head exam: Present: atraumatic, normocephalic Eye exam: Present: normal appearance, EOMI Neck exam: Present: normal inspection. Absent: meningismus Respiratory exam: Present: normal lung sounds bilaterally. Absent: respiratory distress, wheezes, rales, rhonchi, stridor Cardiovascular Exam: Present: regular rate, normal rhythm, normal heart sounds. Absent: systolic murmur, diastolic murmur, rubs, gallop, clicks GI/Abdominal exam: Present: soft, tenderness (Left upper quadrant tenderness). Absent: distended, guarding, rebound, rigid Neurological exam: Present: alert, oriented X3 Psychiatric exam: Present: normal affect, normal mood Skin exam: Present: warm, dry Course Vital Signs 02/24/24 23:29 Temperature 98.0 F Pulse Rate 58 L Respiratory 22 Rate Blood Pressure 144/89 O2 Sat by Pulse 100 Oximetry Medical Decision Making - Medical Decision Making I performed the quick note portion of this visit, electronically signed Jess Talamantes PA-C Was pt. sent in by a medical professional or institution ([facility], [facility], urgent care, hospital, or fdc...) When possible be specific @ -No Did you speak to anyone other than the patient for history (EMS, parent, family, police, friend...)? What history was obtained from this source @ -No Did you review nursing and triage notes (agree or disagree)? Why? @ -I reviewed and agree with nursing and triage notes Were old charts reviewed (outside hosp., previous admission, EMS record, old EKG, old radiological studies, urgent care reports/EKG's, fdc records)? Report findings @ -No old charts were reviewed Differential Diagnosis (chest pain, altered mental status, abdominal pain women, abdominal pain men, vaginal bleeding, weakness, fever, dyspnea, syncope, headache, dizziness, GI bleed, back pain, seizure, CVA, palpatations, mental health, musculoskeletal)? @ -MDM Differential Abdominal Pain Women: Appendicitis, Cholecystitis, diverticulosis, ischemic bowel, pancreatitis, hepatitis, UTI, gastroenteritis, AAA, incarcerated hernia, bowel obstruction, constipation, inflammatory bowel, hepatitis, peptic ulcer disease, splenic infarction, perforated viscus, vulvitis, ovarian torsion, PID, kidney stone, placenta abruption... This is not meant to be an all-inclusive list EKG interpreted by me (3pts min.). @ -As above X-rays interpreted by me (1pt min.). @ -KUB shows overall nonobstructive bowel gas pattern CT interpreted by me (1pt min.). @ -None done U/S interpreted by me (1pt. min.). @ -None done What testing was considered but not performed or refused? (CT, X-rays, U/S, labs)? Why? @ -Patient refused UA. Opted for lab studies and signed out AMA prior to results What meds were considered but not given or refused? Why? @ -None Did you discuss the management of the patient with other professionals (professionals i.e. , PA, [facility], lab, RT, psych nurse, executive secretary social welfare, sewing line baler, teacher, contact officer, home health care case manager)? Give summary @ -No Was smoking cessation discussed for >3mins.? @ -No Was critical care preformed (if so, how long)? @ -No Were there social determinants of health that impacted care today? How? (Homelessness, low income, unemployed, alcoholism, drug addiction, transportation, low edu. Level, literacy, decrease access to med. care, nursing home, rehab)? @ -No Was there de-escalation of care discussed even if they declined (Discuss DNR or withdrawal of care, Hospice)? DNR status @ -No What co-morbidities impacted this encounter? (DM, HTN, Smoking, COPD, CAD, Cancer, CVA, ARF, Chemo, Hep., AIDS, mental health diagnosis, sleep apnea, morbid obesity)? @ -None Was patient admitted / discharged? Hospital course, mention meds given and route, prescriptions, significant lab abnormalities, going to OR and other pertinent info. @ -44-year-old female presenting with chief complaint of left upper quadrant pain. Patient has been experiencing constipation and believes this is related. KUB shows nonspecific bowel gas pattern. Patient is refusing UA. Patient elects to have lab studies performed, patient then left AMA prior to results. Undiagnosed new problem with uncertain prognosis? @ -No Drug Therapy requiring intensive monitoring for toxicity (Heparin, Nitro, Insulin, Cardizem)? @ -No Were any procedures done? @ -No Diagnosis/symptom? @ -Abdominal pain Acute, or Chronic, or Acute on Chronic? @ -Acute Uncomplicated (without systemic symptoms) or Complicated (systemic symptoms)? @ -Uncomplicated Side effects of treatment? @ -No Exacerbation, Progression, or Severe Exacerbation? @ -No Poses a threat to life or bodily function? How? (Chest pain, [place], [place], pneumonia, PE, COPD, DKA, ARF, appy, cholecystitis, CVA, Diverticulitis, Homicidal, Suicidal, threat to staff... and all critical care pts) @ -Undetermined, patient signed out AMA - Lab Data Result diagrams: 02/25/24 01:53 02/25/24 01:53 Lab Results 02/25/24 02/25/24 Range/Units 01:53 01:53 WBC 8.1 (3.8-10.6) k/uL RBC 4.15 (3.80-5.40) m/uL Hgb 12.7 (11.4-16.0) gm/dL Hct 36.9 (34.0-46.0) % MCV 88.9 (80.0-100.0) fL MCH 30.7 (25.0-35.0) pg MCHC 34.5 (31.0-37.0) g/dL RDW 12.9 (11.5-15.5) % Plt Count 296 (150-450) k/uL MPV 9.4 Neutrophils % 44 % Lymphocytes % 48 % Monocytes % 4 % Eosinophils % 1 % Basophils % 0 % Neutrophils # 3.6 (1.3-7.7) k/uL Lymphocytes # 3.8 (1.0-4.8) k/uL Monocytes # 0.3 (0-1.0) k/uL Eosinophils # 0.1 (0-0.7) k/uL Basophils # 0.0 (0-0.2) k/uL Sodium 137 (137-145) mmol/L Potassium 3.6 (3.5-5.1) mmol/L Chloride 107 (98-107) mmol/L Carbon Dioxide 23 (22-30) mmol/L Anion Gap 7 mmol/L BUN 14 (7-17) mg/dL Creatinine 0.65 (0.52-1.04) mg/dL Est GFR (CKD-EPI)AfAm >90 (>60 ml/min/1.73 sqM) Est GFR (CKD-EPI)NonAf >90 (>60 ml/min/1.73 sqM) Glucose 117 H (74-99) mg/dL Calcium 9.0 (8.4-10.2) mg/dL Total Bilirubin 0.3 (0.2-1.3) mg/dL AST 22 (14-36) U/L ALT 15 (4-34) U/L Alkaline Phosphatase 54 (38-126) U/L Total Protein 6.6 (6.3-8.2) g/dL Albumin 3.9 (3.5-5.0) g/dL Lipase 99 (23-300) U/L Disposition Clinical Impression: Abdominal pain Disposition: LEFT AGAINST MEDICAL ADVICE Condition: Undetermined Instructions (If sedation given, give patient instructions): Abdominal Pain (ED) Additional Instructions: Follow-up with PCP. Report back to ER with any new or worsening symptoms. Is patient prescribed a controlled substance at d/c from ED?: No Referrals: None,Stated [Primary Care Provider] - 1-2 days Time of Disposition: 02:06
--- NOTE | 2024-02-25 01:06 | XR ---
EXAMINATION TYPE: XR KUB DATE OF EXAM: 02/25/2024 12:58 AM CLINICAL HISTORY: Constipation TECHNIQUE: Two Upright KUB images of the abdomen are obtained. COMPARISON: CT abdomen and pelvis November 23, 2023. FINDINGS: Scattered gas is seen in non-distended stomach and small bowel loops. Gas and fecal materia l is seen in non-distended colon. Surgical sutures in the right lower quadrant are redemonstrated. Christen ng bases are clear. No free air is seen. S-shaped scoliosis is redemonstrated IMPRESSION: Overall nonobstructive bowel gas pattern again seen.
[2024-02-25 02:16] LABS: Basophils % (A) 0 %; Eosinophils # (A) 0.1 k/uL (0-0.7); Eosinophils % (A) 1 %; HCT 36.9 % (34.0-46.0); HGB 12.7 gm/dL (11.4-16.0); Lymphocytes # (A) 3.8 k/uL (1.0-4.8); Lymphocytes % (A) 48 %; MCH 30.7 pg (25.0-35.0); MCHC 34.5 g/dL (31.0-37.0); MCV 88.9 fL (80.0-100.0); Mean Platelet Volume 9.4; Monocytes # (A) 0.3 k/uL (0-1.0); Monocytes % (A) 4 %; Neutrophils # (A) 3.6 k/uL (1.3-7.7); Neutrophils % (A) 44 %; Platelet Count 296 k/uL (150-450); RBC 4.15 m/uL (3.80-5.40); RDW 12.9 % (11.5-15.5); WBC 8.1 k/uL (3.8-10.6)
[2024-02-25 02:48] LABS: ALT 15 U/L (4-34); AST 22 U/L (14-36); African American GFR (CKD) >90 (>60 ml/min/1.73 sqM); Albumin 3.9 g/dL (3.5-5.0); Alkaline Phosphatase 54 U/L (38-126); Anion Gap 7 mmol/L; Blood Urea Nitrogen 14 mg/dL (7-17); Carbon Dioxide 23 mmol/L (22-30); Chloride 107 mmol/L (98-107); Glucose 117 mg/dL (74-99); Lipase 99 U/L (23-300); Non-African American GFR(CKD) >90 (>60 ml/min/1.73 sqM); Potassium 3.6 mmol/L (3.5-5.1); Sodium 137 mmol/L (137-145); Total Bilirubin 0.3 mg/dL (0.2-1.3); Total Protein 6.6 g/dL (6.3-8.2)
== END 2024-02-25 02:06 | disposition left against medical advice (07) ==
LOC: EC 22:26
DX: K59.00 Constipation, unspecified (principal); Z87.891 Personal history of nicotine dependence; Z88.2 Allergy status to sulfonamides; Z88.8 Allergy status to other drugs, medicaments and biological substances; Z53.29 Procedure and treatment not carried out because of patient's decision for other reasons
CPT/HCPCS: 36415; 74018; 80053; 83690; 85025; 99284

== ENCOUNTER → 2024-07-01 | Day surgery (SDC) | payer MEDICAID ==
[~2024-07-01] MED LIST changes: +ROPIVACAINE 5MG/ML 20ML VIAL ONE; +methylPREDNISolone ACETATE 40 MG/ML 1 ML VIAL ONE
[2024-07-01 13:13] VITALS: TEMP 97.9
--- NOTE | 2024-07-01 13:50 | P.PCN ---
Date of Procedure: 07/01/24 Procedure(s) Performed: Procedure= trigger point injections of side cervical and thoracic paraspinal muscles from C2 to T11, total of 7 point injected Preoperative diagnosis= 1-myofascial pain syndrome Thoracic and cervical paraspinal muscles Postoperative diagnosis=Same as preop Diagnosis . Complication = none Condition= stable Anesthesia= none Indication for the procedure= patient complaining of severe and chronic neck pain and upper back pain back pain , examination was positive for multiple t wire rigger point in the left side cervical and thoracic paraspinal muscles bilaterally and patient diagnosed with myofascial pain syndrome and is here to have trigger point injections Description of the procedure= procedure risk and benefits discussed with the patient, including but not limited, risk of infection and bleeding, and ALLERGIC reaction to the medication and not complete pain relief and patient agreed with the preceding patient taken to the operating room, placed in sitting position or standard monitors applied to the patient then after induction of anesthesia back prepped with chlorhexidine 3 times , then under sterile technique each of the trigger point that was marked in the preop holding area: Trigger point identified on the left side cervical and thoracic paraspinal muscles from C2 to T11 each one of them injected with the 2 mL of the mixture of ropivacaine 0.5% 14 ML mixed with 40 mg of Depo-Medrol and 2 mL of the mixture injected at each trigger point after negative aspiration, using 25-gauge needle, injection done after negative aspiration under was no paresthesia during the injection patient tolerated the procedure well without any complications and he will follow up in the pain clinic in a few weeks
[2024-07-01 13:54] VITALS: BP 151/86; PULSE 71; RESP 16
== END ==
LOC: ORPAIN 12:15
PROVIDERS: ATTEND Specialist
DX: M79.18 Myalgia, other site (principal)
CPT/HCPCS: 20553; 81025

== ENCOUNTER 2024-09-01 16:41 | Emergency (ER) | payer MEDICAID ==
[2024-09-01 17:02] VITALS: RESP 18; TEMP 98.3
[2024-09-01] MEDS: SODIUM CHLORIDE 0.9% 1,000 ML IV STA (17:53)
[2024-09-01 17:58] LABS: Basophils # (A) 0.1 k/uL (0-0.2); Basophils % (A) 1 %; Eosinophils # (A) 0.2 k/uL (0-0.7); Eosinophils % (A) 2 %; HGB 13.8 gm/dL (11.4-16.0); Lymphocytes # (A) 3.7 k/uL (1.0-4.8); Lymphocytes % (A) 48 %; MCH 30.5 pg (25.0-35.0); MCHC 33.7 g/dL (31.0-37.0); MCV 90.4 fL (80.0-100.0); Mean Platelet Volume 8.4; Monocytes # (A) 0.3 k/uL (0-1.0); Monocytes % (A) 4 %; Neutrophils # (A) 3.2 k/uL (1.3-7.7); Neutrophils % (A) 42 %; Platelet Count 354 k/uL (150-450); RBC 4.53 m/uL (3.80-5.40); RDW 12.6 % (11.5-15.5); WBC 7.6 k/uL (3.8-10.6)
[2024-09-01 18:02] LABS: Amorphous Sediment,Urine Rare /hpf; Appearance,Urine Cloudy (Clear); Bacteria,Urine Rare /hpf; Bilirubin,Urine Negative (Negative); Blood,Urine Negative (Negative); Color,Urine Colorless; Glucose,Urine (UA) Negative (Negative); Hyaline Casts,Urine 1 /lpf (0-2); Ketones,Urine Negative (Negative); Leukocyte Esterase,Urine Trace (Negative); Mucus,Urine Rare /hpf; Nitrite,Urine Negative (Negative); PH, Urine 7.5 (5.0-8.0); Protein,Urine Negative (Negative); RBC,Urine 1 /hpf (0-5); Squamous Epithelial Cell,Urine 7 /hpf (0-4); Urobilinogen,Urine <2.0 mg/dL (<2.0); WBC,Urine 6 /hpf (0-5)
[2024-09-01 18:09] LABS: ALT 20 U/L (4-34); AST 28 U/L (14-36); African American GFR (CKD) >90 (>60 ml/min/1.73 sqM); Albumin 4.6 g/dL (3.5-5.0); Alkaline Phosphatase 66 U/L (38-126); Amylase 51 U/L (30-110); Anion Gap 8 mmol/L; Blood Urea Nitrogen 15 mg/dL (7-17); Calcium 9.5 mg/dL (8.4-10.2); Carbon Dioxide 26 mmol/L (22-30); Chloride 104 mmol/L (98-107); Glucose 86 mg/dL (74-99); Lipase 200 U/L (23-300); Non-African American GFR(CKD) >90 (>60 ml/min/1.73 sqM); Sodium 138 mmol/L (137-145); Total Bilirubin 0.3 mg/dL (0.2-1.3); Total Protein 7.5 g/dL (6.3-8.2)
[2024-09-01 18:10] LABS: INR 0.9 (<1.2); Partial Thromboplastin Time 27.2 sec (22.0-30.0)
--- NOTE | 2024-09-01 18:45 | CT ---
EXAMINATION TYPE: CT chest abdomen w con DATE OF EXAM: 09/01/2024 6:37 PM COMPARISON: Previous CT studies, most recent dated 12/10/2023. CLINICAL INDICATION: Female, 44 years old with history of upper abdominal pain; PHH, Dizziness after nosebleeds x 1 week Technique: CT chest abdomen w con; Multiple axial images were obtained. Two-dimensional coronal and s agittal reconstructions were obtained. Contrast used:100 mL of Isovue 300 with IV Contrast, (None if empty) Oral contrast used: without Oral Contrast CT DLP: 985.5 mGycm, Automated exposure control for dose reduction was used. Findings: CHEST: LUNGS/ PLEURA: No focal consolidation, pneumothorax or pleural effusion. AIRWAY: Patent and unremarkable. HEART: Size within normal limits. MEDIASTINUM: No gross evidence of adenopathy. VASCULATURE: No aortic aneurysm. MUSCULOSKELETAL: No acute osseous abnormalities. SOFT TISSUES/LYMPH NODES: Unremarkable. LOWER NECK: No significant findings. ABDOMEN: ABDOMEN LIVER: Unremarkable GALLBLADDER AND BILE DUCTS: The gallbladder is surgically absent. PANCREAS: Unremarkable. SPLEEN: Unremarkable. ADRENAL GLANDS: Nonobstructing small calculi in the mid/superior right kidney. Kidneys otherwise enha nce medically. No hydronephrosis. No suspicious enhancing renal mass. KIDNEYS AND URETERS: No evidence of hydronephrosis or renal calculus. The ureters are unremarkable. Bowel: Visualized portions of the gastric intestinal tract and no evidence of obstruction. Likely pre vious appendectomy. IMPRESSION: No acute abnormality in the chest/abdomen or CT findings to explain reported symptoms. [facility], , 09/01/2024 6:43 PM
--- NOTE | 2024-09-01 19:31 | ED ---
ENT HPI - General Chief complaint: ENT Stated complaint: Nose bleeds, dizziness Time Seen by Provider: 09/01/24 17:06 Source: patient Mode of arrival: ambulatory Limitations: no limitations - History of Present Illness Initial comments: 44-year-old female presenting with chief complaint of intermittent epistaxis. This has been ongoing for about 1 week. States that it is particularly from the right nostril. It will come on randomly. No blood thinners. States that she is also been getting dizzy spells as well as pain underneath her ribs and a headache. Patient has had pain under the ribs for a month. She recently saw her PCP Dr. Ivory about this, she has orders for lab work and CT of the chest and abdomen scheduled for Sunday. No chest pain or difficulty breathing. No vomiting. No recent injury. No vision or hearing changes. No numbness, tingling, weakness. No fevers. - Related Data Home Medications Medication Instructions Recorded Confirmed Atorvastatin [Lipitor] 40 mg PO DAILY 10/31/22 07/01/24 Cholecalciferol [Vitamin D3 (25 25 mcg PO DAILY 10/31/22 07/01/24 Mcg = 1000 Iu)] Metoprolol Succinate (ER) [Toprol 25 mg PO DAILY 10/31/22 07/01/24 XL] busPIRone HCl [Buspar] 10 mg PO BID 12/05/22 07/01/24 L.acidoph,Paracasei, B.lactis 1 cap PO DAILY 12/19/22 07/01/24 [Probiotic] Pantoprazole [Protonix] 40 mg PO DAILY 12/10/23 07/01/24 Topiramate [Topamax] 25 mg PO DAILY 12/10/23 07/01/24 Previous Rx's Medication Instructions Recorded Aspirin 81 mg PO DAILY #30 tab 12/12/23 Butalb/APAP/Caff 50-325-40Mg 1 each PO Q4HR PRN #60 tab 12/12/23 [Fioricet 50-325-40] methocarbamoL [Robaxin-750] 750 mg PO BID PRN 30 Days #60 tab 06/16/24 methylPREDNISolone Dose Pack 4 mg PO DIRECTED 6 Days #21 tab 06/16/24 [Medrol Dose Pack] Allergies Allergy/AdvReac Type Severity Reaction Status Date / Time sulfamethoxazole Allergy Itching Verified 09/01/24 17:02 [From Bactrim] trimethoprim [From Bactrim] Allergy Itching Verified 09/01/24 17:02 Review of Systems ROS Statement: Those systems with pertinent positive or pertinent negative responses have been documented in the HPI. ROS Other: All systems not noted in ROS Statement are negative. Past Medical History Past Medical History: Cancer, Chest Pain / Angina, GERD/Reflux, Hyperlipidemia, Musculoskeletal Disorder Additional Past Medical History / Comment(s): Chronic back pain, scoliosis, DDD, CONSTIPATION, recent rectal bleeding, headaches, IRREGULAR HEAVY MENSES @times, recent card. cath. due to chest pain, no blockages, takes metoprolol for, skin cancer face-had removed, daily heartburn/GERD, current kidney stone, chest pains @ times- Takes Metoprolol. History of Any Multi-Drug Resistant Organisms: None Reported Past Surgical History: Appendectomy, Cholecystectomy, Heart Catheterization, Orthopedic Surgery Additional Past Surgical History / Comment(s): D & C, left foot surgery for bunion, fatty tumor removed from back when pt was 8 yrs old. COLONOSCOPY, recent cardiac cath - 2021 Past Anesthesia/Blood Transfusion Reactions: No Reported Reaction Additional Past Anesthesia/Blood Transfusion Reaction / Comment(s): no hx blood transfusion, woke up during last colonoscopy Past Psychological History: Anxiety, Bipolar, Depression, Panic Disorder Smoking Status: Former smoker Past Alcohol Use History: Occasional Past Drug Use History: None Reported - Past Family History Father History Unknown: Yes Family Medical History: Myocardial Infarction ([place]) Additional Family Medical History / Comment(s): at age 42 from [place] Mother History Unknown: Yes Family Medical History: AFIB, Hypertension, Renal Disease Additional Family Medical History / Comment(s): had rt kidney removed r/t not functioning General Exam Limitations: no limitations General appearance: alert, in no apparent distress Head exam: Present: atraumatic, normocephalic, normal inspection Eye exam: Present: normal appearance, PERRL, EOMI Pupils: Present: normal accommodation ENT exam: Present: normal exam, mucous membranes moist, other (No evidence of bleeding from either nostril) Neck exam: Present: normal inspection. Absent: meningismus Respiratory exam: Present: normal lung sounds bilaterally. Absent: respiratory distress, wheezes, rales, rhonchi, stridor Cardiovascular Exam: Present: regular rate, normal rhythm, normal heart sounds. Absent: systolic murmur, diastolic murmur, rubs, gallop, clicks GI/Abdominal exam: Present: soft, tenderness (Upper abdomen). Absent: distended, guarding, rebound, rigid Extremities exam: Present: normal inspection, full ROM Neurological exam: Present: alert, oriented X3 Expanded Patient oriented to: Present: person, place, time Speech: Present: fluid speech Cranial nerves: EOM's Intact: Normal Eye Response: (4) open spontaneously Motor Response: (6) obeys commands Verbal Response: (5) oriented [place] Total: 15 Psychiatric exam: Present: normal affect, normal mood Skin exam: Present: warm, dry Course Vital Signs 09/01/24 09/01/24 09/01/24 16:58 19:02 19:41 Temperature 98.3 F Pulse Rate 61 74 87 Respiratory 18 18 18 Rate Blood Pressure 158/97 127/77 140/90 O2 Sat by Pulse 99 98 98 Oximetry Medical Decision Making - Medical Decision Making Was pt. sent in by a medical professional or institution (Dr. PA, VICE PRESIDENT PLANNING, urgent care, hospital, or fdc...) When possible be specific @ -No Did you speak to anyone other than the patient for history (EMS, parent, family, police, friend...)? What history was obtained from this source @ -No Did you review nursing and triage notes (agree or disagree)? Why? @ -I reviewed and agree with nursing and triage notes Were old charts reviewed (outside hosp., previous admission, EMS record, old EKG, old radiological studies, urgent care reports/EKG's, fdc records)? Report findings @ -No old charts were reviewed Differential Diagnosis (chest pain, altered mental status, abdominal pain women, abdominal pain men, vaginal bleeding, weakness, fever, dyspnea, syncope, headache, dizziness, GI bleed, back pain, seizure, CVA, palpatations, mental health, musculoskeletal)? @ -MDM Differential Abdominal Pain Women: Appendicitis, Cholecystitis, diverticulosis, ischemic bowel, pancreatitis, hepatitis, UTI, gastroenteritis, AAA, incarcerated hernia, bowel obstruction, constipation, inflammatory bowel, hepatitis, peptic ulcer disease, splenic infarction, perforated viscus, vulvitis, ovarian torsion, PID, kidney stone, placenta abruption... This is not meant to be an all-inclusive list EKG interpreted by me (3pts min.). @ -Sinus bradycardia ventricular rate 54. ID interval 169. QRS 105. QT 438. QTc 425. X-rays interpreted by me (1pt min.). @ -None done CT interpreted by me (1pt min.). @ -CT shows no acute abnormality in the chest/abdomen or CT findings to explain her reported symptoms U/S interpreted by me (1pt. min.). @ -None done What testing was considered but not performed or refused? (CT, X-rays, U/S, labs)? Why? @ -Considered CT of the brain, patient refused, she had an MRI back in December and she does not believe that this is due to anything involving the brain What meds were considered but not given or refused? Why? @ -None Did you discuss the management of the patient with other professionals (professionals i.e. , PA, VICE PRESIDENT PLANNING, lab, RT, psych nurse, licensed social worker, cam maker, t eacher, president and chief operating officer, casework manager)? Give summary @ -No Was smoking cessation discussed for >3mins.? @ -No Was critical care preformed (if so, how long)? @ -No Were there social determinants of health that impacted care today? How? (Homelessness, low income, unemployed, alcoholism, drug addiction, transportation, low edu. Level, literacy, decrease access to med. care, intermediate, rehab)? @ -No Was there de-escalation of care discussed even if they declined (Discuss DNR or withdrawal of care, Hospice)? DNR status @ -No What co-morbidities impacted this encounter? (DM, HTN, Smoking, COPD, CAD, Cancer, CVA, ARF, Chemo, Hep., AIDS, mental health diagnosis, sleep apnea, morbid obesity)? @ -None Was patient admitted / discharged? Hospital course, mention meds given and route, prescriptions, significant lab abnormalities, going to OR and other pertinent info. @ -44-year-old female presenting with chief complaint of recurrent nosebleeds. Patient is also complaining of pain under the ribs headaches and dizzy spells with these nosebleeds. History and physical examination are conducted. No active bleeding at this time. Patient has an appointment on Sunday for lab work and CT of the chest and abdomen ordered by her PCP. Labs and CT are ordered here today. Labs are grossly unremarkable. CT of the abdomen and chest with contrast shows no acute process to account for the patient's symptoms. On reassessment the patient expresses frustration. I spoke with the patient and suggested performing a CT of the brain due to her headache and nosebleeds. Patient refuses stating that she had an MRI back in December and she does not believe that that is the cause of her symptoms. She is of sound mind and body and able to make her own decisions. Patient is upset that she seems to have recurrent symptoms such as her rib pain and does not have a firm answer as to what is the cause of the pain. Given that the patient has had recurrent nosebleeds I suggested she follow-up with ENT. Also recommend that she follow- up with her PCP for any further testing. Discharged. Follow-up with PCP. Report back to ER with any new or worsening symptoms. Discussed return parameters and answered all questions. Patient conveyed verbal understanding and agreed to the plan. I discussed this case in detail with my attending Dr. Aragon Undiagnosed new problem with uncertain prognosis? @ -No Drug Therapy requiring intensive monitoring for toxicity (Heparin, Nitro, Insulin, Cardizem)? @ -No Were any procedures done? @ -No Diagnosis/symptom? @ -Epistaxis, abdominal pain Acute, or Chronic, or Acute on Chronic? @ -Acute Uncomplicated (without systemic symptoms) or Complicated (systemic symptoms)? @ -Uncomplicated Side effects of treatment? @ -No Exacerbation, Progression, or Severe Exacerbation? @ -No - Lab Data Result diagrams: 09/01/24 17:51 09/01/24 17:51 Lab Results 09/01/24 09/01/24 09/01/24 Range/Units 17:51 17:51 17:51 WBC 7.6 (3.8-10.6) k/uL RBC 4.53 (3.80-5.40) m/uL Hgb 13.8 (11.4-16.0) gm/dL Hct 41.0 (34.0-46.0) % MCV 90.4 (80.0-100.0) fL MCH 30.5 (25.0-35.0) pg MCHC 33.7 (31.0-37.0) g/dL RDW 12.6 (11.5-15.5) % Plt Count 354 (150-450) k/uL MPV 8.4 Neutrophils % 42 % Lymphocytes % 48 % Monocytes % 4 % Eosinophils % 2 % Basophils % 1 % Neutrophils # 3.2 (1.3-7.7) k/uL Lymphocytes # 3.7 (1.0-4.8) k/uL Monocytes # 0.3 (0-1.0) k/uL Eosinophils # 0.2 (0-0.7) k/uL Basophils # 0.1 (0-0.2) k/uL PT 10.0 (10.0-12.5) sec INR 0.9 (<1.2) APTT 27.2 (22.0-30.0) sec Sodium (137-145) mmol/L Potassium (3.5-5.1) mmol/L Chloride (98-107) mmol/L Carbon Dioxide (22-30) mmol/L Anion Gap mmol/L BUN (7-17) mg/dL Creatinine (0.52-1.04) mg/dL Est GFR (CKD-EPI)AfAm (>60 ml/min/1.73 sqM) Est GFR (CKD-EPI)NonAf (>60 ml/min/1.73 sqM) Glucose (74-99) mg/dL Plasma Lactic Acid Reg (0.7-2.0) mmol/L Calcium (8.4-10.2) mg/dL Total Bilirubin (0.2-1.3) mg/dL AST (14-36) U/L ALT (4-34) U/L Alkaline Phosphatase (38-126) U/L Troponin I (0.000-0.034) ng/mL Total Protein (6.3-8.2) g/dL Albumin (3.5-5.0) g/dL Amylase (30-110) U/L Lipase (23-300) U/L Urine Color Colorless Urine Appearance Cloudy H (Clear) Urine pH 7.5 (5.0-8.0) Ur Specific [place] 1.010 (1.001-1.035) Urine Protein Negative (Negative) Urine Glucose (UA) Negative (Negative) Urine Ketones Negative (Negative) Urine Blood Negative (Negative) Urine Nitrite Negative (Negative) Urine Bilirubin Negative (Negative) Urine Urobilinogen <2.0 (<2.0) mg/dL Ur Leukocyte Esterase Trace H (Negative) Urine RBC 1 (0-5) /hpf Urine WBC 6 H (0-5) /hpf Ur Squamous Epith Cells 7 H (0-4) /hpf Amorphous Sediment Rare H (None) /hpf Urine Bacteria Rare H (None) /hpf Hyaline Casts 1 (0-2) /lpf Urine Mucus Rare H (None) /hpf 09/01/24 09/01/24 09/01/24 Range/Units 17:51 17:51 17:51 WBC (3.8-10.6) k/uL RBC (3.80-5.40) m/uL Hgb (11.4-16.0) gm/dL Hct (34.0-46.0) % MCV (80.0-100.0) fL MCH (25.0-35.0) pg MCHC (31.0-37.0) g/dL RDW (11.5-15.5) % Plt Count (150-450) k/uL MPV Neutrophils % % Lymphocytes % % Monocytes % % Eosinophils % % Basophils % % Neutrophils # (1.3-7.7) k/uL Lymphocytes # (1.0-4.8) k/uL Monocytes # (0-1.0) k/uL Eosinophils # (0-0.7) k/uL Basophils # (0-0.2) k/uL PT (10.0-12.5) sec INR (<1.2) APTT (22.0-30.0) sec Sodium 138 (137-145) mmol/L Potassium 4.0 (3.5-5.1) mmol/L Chloride 104 (98-107) mmol/L Carbon Dioxide 26 (22-30) mmol/L Anion Gap 8 mmol/L BUN 15 (7-17) mg/dL Creatinine 0.66 (0.52-1.04) mg/dL Est GFR (CKD-EPI)AfAm >90 (>60 ml/min/1.73 sqM) Est GFR (CKD-EPI)NonAf >90 (>60 ml/min/1.73 sqM) Glucose 86 (74-99) mg/dL Plasma Lactic Acid Reg 0.7 (0.7-2.0) mmol/L Calcium 9.5 (8.4-10.2) mg/dL Total Bilirubin 0.3 (0.2-1.3) mg/dL AST 28 (14-36) U/L ALT 20 (4-34) U/L Alkaline Phosphatase 66 (38-126) U/L Troponin I <0.012 (0.000-0.034) ng/mL Total Protein 7.5 (6.3-8.2) g/dL Albumin 4.6 (3.5-5.0) g/dL Amylase 51 (30-110) U/L Lipase 200 (23-300) U/L Urine Color Urine Appearance (Clear) Urine pH (5.0-8.0) Ur Specific [place] (1.001-1.035) Urine Protein (Negative) Urine Glucose (UA) (Negative) Urine Ketones (Negative) Urine Blood (Negative) Urine Nitrite (Negative) Urine Bilirubin (Negative) Urine Urobilinogen (<2.0) mg/dL Ur Leukocyte Esterase (Negative) Urine RBC (0-5) /hpf Urine WBC (0-5) /hpf Ur Squamous Epith Cells (0-4) /hpf Amorphous Sediment (None) /hpf Urine Bacteria (None) /hpf Hyaline Casts (0-2) /lpf Urine Mucus (None) /hpf Disposition Clinical Impression: Epistaxis, Abdominal pain Disposition: HOME SELF-CARE Condition: Fair Instructions (If sedation given, give patient instructions): Nosebleed (ED), Abdominal Pain (ED) Additional Instructions: Follow-up with your PCP. Follow-up with ENT. Report back to ER with any new or worsening symptoms. Is patient prescribed a controlled substance at d/c from ED?: No Referrals: Kenan Ivory MD [Primary Care Provider] - 1-2 days Eagle Ward MD [STAFF PHYSICIAN] - 1-2 days Time of Disposition: 19:32
[2024-09-01] MEDS ORDERED: HYDROcodone/APAP 5-325MG 1 EACH TAB PO STA (19:38)
[2024-09-01 19:43] VITALS: BP 140/90; PULSE 87
== END 2024-09-01 19:43 | disposition home or self-care (01) ==
LOC: EC 16:41
DX: R04.0 Epistaxis (principal); R10.9 Unspecified abdominal pain; Z87.891 Personal history of nicotine dependence; Z88.2 Allergy status to sulfonamides
CPT/HCPCS: 36415; 93005; 80053; 82150; 83605; 83690; 84484; 85025; 85610; 85730; 81001; 71260; 74160; 99284; 96360; 96361; Q9967

== ENCOUNTER → 2024-09-24 | Outpatient (CLI) | payer MEDICAID ==
--- NOTE | 2024-09-25 09:47 | MM ---
Reason for Exam: Screening (asymptomatic). Baseline mammogram. Patient History: Menarche at age 8. First Full-Term at age 15. Patient has history of breast feeding. Patient used Hormonal Contraceptives for 5 years. Maternal aunt had breast cancer. Last menstrual period: 08/27/2024 Risk Values: Clover 5 year model risk: 0.7%. NCI Lifetime model risk: 7.6%. Prior Study Comparison: Patient's first Mammogram. Tissue Density: The breasts are heterogeneously dense, which may obscure small masses. Findings: Analyzed By CAD. There is no suspicious group of microcalcifications or new suspicious mass in either breast. Overall Assessment: Negative, BI-RAD 1 Management: Screening Mammogram of both breasts in 1 year. . Patient should continue monthly self-breast exams. A clinical breast exam by your physician is recommended on an annual basis. This exam should not preclude additional follow-up of suspicious palpable abnormalities. Note on Clover scores and lifetime risk: 1. A Clover score greater than 3% is considered moderate risk. If this is the case, consider specialist referral to assess eligibility for a risk reducing agent. 2. If overall lifetime risk for the development of breast cancer is 20% or higher, the patient may qualify for future screening with alternating mammogram and breast MRI. [facility], , 09/25/2024 9:44 AM. Electronically signed and approved by: Joseph Quezada M.D. Radiologis
== END | disposition home or self-care (01) ==
LOC: RADMAMWWP 15:12
PROVIDERS: ATTEND Internal Medicine
DX: Z12.31 Encounter for screening mammogram for malignant neoplasm of breast (principal); Z80.3 Family history of malignant neoplasm of breast; R92.333 Mammographic heterogeneous density, bilateral breasts
CPT/HCPCS: 77063; 77067

== ENCOUNTER 2024-10-20 12:38 | Observation (INO) | payer MEDICAID ==
[2024-10-20 12:52] LABS: Glucose,Whole Blood 112 mg/dL (70-110)
--- NOTE | 2024-10-20 13:15 | ED ---
General Adult HPI - General Chief complaint: Neuro Symptoms/Deficit Stated complaint: high bp, blurred vision, headache Time Seen by Provider: 10/20/24 12:55 Source: patient, RN notes reviewed, old records reviewed Mode of arrival: wheelchair Limitations: no limitations - History of Present Illness Initial comments: This is a 44-year-old female who presents to the emergency department complaining of blurred vision. Patient states she was at work and all of a sudden she noticed she had some blurred vision and some headache and so she took her blood pressure was 180/106 and she states she has never been diagnosed with any high blood pressure she was at her doctor's office a month ago and her blood pressure was not high. Patient states the symptoms already fading she only has a little blurred vision at this time. Patient states she was a smoker but quit 2 years ago. Patient denies any recent fever chills or cough. Patient states she did have a little bit of chest pain when this occurred but is now subsided. Patient denies shortness of breath or difficulty breathing. Patient Nuys any diaphoretic episode. Patient states she just does not feel right. - Related Data Home Medications Medication Instructions Recorded Confirmed No Known Home Medications 10/20/24 10/20/24 Allergies Allergy/AdvReac Type Severity Reaction Status Date / Time sulfamethoxazole Allergy Itching/Hiv Verified 10/20/24 14:02 [From Bactrim] es trimethoprim [From Bactrim] Allergy Itching/Hiv Verified 10/20/24 14:02 es Review of Systems ROS Statement: Those systems with pertinent positive or pertinent negative responses have been documented in the HPI. ROS Other: All systems not noted in ROS Statement are negative. Past Medical History Past Medical History: Cancer, Chest Pain / Angina, GERD/Reflux, Hyperlipidemia, Musculoskeletal Disorder Additional Past Medical History / Comment(s): Chronic back pain, scoliosis, DDD, CONSTIPATION, recent rectal bleeding, headaches, IRREGULAR HEAVY MENSES @times, recent card. cath. due to chest pain, no blockages, takes metoprolol for, skin cancer face-had removed, daily heartburn/GERD, current kidney stone, chest pains @ times- Takes Metoprolol. Skin Ca History of Any Multi-Drug Resistant Organisms: None Reported Past Surgical History: Appendectomy, Cholecystectomy, Heart Catheterization, Orthopedic Surgery Additional Past Surgical History / Comment(s): D & C, left foot surgery for bunion, fatty tumor removed from back when pt was 8 yrs old. COLONOSCOPY, recent cardiac cath - 2021 Past Anesthesia/Blood Transfusion Reactions: No Reported Reaction Additional Past Anesthesia/Blood Transfusion Reaction / Comment(s): no hx blood transfusion, woke up during last colonoscopy Past Psychological History: Anxiety, Bipolar, Depression, Panic Disorder Smoking Status: Former smoker Past Alcohol Use History: Occasional Past Drug Use History: None Reported - Past Family History Father History Unknown: Yes Family Medical History: Myocardial Infarction ([place]) Additional Family Medical History / Comment(s): at age 42 from [place] Mother History Unknown: Yes Family Medical History: AFIB, Hypertension, Renal Disease Additional Family Medical History / Comment(s): had rt kidney removed r/t not functioning General Exam - General Exam Comments Initial Comments: GENERAL: Patient is well-developed and well-nourished. Patient is nontoxic and well- hydrated and is in mild distress. ENT: Neck is soft and supple. No significant lymphadenopathy is noted. Oropharynx is clear. Moist mucous membranes. Neck has full range of motion without eliciting any pain. EYES: The sclera were anicteric and conjunctiva were pink and moist. Extraocular movements were intact and pupils were equal round and reactive to light. Eyelids were unremarkable. PULMONARY: Unlabored respirations. Good breath sounds bilaterally. No audible rales rhonchi or wheezing was noted. CARDIOVASCULAR: There is a regular rate and rhythm without any murmurs gallops or rubs. ABDOMEN: Soft and nontender with normal bowel sounds. SKIN: Skin is clear with no lesions or rashes and otherwise unremarkable. NEUROLOGIC: Patient is alert and oriented x3. Cranial nerves II through XII are grossly intact. Motor and sensory are also intact. Normal speech, volume and content. Symmetrical smile. Finger-nose testing is normal bilaterally. Patient's NIH is 0 MUSCULOSKELETAL: Normal extremities with adequate strength and full range of motion. LYMPHATICS: No significant lymphadenopathy is noted PSYCHIATRIC: Normal psychiatric evaluation. Limitations: no limitations Course Vital Signs 10/20/24 10/20/24 10/20/24 12:45 13:15 14:05 Temperature 98.3 F Pulse Rate 71 65 62 Respiratory 18 18 18 Rate Blood Pressure 159/98 137/82 129/88 O2 Sat by Pulse 99 99 98 Oximetry 10/20/24 10/20/24 14:37 16:06 Temperature Pulse Rate 60 57 L Respiratory 18 18 Rate Blood Pressure 118/80 138/86 O2 Sat by Pulse 99 98 Oximetry Medical Decision Making - Medical Decision Making EKG is interpreted by myself EKG shows a sinus rhythm at 60 bpm IN 170 QRS 106 QTc is 416 QTc is 433. Patient's EKG shows no ST segment elevation or depression. Patient is interpreted by myself. EKG is sinus rhythm at 60 bpm IN was 170 QRS 106 QT interval 369 QTc is 433. Patient EKG shows no ST segment elevation or depression. Was pt. sent in by a medical professional or institution (, PA, DIRECTOR OF FUNDRAISING, urgent care, hospital, or group home...) When possible be specific @ -No Did you speak to anyone other than the patient for history (EMS, parent, family, police, friend...)? What history was obtained from this source @ -No Did you review nursing and triage notes (agree or disagree)? Why? @ -I reviewed and agree with nursing and triage notes Were old charts reviewed (outside hosp., previous admission, EMS record, old EKG, old radiological studies, urgent care reports/EKG's, group home records)? Report findings @ -No old charts were reviewed Differential Diagnosis? @ -Differential Chest Pain: Stable Angina, Unstable Angina, STEMI, NSTEMI Aortic Dissection, Pneumothorax, Musculoskeletal, Esophageal Spasm GERD, Cholecystitis, Pancreatitis, Zoster, this is not meant to be an all-inclusive list. Differential Headache: Migraine, tension, cluster, carbon monoxide, central venous thrombosis, pension karma temporal arteritis, acute closure glaucoma, intercranial hemorrhage, mastoiditis, sinusitis, head injury, this is not meant to be an all-inclusive list. EKG interpreted by me (3pts min.). @ -As above X-rays interpreted by me (1pt min.). @ -Chest x-ray shows no acute abnormality CT interpreted by me (1pt min.). @ -CT of the brain shows no acute abnormality U/S interpreted by me (1pt. min.). @ -None done What testing was considered but not performed or refused? (CT, X-rays, U/S, labs)? Why? @ -None What meds were considered but not given or refused? Why? @ -None Did you discuss the management of the patient with other professionals (professionals i.e. , PA, DIRECTOR OF FUNDRAISING, lab, RT, psych nurse, clinical social worker, breakfast cook, teacher, loan workout officer, case management social worker)? Give summary @ -I spoke with Dr. Ivory he agreed to admit the patient admit the patient wrote admitting orders. Was smoking cessation discussed for >3mins.? @ -No Was critical care preformed (if so, how long)? @ -No Were there social determinants of health that impacted care today? How? (Homelessness, low income, unemployed, alcoholism, drug addiction, transportation, low edu. Level, literacy, decrease access to med. care, custodial, rehab)? @ -No Was there de-escalation of care discussed even if they declined (Discuss DNR or withdrawal of care, Hospice)? DNR status @ -No What co-morbidities impacted this encounter? (DM, HTN, Smoking, COPD, CAD, Cancer, CVA, ARF, Chemo, Hep., AIDS, mental health diagnosis, sleep apnea, morbid obesity)? @ -None Was patient admitted / discharged? Hospital course, mention meds given and route, prescriptions, significant lab abnormalities, going to OR and other [facility] info. @ -Patient continues to have a mild headache but she had no longer has any chest pain. Patient lab work was within normal range. Patient's chest x-ray showed no acute normality. Patient's CT showed no acute normality. Patient's blood pressure did not need any medication and came down on its own. Patient's blurred vision had completely resolved and only the headache remains mildly. Undiagnosed new problem with uncertain prognosis? @ -No Drug Therapy requiring intensive monitoring for toxicity (Heparin, Nitro, Insulin, Cardizem)? @ -No Were any procedures done? @ -No Diagnosis/symptom? @ -Chest pain Acute, or Chronic, or Acute on Chronic? @ -Acute Uncomplicated (without systemic symptoms) or Complicated (systemic symptoms)? @ -Complicated Side effects of treatment? @ -No Exacerbation, Progression, or Severe Exacerbation? @ -No Poses a threat to life or bodily function? How? (Chest pain, [place], [place], pneumonia, PE, COPD, DKA, ARF, appy, cholecystitis, CVA, Diverticulitis, Homicidal, Suicidal, threat to staff... and all critical care pts) @ -Yes this can lead to an DE and endorgan dysfunction Diagnosis/symptom? @ -Hypertensive urgency Acute, or Chronic, or Acute on Chronic? @ -Acute Uncomplicated (without systemic symptoms) or Complicated (systemic symptoms)? @ -Complicated Side effects of treatment? @ -None Exacerbation, Progression, or Severe Exacerbation] @ -No Poses a threat to life or bodily function? @ -No Diagnosis/symptom? @ -Headache Acute, or Chronic, or Acute on Chronic? @ -Acute Uncomplicated (without systemic symptoms) or Complicated (systemic symptoms)? @ -Complicated Side effects of treatment? @ -None Exacerbation, Progression, or Severe Exacerbation] @ -No Poses a threat to life or bodily function? @ -No - Lab Data Result diagrams: 10/20/24 13:48 10/20/24 14:35 Lab Results 10/20/24 10/20/24 10/20/24 Range/Units 12:51 13:48 13:48 WBC 9.5 (3.8-10.6) k/uL RBC 4.41 (3.80-5.40) m/uL Hgb 13.6 (11.4-16.0) gm/dL Hct 39.5 (34.0-46.0) % MCV 89.5 (80.0-100.0) fL MCH 30.9 (25.0-35.0) pg MCHC 34.5 (31.0-37.0) g/dL RDW 12.1 (11.5-15.5) % Plt Count 346 (150-450) k/uL MPV 8.9 Neutrophils % 58 % Lymphocytes % 34 % Monocytes % 5 % Eosinophils % 1 % Basophils % 1 % Neutrophils # 5.6 (1.3-7.7) k/uL Lymphocytes # 3.2 (1.0-4.8) k/uL Monocytes # 0.5 (0-1.0) k/uL Eosinophils # 0.1 (0-0.7) k/uL Basophils # 0.1 (0-0.2) k/uL PT 10.3 (10.0-12.5) sec INR 0.9 (<1.2) APTT 24.8 (22.0-30.0) sec Sodium (137-145) mmol/L Potassium (3.5-5.1) mmol/L Chloride (98-107) mmol/L Carbon Dioxide (22-30) mmol/L Anion Gap mmol/L BUN (7-17) mg/dL Creatinine (0.52-1.04) mg/dL Est GFR (CKD-EPI)AfAm (>60 ml/min/1.73 sqM) Est GFR (CKD-EPI)NonAf (>60 ml/min/1.73 sqM) Glucose (74-99) mg/dL POC Glucose (mg/dL) 112 H (70-110) mg/dL POC Glu Braille Transcriber ID [place] Norma Calcium (8.4-10.2) mg/dL Magnesium (1.6-2.3) mg/dL Total Bilirubin (0.2-1.3) mg/dL AST (14-36) U/L ALT (4-34) U/L Alkaline Phosphatase (38-126) U/L Troponin I (0.000-0.034) ng/mL Total Protein (6.3-8.2) g/dL Albumin (3.5-5.0) g/dL 10/20/24 10/20/24 Range/Units 13:48 14:35 WBC (3.8-10.6) k/uL RBC (3.80-5.40) m/uL Hgb (11.4-16.0) gm/dL Hct (34.0-46.0) % MCV (80.0-100.0) fL MCH (25.0-35.0) pg MCHC (31.0-37.0) g/dL RDW (11.5-15.5) % Plt Count (150-450) k/uL MPV Neutrophils % % Lymphocytes % % Monocytes % % Eosinophils % % Basophils % % Neutrophils # (1.3-7.7) k/uL Lymphocytes # (1.0-4.8) k/uL Monocytes # (0-1.0) k/uL Eosinophils # (0-0.7) k/uL Basophils # (0-0.2) k/uL PT (10.0-12.5) sec INR (<1.2) APTT (22.0-30.0) sec Sodium 136 L (137-145) mmol/L Potassium 4.1 (3.5-5.1) mmol/L Chloride 102 (98-107) mmol/L Carbon Dioxide 25 (22-30) mmol/L Anion Gap 9 mmol/L BUN 12 (7-17) mg/dL Creatinine 0.53 (0.52-1.04) mg/dL Est GFR (CKD-EPI)AfAm >90 (>60 ml/min/1.73 sqM) Est GFR (CKD-EPI)NonAf >90 (>60 ml/min/1.73 sqM) Glucose 86 (74-99) mg/dL POC Glucose (mg/dL) (70-110) mg/dL POC Glu Braille Transcriber ID Calcium 9.2 (8.4-10.2) mg/dL Magnesium 1.9 (1.6-2.3) mg/dL Total Bilirubin 0.4 (0.2-1.3) mg/dL AST 27 (14-36) U/L ALT 17 (4-34) U/L Alkaline Phosphatase 56 (38-126) U/L Troponin I <0.012 (0.000-0.034) ng/mL Total Protein 7.1 (6.3-8.2) g/dL Albumin 4.1 (3.5-5.0) g/dL Disposition Clinical Impression: Headache, Hypertensive urgency, Chest pain Disposition: ADMITTED IP TO THIS HOSP Referrals: Kenan Ivory MD [Primary Care Provider] - 1-2 days Time of Disposition: 16:20
--- NOTE | 2024-10-20 13:47 | XR ---
EXAMINATION TYPE: XR chest 2V DATE OF EXAM: 10/20/2024 1:38 PM COMPARISON: Chest radiographs from 12/10/2023, CT chest and abdomen 09/01/2024 TECHNIQUE: XR chest 2V Frontal and lateral views of the chest. CLINICAL INDICATION:Female, 44 years old with history of Chest Pain; FINDINGS: Lungs/Pleura: There is no evidence of pleural effusion, focal consolidation, or pneumothorax. Pulmonary vascularity: Unremarkable. Heart/mediastinum: Cardiomediastinal silhouette is unremarkable. Musculoskeletal: No acute osseous pathology. IMPRESSION: No acute cardiopulmonary disease/process. [facility], , 10/20/2024 1:44 PM
--- NOTE | 2024-10-20 13:50 | CT ---
EXAMINATION TYPE: CT brain wo con CT DLP: 1182.4 mGycm, Automated exposure control for dose reduction was used. DATE OF EXAM: 10/20/2024 1:34 PM COMPARISON: MRI brain 12/11/2023, CT brain 12/10/2023 CLINICAL INDICATION:Female, 44 years old with history of Blurred vision, blurred vision, ZAMBRANO and dizzi ness. TECHNIQUE: Brain: Multiple axial CT images of the brain were obtained without IV contrast. . Coronal and sagitta l reformats reviewed. FINDINGS: Brain: Extra-axial spaces: No abnormal extra-axial fluid collections. Ventricular system: Within normal limits Cerebral parenchyma: No acute intraparenchymal hemorrhage or mass effect. The bowens-white junction is well differentiated. Empty sella morphology. Cerebellum: Unremarkable. Mass effect: No evidence of midline shift. Intracranial vasculature: unremarkable Soft tissues: Normal. Calvarium/osseous structures: No depressed skull fracture. Paranasal sinuses and mastoid air cells: Clear, ablation of the bilateral frontal sinuses. 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 Visualized orbits: Orbital contents are intact. IMPRESSION: No acute intracranial process. [facility], , 10/20/2024 1:48 PM
[2024-10-20 13:57] LABS: Basophils # (A) 0.1 k/uL (0-0.2); Basophils % (A) 1 %; Eosinophils # (A) 0.1 k/uL (0-0.7); Eosinophils % (A) 1 %; HCT 39.5 % (34.0-46.0); HGB 13.6 gm/dL (11.4-16.0); Lymphocytes # (A) 3.2 k/uL (1.0-4.8); Lymphocytes % (A) 34 %; MCH 30.9 pg (25.0-35.0); MCHC 34.5 g/dL (31.0-37.0); MCV 89.5 fL (80.0-100.0); Mean Platelet Volume 8.9; Monocytes # (A) 0.5 k/uL (0-1.0); Monocytes % (A) 5 %; Neutrophils # (A) 5.6 k/uL (1.3-7.7); Neutrophils % (A) 58 %; Platelet Count 346 k/uL (150-450); RBC 4.41 m/uL (3.80-5.40); RDW 12.1 % (11.5-15.5); WBC 9.5 k/uL (3.8-10.6)
[2024-10-20] MEDS: ACETAMINOPHEN TAB 500 MG TAB PO STA (14:02)
[2024-10-20] MEDS: ONDANSETRON 4 MG/2 ML VIAL IVP STA (14:03)
[2024-10-20 14:09] LABS: INR 0.9 (<1.2); Partial Thromboplastin Time 24.8 sec (22.0-30.0); Prothrombin Time 10.3 sec (10.0-12.5)
[2024-10-20 15:28] LABS: ALT 17 U/L (4-34); AST 27 U/L (14-36); African American GFR (CKD) >90 (>60 ml/min/1.73 sqM); Albumin 4.1 g/dL (3.5-5.0); Alkaline Phosphatase 56 U/L (38-126); Anion Gap 9 mmol/L; Blood Urea Nitrogen 12 mg/dL (7-17); Calcium 9.2 mg/dL (8.4-10.2); Carbon Dioxide 25 mmol/L (22-30); Chloride 102 mmol/L (98-107); Glucose 86 mg/dL (74-99); Magnesium 1.9 mg/dL (1.6-2.3); Non-African American GFR(CKD) >90 (>60 ml/min/1.73 sqM); Potassium 4.1 mmol/L (3.5-5.1); Sodium 136 mmol/L (137-145); Total Bilirubin 0.4 mg/dL (0.2-1.3); Total Protein 7.1 g/dL (6.3-8.2)
[2024-10-20] MEDS: KETOROLAC 15 MG/ML 1 ML VIAL IVP STA (15:45)
[2024-10-20] MEDS: NITROGLYCERIN OINT 1 INCH/GM PACKET TOPICAL STA (16:04)
[2024-10-20] MEDS ORDERED: NITROGLYCERIN SL TABS 0.4 MG TAB SUBLINGUAL PRN (16:20)
[2024-10-20] MEDS: HYDROmorphone 0.5 MG/0.5 ML SYRINGE IVP PRN (20:02)
[2024-10-20] MEDS: ONDANSETRON 4 MG/2 ML VIAL IVP PRN (20:59)
[2024-10-20] MEDS: methocarbamoL 750 MG TAB PO SCH (21:31)
[2024-10-20] MEDS: TOPIRAMATE 25 MG TAB PO SCH (21:31)
[2024-10-20] MEDS: busPIRone HCl 10 MG TAB PO SCH (21:31)
[2024-10-20] MEDS: NITROGLYCERIN OINT 1 INCH/GM PACKET TOPICAL SCH (23:09)
[2024-10-21] MEDS: PANTOPRAZOLE 40 MG TABLET PO SCH (06:11)
[2024-10-21] MEDS: CHOLECALCIFEROL 25 MCG (1000 IU) TABLET PO SCH (08:17)
[2024-10-21] MEDS: ASPIRIN 81 MG PO SCH (08:18)
[2024-10-21] MEDS: EZETIMIBE 10 MG TAB PO SCH (08:18)
[2024-10-21] MEDS: MULTIVITAMINS, THERA 1 EACH TAB PO SCH (08:18)
[2024-10-21] MEDS: ATORVASTATIN 40 MG TAB PO SCH (08:18)
[2024-10-21] MEDS ORDERED: ASPIRIN 325 MG TAB PO SCH (09:00)
[2024-10-21] MEDS ORDERED: ASPIRIN 81 MG PO SCH (09:00)
[2024-10-21 09:02] LABS: ALT 14 U/L (8-44); AST 19 U/L (13-35); Albumin/Globulin Ratio 1.67 Ratio (1.60-3.17); Alkaline Phosphatase 54 U/L (41-126); BUN/Creat Ratio 20.71 Ratio (12.00-20.00); Blood Urea Nitrogen 14.5 mg/dL (9.0-27.0); Calcium 9.1 mg/dL (8.7-10.3); Carbon Dioxide 25.1 mmol/L (21.6-31.8); Chloride 100 mmol/L (96-109); Chol/HDL Ratio 5.89 Ratio; Globulin 2.4 g/dL (1.6-3.3); Glucose 102 mg/dL (70-110); LDL Cholesterol,Calculated 156.7 mg/dL (0.0-131.0); Potassium 4.6 mmol/L (3.5-5.5); Sodium 135 mmol/L (135-145); Total Bilirubin 0.3 mg/dL (0.3-1.2); Total Protein 6.4 g/dL (6.2-8.2)
--- NOTE | 2024-10-21 09:31 | P.CRDCN ---
History of Present Illness History of present illness: HISTORY OF PRESENT ILLNESS: This is a 44-year-old female with a past medical history significant for hyperlipidemia, mild CAD, and former nicotine dependence. Patient follows in the office with Dr. Troy. We have been asked to see the patient in consultation for chest pain and elevated blood pressure. Patient examined at the bedside in the emergency room. Patient states that she was at work yesterday when she began to have blurry vision. 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 She also noticed that her right eye was droopy. She took her blood pressure which was noted to be elevated with a reading of 180/106. She did take some aspirin at that time. Additionally, she started to have some chest discomfort that started after she took her blood pressure. She states that her blood pressure is typically in the 120s and she has never been diagnosed with hypertension before. Since coming to the hospital, patient has not had any severely elevated blood pressures. Most recent blood pressure readings 138/82 and 93/59. She reports that she has been having some dizziness recently without any episodes of syncope. She states that she stopped taking all of her medications 2 to 3 months ago including aspirin, Lipitor, Zetia, and Ranexa. She is a former cigarette smoker and quit smoking 2 years ago. DIAGNOSTICS: - EKG reveals sinus mechanism with no signs of acute ischemia. - Chest xray negative for acute process CT brain: Negative for acute intracranial process - Laboratory data: WBC 9.5. Hemoglobin 13.6. Platelet count 346. Sodium 135. Potassium 4.6. BUN 14.5. Creatinine 0.7. Magnesium 1.9. Troponin negative x 3. Total cholesterol 222. LDL 156. - Current home cardiac medications include none. Patient states she quit taking all of her medications 2 to 3 months ago. - Most recent echocardiogram obtained in December 2023 which was a limited study revealing normal LV function and negative bubble study - Cardiac catheterization history: October 2022 revealing relatively normal venita nary arteries other than mid LAD 30 to 40% stenosis and mildly elevated left- sided filling pressures REVIEW OF SYSTEMS: At the time of my exam: CONSTITUTIONAL: Denies fever or chills. HEENT: Denies blurred vision, vision changes, or eye pain. Denies hemoptysis CARDIOVASCULAR: Denies chest pain. Denies orthopnea. Denies PND. Denies palpitations RESPIRATORY: Denies shortness of breath. GASTROINTESTINAL: Denies abdominal pain. Denies nausea or vomiting. HEMATOLOGIC: Denies bleeding disorders. GENITOURINARY: Denies any blood in urine. SKIN: Denies pruitis. Denies rash. PHYSICAL EXAM: VITAL SIGNS: Reviewed. GENERAL: Well-developed in no acute distress. HEENT: Head is normocephalic. Pupils are equal, round. Sclerae anicteric. Mucous membranes of the mouth are moist. Neck supple. No JVD or thyromegaly LUNGS: Respirations even and unlabored. Lungs essentially clear to auscultation bilaterally. HEART: Regular rate and rhythm. S1 and S2 heard. ABDOMEN: Soft. Nondistended. Nontender. EXTREMITIES: Normal range of motion. No clubbing or cyanosis. Peripheral pulses intact. No lower extremity edema NEUROLOGIC: Awake and alert. Oriented x 3. ASSESSMENT: Blurry vision and reported droopiness of right eye Chest pain, troponin negative x 3 Isolated episode of high blood pressure, blood pressure currently 93/59 Mild CAD, mid LAD 30 to 40% stenosis, per cath 10/2022 Hyperlipidemia Former nicotine dependence, patient quit smoking 2 years ago Obesity: BMI 34.9 Medication noncompliance, patient states she stopped taking all of her medications 2 to 3 months ago PLAN: An acute coronary event has been ruled out Obtain 2D echo to assess cardiac structure and function Begin aspirin 81 mg daily Continue atorvastatin 40 mg daily. Resume Zetia 10 mg daily. Medication compliance reinforced If 2D echo does not reveal any significant abnormalities, patient may be discharged home from a cardiac standpoint Nurse practitioner note has been reviewed by physician. Signing provider agrees with the documented findings, assessment, and plan of care documented by THERAPEUTIC SALES SPECIALIST as a scribe. Past Medical History Past Medical History: Cancer, Chest Pain / Angina, GERD/Reflux, Hyperlipidemia, Musculoskeletal Disorder Additional Past Medical History / Comment(s): Chronic back pain, scoliosis, DDD, CONSTIPATION, recent rectal bleeding, headaches, IRREGULAR HEAVY MENSES @times, recent card. cath. due to chest pain, no blockages, takes metoprolol for, skin cancer face-had removed, daily heartburn/GERD, current kidney stone, chest pains @ times- Takes Metoprolol. Skin Ca History of Any Multi-Drug Resistant Organisms: None Reported Past Surgical History: Appendectomy, Cholecystectomy, Heart Catheterization, Orthopedic Surgery Additional Past Surgical History / Comment(s): D & C, left foot surgery for bunion, fatty tumor removed from back when pt was 8 yrs old. COLONOSCOPY, recent cardiac cath - 2021 Past Anesthesia/Blood Transfusion Reactions: No Reported Reaction Additional Past Anesthesia/Blood Transfusion Reaction / Comment(s): no hx blood transfusion, woke up during last colonoscopy Past Psychological History: Anxiety, Bipolar, Depression, Panic Disorder Smoking Status: Former smoker Past Alcohol Use History: Occasional Past Drug Use History: None Reported - Past Family History Father History Unknown: Yes Family Medical History: Myocardial Infarction ([place]) Additional Family Medical History / Comment(s): at age 42 from [place] Mother History Unknown: Yes Family Medical History: AFIB, Hypertension, Renal Disease Additional Family Medical History / Comment(s): had rt kidney removed r/t not functioning Medications and Allergies Home Medications Medication Instructions Recorded Confirmed Type No Known Home Medications 10/20/24 10/20/24 History Allergies Allergy/AdvReac Type Severity Reaction Status Date / Time sulfamethoxazole Allergy Itching/Hiv Verified 10/20/24 14:02 [From Bactrim] es trimethoprim [From Bactrim] Allergy Itching/Hiv Verified 10/20/24 14:02 es Physical Exam Vitals: Vital Signs Temp Pulse Pulse Resp BP BP Pulse Ox 10/21/24 02:00 98.3 F 61 14 93/59 95 10/20/24 23:00 97.6 F 67 16 138/82 98 10/20/24 22:00 66 18 148/88 98 10/20/24 21:01 63 18 147/92 98 10/20/24 20:00 58 L 18 114/81 97 10/20/24 18:47 67 18 138/86 97 10/20/24 16:06 57 L 18 138/86 98 10/20/24 14:37 60 18 118/80 99 10/20/24 14:05 62 18 129/88 98 10/20/24 13:15 65 18 137/82 99 10/20/24 12:45 98.3 F 71 18 159/98 99 Intake and Output 10/20/24 10/21/24 10/21/24 22:59 06:59 14:59 Intake Total 325 Balance 325 Intake: Oral 325 Other: Voiding Method Toilet # Voids 1 Results 10/20/24 13:48 10/21/24 04:30 Cardiac Enzymes 10/20/24 10/20/24 10/20/24 Range/Units 13:48 14:35 16:42 AST 27 (14-36) U/L Troponin I <0.012 <0.012 (0.000-0.034) ng/mL 10/20/24 Range/Units 19:52 AST (14-36) U/L Troponin I <0.012 (0.000-0.034) ng/mL Coagulation 10/20/24 Range/Units 13:48 PT 10.3 (10.0-12.5) sec APTT 24.8 (22.0-30.0) sec CBC 10/20/24 Range/Units 13:48 WBC 9.5 (3.8-10.6) k/uL RBC 4.41 (3.80-5.40) m/uL Hgb 13.6 (11.4-16.0) gm/dL Hct 39.5 (34.0-46.0) % Plt Count 346 (150-450) k/uL Comprehensive Metabolic Panel 10/20/24 Range/Units 14:35 Sodium 136 L (137-145) mmol/L Potassium 4.1 (3.5-5.1) mmol/L Chloride 102 (98-107) mmol/L Carbon Dioxide 25 (22-30) mmol/L BUN 12 (7-17) mg/dL Creatinine 0.53 (0.52-1.04) mg/dL Glucose 86 (74-99) mg/dL Calcium 9.2 (8.4-10.2) mg/dL AST 27 (14-36) U/L ALT 17 (4-34) U/L Alkaline Phosphatase 56 (38-126) U/L Total Protein 7.1 (6.3-8.2) g/dL Albumin 4.1 (3.5-5.0) g/dL Current Medications Generic Name Dose Route Start Last Admin Trade Name Freq PRN Reason Stop Dose Admin Acetaminophen 650 mg 10/20/24 18:09 Acetaminophen Tab 325 Mg Tab PO Q6HR PRN Fever and/ or Pain Aspirin 81 mg 10/21/24 09:00 Aspirin 81 Mg PO DAILY [facility] Atorvastatin Calcium 40 mg 10/21/24 09:00 Atorvastatin 40 Mg Tab PO DAILY [facility] Buspirone HCl 10 mg 10/20/24 21:00 10/20/24 21:31 Buspirone Hcl 10 Mg Tab PO 10 mg BID [facility] Administration Cholecalciferol 25 mcg 10/21/24 09:00 Cholecalciferol 25 Mcg (1000 Iu) Tablet PO DAILY [facility] Methocarbamol 750 mg 10/20/24 22:00 10/20/24 21:31 Methocarbamol 750 Mg Tab PO 750 mg TID [facility] Administration Multivitamins 1 each 10/21/24 09:00 Multivitamins, Thera 1 Each Tab PO DAILY [facility] Nitroglycerin 0.4 mg 10/20/24 16:20 Nitroglycerin Sl Tabs 0.4 Mg Tab SUBLINGUAL Q5M PRN Chest Pain Ondansetron HCl 4 mg 10/20/24 20:48 10/21/24 06:11 Ondansetron 4 Mg/2 Ml Vial IVP 4 mg Q6HR PRN Administration Nausea And Vomiting Pantoprazole Sodium 40 mg 10/21/24 07:30 10/21/24 06:11 Pantoprazole 40 Mg Tablet PO 40 mg [id number] [facility] Administration Topiramate 25 mg 10/20/24 21:00 10/20/24 21:31 Topiramate 25 Mg Tab PO 25 mg HS [facility] Administration Intake and Output 10/20/24 10/21/24 10/21/24 22:59 06:59 14:59 Intake Total 325 Balance 325 Intake: Oral 325 Other: Voiding Method Toilet # Voids 1 10/20/24 13:48 10/20/24 14:35
[2024-10-21 10:27] LABS: Basophils # (A) 0.06 X 10*3/uL (0.00-0.10); Basophils % (A) 0.7 %; Eosinophils # (A) 0.07 X 10*3/uL (0.04-0.35); Eosinophils % (A) 0.8 %; HCT 37.1 % (37.2-46.3); HGB 12.5 g/dL (12.0-15.0); Lymphocytes % (A) 32.4 %; MCH 30.2 pg (27.0-32.0); MCHC 33.7 g/dL (32.0-37.0); MCV 89.6 FL (80.0-97.0); Monocytes # (A) 0.49 X 10*3/uL (0.20-1.00); Monocytes % (A) 5.9 %; NRBC Per 100 WBC 0 X 10*3/uL (0.00-0.01); Neutrophils # (A) 4.99 X 10*3/uL (1.80-7.70); Platelet Count 336 X 10*3/uL (140-440); RBC 4.14 X 10*6/uL (4.10-5.20); RDW 12.5 % (11.5-14.5); WBC 8.33 X 10*3/uL (4.50-10.00)
--- NOTE | 2024-10-21 11:48 | US ---
EXAMINATION TYPE: US carotid duplex BILAT DATE OF EXAM: 10/21/2024 COMPARISON: US 12/11/2023 CLINICAL INDICATION: Female, 44 years old with history of TIA symptoms; TIA symptoms. Prior smoker, h yperlipidemia. Additional History: .... TECHNIQUE: Grayscale, color Doppler and spectral Doppler evaluation of the bilateral carotid systems and vertebral arteries. Indirect Doppler criteria was utilized. 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 Plaqu e seen within bilateral bulbs. IMPRESSION: Right: No hemodynamically significant stenosis. Left: No hemodynamically significant stenosis. Criteria for Assigning % of Stenosis / Diameter reduction (Estimation based on the indirect measurements of the internal carotid artery velocities (ICA PSV). 1. Normal (no stenosis)=ICA PSV < 125 cm/s: ratio < 2.0: ICA EDV<40 cm/s. 2. Less than 50% stenosis=ICA PSV < 125 cm/s: ratio < 2.0: ICA EDV<40 cm/s. 3. 50 to 69% stenosis=ICA PSV of 125 to 230 cm/s: ration 2.0 ? 4.0: ICA EDV 40-100 cm/s. 4. Greater than 70% stenosis to near occlusion= ICA PSV > 230 cm/s: ratio > 4.0: ICA EDV > 100 cm/s. 5. Near occlusion= ICA PSV velocities may be low or undetectable: variable ratio and ICA EDV. 6. Total occlusion=unable to detect flow. [facility], , 10/21/2024 11:46 AM
--- NOTE | 2024-10-21 12:13 | P.HPIM ---
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, patient presented to the emergency department at [facility] because of left-sided chest pain associated with elevated blood pressure without diagnosis of hypertension in the past, patient stated that she was working up in the hospital and all of a sudden she had blurred vision in the right eye and the PA that was working with her told her that she has a droopy right eyelid, so she decided to come to the ER for evaluation initially she was very hypertensive 170/110 patient did receive Dilaudid as well as nitroglycerin paste, her blood pressure normalizes, cardiac enzymes came back negative, rest of the laboratory evaluation were normal except for mild hyponatremia, patient had a twelve-lead EKG did not show evidence of acute abnormalities but because of her family history of significant premature heart disease in her father with an [place] at the age of 46 she was admitted to hospital for evaluation by cardiology, neurology consultation was obtained. REVIEW OF SYSTEMS: Constitutional: No documented fever, no chills, no night sweats. No weight change. No weakness, fatigue or lethargy. No daytime sleepiness. EENT: No headache. positive for blurred vision or double vision, no loss of vision. No loss of Hearing, no ringing in the ears, no dizziness. No nasal drainage or congestion. No epistaxis. No sore throat. Lungs: No shortness of breath, no cough, no sputum production. No wheezing. Reports dyspnea with activity. Cardiovascular: positive for chest pain, no lower extremity edema. No palpitations. No paroxysmal nocturnal dyspnea. No orthopnea. No lightheadedness or dizziness. No syncopal episodes. Abdominal: Reports no abdominal pain. No nausea, vomiting. No diarrhea. No constipation. No bloody or tarry stools reports loss of appetite. Genitourinary: No dysuria, increased frequency, urgency. No urinary retention. Musculoskeletal: No myalgias. No muscle weakness, no gait dysfunction, no frequent falls. No back pain. No neck pain. Integumentary: No wounds, no lesions. No rash or pruritus. No unusual bruising. No change in hair or nails. Neurologic: No aphasia. No facial droop. No change in mentation. No head injury. No headache. No paralysis. No paresthesia.reoprted droopy right eye lid that was resolved. Psychiatric: No depression. positive for anxiety. No mood swings. Endocrine: No abnormal blood sugars. No weight change. PAST MEDICAL HISTORY: Mixed hyperlipidemia. GERD with esophagitis. Anxiety disorder. Spondylolisthesis of the thoracic spine without myelopathy or radiculopathy. Migraine headaches. Squamous cell carcinoma of the face. PAST SURGICAL HISTORY: Left bunion removal 2015. Lipoma removed from the right flank 1987 Appendectomy 2020. Laparoscopic cholecystectomy 2021. D&C 1996. EGD and colonoscopy 2021. Uterine ablation 2022. Left heart catheterization with minimal CAD in 2022 of the LAD. SOCIAL HISTORY: Patient smoked about a pack every day since the age of 21 and she quit in 2021, she denies any alcohol ingestion, no drug use or abuse, FAMILY HISTORY: Father at age of 46 from [place], mother is 67-year-old with hypertension, atrial fibrillation, hyperlipidemia, anxiety and depressive disorder, patient has 1 brother 48-year-old with no health issues, patient has 2 sisters 1 is 44-year-old the other 1 at the age of 24 from a car accident, patient has 4 sons 28, 2320, 14 1 with the ADHD maternal grandfather from stroke and heart disease, maternal grandmother from lung cancer. PHYSICAL EXAMINATION: General: 44-year-old female laying down in bed in no apparent distress. HEENT: Head is atraumatic, normocephalic, pupils were equal round reactive to light and recommendation, extraocular muscle movement were intact, sclera nonicteric, conjunctivae were pale, mucous membranes of the mouth are somewhat dry. Neck: Supple, no JVP, normal carotid upstroke bilaterally, no lymphadenopathy. Chest: Decreased breath sounds at the bases, few rhonchi, no expiratory wheezes, no chest wall tenderness, no intercostal retractions. Heart: First heart sound is normal, second heart sounds normal there is no gallop or murmur no rubs or heaves. Abdomen: Soft, nontender, nondistended, positive bowel sounds. Extremities: There is no edema no calf tenderness DP +2 bilaterally. Neurologic examination: Patient is awake alert and oriented x3, cranial nerves II-12 appear grossly intact, muscle power were 5 out of 5 in upper extremities and 5 out of 5 in bilateral lower extremities, deep tendon reflexes normal bilaterally. ASSESSMENT AND PLAN: 1. Chest pain likely noncardiac. Cardiac enzymes were negative, patient ruled out for acute coronary syndrome at this time, patient did have left heart catheterization about 3 years ago that showed minimal CAD at that time, patient will be seen and evaluated by cardiology, we will arrange for stress echo tomorrow morning after she is seen by cardiology. Patient is currently on nitroglycerin paste 1 inch every 6 hours [id number], she is to use nitrog lycerin 0.4 mg sublingual as needed for breakthrough pain, patient also will be started back on her atorvastatin 40 mg orally once every day, she is to continue aspirin 81 mg once every day until further evaluation. 2. Elevated blood pressure without the diagnosis of hypertension. Monitor the patient blood pressure very closely, she may need to be started on a small dose of losartan 25 mg orally once a day if the blood pressure continues to be elevated. Her current blood pressures. Normal. 3. Reported droopy eyelid that has resolved along with the right eye blurred vision that has resolved as well. I will obtain ultrasound the carotid as well as echocardiogram, continue aspirin 325 mg once every day, continue atorvastatin 40 mg once every day, neurology consultation will be obtained patient need to have an MRI of the brain with and without devin. 4. Coronary artery disease based on last heart catheterization that was done in October 2022 that showed 30 to 40% stenosis of the LAD. Continue baby aspirin 81 g once every day, atorvastatin 40 mg once every day, Zetia 10 mg once every day, echocardiogram was obtained, the results still pending at the time of dictation. 5. Mixed hyperlipidemia. Continue patient on atorvastatin 40 mg once every day, monitor lipid panel, keep LDL 55-70. 6. Migraine headaches. Continue patient on Topamax 25 mg orally once every day. 7. GERD with esophagitis. Continue Protonix 40 mg orally once every day. 8. Anxiety disorder. Continue patient on buspirone 10 mg orally twice every day. 9. Spondylolisthesis of the thoracic spine without myelopathy or radiculopathy. Stable at this time. Continue Motrin as needed. 10. History of squamous cell cancer of the face. 11. DVT prophylaxis. Early ambulation. 12. GI prophylaxis. Continue patient on Protonix 40 mg once every day. 13. Observation. 12. Full code. Past Medical History Past Medical History: Cancer, Chest Pain / Angina, GERD/Reflux, Hyperlipidemia, Musculoskeletal Disorder Additional Past Medical History / Comment(s): Chronic back pain, scoliosis, DDD, CONSTIPATION, recent rectal bleeding, headaches, IRREGULAR HEAVY MENSES @times, recent card. cath. due to chest pain, no blockages, takes metoprolol for, skin cancer face-had removed, daily heartburn/GERD, current kidney stone, chest pains @ times- Takes Metoprolol. Skin Ca History of Any Multi-Drug Resistant Organisms: None Reported Past Surgical History: Appendectomy, Cholecystectomy, Heart Catheterization, Orthopedic Surgery Additional Past Surgical History / Comment(s): D & C, left foot surgery for bunion, fatty tumor removed from back when pt was 8 yrs old. COLONOSCOPY, recent cardiac cath - 2021 Past Anesthesia/Blood Transfusion Reactions: No Reported Reaction Additional Past Anesthesia/Blood Transfusion Reaction / Comment(s): no hx blood transfusion, woke up during last colonoscopy Past Psychological History: Anxiety, Bipolar, Depression, Panic Disorder Smoking Status: Former smoker Past Alcohol Use History: Occasional Past Drug Use History: None Reported - Past Family History Father History Unknown: Yes Family Medical History: Myocardial Infarction ([place]) Additional Family Medical History / Comment(s): at age 42 from [place] Mother History Unknown: Yes Family Medical History: AFIB, Hypertension, Renal Disease Additional Family Medical History / Comment(s): had rt kidney removed r/t not functioning Medications and Allergies Home Medications Medication Instructions Recorded Confirmed Type No Known Home Medications 10/20/24 10/20/24 History Allergies Allergy/AdvReac Type Severity Reaction Status Date / Time sulfamethoxazole Allergy Itching/Hiv Verified 10/20/24 14:02 [From Bactrim] es trimethoprim [From Bactrim] Allergy Itching/Hiv Verified 10/20/24 14:02 es hydromorphone [From Dilaudid] AdvReac Nausea & Verified 10/21/24 10:53 Vomiting Physical Exam Vitals: Vital Signs Temp Pulse Resp BP Pulse Ox 10/20/24 16:06 57 L 18 138/86 98 10/20/24 14:37 60 18 118/80 99 10/20/24 14:05 62 18 129/88 98 10/20/24 13:15 65 18 137/82 99 10/20/24 12:45 98.3 F 71 18 159/98 99 Intake and Output 10/20/24 10/20/24 10/20/24 06:59 14:59 22:59 Other: Weight 95.254 kg Results CBC & Chem 7: 10/21/24 04:30 10/21/24 04:30 Labs: Abnormal Lab Results - Last 24 Hours (Table) 10/20/24 10/20/24 Range/Units 12:51 14:35 Sodium 136 L (137-145) mmol/L POC Glucose (mg/dL) 112 H (70-110) mg/dL
--- NOTE | 2024-10-21 15:16 | P.CNNES ---
History of Present Illness Consult date: 10/21/24 Requesting physician: Shelia Zamora Reason for Consult: blurred vision, droopy eyelid History of Present Illness: This is a 44-year-old woman who presents emergency department because of right eye ptosis. Patient stated that yesterday she was working she noticed that her right eye was blurry and she had her colleague look at her eyes and was droopy. She denies any focal deficit associate with it. Denies any speech difficulty. She denies any history of stroke in the past. Her symptoms began around 1230. Denies any numbness. Denies any worsening of her underlying headache yesterday more than normal. She does have chronic migraines and it is over the occipital temporal region and she states it is 9/10 she does have nausea pressure sore all day almost every day she does have photophobia and phonophobia. 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 She stated that in December 2023 she had some slurring of the speech and heat she had MRI which was unremarkable. Later during the conversation, she stated that she was supposed to be on aspirin but she was not taking aspirin and it is not because she was allergic to it but just was not taking it. Some of the workup during this hospital visit consisted of: Panel is triglycerides 138, cholesterol is 222, LDL is 156 and HDL is 37 I reviewed the rest of the lab workup next CT of the head is reported as no acute intracranial process. I personally reviewed the CT and agree with the report Carotid duplex is reported as no hemodynamic significant stenosis over the right or left. Review of Systems As per HPI. Past Medical History Past Medical History: Cancer, Chest Pain / Angina, GERD/Reflux, Hyperlipidemia, Musculoskeletal Disorder Additional Past Medical History / Comment(s): Chronic back pain, scoliosis, DDD, CONSTIPATION, recent rectal bleeding, headaches, IRREGULAR HEAVY MENSES @times, recent card. cath. due to chest pain, no blockages, takes metoprolol for, skin cancer face-had removed, daily heartburn/GERD, current kidney stone, chest pains @ times- Takes Metoprolol. Skin Ca History of Any Multi-Drug Resistant Organisms: None Reported Past Surgical History: Appendectomy, Cholecystectomy, Heart Catheterization, Orthopedic Surgery Additional Past Surgical History / Comment(s): D & C, left foot surgery for bunion, fatty tumor removed from back when pt was 8 yrs old. COLONOSCOPY, recent cardiac cath - 2021 Past Anesthesia/Blood Transfusion Reactions: No Reported Reaction Additional Past Anesthesia/Blood Transfusion Reaction / Comment(s): no hx blood transfusion, woke up during last colonoscopy Past Psychological History: Anxiety, Bipolar, Depression, Panic Disorder Smoking Status: Former smoker Past Alcohol Use History: Occasional Past Drug Use History: None Reported - Past Family History Father History Unknown: Yes Family Medical History: Myocardial Infarction ([place]) Additional Family Medical History / Comment(s): at age 42 from [place] Mother History Unknown: Yes Family Medical History: AFIB, Hypertension, Renal Disease Additional Family Medical History / Comment(s): had rt kidney removed r/t not functioning Medications and Allergies Home Medications Medication Instructions Recorded Confirmed Type No Known Home Medications 10/20/24 10/20/24 History Allergies Allergy/AdvReac Type Severity Reaction Status Date / Time sulfamethoxazole Allergy Itching/Hiv Verified 10/20/24 14:02 [From Bactrim] es trimethoprim [From Bactrim] Allergy Itching/Hiv Verified 10/20/24 14:02 es hydromorphone [From Dilaudid] AdvReac Nausea & Verified 10/21/24 10:53 Vomiting Physical Examination - Vital Signs Vital Signs: Vital Signs Temp Pulse Pulse Resp BP BP Pulse Ox 10/21/24 08:15 58 L 10/21/24 07:59 97.7 F 73 16 122/75 99 10/21/24 02:00 98.3 F 61 14 93/59 95 10/20/24 23:00 97.6 F 67 16 138/82 98 10/20/24 22:00 66 18 148/88 98 10/20/24 21:01 63 18 147/92 98 10/20/24 20:00 58 L 18 114/81 97 10/20/24 18:47 67 18 138/86 97 10/20/24 16:06 57 L 18 138/86 98 Intake and Output 10/21/24 10/21/24 10/21/24 06:59 14:59 22:59 Intake Total 325 Balance 325 Intake: Oral 325 Other: Voiding Method Toilet # Voids 1 1 GENERAL: The patient is lying in bed and is not in acute distress. NEUROLOGICAL: Higher mental function: The patient is awake, alert, oriented to self, place and time. Patient is following commands. No aphasia and no neglect. Cranial nerves: The pupils are round, equal and reactive to light. Right eye primary gaze is more deviated towards the right lateral and according to the patient this is baseline since . Extraocular was intact no nystagmus. Visual prado are full to confrontation throughout. Facial sensation is normal to touch throughout. The facial strength is ptosis over the right eyelid that is mild to subtle moderate. Hearing is normal bilaterally to hand rub. Tongue is midline and moved [id number] without any difficulty. No dysarthria is noted. Shoulder shrug is normal bilaterally. Motor: The strength is 5 over 5 throughout. Normal tone and bulk. Cerebellum: Normal finger to nose heel to chin bilaterally. Sensation: Sensation is normal to touch throughout. Reflexes (right/left): 2+ throughout. Plantars are downgoing bilaterally. Results - Laboratory Findings CBC and BMP: 10/21/24 04:30 10/21/24 04:30 Abnormal Lab Findings: Abnormal Labs 10/20/24 10/20/24 10/21/24 12:51 14:35 04:30 Hct Sodium 136 L BUN/Creatinine Ratio 20.71 H POC Glucose (mg/dL) 112 H Cholesterol 222.00 H LDL Cholesterol, Calc 156.7 H HDL Cholesterol 37.70 L 10/21/24 04:30 Hct 37.1 L Sodium BUN/Creatinine Ratio POC Glucose (mg/dL) Cholesterol LDL Cholesterol, Calc HDL Cholesterol Assessment and Plan Assessment: This is a 44-year-old woman who yesterday while at work she noticed her right eye was blurry then she noticed ptosis of the right eye at 12:30 PM. In December 2023 she had episode of slurring of the speech. Acute ptosis of the right eye with blurry vision: Unknown exact etiology. Rule out stroke versus demyelinating process versus unlikely mass Chest pain History of dysarthria in December 2023 and that she had MRI of the brain which was unremarkable History of migraine History of "lazy eye" on right Family history of lazy eye Former tobacco use Plan: I ordered MRI of the brain as well as orbit any stroke, demyelination or any brain mass Ordered CT angiography of the head and neck to rule out any aneurysm I ordered TSH, vitamin B12, ESR, CRP Patient was started on aspirin 81 mg daily by cardiology team. In the past she was supposed to be on aspirin but she was not taking the medication. She was also started on Lipitor 40 mg daily. Continue neurochecks Cardiac monitoring 2D echo was ordered and is pending Will defer the rest of the medical management to primary and other specialist If possible recommend ophthalmology consultation. For DVT prophylaxis the patient is ambulatory The plan discussed with the patient and his Thank you for the consultation Time with Patient: Greater than 30
[2024-10-21 17:38] LABS: C Reactive Protein <0.5 mg/dL (<1.0)
--- NOTE | 2024-10-21 20:03 | CT ---
EXAMINATION TYPE: CT angio head neck DATE OF EXAM: 10/21/2024 7:15 PM COMPARISON: None. CLINICAL INDICATION: Female, 44 years old with history of ptsosis right eye r/o aneurysm, ptsosis rig ht eye r/o aneurysm TECHNIQUE: CTA scan is performed with axial images are obtained, coronal and sagittal reformatted tana ges are reviewed. 3-D reconstructed images are created on an independent workstation and reviewed. [place] [facility] [place]. NASCET criteria was used in interpretation of this exam? Contrast used:65ml mL of Isovue 370 with IV Contrast, (none if empty) Oral contrast used: (none if empty) CT DLP: 425.2 mGycm, Automated exposure control for dose reduction was used. FINDINGS: Cervical of Wade: Vertebral basilar system appears normal. Posterior cerebral vasculature is unrema rkable. Internal carotid arteries bifurcate normally into A1 and M1 segments. A2 segments are normal. The anterior communicating artery is patent. The right posterior communicating artery is patent. The left posterior communicating artery is absent. Other: Optic chiasm appears normal. Suprasellar cistern is unremarkable Carotid/Vascular Structures: There is a 3 vessel arch. Common carotid arteries bifurcate into internal and external carotid arteries without significant yara w limiting stenosis. Vertebral arteries are codominant. Internal carotid arteries and vertebral arteries are patent to the skull base. IMPRESSION: 1. No suspicious [place] of [place] changes. 2. No carotid artery stenosis [facility], , 10/21/2024 8:00 PM
[2024-10-21] MEDS: ACETAMINOPHEN TAB 325 MG TAB PO PRN (21:39)
[2024-10-22 07:31] VITALS: BP 101/65; PULSE 61; RESP 16; TEMP 98.2
--- NOTE | 2024-10-22 09:57 | P.PN ---
Subjective HISTORY OF PRESENT ILLNESS: This is a 44-year-old female with a past medical history significant for hyperlipidemia, mild CAD, and former nicotine dependence. Patient follows in the office with Dr. Troy. We have been asked to see the patient in consultation for chest pain and elevated blood pressure. Patient examined at the bedside in the emergency room. Patient states that she was at work yesterday when she began to have blurry vision. 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 She also noticed that her right eye was droopy. She took her blood pressure which was noted to be elevated with a reading of 180/106. She did take some aspirin at that time. Additionally, she started to have some chest discomfort that started after she took her blood pressure. She states that her blood pressure is typically in the 120s and she has never been diagnosed with hypertension before. Since coming to the hospital, patient has not had any severely elevated blood pressures. Most recent blood pressure readings 138/82 and 93/59. She reports that she has been having some dizziness recently without any episodes of syncope. She states that she stopped taking all of her medications 2 to 3 months ago including aspirin, Lipitor, Zetia, and Ranexa. She is a former cigarette smoker and quit smoking 2 years ago. DIAGNOSTICS: - EKG reveals sinus mechanism with no signs of acute ischemia. - Chest xray negative for acute process CT brain: Negative for acute intracranial process - Laboratory data: WBC 9.5. Hemoglobin 13.6. Platelet count 346. Sodium 135. Potassium 4.6. BUN 14.5. Creatinine 0.7. Magnesium 1.9. Troponin negative x 3. Total cholesterol 222. LDL 156. - Current home cardiac medications include none. Patient states she quit taking all of her medications 2 to 3 months ago. - Most recent echocardiogram obtained in December 2023 which was a limited study revealing normal LV function and negative bubble study - Cardiac catheterization history: October 2022 revealing relatively normal coronary arteries other than mid LAD 30 to 40% stenosis and mildly elevated left-sided filling pressures 10/22/2024 Patient examined this morning the bedside. Patient currently denies any chest pain or pressure. She denies any shortness of breath. Vital signs are stable. Blood pressure 101/65. Telemetry reveals sinus mechanism. 2D echo remains pending. Patient has been evaluated by neurology. She is scheduled to undergo MRI today. PHYSICAL EXAM: VITAL SIGNS: Reviewed. GENERAL: Well-developed in no acute distress. HEENT: Head is normocephalic. Pupils are equal, round. Sclerae anicteric. Mucous membranes of the mouth are moist. Neck supple. No JVD or thyromegaly LUNGS: Respirations even and unlabored. Lungs essentially clear to auscultation bilaterally. HEART: Regular rate and rhythm. S1 and S2 heard. ABDOMEN: Soft. Nondistended. Nontender. EXTREMITIES: Normal range of motion. No clubbing or cyanosis. Peripheral pulses intact. No lower extremity edema NEUROLOGIC: Awake and alert. Oriented x 3. ASSESSMENT: Blurry vision and reported droopiness of right eye Chest pain, troponin negative x 3 Isolated episode of high blood pressure, blood pressure currently 93/59 Mild CAD, mid LAD 30 to 40% stenosis, per cath 10/2022 Hyperlipidemia Former nicotine dependence, patient quit smoking 2 years ago Obesity: BMI 34.9 Medication noncompliance, patient states she stopped taking all of her medications 2 to 3 months ago PLAN: 2D echo pending. Await results. Continue current cardiac medications Medication compliance reinforced Neurology following. Patient scheduled to undergo MRI. If 2D echo does not reveal any significant abnormalities, patient may be discharged home from a cardiac standpoint Nurse practitioner note has been reviewed by physician. Signing provider agrees with the documented findings, assessment, and plan of care documented by OPERATOR MAINTAINER as a scribe. Objective - Vital Signs Vital signs: Vital Signs Temp 98.2 F 10/22/24 07:00 Pulse 61 10/22/24 07:00 Resp 16 10/22/24 07:00 BP 101/65 10/22/24 07:00 Pulse Ox 97 10/22/24 07:00 FiO2 Intake & Output 10/21/24 10/22/24 10/22/24 18:59 06:59 18:59 Intake Total 118 Balance 118 Weight 95.254 kg Intake: Oral 118 Other: # Voids 1 2 - Labs CBC & Chem 7: 10/21/24 04:30 10/21/24 04:30 Labs: Abnormal Lab Results - Last 24 Hours (Table) 10/21/24 10/21/24 Range/Units 04:30 17:02 Hct 37.1 L (37.2-46.3) % Vitamin B12 1066.0 H (200.0-944.0) pg/mL
--- NOTE | 2024-10-22 15:28 | P.PN ---
Subjective Progress Note Date: 10/22/24 I am following up with the patient and the patient feels she is about the same. She continues to have ptosis of the right eye. Denies any new neurological issues. Denies any diplopia. Objective - Vital Signs Vital signs: Vital Signs Temp 98.2 F 10/22/24 07:00 Pulse 61 10/22/24 07:00 Resp 16 10/22/24 07:00 BP 101/65 10/22/24 07:00 Pulse Ox 97 10/22/24 07:00 FiO2 Intake & Output 10/21/24 10/22/24 10/22/24 18:59 06:59 18:59 Intake Total 118 118 Balance 118 118 Weight 95.254 kg Intake: Oral 118 118 Other: # Voids 1 2 - Exam GENERAL: The patient is lying in bed and is not in acute distress. NEUROLOGICAL: Higher mental function: The patient is awake, alert, oriented to self, place and time. Patient is following commands. No aphasia and no neglect. Cranial nerves: The pupils are round, equal and reactive to light. Right eye primary gaze is more deviated towards the right lateral and according to the patient this is baseline since . Extraocular was intact no nystagmus. Visual prado are full to confrontation throughout. Facial sensation is normal to touch throughout. The facial strength is ptosis over the right eyelid that is mild to subtle moderate. Hearing is normal bilaterally to hand rub. Tongue is midline and moved [id number] without any difficulty. No dysarthria is noted. Shoulder shrug is normal bilaterally. Motor: The strength is 5 over 5 throughout. Normal tone and bulk. Cerebellum: Normal finger to nose heel to chin bilaterally. Sensation: Sensation is normal to touch throughout. Reflexes (right/left): 2+ throughout. Plantars are downgoing bilaterally. Some of the workup during this hospital visit consisted of: Panel is triglycerides 138, cholesterol is 222, LDL is 156 and HDL is 37 ESR is 14 CRP is less than 0.5 Vitamin B12 is 8066 TSH is 2.360 Lipid panel is triglyceride is 138, Cholesterol is 222, LDL is 156 and HDL is 37. CT of the head is reported as no acute intracranial process. I personally reviewed the CT and agree with the report Carotid duplex is reported as no hemodynamic significant stenosis over the right or left. CT angiography of the head and neck is reported as no suspicious [place] of [place] change. No carotid artery stenosis - Labs CBC & Chem 7: 10/21/24 04:30 10/21/24 04:30 Labs: Abnormal Lab Results - Last 24 Hours (Table) 10/21/24 Range/Units 17:02 Vitamin B12 1066.0 H (200.0-944.0) pg/mL Assessment and Plan Assessment: This is a 44-year-old woman who yesterday while at work she noticed her right eye was blurry then she noticed ptosis of the right eye at 12:30 PM. In December 2023 she had episode of slurring of the speech. Acute ptosis of the right eye with blurry vision: Unknown exact etiology. Rule out stroke versus demyelinating process versus unlikely mass Chest pain History of dysarthria in December 2023 and that she had MRI of the brain which was unremarkable History of migraine History of "lazy eye" on right Family history of lazy eye Former tobacco use Plan: Pending MRI of the brain as well as orbit any stroke, demyelination or any brain mass If MRI is negative recommend Lumbar Puncture. Patient was started on aspirin 81 mg daily by cardiology team. In the past she was supposed to be on aspirin but she was not taking the medication. She was also started on Lipitor 40 mg daily. Continue neurochecks Cardiac monitoring 2D echo was ordered and is pending Will defer the rest of the medical management to primary and other specialist If possible recommend ophthalmology consultation. For DVT prophylaxis the patient is ambulatory The plan discussed with the patient and her nurse. Time with Patient: Less than 30
--- NOTE | 2024-10-22 15:50 | MR ---
EXAMINATION TYPE: MR brain/orbits wo/w con DATE OF EXAM: 10/22/2024 1:23 PM COMPARISON: . CLINICAL INDICATION: Female, 44 years old with history of right ptosis, blurry vision righ head; PHH, Episode of blurred vision, ptosis right eye. TECHNIQUE: Multi planar, multi sequence imaging was performed through the orbits/face. Post contrast imaging was performed after the administration of 9 mL Gadobutrol FINDINGS, ORBITS: The globes appear symmetrical. Orbital contents are intact. Signal intensity of th e optic nerves are within normal limits. The intraorbital fat appears preserved. Both lacrimal glan ds are unremarkable. The extraocular muscles appear symmetric. After administration of contrast, no a bnormal enhancement is seen. FINDINGS, BRAIN: The bowens-white junctions, ventricular system, and cisterns do appear unremarkable. Diffusion-weighted imaging shows no evidence of restricted diffusion. Patchy areas of high T2 signa l intensity are seen within the periventricular white matter. Cavernous sinus is within normal limit s. After administration of contrast, no abnormal enhancement is seen within the brain. The bone marrow signal is within normal limits. Paranasal sinuses and mastoid air cells: No significant paranasal sinus disease. Visualized orbits: Orbital contents are intact. IMPRESSION: 1. No evidence of intraorbital mass or significant abnormality. 2. No evidence of intracranial mass nor acute/subacute CVA accident. 3. Nonspecific white matter changes are identified likely small vessel ischemic disease. [facility], , 10/22/2024 3:48 PM
--- NOTE | 2024-10-22 17:32 | CA ---
Transthoracic Echo Report Name: Nikkie Garcia Age: 44 Gender: F : 1980 Exam Date: 10/21/2024 14:45 Exam Location: [facility] Ht (in): 65 Wt (lb): 210 Ordering Physician: Tabitha Vogel Attending/Referring Phys: [id number], Jasperet Vegetable Handler Betty Cheema, GREGORIO Procedure CPT: Indications: LV function, CP Cardiac Hx: Technical Quality: Contrast 1: Total Dose (mL): Contrast 2: Total Dose (mL): MEASUREMENTS (Male / Female) Normal Values 2D ECHO LV Diastolic Diameter PLAX 4.5 cm 4.2 - 5.9 / 3.9 - 5.3 cm IVS Diastolic Thickness 0.9 cm 0.6 - 1.0 / 0.6 - 0.9 cm LVPW Diastolic Thickness 0.8 cm 0.6 - 1.0 / 0.6 - 0.9 cm LV Relative Wall Thickness 0.4 RV Internal Dim ED PLAX 3.0 cm LVOT Diameter 2.2 cm LA Systolic Diameter LX 3.6 cm 3.0 - 4.0 / 2.7 - 3.8 cm LA Volume 57.5 cm??? 18 - 58 / 22 - 52 cm??? LA Volume Index 27.0 cm???/m??? 16 - 28 cm???/m??? FINDINGS Left Ventricle Left ventricular ejection fraction is estimated at 55-60 %. Left ventricular cavity size normal. Left ventricular wall thickness normal. Normal left ventricular wall motion. Right Ventricle Normal right ventricular size. Unable to estimate the right ventricular systolic pressure. Right Atrium Normal right atrial size. No right atrial thrombus or mass seen. Left Atrium Mildly increased left atrial volume. No left atrial thrombus or mass present. Mitral Valve Mild mitral regurgitation.structurally normal mitral valve. Aortic Valve Trileaflet aortic valve. No aortic valve stenosis or regurgitation. Tricuspid Valve Structurally normal tricuspid valve. No tricuspid stenosis, regurgitation or prolapse. Pulmonic Valve Structurally normal pulmonic valve. Trace pulmonic regurgitation. Pericardium No pericardial or pleural effusion. Aorta Normal size aortic root and proximal ascending aorta. CONCLUSIONS 1. Normal left ventricular size and systolic function 2. Mild mitral regurgitation Previewed by: Dr. Riki Cardona MD (Electronically Signed) Final Date: 22 October 2024 17:31
--- NOTE | 2024-10-26 13:18 | P.PN ---
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, patient presented to the emergency department at [facility] because of left-sided chest pain associated with elevated blood pressure without diagnosis of hypertension in the past, patient stated that she was working up in the hospital and all of a sudden she had blurred vision in the right eye and the PA that was working with her told her that she has a droopy right eyelid, so she decided to come to the ER for evaluation initially she was very hypertensive 170/110 patient did receive Dilaudid as well as nitroglycerin paste, her blood pressure normalizes, cardiac enzymes came back negative, rest of the laboratory evaluation were normal except for mild hyponatremia, patient had a twelve-lead EKG did not show evidence of acute abnormalities but because of her family history of significant premature heart disease in her father with an NH at the age of 46 she was admitted to [facility] for evaluation by cardiology, neurology consultation was obtained. 10/21: Patient sitting up in bed in no apparent distress, she denies any chest pain, shortness of breath, she has no abdominal pain, nausea vomiting or diarrhea, her blood pressure appears to be much better today as a matter fact is on the lower side, she was seen in consultation by cardiology who recommended echocardiogram the result of which still pending the time of dictation, ultrasound the carotid did not show evidence of any significant stenosis, if the echocardiogram is fine the patient can be discharged home and follow-up with us as an outpatient. REVIEW OF SYSTEMS: Constitutional: No documented fever, no chills, no night sweats. No weight change. No weakness, fatigue or lethargy. No daytime sleepiness. EENT: No headache. positive for blurred vision or double vision, no loss of vision. No loss of Hearing, no ringing in the ears, no dizziness. No nasal drainage or congestion. No epistaxis. No sore throat. Lungs: No shortness of breath, no cough, no sputum production. No wheezing. Reports dyspnea with activity. Cardiovascular: positive for chest pain, no lower extremity edema. No palpitations. No paroxysmal nocturnal dyspnea. No orthopnea. No lightheadedness or dizziness. No syncopal episodes. Abdominal: Reports no abdominal pain. No nausea, vomiting. No diarrhea. No constipation. No bloody or tarry stools reports loss of appetite. Genitourinary: No dysuria, increased frequency, urgency. No urinary retention. Musculoskeletal: No myalgias. No muscle weakness, no gait dysfunction, no frequent falls. No back pain. No neck pain. Integumentary: No wounds, no lesions. No rash or pruritus. No unusual bruising. No change in hair or nails. Neurologic: No aphasia. No facial droop. No change in mentation. No head injury. No headache. No paralysis. No paresthesia.reoprted droopy right eye lid that was resolved. Psychiatric: No depression. positive for anxiety. No mood swings. Endocrine: No abnormal blood sugars. No weight change. PHYSICAL EXAMINATION: General: 44-year-old female laying down in bed in no apparent distress. HEENT: Head is atraumatic, normocephalic, pupils were equal round reactive to light and recommendation, extraocular muscle movement were intact, sclera nonicteric, conjunctivae were pale, mucous membranes of the mouth are somewhat dry. Neck: Supple, no JVP, normal carotid upstroke bilaterally, no lymphadenopathy. Chest: Decreased breath sounds at the bases, few rhonchi, no expiratory wheezes, no chest wall tenderness, no intercostal retractions. Heart: First heart sound is normal, second heart sounds normal there is no gal lop or murmur no rubs or heaves. Abdomen: Soft, nontender, nondistended, positive bowel sounds. Extremities: There is no edema no calf tenderness DP +2 bilaterally. Neurologic examination: Patient is awake alert and oriented x3, cranial nerves II-12 appear grossly intact, muscle power were 5 out of 5 in upper extremities and 5 out of 5 in bilateral lower extremities, deep tendon reflexes normal bi laterally. ASSESSMENT AND PLAN: 1. Chest pain likely noncardiac. Cardiac enzymes were negative, patient ruled out for acute coronary syndrome at this time, patient did have left heart catheterization about 3 years ago that showed minimal CAD at that time, patient will be seen and evaluated by cardiology, we will arrange for stress echo tomorrow morning after she is seen by cardiology. Patient is currently on nitroglycerin paste 1 inch every 6 hours [id number], she is to use nitroglycerin 0.4 mg sublingual as needed for breakthrough pain, patient also will be started back on her atorvastatin 40 mg orally once every day, she is to continue aspirin 81 mg once every day until further evaluation. 2. Elevated blood pressure without the diagnosis of hypertension. Monitor the patient blood pressure very closely, she may need to be started on a small dose of losartan 25 mg orally once a day if the blood pressure continues to be elevated. Her current blood pressures. Normal. 3. Reported droopy eyelid that has resolved along with the right eye blurred vision that has resolved as well. I will obtain ultrasound the carotid as well as echocardiogram, continue aspirin 325 mg once every day, continue atorvastatin 40 mg once every day, neurology consultation will be obtained patient need to have an MRI of the brain with and without devin. 4. Coronary artery disease based on last heart catheterization that was done in October 2022 that showed 30 to 40% stenosis of the LAD. Continue baby aspirin 81 g once every day, atorvastatin 40 mg once every day, Zetia 10 mg once every day, echocardiogram was obtained, the results still pending at the time of dictation. 5. Mixed hyperlipidemia. Continue patient on atorvastatin 40 mg once every day, monitor lipid panel, keep LDL 55-70. 6. Migraine headaches. Continue patient on Topamax 25 mg orally once every day. 7. GERD with esophagitis. Continue Protonix 40 mg orally once every day. 8. Anxiety disorder. Continue patient on buspirone 10 mg orally twice every day. 9. Spondylolisthesis of the thoracic spine without myelopathy or radiculopathy. Stable at this time. Continue Motrin as needed. 10. History of squamous cell cancer of the face. 11. DVT prophylaxis. Early ambulation. 12. GI prophylaxis. Continue patient on Protonix 40 mg once every day. Objective - Vital Signs Vital signs: Vital Signs Temp 97.7 F 10/21/24 07:59 Pulse 58 L 10/21/24 08:15 Resp 16 10/21/24 07:59 BP 122/75 10/21/24 07:59 Pulse Ox 99 10/21/24 07:59 FiO2 Intake & Output 10/20/24 10/21/24 10/21/24 18:59 06:59 18:59 Intake Total 325 Balance 325 Weight 95.254 kg Intake: Oral 325 Other: Voiding Method Toilet # Voids 1 1 - Labs CBC & Chem 7: 10/21/24 04:30 10/21/24 04:30 Labs: Abnormal Lab Results - Last 24 Hours (Table) 10/20/24 10/20/24 10/21/24 Range/Units 12:51 14:35 04:30 Hct (37.2-46.3) % Sodium 136 L (137-145) mmol/L BUN/Creatinine Ratio 20.71 H (12.00-20.00) Ratio POC Glucose (mg/dL) 112 H (70-110) mg/dL Cholesterol 222.00 H (0.00-200.00) mg/dL LDL Cholesterol, Calc 156.7 H (0.0-131.0) mg/dL HDL Cholesterol 37.70 L (40.00-60.00) mg/dL 10/21/24 Range/Units 04:30 Hct 37.1 L (37.2-46.3) % Sodium (137-145) mmol/L BUN/Creatinine Ratio (12.00-20.00) Ratio POC Glucose (mg/dL) (70-110) mg/dL Cholesterol (0.00-200.00) mg/dL LDL Cholesterol, Calc (0.0-131.0) mg/dL HDL Cholesterol (40.00-60.00) mg/dL
--- NOTE | 2024-10-26 13:20 | P.DS ---
Providers Date of admission: 10/20/24 16:22 Expected date of discharge: 10/21/24 Attending physician: Kenan Ivory Consults: 10/20/24 16:20 Consult Physician Urgent Consulting Provider: [facility] Consult Reason/Comments: Chest pain, hypertensive urgency, headache Do you want consulting provider notified?: Yes 10/21/24 10:44 Consult Physician Routine Consulting Provider: Malcom Onofre Consult Reason/Comments: Blurred vision, droopy eyelid Do you want consulting provider notified?: Yes Primary care physician: Kenan Ivory Hospital Course: HISTORY OF PRESENT ILLNESS: This is a 44-year-old female with a previous medical history significant for mixed hyperlipidemia, GERD with esophagitis, anxiety disorder, squamous cell carcinoma of the face, migraine headache, 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, patient presented to the emergency department at [facility] because of left-sided chest pain associated with elevated blood pressure without diagnosis of hypertension in the past, patient stated that she was working up in the hospital and all of a sudden she had blurred vision in the right eye and the PA that was working with her told her that she has a droopy right eyelid, so she decided to come to the ER for evaluation initially she was very hypertensive 170/110 patient did receive Dilaudid as well as nitroglycerin paste, her blood pressure normalizes, cardiac enzymes came back negative, rest of the laboratory evaluation were normal except for mild hyponatremia, patient had a twelve-lead EKG did not show evidence of acute abnormalities but because of her family history of significant premature heart disease in her father with an MA at the age of 46 she was admitted to hospital for evaluation by cardiology, neurology consultation was obtained. 10/21: Patient sitting up in bed in no apparent distress, she denies any chest pain, shortness of breath, she has no abdominal pain, nausea vomiting or diarrhea, her blood pressure appears to be much better today as a matter fact is on the lower side, she was seen in consultation by cardiology who recommended echocardiogram that showed normal ejection fraction, mild mitral regurgitation, no evidence of wall motion abnormality, patient also underwent MRI of the orbit as well MRI of the brain that did not show evidence of acute or subacute i nfarct, did show nonspecific white matter changes suggestive of ischemia patient therefore can be discharged home and follow-up with us as an outpatient. Discharge diagnoses: 1. Chest pain likely noncardiac. 2. Elevated blood pressure without the diagnosis of hypertension. 3. Reported droopy eyelid that has resolved along with the right eye blurred vision that has resolved as well. 4. Coronary artery disease based on last heart catheterization that was done in October 2022 that showed 30 to 40% stenosis of the LAD. 5. Mixed hyperlipidemia. 6. Migraine headaches. 7. GERD with esophagitis. 8. Anxiety disorder. 9. Spondylolisthesis of the thoracic spine without myelopathy or radiculopathy. 10. History of squamous cell cancer of the face. Patient Condition at Discharge: Stable Plan - Discharge Summary Discharge Rx Participant: No New Discharge Prescriptions: New busPIRone HCl [Buspar] 10 mg PO BID #60 tab Cholecalciferol [Vitamin D3 (25 Mcg = 1000 Iu)] 25 mcg PO DAILY #30 tab Ezetimibe [Zetia] 10 mg PO DAILY #30 tab Aspirin 81 mg PO DAILY tab Atorvastatin [Lipitor] 40 mg PO DAILY #30 tab Multivitamins, Thera [Multivitamin (formulary)] 1 each PO DAILY tab methocarbamoL [Robaxin-750] 750 mg PO TID #90 tab Topiramate [Topamax] 25 mg PO HS #30 tab Discharge Medication List Aspirin 81 mg PO DAILY tab 10/22/24 [Rx] Atorvastatin [Lipitor] 40 mg PO DAILY #30 tab 10/22/24 [Rx] Cholecalciferol [Vitamin D3 (25 Mcg = 1000 Iu)] 25 mcg PO DAILY #30 tab 10/22/24 [Rx] Ezetimibe [Zetia] 10 mg PO DAILY #30 tab 10/22/24 [Rx] Multivitamins, Thera [Multivitamin (formulary)] 1 each PO DAILY tab 10/22/24 [Rx] Topiramate [Topamax] 25 mg PO HS #30 tab 10/22/24 [Rx] busPIRone HCl [Buspar] 10 mg PO BID #60 tab 10/22/24 [Rx] methocarbamoL [Robaxin-750] 750 mg PO TID #90 tab 10/22/24 [Rx] Follow up Appointment(s)/Referral(s): Kenan Ivory MD [Primary Care Provider] - 1 Week Jaida Castillo MD [Medical Doctor] - 1 Week Patient Instructions/Handouts: Chest Pain (DC) Discharge Disposition: HOME SELF-CARE
== END 2024-10-22 14:30 | disposition home or self-care (01) ==
LOC: EC 12:38 → 6NMEDSUR 16:22 → 1SOBS 10-21 10:38 → 6NMEDSUR 10-21 16:26
PROVIDERS: ADMIT Internal Medicine; ATTEND Internal Medicine
DX: R07.9 Chest pain, unspecified (principal); R03.0 Elevated blood-pressure reading, without diagnosis of hypertension; H53.8 Other visual disturbances; H02.401 Unspecified ptosis of right eyelid; I25.10 Atherosclerotic heart disease of native coronary artery without angina pectoris; E78.2 Mixed hyperlipidemia; G43.909 Migraine, unspecified, not intractable, without status migrainosus; K21.00 Gastro-esophageal reflux disease with esophagitis, without bleeding; F41.9 Anxiety disorder, unspecified; M43.14 Spondylolisthesis, thoracic region; M41.9 Scoliosis, unspecified; E66.9 Obesity, unspecified; F31.9 Bipolar disorder, unspecified; F41.0 Panic disorder [episodic paroxysmal anxiety]; Z68.34 Body mass index [BMI] 34.0-34.9, adult; Z85.828 Personal history of other malignant neoplasm of skin; Z87.891 Personal history of nicotine dependence; Z88.2 Allergy status to sulfonamides; Z91.148 Patient's other noncompliance with medication regimen for other reason
CPT/HCPCS: 96376 ×3; 96374; 96375; 99285; 36415; 93005 ×2; 93306; 80061; 80053 ×2; 85652; 84443; 82607; 83735; 84484; 85025 ×2; 85610; 85730; 86140; 71046; 93880; 70496; 70450; 70498; 70543; 70553; G0378 ×4; J2405 ×2; J1885; J1171; Q9967; A9585

== ENCOUNTER → 2024-12-18 | Day surgery (SDC) | payer MEDICAID ==
[~2024-12-18] MED LIST changes: +IOPAMIDOL M200 10 ML VIAL ONE; -LACTATED RINGERS 1,000 ML IV SCH; -ROPIVACAINE 5MG/ML 20ML VIAL ONE; -methylPREDNISolone ACETATE 40 MG/ML 1 ML VIAL ONE; +methylPREDNISolone ACETATE 80 MG/ML 1 ML VIAL ONE
[2024-12-18 10:56] VITALS: TEMP 97.2
--- NOTE | 2024-12-18 11:23 | P.PCN ---
Date of Procedure: 12/18/24 Procedure(s) Performed: PROCEDURE 1. Thoracic epidural steroid injection under fluoroscopic guidance,T5-6 2. Thoracic epidurogram. PREOPERATIVE DIAGNOSIS: 1- Thoracic Degenerative Disc Diseases . 2- thoracic spondylosis with facet arthropathy. 3-Thoracic Radiculopathy. POSTOPERATIVE DIAGNOSIS: : 1- thoracic Degenerative Disc Diseases . 2-thoracic spondylosis with facet arthropathy 3-Thoracic Radiculopathy. ANESTHESIA: Local anesthesia with 1% lidocaine 3 ml only. EBL 0 PROCEDURE INDICATION: The patient with upper and mid back pain and radiculitis unresponsive to conservative treatment consents for procedure. PROCEDURE DESCRIPTION / TECHNIQUE: The patient was seen and identified in the preoperative area. Risks, benefits, complications, including but not limited to infections ,bleeding , allergic reactions to the medications ,and not complete pain releife, and alternatives were discussed with the patient, the patient agreed to proceed with the procedure and signed the consent. Patient was taken to the OR and time out was completed. The patient was placed in the prone position on the procedure table. A pillow was placed under the patients chest to increase the cervical interlaminar space. The cervical area was prepped and draped in the usual sterile fashion. Vital signs were closely monitored during the procedure.. Using anterior-posterior fluoroscopy, the T5-6 interlaminar space was identified and the skin over this site was marked and then infiltrated with 1% lidocaine subcutaneously. Subsequently, a 20-gauge 3-1/2-inch Tuohy epidural needle was inserted and advanced toward the epidural space by means of the loss of resistance technique and guided by AP and lateral fluoroscopy. The correct needle position in the epidural space was verified with the injection of 1 mL of the water soluble contrast dye Isovue-200 and observing an excellent epidurogram with the epidural spread of the dye, after negative aspiration for blood and CSF and in the absence of paresthesias. Again after negative aspiration, a 3 ml mixture containing 80 mg Depo-Medrol and 2 ml of 1% preservative-free lidocaine,the solution was injected and a washout of epidurogram was seen. Needle was withdrawn intact, skin was cleansed, and bandages were applied. Complications= none. Disposition= patient was placed in supine position and transferred to the recovery room area in stable condition and there was no evidence of upper or lower extremity motor or sensory deficit after the procedure patient was discharged from recovery room after discharge criteria met and home discharge instructions was given by the staff and patient will follow with the pain clinic in 2-4 weeks
--- NOTE | 2024-12-18 11:33 | FL ---
EXAMINATION TYPE: FL guided pain mgmt statistic DATE OF EXAM: 12/18/2024 11:26 AM COMPARISON: Pre Operative Images if available both CT/MRI or plain film CLINICAL INDICATION: Female, 44 years old with history of TESI; TECHNIQUE: FL guided pain mgmt statistic, multiple fluoroscopic images provided for procedure. DAP: 0.11036 mGym2 Gycm2 uGym2 cGycm2 or equivalent. FINDINGS: Fluoroscopic images during injection for pain management demonstrate multilevel degeneration changes throughout the spine. No evidence for fracture. No acute process identified. IMPRESSION: 1. No evidence for intraoperative complication. 2. Please see the operative/procedural note for further details. [facility], , 12/18/2024 11:30 AM
[2024-12-18 11:44] VITALS: BP 115/78; PULSE 63; RESP 14
== END ==
LOC: ORPAIN 10:30
PROVIDERS: ATTEND Specialist
DX: M47.24 Other spondylosis with radiculopathy, thoracic region (principal); M51.14 Intervertebral disc disorders with radiculopathy, thoracic region; I10 Essential (primary) hypertension; Z79.82 Long term (current) use of aspirin; Z88.2 Allergy status to sulfonamides
CPT/HCPCS: 81025; 62321; Q9966; J1010

== ENCOUNTER → 2024-12-26 | Outpatient (CLI) | payer MEDICAID ==
[2024-12-26 14:59] LABS: Basophils # (A) 0.05 X 10*3/uL (0.00-0.10); Basophils % (A) 0.8 %; Eosinophils # (A) 0.05 X 10*3/uL (0.04-0.35); Eosinophils % (A) 0.8 %; HCT 38.8 % (37.2-46.3); Lymphocytes # (A) 2.21 X 10*3/uL (0.90-5.00); Lymphocytes % (A) 33.4 %; MCH 29.9 pg (27.0-32.0); MCHC 33.5 g/dL (32.0-37.0); MCV 89.2 FL (80.0-97.0); Mean Platelet Volume 12.1 FL (9.5-12.2); Monocytes # (A) 0.57 X 10*3/uL (0.20-1.00); Monocytes % (A) 8.6 %; NRBC Per 100 WBC 0 X 10*3/uL (0.00-0.01); Neutrophils # (A) 3.71 X 10*3/uL (1.80-7.70); Neutrophils % (A) 55.9 %; Platelet Count 322 X 10*3/uL (140-440); RBC 4.35 X 10*6/uL (4.10-5.20); RDW 12.7 % (11.5-14.5); WBC 6.62 X 10*3/uL (4.50-10.00)
[2024-12-26 15:28] LABS: ALT 16 U/L (8-44); AST 19 U/L (13-35); Albumin 4.3 g/dL (3.8-4.9); Albumin/Globulin Ratio 1.87 Ratio (1.60-3.17); Alkaline Phosphatase 47 U/L (41-126); BUN/Creat Ratio 23.29 Ratio (12.00-20.00); Blood Urea Nitrogen 16.3 mg/dL (9.0-27.0); Calcium 9.3 mg/dL (8.7-10.3); Carbon Dioxide 23.4 mmol/L (21.6-31.8); Chloride 108 mmol/L (96-109); Globulin 2.3 g/dL (1.6-3.3); Glucose 96 mg/dL (70-110); Sodium 143 mmol/L (135-145); Total Bilirubin 0.3 mg/dL (0.3-1.2); Total Protein 6.6 g/dL (6.2-8.2)
[2024-12-26 15:39] LABS: Testosterone <10.00 ng/dL (9.01-47.94)
[2024-12-26 15:41] LABS: Follicle Stimulating Hormone 4.2 mIU/mL; Luteinizing Hormone 2.4 mIU/mL
== END | disposition home or self-care (01) ==
LOC: LABWHC1 11:57
PROVIDERS: ATTEND Internal Medicine
DX: N93.9 Abnormal uterine and vaginal bleeding, unspecified (principal)
CPT/HCPCS: 36415; 80053; 82642; 82670; 83001; 83002; 84144; 84403; 85025

== ENCOUNTER 2024-12-28 08:25 | Emergency (ER) | payer MEDICAID ==
--- NOTE | 2024-12-28 08:51 | ED ---
Female Urogenital HPI - General Chief complaint: Vaginal Bleeding Stated complaint: Abd pain,Vaginal bleeding Time Seen by Provider: 12/28/24 08:49 Source: patient, RN notes reviewed Mode of arrival: ambulatory Limitations: no limitations - History of Present Illness Initial comments: 44-year-old female presented the ER for evaluation of vaginal bleeding. Patient states for the past 3 weeks she has been having vaginal bleeding. This subsided yesterday. Upon waking up this morning she noticed a large amount of blood in her bed sheets and in her underwear which prompted emergency department visit. There were clots present. Patient does state prior to bleeding for approximately 3 weeks she did not have a menstrual cycle for 4 months. She does report a history of uterine ablation approximately 2 years ago. Patient is complaining of a right upper quadrant abdominal tenderness that is intermittent in nature along with lower abdominal cramping. She denies any urinary complaints, diarrhea/constipation, nausea, vomiting, fevers or chills. Patient takes a baby aspirin daily. No other blood thinners. No other complaints at this time. - Related Data Previous Rx's Medication Instructions Recorded Aspirin 81 mg PO DAILY tab 10/22/24 Atorvastatin [Lipitor] 40 mg PO DAILY #30 tab 10/22/24 Cholecalciferol [Vitamin D3 (25 25 mcg PO DAILY #30 tab 10/22/24 Mcg = 1000 Iu)] Ezetimibe [Zetia] 10 mg PO DAILY #30 tab 10/22/24 Multivitamins, Thera [Multivitamin 1 each PO DAILY tab 10/22/24 (formulary)] Topiramate [Topamax] 25 mg PO HS #30 tab 10/22/24 busPIRone HCl [Buspar] 10 mg PO BID #60 tab 10/22/24 methocarbamoL [Robaxin-750] 750 mg PO TID #90 tab 10/22/24 Ondansetron Odt [Zofran Odt] 4 mg PO Q8HR PRN #10 tab 12/28/24 Allergies Allergy/AdvReac Type Severity Reaction Status Date / Time Sulfa (Sulfonamide Allergy Unknown Verified 12/28/24 08:34 Antibiotics) sulfamethoxazole Allergy Itching/Hiv Verified 12/28/24 08:34 [From Bactrim] es trimethoprim [From Bactrim] Allergy Itching/Hiv Verified 12/28/24 08:34 es Review of Systems ROS Statement: Those systems with pertinent positive or pertinent negative responses have been documented in the HPI. ROS Other: All systems not noted in ROS Statement are negative. Past Medical History Past Medical History: Cancer, Chest Pain / Angina, GERD/Reflux, Hyperlipidemia, Musculoskeletal Disorder Additional Past Medical History / Comment(s): Chronic back pain, scoliosis, DDD, CONSTIPATION, recent rectal bleeding, headaches, IRREGULAR HEAVY MENSES @times, recent card. cath. due to chest pain, no blockages, takes metoprolol for, skin cancer face-had removed, daily heartburn/GERD, current kidney stone, chest pains @ times- Takes Metoprolol. Skin Ca History of Any Multi-Drug Resistant Organisms: None Reported Past Surgical History: Appendectomy, Cholecystectomy, Heart Catheterization, Orthopedic Surgery Additional Past Surgical History / Comment(s): D & C, left foot surgery for bunion, fatty tumor removed from back when pt was 8 yrs old. COLONOSCOPY, recent cardiac cath - 2021 Past Anesthesia/Blood Transfusion Reactions: No Reported Reaction Additional Past Anesthesia/Blood Transfusion Reaction / Comment(s): no hx blood transfusion, woke up during last colonoscopy Past Psychological History: Anxiety, Bipolar, Depression, Panic Disorder Smoking Status: Former smoker Past Alcohol Use History: Occasional Past Drug Use History: None Reported - Past Family History Father History Unknown: Yes Family Medical History: Myocardial Infarction ([place]) Additional Family Medical History / Comment(s): at age 42 from [place] Mother History Unknown: Yes Family Medical History: AFIB, Hypertension, Renal Disease Additional Family Medical History / Comment(s): had rt kidney removed r/t not functioning General Exam - General Exam Comments Initial Comments: Visual Physical Exam Vital signs reviewed General: Well-appearing, nontoxic, no acute distress. Head: Normocephalic, atraumatic Eyes: PERRLA, EOMI ENT: Airway patent Chest: Nonlabored breathing Skin: No visual rash, normal skin tone Neuro: Alert and oriented 3 Musculoskeletal: No gross abnormalities Limitations: no limitations General appearance: alert, in no apparent distress Respiratory exam: Present: normal lung sounds bilaterally. Absent: respiratory distress, wheezes, rales, rhonchi, stridor Cardiovascular Exam: Present: regular rate, normal rhythm, normal heart sounds. Absent: systolic murmur, diastolic murmur, rubs, gallop, clicks GI/Abdominal exam: Present: soft, normal bowel sounds. Absent: distended, tenderness, guarding, rebound, rigid External exam: Present: normal external exam Speculum exam: Present: vaginal bleeding (scant) By manual exam: Present: normal by manual exam Neurological exam: Present: alert, oriented X3, CN II-XII intact Skin exam: Present: warm, dry, intact, normal color. Absent: rash Course Vital Signs 12/28/24 12/28/24 12/28/24 08:31 10:33 13:06 Temperature 97.5 F L 98.7 F Pulse Rate 72 64 81 Respiratory 16 18 16 Rate Blood Pressure 128/100 130/88 112/71 O2 Sat by Pulse 100 99 100 Oximetry Medical Decision Making - Medical Decision Making I performed the quick note portion of this chart. Electronically signed by Jenny Link PA-C Was pt. sent in by a medical professional or institution ([facility], OUTSIDE LABORER, urgent care, hospital, or shelter...) When possible be specific @ -No Did you speak to anyone other than the patient for history (EMS, parent, family, police, friend...)? What history was obtained from this source @ -No Did you review nursing and triage notes (agree or disagree)? Why? @ -I reviewed and agree with nursing and triage notes Were old charts reviewed (outside hosp., previous admission, EMS record, old EKG, old radiological studies, urgent care reports/EKG's, shelter records)? Report findings @ -No old charts were reviewed Differential Diagnosis (chest pain, altered mental status, abdominal pain women, abdominal pain men, vaginal bleeding, weakness, fever, dyspnea, syncope, headache, dizziness, GI bleed, back pain, seizure, CVA, palpatations, mental health, musculoskeletal)? @ -Differential Vaginal Bleeding: Spontaneous , threatened , molar , ectopic , bloody show, incompetent cervix, abruptioplacenta, placenta previa, uterine rupture, dysfunctional uterine bleeding, hemorrhage, uterine fibroids, this is not meant to be an all-inclusive list. EKG interpreted by me (3pts min.). @ -None done X-rays interpreted by me (1pt min.). @ -None done CT interpreted by me (1pt min.). @ -None done U/S interpreted by me (1pt. min.). @ -Transvaginal ultrasound showing a thickened heterogeneous endometrial stripe. There is a 5.9mm by ovular thin-walled cystic lesion of the right ovary with smooth inner wall/septations. No evidence of ovarian torsion. What testing was considered but not performed or refused? (CT, X-rays, U/S, labs)? Why? @ -None What meds were considered but not given or refused? Why? @ -None Did you discuss the management of the patient with other professionals (professionals i.e. , PA, OUTSIDE LABORER, lab, RT, psych nurse, group social worker, tube repairer, teacher, wildlife officer, rifle case repairer)? Give summary @ -No Was smoking cessation discussed for >3mins.? @ -No Was critical care preformed (if so, how long)? @ -No Were there social determinants of health that impacted care today? How? (Homelessness, low income, unemployed, alcoholism, drug addiction, transportation, low edu. Level, literacy, decrease access to med. care, fci, rehab)? @ -No Was there de-escalation of care discussed even if they declined (Discuss DNR or withdrawal of care, Hospice)? DNR status @ -No What co-morbidities impacted this encounter? (DM, HTN, Smoking, COPD, CAD, Cancer, CVA, ARF, Chemo, Hep., AIDS, mental health diagnosis, sleep apnea, morbid obesity)? @ -None Was patient admitted / discharged? Hospital course, mention meds given and route, prescriptions, significant lab abnormalities, going to OR and other pertinent info. @ -Discharge. 44-year-old female presented to ER for evaluation of vaginal bleeding. Upon rooming, history and physical exam completed. Vitals within acceptable limits. Patient in no signs of acute distress nontoxic-appearing. Pelvic exam performed and chaperoned by Angie Serna RN. There is scant vaginal bleeding noted. Laboratory studies obtained showing a normal hemoglobin of 13.7. Coagulation studies normal. Urinalysis hemorrhagic likely contaminated from vaginal bleeding. Urine hCG negative. Transvaginal ultrasound showing a heterogeneous thickened endometrium with a right ovarian cyst noted. No evidence of ovarian torsion. As patient complaining of nausea patient did receiv e Zofran. I feel patient is stable for discharge with a stable hemoglobin, stable vital signs with no active hemorrhage.I advised close follow-up with HEAD UP OPERATOR HELPER, referral given. Strict return parameters discussed. Patient discharged in stable condition. Patient verbally expressed understanding and agreement with care plan. Case discussed with ED attending, Dr. Peters. Undiagnosed new problem with uncertain prognosis? @ -No Drug Therapy requiring intensive monitoring for toxicity (Heparin, Nitro, Insulin, Cardizem)? @ -No Were any procedures done? @ -No Diagnosis/symptom? @ -Ovarian cyst/vaginal bleeding Acute, or Chronic, or Acute on Chronic? @ -Acute Uncomplicated (without systemic symptoms) or Complicated (systemic symptoms)? @ -Uncomplicated Side effects of treatment? @ -No Exacerbation, Progression, or Severe Exacerbation? @ -No Poses a threat to life or bodily function? How? (Chest pain, [place], [place], pneumonia, PE, COPD, DKA, ARF, appy, cholecystitis, CVA, Diverticulitis, Homicidal, Suicidal, threat to staff... and all critical care pts) @ -No - Lab Data Result diagrams: 12/28/24 09:00 12/28/24 09:00 Lab Results 12/28/24 12/28/24 12/28/24 Range/Units 09:00 09:00 09:00 WBC 6.8 (3.8-10.6) k/uL RBC 4.59 (3.80-5.40) m/uL Hgb 13.7 (11.4-16.0) gm/dL Hct 40.8 (34.0-46.0) % MCV 88.9 (80.0-100.0) fL MCH 30.0 (25.0-35.0) pg MCHC 33.7 (31.0-37.0) g/dL RDW 12.6 (11.5-15.5) % Plt Count 336 (150-450) k/uL MPV 8.8 Neutrophils % 59 % Lymphocytes % 33 % Monocytes % 5 % Eosinophils % 2 % Basophils % 1 % Neutrophils # 4.0 (1.3-7.7) k/uL Lymphocytes # 2.2 (1.0-4.8) k/uL Monocytes # 0.4 (0-1.0) k/uL Eosinophils # 0.1 (0-0.7) k/uL Basophils # 0.0 (0-0.2) k/uL PT 10.9 (10.0-12.5) sec INR 1.0 (<1.2) APTT 24.5 (22.0-30.0) sec Sodium (137-145) mmol/L Potassium (3.5-5.1) mmol/L Chloride (98-107) mmol/L Carbon Dioxide (22-30) mmol/L Anion Gap mmol/L BUN (7-17) mg/dL Creatinine (0.52-1.04) mg/dL Est GFR (CKD-EPI)AfAm (>60 ml/min/1.73 sqM) Est GFR (CKD-EPI)NonAf (>60 ml/min/1.73 sqM) Glucose (74-99) mg/dL Calcium (8.4-10.2) mg/dL Total Bilirubin (0.2-1.3) mg/dL AST (14-36) U/L ALT (4-34) U/L Alkaline Phosphatase (38-126) U/L Total Protein (6.3-8.2) g/dL Albumin (3.5-5.0) g/dL Urine Color Yellow Urine Appearance Cloudy H (Clear) Urine pH 5.5 (5.0-8.0) Ur Specific Davis 1.021 (1.001-1.035) Urine Protein Negative (Negative) Urine Glucose (UA) Negative (Negative) Urine Ketones 1+ H (Negative) Urine Blood Large H (Negative) Urine Nitrite Negative (Negative) Urine Bilirubin Negative (Negative) Urine Urobilinogen <2.0 (<2.0) mg/dL Ur Leukocyte Esterase Negative (Negative) Urine RBC >182 H (0-5) /hpf Urine WBC 3 (0-5) /hpf Ur Squamous Epith Cells 13 H (0-4) /hpf Urine Bacteria Rare H (None) /hpf Urine Mucus Occasional H (None) /hpf Urine HCG, Qual (Not Detectd) 12/28/24 12/28/24 Range/Units 09:00 09:00 WBC (3.8-10.6) k/uL RBC (3.80-5.40) m/uL Hgb (11.4-16.0) gm/dL Hct (34.0-46.0) % MCV (80.0-100.0) fL MCH (25.0-35.0) pg MCHC (31.0-37.0) g/dL RDW (11.5-15.5) % Plt Count (150-450) k/uL MPV Neutrophils % % Lymphocytes % % Monocytes % % Eosinophils % % Basophils % % Neutrophils # (1.3-7.7) k/uL Lymphocytes # (1.0-4.8) k/uL Monocytes # (0-1.0) k/uL Eosinophils # (0-0.7) k/uL Basophils # (0-0.2) k/uL PT (10.0-12.5) sec INR (<1.2) APTT (22.0-30.0) sec Sodium 135 L (137-145) mmol/L Potassium 3.9 (3.5-5.1) mmol/L Chloride 104 (98-107) mmol/L Carbon Dioxide 23 (22-30) mmol/L Anion Gap 8 mmol/L BUN 14 (7-17) mg/dL Creatinine 0.51 L (0.52-1.04) mg/dL Est GFR (CKD-EPI)AfAm >90 (>60 ml/min/1.73 sqM) Est GFR (CKD-EPI)NonAf >90 (>60 ml/min/1.73 sqM) Glucose 116 H (74-99) mg/dL Calcium 9.3 (8.4-10.2) mg/dL Total Bilirubin 0.5 (0.2-1.3) mg/dL AST 22 (14-36) U/L ALT 17 (4-34) U/L Alkaline Phosphatase 47 (38-126) U/L Total Protein 7.0 (6.3-8.2) g/dL Albumin 4.2 (3.5-5.0) g/dL Urine Color Urine Appearance (Clear) Urine pH (5.0-8.0) Ur Specific Davis (1.001-1.035) Urine Protein (Negative) Urine Glucose (UA) (Negative) Urine Ketones (Negative) Urine Blood (Negative) Urine Nitrite (Negative) Urine Bilirubin (Negative) Urine Urobilinogen (<2.0) mg/dL Ur Leukocyte Esterase (Negative) Urine RBC (0-5) /hpf Urine WBC (0-5) /hpf Ur Squamous Epith Cells (0-4) /hpf Urine Bacteria (None) /hpf Urine Mucus (None) /hpf Urine HCG, Qual Not Detected (Not Detectd) - Radiology Data Radiology results: report reviewed, image reviewed Disposition Clinical Impression: Ovarian cyst, Vaginal bleeding Disposition: HOME SELF-CARE Condition: Stable Additional Instructions: Follow-up with CAN REFORMING MACHINE OPERATOR. Return to the ER for any new or worsening symptoms. Prescriptions: Ondansetron Odt [Zofran Odt] 4 mg PO Q8HR PRN #10 tab PRN Reason: Nausea Is patient prescribed a controlled substance at d/c from ED?: No Referrals: Kenan Ivory MD [Primary Care Provider] - 1-2 days Sophie Vasques DO [Doctor of Osteopathic Medicine] - 1-2 days Time of Disposition: 12:39
[2024-12-28 09:08] LABS: Basophils % (A) 1 %; Eosinophils # (A) 0.1 k/uL (0-0.7); Eosinophils % (A) 2 %; HCT 40.8 % (34.0-46.0); HGB 13.7 gm/dL (11.4-16.0); Lymphocytes # (A) 2.2 k/uL (1.0-4.8); Lymphocytes % (A) 33 %; MCHC 33.7 g/dL (31.0-37.0); MCV 88.9 fL (80.0-100.0); Mean Platelet Volume 8.8; Monocytes # (A) 0.4 k/uL (0-1.0); Monocytes % (A) 5 %; Neutrophils % (A) 59 %; Platelet Count 336 k/uL (150-450); RBC 4.59 m/uL (3.80-5.40); RDW 12.6 % (11.5-15.5); WBC 6.8 k/uL (3.8-10.6)
[2024-12-28 09:16] LABS: Partial Thromboplastin Time 24.5 sec (22.0-30.0); Prothrombin Time 10.9 sec (10.0-12.5)
[2024-12-28 09:25] LABS: Appearance,Urine Cloudy (Clear); Bacteria,Urine Rare /hpf; Bilirubin,Urine Negative (Negative); Blood,Urine Large (Negative); Color,Urine Yellow; Glucose,Urine (UA) Negative (Negative); Ketones,Urine 1+ (Negative); Leukocyte Esterase,Urine Negative (Negative); Mucus,Urine Occasional /hpf; Nitrite,Urine Negative (Negative); PH, Urine 5.5 (5.0-8.0); Protein,Urine Negative (Negative); RBC,Urine >182 /hpf (0-5); Specific Gravity,Urine 1.021 (1.001-1.035); Squamous Epithelial Cell,Urine 13 /hpf (0-4); Urobilinogen,Urine <2.0 mg/dL (<2.0); WBC,Urine 3 /hpf (0-5)
[2024-12-28 09:33] LABS: ALT 17 U/L (4-34); AST 22 U/L (14-36); African American GFR (CKD) >90 (>60 ml/min/1.73 sqM); Albumin 4.2 g/dL (3.5-5.0); Alkaline Phosphatase 47 U/L (38-126); Anion Gap 8 mmol/L; Blood Urea Nitrogen 14 mg/dL (7-17); Calcium 9.3 mg/dL (8.4-10.2); Carbon Dioxide 23 mmol/L (22-30); Chloride 104 mmol/L (98-107); Glucose 116 mg/dL (74-99); Non-African American GFR(CKD) >90 (>60 ml/min/1.73 sqM); Potassium 3.9 mmol/L (3.5-5.1); Sodium 135 mmol/L (137-145); Total Bilirubin 0.5 mg/dL (0.2-1.3)
--- NOTE | 2024-12-28 12:05 | US ---
EXAMINATION TYPE: US transvaginal DATE OF EXAM: 12/28/2024 COMPARISON: Prior pelvic ultrasound 10/27/2022 CLINICAL INDICATION: Female, 44 years old with history of vag bleed x 3 weeks; h/o RUQ and pelvic gurwinder n along with vag bleeding for 3 weeks, clots started this am, ablation 2 years prior TECHNIQUE: TV. Transvaginal sonographic images Doppler imaging: right ovary only. FINDINGS: Date of LMP: ablation 2 years ago EXAM MEASUREMENTS: Uterus: 11.0 x 6.9 x 5.5 cm Endometrial Stripe: 1.9 cm Right Ovary: 6.4 x 6.1 x 5.6 cm Left Ovary: not seen 1. Uterus: Anteverted complex area within cervical canal most likely represents blood clots 2. Endometrium: thickened 3. Right Ovary: large 5.9 x 5.7 x 5.8cm cyst, with daughter cyst inside, has some peripheral flow to ovary but minimal normal ovarian tissue seen 4. Left Ovary: not seen TV and TA approach, bowel gas 5. Bilateral Adnexa: wnl 6. Posterior cul-de-sac: wnl IMPRESSION: 1. Heterogeneous thickening of the endometrial stripe is present. Advised gynecology referral to cons ider further investigation with dilatation and curettage. 2. There is 5.9 cm bilocular thin walled cystic lesion in the right ovary with smooth inner wall/sept ations. O-Rads 2 almost certainly benign. Advise ultrasound follow-up in 6 months time to reassess. O-RADS 2021 [email or web address] [facility], , 12/28/2024 12:02 PM
[2024-12-28] MEDS: ONDANSETRON ODT 4 MG TAB PO STA (13:04)
[2024-12-28 13:08] VITALS: BP 112/71; PULSE 81; RESP 16; TEMP 98.7
== END 2024-12-28 13:10 | disposition home or self-care (01) ==
LOC: EC 08:25
DX: N83.201 Unspecified ovarian cyst, right side (principal); N93.9 Abnormal uterine and vaginal bleeding, unspecified; Z87.891 Personal history of nicotine dependence; Z88.2 Allergy status to sulfonamides
CPT/HCPCS: 36415; 76830; 80053; 81001; 81025; 85025; 85610; 85730; 93976; 99284

== ENCOUNTER → 2025-01-07 | Outpatient (CLI) | payer MEDICAID ==
[2025-01-07 15:00] LABS: Basophils # (A) 0.07 X 10*3/uL (0.00-0.10); Basophils % (A) 0.8 %; Eosinophils # (A) 0.07 X 10*3/uL (0.04-0.35); Eosinophils % (A) 0.8 %; HCT 43.1 % (37.2-46.3); Lymphocytes # (A) 2.63 X 10*3/uL (0.90-5.00); Lymphocytes % (A) 28.7 %; MCHC 32.5 g/dL (32.0-37.0); MCV 92.3 FL (80.0-97.0); Mean Platelet Volume 11.5 FL (9.5-12.2); Monocytes % (A) 6.5 %; NRBC Per 100 WBC 0 X 10*3/uL (0.00-0.01); Neutrophils # (A) 5.77 X 10*3/uL (1.80-7.70); Neutrophils % (A) 62.9 %; Platelet Count 425 X 10*3/uL (140-440); RBC 4.67 X 10*6/uL (4.10-5.20); RDW 13.1 % (11.5-14.5); WBC 9.17 X 10*3/uL (4.50-10.00)
== END | disposition home or self-care (01) ==
LOC: LABPAT 10:30
PROVIDERS: ATTEND Obstetrics & Gynecology
DX: Z01.812 Encounter for preprocedural laboratory examination (principal); N92.1 Excessive and frequent menstruation with irregular cycle
CPT/HCPCS: 85025

== ENCOUNTER 2025-01-13 17:33 | Emergency (ER) | payer MEDICAID ==
--- NOTE | 2025-01-13 18:05 | ED ---
Female Urogenital HPI - General Chief complaint: Vaginal Bleeding Stated complaint: NVD, Vaginal Bleeding Source: patient, RN notes reviewed, old records reviewed Mode of arrival: wheelchair Limitations: no limitations - History of Present Illness Initial comments: This is a 44 female to the ER for evaluation as patient presents today for evaluation regards to abdominal pain suprapubic pain left flank pain left-sided abdominal pain nausea vomiting and significant vaginal bleeding. Patient has history of this with outpatient follow-up Dr. Vasques, the pain is worse and vomiting is worse the bleeding is worse MD Complaint: vaginal bleeding, pelvic pain -: days(s) Location: suprapubic Radiation: suprapubic Severity: moderate Severity scale (1-10): 4 Quality: cramping Consistency: intermittent Improves with: none Worsens with: none Patient : No Associated Symptoms: abdominal pain - Related Data Sexually active: No Previous Rx's Medication Instructions Recorded Aspirin 81 mg PO DAILY tab 10/22/24 Atorvastatin [Lipitor] 40 mg PO DAILY #30 tab 10/22/24 Cholecalciferol [Vitamin D3 (25 25 mcg PO DAILY #30 tab 10/22/24 Mcg = 1000 Iu)] Ezetimibe [Zetia] 10 mg PO DAILY #30 tab 10/22/24 Multivitamins, Thera [Multivitamin 1 each PO DAILY tab 10/22/24 (formulary)] Topiramate [Topamax] 25 mg PO HS #30 tab 10/22/24 busPIRone HCl [Buspar] 10 mg PO BID #60 tab 10/22/24 methocarbamoL [Robaxin-750] 750 mg PO TID #90 tab 10/22/24 Ondansetron Odt [Zofran Odt] 4 mg PO Q8HR PRN #10 tab 12/28/24 Allergies Allergy/AdvReac Type Severity Reaction Status Date / Time Sulfa (Sulfonamide Allergy Unknown Verified 12/28/24 08:34 Antibiotics) sulfamethoxazole Allergy Itching/Hiv Verified 12/28/24 08:34 [From Bactrim] es trimethoprim [From Bactrim] Allergy Itching/Hiv Verified 12/28/24 08:34 es Review of Systems ROS Statement: Those systems with pertinent positive or pertinent negative responses have been documented in the HPI. ROS Other: All systems not noted in ROS Statement are negative. Past Medical History Past Medical History: Cancer, Chest Pain / Angina, GERD/Reflux, Hyperlipidemia, Musculoskeletal Disorder Additional Past Medical History / Comment(s): Chronic back pain, scoliosis, DDD, CONSTIPATION, recent rectal bleeding, headaches, IRREGULAR HEAVY MENSES @times, recent card. cath. due to chest pain, no blockages, takes metoprolol for, skin cancer face-had removed, daily heartburn/GERD, current kidney stone, chest pains @ times- Takes Metoprolol. Skin Ca History of Any Multi-Drug Resistant Organisms: None Reported Past Surgical History: Appendectomy, Cholecystectomy, Heart Catheterization, Orthopedic Surgery Additional Past Surgical History / Comment(s): D & C, left foot surgery for bu nion, fatty tumor removed from back when pt was 8 yrs old. COLONOSCOPY, recent cardiac cath - 2021 Past Anesthesia/Blood Transfusion Reactions: No Reported Reaction Additional Past Anesthesia/Blood Transfusion Reaction / Comment(s): no hx blood transfusion, woke up during last colonoscopy Past Psychological History: Anxiety, Depression, Panic Disorder Smoking Status: Former smoker Past Alcohol Use History: Occasional Past Drug Use History: None Reported - Past Family History Father History Unknown: Yes Family Medical History: Myocardial Infarction ([place]) Additional Family Medical History / Comment(s): at age 42 from [place] Mother History Unknown: Yes Family Medical History: AFIB, Hypertension, Renal Disease Additional Family Medical History / Comment(s): had rt kidney removed r/t not functioning General Exam Limitations: no limitations General appearance: alert, in no apparent distress Head exam: Present: atraumatic, normocephalic, normal inspection Eye exam: Present: normal appearance, PERRL, EOMI. Absent: scleral icterus, conjunctival injection, periorbital swelling ENT exam: Present: normal exam, mucous membranes moist Neck exam: Present: normal inspection. Absent: tenderness, meningismus, lymphadenopathy Respiratory exam: Present: normal lung sounds bilaterally. Absent: respiratory distress, wheezes, rales, rhonchi, stridor Cardiovascular Exam: Present: regular rate, normal rhythm, normal heart sounds. Absent: systolic murmur, diastolic murmur, rubs, gallop, clicks GI/Abdominal exam: Present: soft, normal bowel sounds. Absent: distended, tenderness, guarding, rebound, rigid Extremities exam: Present: normal inspection, full ROM, normal capillary refill. Absent: tenderness, pedal edema, joint swelling, calf tenderness Back exam: Present: normal inspection Neurological exam: Present: alert, oriented X3, CN II-XII intact Psychiatric exam: Present: normal affect, normal mood Skin exam: Present: warm, dry, intact, normal color. Absent: rash Course Vital Signs 01/13/25 01/13/25 17:36 19:48 Temperature 98.0 F 98.4 F Pulse Rate 86 67 Respiratory 16 18 Rate Blood Pressure 132/90 116/85 O2 Sat by Pulse 100 98 Oximetry - Reevaluation(s) Reevaluation #1: 01/13/25 18:24 Medical records reviewed Reevaluation #4: Was pt. sent in by a medical professional or institution (, SANDRO, TABULATING SUPERVISOR, urgent care, hospital, or snf...) When possible be specific @ -no Did you speak to anyone other than the patient for history (EMS, parent, family, police, friend...)? What history was obtained from this source @ -no Did you review nursing and triage notes (agree or disagree)? Why? @ -agree Are old charts reviewed (outside hosp., previous admission, EMS record, old EKG, old radiological studies, urgent care reports/EKG's, snf records)? Report findings @ -yes Differential Diagnosis (chest pain, altered mental status, abdominal pain women, abdominal pain men, vaginal bleeding, weakness, fever, dyspnea, syncope, headache, dizziness, GI bleed, back pain, seizure, CVA, palpatations, mental health, musculoskeletal)? @ -prior EKG interpreted by me (3pts min.). @ -yes X-rays interpreted by me (1pt min.). @ -yes negative for acute disease CT interpreted by me (1pt min.). @ -no U/S interpreted by me (1pt. min.). @ -no What testing was considered but not performed or refused? (CT, X-rays, U/S, labs)? Why? @ -none What meds were considered but not given or refused? Why? @ -none Did you discuss the management of the patient with other professionals (professionals i.e. SANDRO See, TABULATING SUPERVISOR, lab, RT, psych nurse, social media developer, wire frame maker, teacher, foreign service officer, piano case maker)? Give summary @ -no Was smoking cessation discussed for >3mins.? @ -no Was critical care preformed (if so, how long)? @ -no Were there social determinants of health that impacted care today? How? (Homelessness, low income, unemployed, alcoholism, drug addiction, transportation, low edu. Level, literacy, decrease access to med. care, alf, rehab)? @ -none Was there de-escalation of care discussed even if they declined (Discuss DNR or withdrawal of care, Hospice)? DNR status @ -no What co-morbidities impacted this encounter? (DM, HTN, Smoking, COPD, CAD, Cancer, CVA, ARF, Chemo, Hep., AIDS, mental health diagnosis, sleep apnea, morbid obesity)? @ -none Was patient admitted / discharged? Hospital course, mention meds given and route, prescriptions, significant lab abnormalities, going to OR and other pertinent info. @ - Undiagnosed new problem with uncertain prognosis? @ -no Drug Therapy requiring intensive monitoring for toxicity (Heparin, Nitro, Insulin, Cardizem)? @ -no Were any procedures done? @ -no Diagnosis/symptom? @ - Acute, or Chronic, or Acute on Chronic? @ -Acute Uncomplicated (without systemic symptoms) or Complicated (systemic symptoms)? @ -Complicated Side effects of treatment? @ -no Exacerbation, Progression, or Severe Exacerbation? @ -exacerbation Poses a threat to life or bodily function? How? (Chest pain, [place], [place], pneumonia, PE, COPD, DKA, ARF, appy, cholecystitis, CVA, Diverticulitis, Homicidal, Suicidal, threat to staff... and all critical care pts) @ -yes Reevaluation #5: Differential Abdominal Pain Women: Appendicitis, Cholecystitis, diverticulosis, ischemic bowel, pancreatitis, hepatitis, UTI, gastroenteritis, AAA, incarcerated hernia, bowel obstruction, constipation, inflammatory bowel, hepatitis, peptic ulcer disease, splenic infarction, perforated viscus, vulvitis, ovarian torsion, PID, kidney stone, placenta abruption, this is not meant to be an all-inclusive list Medical Decision Making - Lab Data Result diagrams: 01/13/25 18:20 01/13/25 18:20 Lab Results 01/13/25 01/13/25 01/13/25 Range/Units 18:20 18:20 18:20 WBC 5.94 (4.50-10.00) 10*3/uL RBC 4.61 (4.10-5.20) 10*6/uL Hgb 14.4 (12.0-15.0) g/dL Hct 40.8 (37.2-46.3) % MCV 88.5 (80.0-97.0) fL MCH 31.2 (27.0-32.0) pg MCHC 35.3 (32.0-37.0) g/dL Plt Count 345 (140-440) 10*3/uL MPV 11.6 (9.5-12.2) fL Immature Gran % (Auto) 0.2 % Neutrophils % 59.1 % Lymphocytes % 31.8 % Monocytes % 7.4 % Eosinophils % 1.2 % Basophils % 0.3 % Immature Gran # 0.01 (0.00-0.04) 10*3/uL Neutrophils # 3.51 (1.80-7.70) 10*3/uL Lymphocytes # 1.89 (0.90-5.00) 10*3/uL Monocytes # 0.44 (0.20-1.00) 10*3/uL Eosinophils # 0.07 (0.04-0.35) 10*3/uL Basophils # 0.02 (0.00-0.10) 10*3/uL PT 10.5 (10.0-12.5) sec INR 0.9 (<1.2) APTT 25.4 (22.0-30.0) sec Sodium 135 L (137-145) mmol/L Potassium 4.2 (3.5-5.1) mmol/L Chloride 103 (98-107) mmol/L Carbon Dioxide 23 (22-30) mmol/L Anion Gap 9 mmol/L BUN 15 (7-17) mg/dL Creatinine 0.52 (0.52-1.04) mg/dL Est GFR (CKD-EPI)AfAm >90 (>60 ml/min/1.73 sqM) Est GFR (CKD-EPI)NonAf >90 (>60 ml/min/1.73 sqM) Glucose 103 H (74-99) mg/dL Calcium 9.0 (8.4-10.2) mg/dL Phosphorus 3.1 (2.5-4.5) mg/dL Magnesium 1.7 (1.6-2.3) mg/dL Total Bilirubin 0.6 (0.2-1.3) mg/dL AST 24 (14-36) U/L ALT 17 (4-34) U/L Alkaline Phosphatase 54 (38-126) U/L Troponin I (0.000-0.034) ng/mL Total Protein 7.2 (6.3-8.2) g/dL Albumin 4.3 (3.5-5.0) g/dL Blood Type Blood Type Recheck Bld Type Recheck Status Antibody Screen Spec Expiration Date 01/13/25 01/13/25 Range/Units 18:20 18:20 WBC (4.50-10.00) 10*3/uL RBC (4.10-5.20) 10*6/uL Hgb (12.0-15.0) g/dL Hct (37.2-46.3) % MCV (80.0-97.0) fL MCH (27.0-32.0) pg MCHC (32.0-37.0) g/dL Plt Count (140-440) 10*3/uL MPV (9.5-12.2) fL Immature Gran % (Auto) % Neutrophils % % Lymphocytes % % Monocytes % % Eosinophils % % Basophils % % Immature Gran # (0.00-0.04) 10*3/uL Neutrophils # (1.80-7.70) 10*3/uL Lymphocytes # (0.90-5.00) 10*3/uL Monocytes # (0.20-1.00) 10*3/uL Eosinophils # (0.04-0.35) 10*3/uL Basophils # (0.00-0.10) 10*3/uL PT (10.0-12.5) sec INR (<1.2) APTT (22.0-30.0) sec Sodium (137-145) mmol/L Potassium (3.5-5.1) mmol/L Chloride (98-107) mmol/L Carbon Dioxide (22-30) mmol/L Anion Gap mmol/L BUN (7-17) mg/dL Creatinine (0.52-1.04) mg/dL Est GFR (CKD-EPI)AfAm (>60 ml/min/1.73 sqM) Est GFR (CKD-EPI)NonAf (>60 ml/min/1.73 sqM) Glucose (74-99) mg/dL Calcium (8.4-10.2) mg/dL Phosphorus (2.5-4.5) mg/dL Magnesium (1.6-2.3) mg/dL Total Bilirubin (0.2-1.3) mg/dL AST (14-36) U/L ALT (4-34) U/L Alkaline Phosphatase (38-126) U/L Troponin I <0.012 (0.000-0.034) ng/mL Total Protein (6.3-8.2) g/dL Albumin (3.5-5.0) g/dL Blood Type O Positive Blood Type Recheck O Pos Bld Type Recheck Status No Antibody Screen NEGATIVE Spec Expiration Date 01/16/20252319 Disposition Clinical Impression: Vaginal bleeding, Pelvic pain, Nausea & vomiting Disposition: HOME SELF-CARE Condition: Good Instructions (If sedation given, give patient instructions): Pelvic Pain (ED), Acute Nausea and Vomiting (ED) Is patient prescribed a controlled substance at d/c from ED?: No Referrals: Kenan Ivory MD [Primary Care Provider] - 1-2 days Time of Disposition: 20:00
[2025-01-13] MEDS: ONDANSETRON 4 MG/2 ML VIAL IVP STA (18:27)
[2025-01-13] MEDS: SODIUM CHLORIDE 0.9% 1,000 ML IV ONE (18:28)
[2025-01-13 18:37] LABS: Basophils # (A) 0.02 10*3/uL (0.00-0.10); Basophils % (A) 0.3 %; Eosinophils # (A) 0.07 10*3/uL (0.04-0.35); Eosinophils % (A) 1.2 %; HCT 40.8 % (37.2-46.3); HGB 14.4 g/dL (12.0-15.0); Lymphocytes # (A) 1.89 10*3/uL (0.90-5.00); Lymphocytes % (A) 31.8 %; MCH 31.2 pg (27.0-32.0); MCHC 35.3 g/dL (32.0-37.0); MCV 88.5 fL (80.0-97.0); Mean Platelet Volume 11.6 fL (9.5-12.2); Monocytes # (A) 0.44 10*3/uL (0.20-1.00); Monocytes % (A) 7.4 %; Neutrophils # (A) 3.51 10*3/uL (1.80-7.70); Neutrophils % (A) 59.1 %; Platelet Count 345 10*3/uL (140-440); RBC 4.61 10*6/uL (4.10-5.20); WBC 5.94 10*3/uL (4.50-10.00)
[2025-01-13 18:46] LABS: INR 0.9 (<1.2); Prothrombin Time 10.5 sec (10.0-12.5)
[2025-01-13 18:47] LABS: Partial Thromboplastin Time 25.4 sec (22.0-30.0)
[2025-01-13] MEDS: ACETAMINOPHEN IV (For NPO) 1,000 MG in EMPTY BAG 1 BAG IVPB STA (18:52)
[2025-01-13 18:54] LABS: ALT 17 U/L (4-34); AST 24 U/L (14-36); African American GFR (CKD) >90 (>60 ml/min/1.73 sqM); Albumin 4.3 g/dL (3.5-5.0); Alkaline Phosphatase 54 U/L (38-126); Anion Gap 9 mmol/L; Blood Urea Nitrogen 15 mg/dL (7-17); Carbon Dioxide 23 mmol/L (22-30); Chloride 103 mmol/L (98-107); Glucose 103 mg/dL (74-99); Magnesium 1.7 mg/dL (1.6-2.3); Non-African American GFR(CKD) >90 (>60 ml/min/1.73 sqM); Phosphorus 3.1 mg/dL (2.5-4.5); Potassium 4.2 mmol/L (3.5-5.1); Sodium 135 mmol/L (137-145); Total Bilirubin 0.6 mg/dL (0.2-1.3); Total Protein 7.2 g/dL (6.3-8.2)
[2025-01-13] MEDS: IBUPROFEN IV 800 MG in SODIUM CHLORIDE 0.9% 250 ML IV ONE (19:44)
[2025-01-13 19:48] VITALS: RESP 18
--- NOTE | 2025-01-13 19:50 | US ---
EXAMINATION TYPE: US transvaginal DATE OF EXAM: 01/13/2025 COMPARISON: US 12/28/2024 CLINICAL INDICATION: Female, 44 years old with history of vaginal bleed; vag bleeding 3 weeks. hx abl ation. left sided pain TECHNIQUE: Transvaginal (TV). Transvaginal sonographic images were medically necessary to better assess the following anatomy: Endo metrium Doppler imaging: Color Doppler Images were obtained. Spectral doppler images were obtained. FINDINGS: Date of LMP: states no period for 3 months and now bleeding for 3 weeks EXAM MEASUREMENTS: Uterus: 11.7 x 6.3 x 6.5 cm Endometrial Stripe: 1.8 cm Right Ovary: 5.1 x 4.9 x 4.7 cm Left Ovary: 2.7 x 1.7 x 1.0 cm 1. Uterus: Anteverted small anechoic area seen in the DAISY 2. Endometrium: thickened 3. Right Ovary: There is a 4.7 x 3.8 x 5.0cm anechoic area within 4. Left Ovary: tiny calcifications seen within Spectral, color and waveform doppler imaging shows good arterial and venous flow within the ovaries ; there is no evidence for ovarian torsion. 5. Bilateral Adnexa: wnl 6. Posterior cul-de-sac: trace amount of free fluid seen Myometrial cysts within the lower uterine segment. Endometrium is heterogenous and thickened again. N o increased color flow to the endometrium. No evidence of ovarian torsion. Tiny calcifications within the left ovary. Right ovarian simple appearing cyst. Trace amount of free fluid in the posterior cul -de-sac. IMPRESSION: 1. Redemonstration of heterogenous thickened endometrium. Advise gynecologic referral to consider fur ther evaluation with dilatation and curettage. 2. Redemonstration simple appearing right ovarian cyst. Follow-up ultrasound in 6 months is again rec ommended. [facility], , 01/13/2025 7:48 PM
[2025-01-13 20:39] VITALS: BP 100/64; PULSE 64; TEMP 98.1
== END 2025-01-13 20:39 | disposition home or self-care (01) ==
LOC: EC 17:33
DX: N93.9 Abnormal uterine and vaginal bleeding, unspecified (principal); R11.2 Nausea with vomiting, unspecified; R10.2 Pelvic and perineal pain; Z87.891 Personal history of nicotine dependence
CPT/HCPCS: 36415; 86900; 86901; 80053; 83735; 84100; 84484; 85025; 85610; 85730; 86850; 93975; 76830; 99284; 96365; 96375 ×2; 96361 ×2; J2405; J0131; J1741

== ENCOUNTER 2025-01-20 05:58 | Day surgery (SDC) | payer MEDICAID ==
[2025-01-19 08:44] VITALS: BMI 31.6
[~2025-01-20 05:58] MED LIST changes: -IOPAMIDOL M200 10 ML VIAL ONE; +Pre Op ABX Message 1 EACH MISC MISCELLANE ONE; -methylPREDNISolone ACETATE 80 MG/ML 1 ML VIAL ONE
[2025-01-20] MEDS ORDERED: LIDOCAINE 1% (10MG/ML) FOR IV START INTRADERMA PRN (06:03)
[2025-01-20] MEDS: LACTATED RINGERS 1,000 ML IV SCH (06:38)
[2025-01-20] MEDS: IV FLUID CONTINUATION 1,000 ML IV ONE (06:38)
[2025-01-20] MEDS: DEXAMETHASONE SOD PHOSPHATE 4 MG/ML 1 ML VIAL IV ONE (06:42)
[2025-01-20] MEDS: ONDANSETRON 4 MG/2 ML VIAL IVP ONE (06:43)
[2025-01-20] MEDS ORDERED: HYDROmorphone 0.5 MG/0.5 ML SYRINGE IVP PRN (07:00)
[2025-01-20] MEDS ORDERED: MIDAZOLAM 2 MG/2 ML VIAL IV PRN (07:00)
[2025-01-20] MEDS ORDERED: fentaNYL (PF) 50 MCG/ML 2 ML AMP IVP PRN (07:00)
[2025-01-20] MEDS: FAMOTIDINE 20 MG/2 ML VIAL IV STA (07:04)
--- NOTE | 2025-01-20 07:10 | P.HPOB ---
History of Present Illness H&P Date: 01/20/25 44 year old presents for D&C hysteroscopy. Review of Systems All systems: negative Constitutional: Denies chills, Denies fever Eyes: denies blurred vision, denies pain Ears, nose, mouth and throat: Denies headache, Denies sore throat Cardiovascular: Denies chest pain, Denies shortness of breath Respiratory: Denies cough Gastrointestinal: Denies abdominal pain, Denies diarrhea, Denies nausea, Denies vomiting Genitourinary: Denies dysuria, Denies hematuria Musculoskeletal: Denies myalgias Integumentary: Denies pruritus, Denies rash Neurological: Denies numbness, Denies weakness Psychiatric: Denies anxiety, Denies depression Endocrine: Denies fatigue, Denies weight change Past Medical History Past Medical History: Cancer, Chest Pain / Angina, GERD/Reflux, Hyperlipidemia, Musculoskeletal Disorder Additional Past Medical History / Comment(s): Chronic back pain, scoliosis, DDD, CONSTIPATION, recent rectal bleeding, headaches, IRREGULAR HEAVY MENSES @times, recent card. cath. due to chest pain, no blockages, takes metoprolol for, skin cancer face-had removed, daily heartburn/GERD, current kidney stone, chest pains @ times- Takes Metoprolol. Skin Ca History of Any Multi-Drug Resistant Organisms: None Reported Past Surgical History: Appendectomy, Cholecystectomy, Heart Catheterization, Orthopedic Surgery Additional Past Surgical History / Comment(s): D & C, left foot surgery for bunion, fatty tumor removed from back when pt was 8 yrs old. COLONOSCOPY, recent cardiac cath - 2021 Past Anesthesia/Blood Transfusion Reactions: No Reported Reaction Additional Past Anesthesia/Blood Transfusion Reaction / Comment(s): no hx blood transfusion, woke up during last colonoscopy Past Psychological History: Anxiety, Depression, Panic Disorder Smoking Status: Former smoker Past Alcohol Use History: Occasional Past Drug Use History: None Reported - Past Family History Father History Unknown: Yes Family Medical History: Myocardial Infarction ([place]) Additional Family Medical History / Comment(s): at age 42 from [place] Mother History Unknown: Yes Family Medical History: AFIB, Hypertension, Renal Disease Additional Family Medical History / Comment(s): had rt kidney removed r/t not functioning Medications and Allergies Home Medications Medication Instructions Recorded Confirmed Type Aspirin 81 mg PO DAILY tab 01/15/25 04/15/25 Rx Atorvastatin [Lipitor] 40 mg PO DAILY #30 tab 10/22/24 01/20/25 Rx Cholecalciferol [Vitamin D3 (25 25 mcg PO DAILY #30 tab 10/22/24 01/20/25 Rx Mcg = 1000 Iu)] Ezetimibe [Zetia] 10 mg PO DAILY #30 tab 10/22/24 01/20/25 Rx Multivitamins, Thera [Multivitamin 1 each PO DAILY tab 10/22/24 01/20/25 Rx (formulary)] Topiramate [Topamax] 25 mg PO HS #30 tab 10/22/24 01/20/25 Rx busPIRone HCl [Buspar] 10 mg PO BID #60 tab 10/22/24 01/20/25 Rx methocarbamoL [Robaxin-750] 750 mg PO TID #90 tab 10/22/24 01/20/25 Rx Ondansetron Odt [Zofran ODT] 4 mg PO Q8HR PRN #30 tab 01/13/25 01/20/25 Rx Acetaminophen Tab [Tylenol] 400 mg PO 01/20/25 History Allergies Allergy/AdvReac Type Severity Reaction Status Date / Time Sulfa (Sulfonamide Allergy Unknown Verified 01/20/25 06:15 Antibiotics) sulfamethoxazole Allergy Itching/Hiv Verified 01/20/25 06:15 [From Bactrim] es trimethoprim [From Bactrim] Allergy Itching/Hiv Verified 01/20/25 06:15 es adhesive AdvReac Rash/Hives Verified 01/20/25 06:15 Exam Osteopathic Statement: *. No significant issues noted on an osteopathic structural exam other than those noted in the History and Physical/Consult. Vital Signs Temp Pulse Resp BP Pulse Ox 01/20/25 06:21 97.4 F L 62 16 113/72 98 Intake and Output 01/19/25 01/20/25 01/20/25 22:59 06:59 14:59 Other: Weight 88.1 kg Heart: Regular rate and rhythm Lungs: Clear to auscultation bilaterally Abdomen: Soft, nontender Extremities: Negative Homans sign Assessment and Plan (1) Menorrhagia Current Visit: No Status: Acute Code(s): N92.0 - EXCESSIVE AND FREQUENT MENSTRUATION WITH REGULAR CYCLE SNOMED Code(s): 811956047 Plan: D&C hysteroscopy
[2025-01-20] MEDS ORDERED: KETOROLAC 15 MG/ML 1 ML VIAL ONE (07:27)
[2025-01-20] MEDS ORDERED: LIDOCAINE 1% INJ 10MG/ML (20 ML MDV) ONE (07:27)
[2025-01-20] MEDS ORDERED: MIDAZOLAM 2 MG/2 ML VIAL ONE (07:27)
[2025-01-20] MEDS ORDERED: SUCCINYLCHOLINE CHLORIDE 200 MG/10 ML VIAL IV ONE (07:27)
[2025-01-20] MEDS ORDERED: PROPOFOL 10 MG/ML 20 ML VIAL IV ONE (07:27)
[2025-01-20] MEDS ORDERED: fentaNYL (PF) 50 MCG/ML 2 ML AMP ONE (07:27)
--- NOTE | 2025-01-20 07:57 | P.OP ---
Date of Procedure: 01/20/25 Preoperative Diagnosis: 1. menorrhagia Postoperative Diagnosis: 1. menorrhagia Procedure(s) Performed: D&C hysteroscopy Anesthesia: KALIE Surgeon: Sophie Vasques Estimated Blood Loss (ml): 5 IV fluids (ml): 300 Urine output (ml): 20 Pathology: other (endometrial currettings) Condition: stable Disposition: PACU Operative Findings: large amt endometrial currettings. uterus sounded to 10cm Description of Procedure: Patient was taken the operating room where general anesthesia was obtained without difficulty. She is prepped draped normal sterile fashion dorsolithotomy position, legs placed in candycane stirrups. Bladder was drained of all urine. Weighted speculum placed in vagina the anterior lip of the cervix was grasped with single-tooth tenaculum. The uterus was sounded to 10 cm. Cervix was dilated to #8 Hegar dilator. Hysteroscopy was performed. There was a large amount of tissue noted difficult to visualize the inner lining of the uterus. Sharp curette was gently used to obtain endometrial curettings. All instruments were removed from the vagina. Patient Toller procedure well. Sponge and instrument counts correct x 2. She was taken to recovery in stable condition.
[2025-01-20 08:10] VITALS: TEMP 97.2
[2025-01-20 09:07] VITALS: BP 124/82; PULSE 54; RESP 18
== END 2025-01-20 09:22 | disposition home or self-care (01) ==
LOC: OR 05:58
PROVIDERS: ATTEND Obstetrics & Gynecology
DX: N92.1 Excessive and frequent menstruation with irregular cycle (principal); N92.0 Excessive and frequent menstruation with regular cycle; E78.5 Hyperlipidemia, unspecified; G89.29 Other chronic pain; Z87.891 Personal history of nicotine dependence; Z79.82 Long term (current) use of aspirin; Z88.1 Allergy status to other antibiotic agents; Z88.2 Allergy status to sulfonamides
CPT/HCPCS: 81025; 58563; J2250; J0330; J1100; J2405; J2003; J3010; J1885; J2704; J1308; 88305

== ENCOUNTER 2025-01-27 12:26 | Emergency (ER) | payer MEDICAID ==
[2025-01-27 12:31] VITALS: BP 143/83; PULSE 67; RESP 18; TEMP 98.2
--- NOTE | 2025-01-27 13:14 | ED ---
General Adult HPI - General Source: patient Mode of arrival: ambulatory Limitations: no limitations <Yisel Alberts - Last Filed: 01/27/25 15:24> <Duke Arciniega - Last Filed: 01/27/25 15:46> - General Chief complaint: Abdominal Pain Stated complaint: abd pain, rectal bleeding Time Seen by Provider: 01/27/25 12:54 - History of Present Illness Initial comments: 44-year-old female presenting with abdominal pain and bleeding per rectum. Patient states for the last 2 days she has been having rectal bleeding that has been getting worse. She states it is a mix of bright and dark blood and diarrhea. Patient reports she does have a history of hemorrhoids. Denies any use of blood thinners. Denies any history of trauma or falls. Patient denies fevers, chills, constipation, dysuria. (Yisel Alberts) - Related Data Home Medications Medication Instructions Recorded Confirmed Acetaminophen Tab [Tylenol] 400 mg PO 01/20/25 Previous Rx's Medication Instructions Recorded Aspirin 81 mg PO DAILY tab 10/22/24 Atorvastatin [Lipitor] 40 mg PO DAILY #30 tab 10/22/24 Cholecalciferol [Vitamin D3 (25 25 mcg PO DAILY #30 tab 10/22/24 Mcg = 1000 Iu)] Ezetimibe [Zetia] 10 mg PO DAILY #30 tab 10/22/24 Multivitamins, Thera [Multivitamin 1 each PO DAILY tab 10/22/24 (formulary)] Topiramate [Topamax] 25 mg PO HS #30 tab 10/22/24 busPIRone HCl [Buspar] 10 mg PO BID #60 tab 10/22/24 methocarbamoL [Robaxin-750] 750 mg PO TID #90 tab 10/22/24 Ondansetron Odt [Zofran ODT] 4 mg PO Q8HR PRN #30 tab 01/13/25 Ibuprofen [Motrin] 600 mg PO Q6HR PRN #30 tab 01/20/25 Allergies Allergy/AdvReac Type Severity Reaction Status Date / Time Sulfa (Sulfonamide Allergy Unknown Verified 01/27/25 12:31 Antibiotics) sulfamethoxazole Allergy Itching/Hiv Verified 01/27/25 12:31 [From Bactrim] es trimethoprim [From Bactrim] Allergy Itching/Hiv Verified 01/27/25 12:31 es adhesive AdvReac Rash/Hives Verified 01/27/25 12:31 Review of Systems ROS Other: All systems not noted in ROS Statement are negative. Constitutional: Denies: fever, chills Respiratory: Denies: cough, dyspnea Cardiovascular: Denies: chest pain, palpitations Gastrointestinal: Reports: abdominal pain, nausea, diarrhea, melena Genitourinary: Denies: urgency, dysuria, hematuria Musculoskeletal: Denies: back pain Skin: Denies: rash, lesions Neurological: Denies: headache, weakness <AristeoYisel - Last Filed: 01/27/25 15:24> ROS Other: All systems not noted in ROS Statement are negative. <uDke Arciniega - Last Filed: 01/27/25 15:46> ROS Statement: Those systems with pertinent positive or pertinent negative responses have been documented in the HPI. Past Medical History Past Medical History: Cancer, Chest Pain / Angina, GERD/Reflux, Hyperlipidemia, Musculoskeletal Disorder Additional Past Medical History / Comment(s): Chronic back pain, scoliosis, DDD, CONSTIPATION, recent rectal bleeding, headaches, IRREGULAR HEAVY MENSES @times, recent card. cath. due to chest pain, no blockages, takes metoprolol for, skin cancer face-had removed, daily heartburn/GERD, current kidney stone, chest pains @ times- Takes Metoprolol. Skin Ca History of Any Multi-Drug Resistant Organisms: None Reported Past Surgical History: Appendectomy, Cholecystectomy, Heart Catheterization, Orthopedic Surgery Additional Past Surgical History / Comment(s): D & C, left foot surgery for bunion, fatty tumor removed from back when pt was 8 yrs old. COLONOSCOPY, recent cardiac cath - 2021 Past Anesthesia/Blood Transfusion Reactions: No Reported Reaction Additional Past Anesthesia/Blood Transfusion Reaction / Comment(s): no hx blood transfusion, woke up during last colonoscopy Past Psychological History: Anxiety, Depression, Panic Disorder Smoking Status: Former smoker Past Alcohol Use History: Occasional Past Drug Use History: None Reported - Past Family History Father History Unknown: Yes Family Medical History: Myocardial Infarction ([place]) Additional Family Medical History / Comment(s): at age 42 from [place] Mother History Unknown: Yes Family Medical History: AFIB, Hypertension, Renal Disease Additional Family Medical History / Comment(s): had rt kidney removed r/t not functioning <Alberts,Yisel - Last Filed: 01/27/25 15:24> General Exam Limitations: no limitations General appearance: alert, anxious Respiratory exam: Present: normal lung sounds bilaterally. Absent: respiratory distress, wheezes Cardiovascular Exam: Present: regular rate, normal rhythm GI/Abdominal exam: Present: soft, tenderness (Left upper quadrant). Absent: distended Rectal exam: Present: normal rectal tone, heme (-) stool, hemorrhoids. Absent: black stool, bloody stool, tenderness Back exam: Absent: tenderness Neurological exam: Present: alert, oriented X3 Psychiatric exam: Present: normal affect, normal mood Skin exam: Present: warm, dry, intact <Yisel Alberts - Last Filed: 01/27/25 15:24> Course Vital Signs 01/27/25 12:29 Temperature 98.2 F Pulse Rate 67 Respiratory 18 Rate Blood Pressure 143/83 O2 Sat by Pulse 100 Oximetry Medical Decision Making - Lab Data Result diagrams: 01/27/25 13:39 01/27/25 13:39 <Yisel Alberts - Last Filed: 01/27/25 15:24> - Lab Data Result diagrams: 01/27/25 13:39 01/27/25 13:39 <Duke Arciniega - Last Filed: 01/27/25 15:46> - Medical Decision Making Was pt. sent in by a medical professional or institution ([facility] See, [employer], urgent care, hospital, or halfway...) When possible be specific @ -No Did you speak to anyone other than the patient for history (EMS, parent, family, police, friend...)? What history was obtained from this source @ -No Did you review nursing and triage notes (agree or disagree)? Why? @ -I reviewed and agree with nursing and triage notes Were old charts reviewed (outside hosp., previous admission, EMS record, old EKG, old radiological studies, urgent care reports/EKG's, halfway records)? Report findings @ -No old charts were reviewed Differential Diagnosis? @ -Differential Abdominal Pain Women: Appendicitis, Cholecystitis, diverticulosis, ischemic bowel, pancreatitis, hepatitis, UTI, gastroenteritis, AAA, incarcerated hernia, bowel obstruction, constipation, inflammatory bowel, hepatitis, peptic ulcer disease, splenic infarction, perforated viscus, vulvitis, ovarian torsion, PID, kidney stone, placenta abruption, this is not meant to be an all-inclusive list EKG interpreted by me (3pts min.). @ -As above X-rays interpreted by me (1pt min.). @ -None done CT interpreted by me (1pt min.). @ -CT did not show signs of obstruction, perforation, outpouchings, or masses. U/S interpreted by me (1pt. min.). @ -None done What testing was considered but not performed or refused? (CT, X-rays, U/S, labs)? Why? @ -None What meds were considered but not given or refused? Why? @ -None Did you discuss the management of the patient with other professionals (professionals i.e. , PA, [employer]OPER, lab, RT, psych nurse, psychotherapist social worker, cadmium burner, teacher, guest relations officer, child welfare caseworker)? Give summary @ -Case was discussed with the ED attending Dr. Arciniega Was smoking cessation discussed for >3mins.? @ -No Was critical care preformed (if so, how long)? @ -No Were there social determinants of health that impacted care today? How? (Homelessness, low income, unemployed, alcoholism, drug addiction, transportation, low edu. Level, literacy, decrease access to med. care, half-way, rehab)? @ -No Was there de-escalation of care discussed even if they declined (Discuss DNR or withdrawal of care, Hospice)? DNR status @ -No What co-morbidities impacted this encounter? (DM, HTN, Smoking, COPD, CAD, Cancer, CVA, ARF, Chemo, Hep., AIDS, mental health diagnosis, sleep apnea, morbid obesity)? @ -Hemorrhoids Was patient admitted / discharged? Hospital course, mention meds given and route, prescriptions, significant lab abnormalities, going to OR and other pertinent info. @ -Lab work was unremarkable. CT did not show any signs of obstructive pattern. Physical examination was unremarkable for any signs of acute bleeding. FOB was negative. Patient will be discharged home with self-care. Patient to follow-up with PCP in 1 to 2 days. Patient to follow-up with GI outpatient. Undiagnosed new problem with uncertain prognosis? @ -No Drug Therapy requiring intensive monitoring for toxicity (Heparin, Nitro, Insulin, Cardizem)? @ -No Were any procedures done? @ -No Diagnosis/symptom? @ -Abdominal pain, blood per rectum Acute, or Chronic, or Acute on Chronic? @ -Acute Uncomplicated (without systemic symptoms) or Complicated (systemic symptoms)? @ -Default Side effects of treatment? @ -No Exacerbation, Progression, or Severe Exacerbation? @ -No Poses a threat to life or bodily function? How? (Chest pain, [place], [place], pneumonia, PE, COPD, DKA, ARF, appy, cholecystitis, CVA, Diverticulitis, Homicidal, Suicidal, threat to staff... and all critical care pts) @ -No (Yisel Alberts) I personally saw the patient and performed the critical portion of the service. I discussed the patient care with the resident. I directed management, care planning and final disposition of the patient. This includes, but not limited to, review of all lab work, radiological studies, EKG's, consultations, vital signs, and nursing notes. EKG interpreted by me (3pts min.) @As above X-Rays interpreted by me (1 pt min.) @None CT interpreted by me ( 1pt min.) @CT of the abdomen pelvis negative for acute findings, surgically absent gallbladder. U/S interpreted by me (1 pt min.) @None Critical care time of 0 minutes excluding separately billable procedures was spent in conjunction with critical care activities provided by the Resident and Attending simultaneously. I was present during no procedures for all critical portions of the procedure and as immediately available to furnish service during the entire procedure. (Duke Arciniega) - Lab Data Lab Results 01/27/25 01/27/25 01/27/25 Range/Units 13:28 13:39 13:39 WBC 7.40 (4.50-10.00) 10*3/uL RBC 4.41 (4.10-5.20) 10*6/uL Hgb 13.6 (12.0-15.0) g/dL Hct 39.4 (37.2-46.3) % MCV 89.3 (80.0-97.0) fL MCH 30.8 (27.0-32.0) pg MCHC 34.5 (32.0-37.0) g/dL Plt Count 346 (140-440) 10*3/uL MPV 11.3 (9.5-12.2) fL Immature Gran % (Auto) 0.4 % Neutrophils % 53.5 % Lymphocytes % 39.5 % Monocytes % 5.0 % Eosinophils % 1.1 % Basophils % 0.5 % Immature Gran # 0.03 (0.00-0.04) 10*3/uL Neutrophils # 3.96 (1.80-7.70) 10*3/uL Lymphocytes # 2.92 (0.90-5.00) 10*3/uL Monocytes # 0.37 (0.20-1.00) 10*3/uL Eosinophils # 0.08 (0.04-0.35) 10*3/uL Basophils # 0.04 (0.00-0.10) 10*3/uL PT 10.3 (10.0-12.5) sec INR 0.9 (<1.2) APTT 24.9 (22.0-30.0) sec Sodium (137-145) mmol/L Potassium (3.5-5.1) mmol/L Chloride (98-107) mmol/L Carbon Dioxide (22-30) mmol/L Anion Gap mmol/L BUN (7-17) mg/dL Creatinine (0.52-1.04) mg/dL Est GFR (CKD-EPI)AfAm (>60 ml/min/1.73 sqM) Est GFR (CKD-EPI)NonAf (>60 ml/min/1.73 sqM) Glucose (74-99) mg/dL Plasma Lactic Acid Reg (0.7-2.0) mmol/L Calcium (8.4-10.2) mg/dL Total Bilirubin (0.2-1.3) mg/dL AST (14-36) U/L ALT (4-34) U/L Alkaline Phosphatase (38-126) U/L Total Protein (6.3-8.2) g/dL Albumin (3.5-5.0) g/dL Lipase (23-300) U/L Stool Occult Blood Negative (Negative) Blood Type Blood Type Recheck Bld Type Recheck Status Antibody Screen Spec Expiration Date 01/27/25 01/27/25 01/27/25 Range/Units 13:39 13:39 13:46 WBC (4.50-10.00) 10*3/uL RBC (4.10-5.20) 10*6/uL Hgb (12.0-15.0) g/dL Hct (37.2-46.3) % MCV (80.0-97.0) fL MCH (27.0-32.0) pg MCHC (32.0-37.0) g/dL Plt Count (140-440) 10*3/uL MPV (9.5-12.2) fL Immature Gran % (Auto) % Neutrophils % % Lymphocytes % % Monocytes % % Eosinophils % % Basophils % % Immature Gran # (0.00-0.04) 10*3/uL Neutrophils # (1.80-7.70) 10*3/uL Lymphocytes # (0.90-5.00) 10*3/uL Monocytes # (0.20-1.00) 10*3/uL Eosinophils # (0.04-0.35) 10*3/uL Basophils # (0.00-0.10) 10*3/uL PT (10.0-12.5) sec INR (<1.2) APTT (22.0-30.0) sec Sodium 137 (137-145) mmol/L Potassium 4.1 (3.5-5.1) mmol/L Chloride 103 (98-107) mmol/L Carbon Dioxide 28 (22-30) mmol/L Anion Gap 6 mmol/L BUN 12 (7-17) mg/dL Creatinine 0.56 (0.52-1.04) mg/dL Est GFR (CKD-EPI)AfAm >90 (>60 ml/min/1.73 sqM) Est GFR (CKD-EPI)NonAf >90 (>60 ml/min/1.73 sqM) Glucose 85 (74-99) mg/dL Plasma Lactic Acid Reg 0.8 (0.7-2.0) mmol/L Calcium 9.3 (8.4-10.2) mg/dL Total Bilirubin 0.6 (0.2-1.3) mg/dL AST 25 (14-36) U/L ALT 18 (4-34) U/L Alkaline Phosphatase 48 (38-126) U/L Total Protein 7.1 (6.3-8.2) g/dL Albumin 4.3 (3.5-5.0) g/dL Lipase 69 (23-300) U/L Stool Occult Blood (Negative) Blood Type O Positive Blood Type Recheck O Pos Bld Type Recheck Status No Antibody Screen NEGATIVE Spec Expiration Date 01/30/20252338 Disposition Is patient prescribed a controlled substance at d/c from ED?: No <Yisel Alberts - Last Filed: 01/27/25 15:24> <Duke Arciniega Byron - Last Filed: 01/27/25 15:46> Clinical Impression: Abdominal pain, Blood per rectum Disposition: HOME SELF-CARE Additional Instructions: Every disease is a spectrum and a small chance still exists that a serious condition could develop, for this reason, please monitor yourself closely for new, changing or worsening symptoms, symptoms that persist beyond 48 hours, any further episodes of vomiting blood, difficulty in breathing, severe abdominal pain, symptoms that did not improve in the next 48 hours, black or bloody stools, fever, inability to tolerate/keep down fluids or your medications, inability to follow up with outpatient providers as instructed and should you experience these symptoms or should you have any further concerns for your wellbeing please return to the ED or call 911 immediately. PLEASE take prescriptions as listed in discharge instructions. PLEASE call your primary care physician as soon as possible to arrange / discuss plan for followup appointment. Appointment in the next 1-3 days is strongly encouraged if possible. PLEASE let us know here before you leave if there is anything further we can do to be of any assistance. Take care and feel Better! Referrals: Kenan Ivory MD [Primary Care Provider] - 1-2 days Claudia Slade MD [STAFF PHYSICIAN] - 1-2 days
[2025-01-27] MEDS: SODIUM CHLORIDE 0.9% 1,000 ML IV ONE (13:40)
[2025-01-27] MEDS: ONDANSETRON 4 MG/2 ML VIAL IVP STA (14:04)
[2025-01-27] MEDS: MORPHINE SULFATE 2 MG/ML SYRINGE IVP STA (14:06)
[2025-01-27 14:19] LABS: Basophils # (A) 0.04 10*3/uL (0.00-0.10); Basophils % (A) 0.5 %; Eosinophils # (A) 0.08 10*3/uL (0.04-0.35); Eosinophils % (A) 1.1 %; HCT 39.4 % (37.2-46.3); HGB 13.6 g/dL (12.0-15.0); Lymphocytes # (A) 2.92 10*3/uL (0.90-5.00); Lymphocytes % (A) 39.5 %; MCH 30.8 pg (27.0-32.0); MCHC 34.5 g/dL (32.0-37.0); MCV 89.3 fL (80.0-97.0); Mean Platelet Volume 11.3 fL (9.5-12.2); Monocytes # (A) 0.37 10*3/uL (0.20-1.00); Neutrophils # (A) 3.96 10*3/uL (1.80-7.70); Neutrophils % (A) 53.5 %; Platelet Count 346 10*3/uL (140-440); RBC 4.41 10*6/uL (4.10-5.20); RDW 13.2 % (11.5-14.5)
[2025-01-27 14:20] LABS: INR 0.9 (<1.2); Partial Thromboplastin Time 24.9 sec (22.0-30.0); Prothrombin Time 10.3 sec (10.0-12.5)
[2025-01-27 14:21] LABS: ALT 18 U/L (4-34); AST 25 U/L (14-36); African American GFR (CKD) >90 (>60 ml/min/1.73 sqM); Albumin 4.3 g/dL (3.5-5.0); Alkaline Phosphatase 48 U/L (38-126); Anion Gap 6 mmol/L; Blood Urea Nitrogen 12 mg/dL (7-17); Calcium 9.3 mg/dL (8.4-10.2); Carbon Dioxide 28 mmol/L (22-30); Chloride 103 mmol/L (98-107); Glucose 85 mg/dL (74-99); Lipase 69 U/L (23-300); Non-African American GFR(CKD) >90 (>60 ml/min/1.73 sqM); Potassium 4.1 mmol/L (3.5-5.1); Sodium 137 mmol/L (137-145); Total Bilirubin 0.6 mg/dL (0.2-1.3); Total Protein 7.1 g/dL (6.3-8.2)
--- NOTE | 2025-01-27 15:12 | CT ---
EXAMINATION TYPE: CT abdomen pelvis w con DATE OF EXAM: 01/27/2025 COMPARISON: 11/23/2023 CLINICAL INDICATION: Female, 44 years old with history of LUQ abdominal pain; PHH, left sided pain TECHNIQUE: Performed without Oral Contrast and with IV Contrast, patient injected with 100 mL of Isovue 300. CT DLP: 1094.[address] CTDI: mGy Automated exposure control for dose reduction was used. FINDINGS: The lung bases are clear. The gallbladder is normal without distention, wall thickening, pericholecystic fluid or gallstones. T here is no biliary ductal dilatation. There is no focal mass or organomegaly involving the liver, pancreas, spleen or adrenal glands. There is no solid renal mass or hydronephrosis and there is homogeneous contrast enhancement of the r enal parenchyma. There is a tiny nonobstructing punctate calcification in the right kidney. The caliber the abdominal aorta is normal is no retroperitoneal adenopathy or hemorrhage. The bowel loops are normal in caliber and there is no evidence of dilatation or obstruction. No infla mmatory changes are identified in the bowel wall or mesentery. There is no free intraperitoneal air or fluid. No pelvic mass, free fluid, abscess or adenopathy. The osseous structures and soft tissues are intact. IMPRESSION: Nonobstructing punctate calcification right kidney. No other significant abnormality seen. No acute c hanges within the abdomen or pelvis. [facility] Eulogio Phillips, , 01/27/2025 3:10 PM
== END 2025-01-27 16:32 | disposition home or self-care (01) ==
LOC: EC 12:26
DX: K62.5 Hemorrhage of anus and rectum (principal); Z87.891 Personal history of nicotine dependence; Z88.2 Allergy status to sulfonamides; Z88.1 Allergy status to other antibiotic agents; Z88.8 Allergy status to other drugs, medicaments and biological substances
CPT/HCPCS: 36415; 86900; 86901; 80053; 83605; 83690; 85025; 85610; 85730; 86850; 82272; 74177; 99284; 96374; 96375; 96361; J2405; J2270; Q9967